=== PATIENT | male | born 1945 | race African-American/Black ===

== ENCOUNTER 2018-02-17 10:34 | Inpatient (IN) | payer MEDICARE, OTHER ==
[~2018-02-17] VITALS: Ht 188 cm; Wt 108.9 kg
[2018-02-17] VITALS (8 sets, daily range): BP systolic 93–139; BP diastolic 47–81
--- NOTE | 2018-02-17 11:04 | Emergency Room Report ---
History of Present Illness General Chief Complaint: Generalized Weakness Source: Patient, EMS Present Illness HPI Patient is a 73-year-old male brought in by EMS after increased generalized weakness and nausea. The patient reports having increased chills for several days. The patient presented increased generalized weakness. He reports having been having increased difficulty with ambulation due to dizziness and lightheadedness. He been having increased difficulty moving his legs. Patient prior heart attack. The patient had been noted to have prior history of prostate disease. The patient is normally followed by physicians at [facility] in [place]. Patient is a marijuana smoker.The patient denies any vomiting. He reports having had generalized body aches. He denies any speech changes. He reports having predominantly left lower extremity weakness. The patient had prior history of diabetes which he takes metformin. He reportedly had prior history of cardiac arrhythmia but is not under any anticoagulation at this time. Patient is noted to have prior history of enlarged prostate with an elevated PSA. Allergies: Coded Allergies: CIPROFLOXACIN (Verified Allergy, Unknown, 02/17/18) PENICILLINS (Verified Allergy, Unknown, 02/17/18) Patient History Past Medical History: see triage record, DM, MT, CAD Reviewed Nursing Documentation: PMH: Agreed; PSxH: Agreed Nursing Documentation-PMH Past Medical History: No History, Except For Hx Cardiac Problems: Yes - AFIB, Hx Hypertension: Yes Hx Diabetes: Yes Review of Systems Constitutional: Reports: chills, fever, weakness Cardiovascular: Reports: palpitations, other - lightheadedness Gastrointestinal: Reports: abdominal pain Genitourinary: Reports: other - dark urine Musculoskeletal: Reports: other - muscle weakness Neurological: Reports: dizziness Endocrine: Reports: excessive sweating, increased thirst Hematologic/Lymphatic: Reports: no symptoms Allergic: Reports: other All Other Systems: negative except mentioned in HPI Physical Exam Vital Signs Date Time Temp Pulse Resp B/P (MAP) Pulse Ox O2 Delivery O2 Flow Rate FiO2 02/17/18 10:36 98.1 110 20 103/53 99 Room Air General Appearance: alert, GCS 15, moderate distress Eyes: bilateral eye PERRL ENT: normal pharynx, normal voice Neck: full range of motion Respiratory: normal inspection, no respiratory distress Cardiovascular #1: tachycardia Gastrointestinal: distended, other - fluid wave Genitourinary: no CVA tenderness Musculoskeletal: other - motor weakness Neurologic: motor weakness Skin: normal inspection, normal color, no rash Procedures Critical Care Time Critical Care Time Patient had a critical medical condition which untreated could potentially result in life or limb threatening injury. Total critical care time excluding procedures approximately 45 minutes. Medical Decision Making Diagnostic Impression: Primary Impression: Episode of generalized weakness Additional Impressions: Hypotension Severe sepsis Acute renal insufficiency Hyponatremia Urinary tract infection Atrial flutter Type II diabetes mellitus ER Course Patient presented for generalized weakness. Differential diagnosis included was not limited to anemia, urinary tract infection, electrolyte abnormality, hypothyroidism, myocardial infarction, myasthenia gravis, dehydration, among others. EKG interpreted by me showed atrial flutter with a variable block rate in the 100. The patient noted be hypotensive.Patient started on IV fluids and antibiotics after blood cultures are obtained. Patient noted to have a some evidence of urinary infection. The patient was noted to have initially stated that he was allergic to penicillin. The patient was given IV Levaquin . The patient subsequently reported that he had a ciprofloxacin allergy. Patient did not appear to have any reaction to Levaquin. Chest x-ray one view read by radiology showed no evident pneumonia with normal cardiac size. The patient was given IV fluids with improvement in his blood pressure. The patient was noted to have type 2 diabetes most recent hemoglobin A1c 5.9. CT the abdomen pelvis read by radiology showed large area of heterogeneous attenuation and extensive colonic diverticulosis generalized sigmoid wall thickening. Dr. Se Tompkisn was contacted for inpatient management. Dr. Ramos was contacted for surgical consult. Labs Test 02/17/18 11:05 02/17/18 12:00 02/17/18 12:17 White Blood Count 26.1 K/UL (4.8-10.8) Red Blood Count 4.61 M/UL (4.70-6.10) Hemoglobin 13.8 G/DL (14.2-18.0) Hematocrit 39.0 % (42.0-52.0) Mean Corpuscular Volume 85 FL (80-99) Mean Corpuscular Hemoglobin 30.0 PG (27.0-31.0) Mean Corpuscular Hemoglobin Concent 35.5 G/DL (32.0-36.0) Red Cell Distribution Width 11.6 % (11.6-14.8) Platelet Count 108 K/UL (150-450) Mean Platelet Volume 10.4 FL (6.5-10.1) Neutrophils (%) (Auto) % (45.0-75.0) Lymphocytes (%) (Auto) % (20.0-45.0) Monocytes (%) (Auto) % (1.0-10.0) Eosinophils (%) (Auto) % (0.0-3.0) Basophils (%) (Auto) % (0.0-2.0) Differential Total Cells Counted 100 Neutrophils % (Manual) 92 % (45-75) Lymphocytes % (Manual) 4 % (20-45) Monocytes % (Manual) 4 % (1-10) Eosinophils % (Manual) 0 % (0-3) Basophils % (Manual) 0 % (0-2) Band Neutrophils 0 % (0-8) Platelet Estimate Decreased Platelet Morphology Normal Red Blood Cell Morphology Normal Prothrombin Time 10.9 SEC (9.30-11.50) Prothromb Time International Ratio 1.0 (0.9-1.1) Activated Partial Thromboplast Time 31 SEC (23-33) Sodium Level 125 MMOL/L (136-145) Potassium Level 3.4 MMOL/L (3.5-5.1) Chloride Level 85 MMOL/L (98-107) Carbon Dioxide Level 19 MMOL/L (21-32) Anion Gap 21 mmol/L (5-15) Blood Urea Nitrogen 81 mg/dL (7-18) Creatinine 3.2 MG/DL (0.55-1.30) Estimat Glomerular Filtration Rate mL/min (>60) Glucose Level 153 MG/DL (74-106) Calcium Level 8.6 MG/DL (8.5-10.1) Phosphorus Level 4.9 MG/DL (2.5-4.9) Magnesium Level 1.6 MG/DL (1.8-2.4) Total Bilirubin 5.8 MG/DL (0.2-1.0) Direct Bilirubin 4.8 MG/DL (0.0-0.3) Aspartate Amino Transf (AST/SGOT) 630 U/L (15-37) Alanine Aminotransferase (ALT/SGPT) 268 U/L (12-78) Alkaline Phosphatase 275 U/L (46-116) Total Creatine Kinase 52 U/L (26-308) Creatine Kinase MB 1.6 NG/ML (0.0-3.6) Creatine Kinase MB Relative Index 3.0 Troponin I 0.023 ng/mL (0.000-0.056) Pro-B-Type Natriuretic Peptide 5555 pg/mL (0-125) Total Protein 6.4 G/DL (6.4-8.2) Albumin 2.0 G/DL (3.4-5.0) Globulin 4.4 g/dL Albumin/Globulin Ratio 0.5 (1.0-2.7) Lipase 214 U/L (73-393) Urine Color [place] Urine Appearance Cloudy Urine pH 5 (4.5-8.0) Urine Specific [place] 1.020 (1.005-1.035) Urine Protein 2+ (NEGATIVE) Urine Glucose (UA) Negative (NEGATIVE) Urine Ketones 1+ (NEGATIVE) Urine Blood 2+ (NEGATIVE) Urine Nitrite Negative (NEGATIVE) Urine Bilirubin 2+ (NEGATIVE) Urine Urobilinogen 8 MG/DL (0.0-1.0) Urine Leukocyte Esterase 1+ (NEGATIVE) EKG Diagnostic Results Rate: normal Rhythm: other - atrail flutter ST Segments: no acute changes Rhythm Strip Diag. Results EP Interpretation: yes Rhythm: no PVC's, no ectopy, other - tachycardia Last Vital Signs Date Time Temp Pulse Resp B/P (MAP) Pulse Ox O2 Delivery O2 Flow Rate FiO2 02/17/18 10:36 98.1 110 20 103/53 99 Room Air Status: improved Disposition: ADMITTED INPATIENT Condition: Critical Robert Butcher MD Feb 17, 2018 11:04
[2018-02-17 11:28] LABS: HEMOGLOBIN 13.8 G/DL (14.2-18.0); MEAN CORPUSCULAR VOLUME 85 FL (80-99); PLATELET COUNT 108 K/UL (150-450); RED BLOOD COUNT 4.61 M/UL (4.70-6.10); RED CELL DISTRIBUTION WIDTH 11.6 % (11.6-14.8)
[2018-02-17] MEDS ORDERED: Ascorbic Acid 500mg tab ORAL SCH (11:30)
[2018-02-17 11:33] LABS: WHITE BLOOD COUNT 26.1 K/UL (4.8-10.8)
[2018-02-17 11:36] LABS: ANION GAP 21 mmol/L (5-15); BLOOD UREA NITROGEN 81 mg/dL (7-18); CALCIUM 8.6 MG/DL (8.5-10.1); CARBON DIOXIDE 19 MMOL/L (21-32); CHLORIDE 85 MMOL/L (98-107); CREATININE 3.2 MG/DL (0.55-1.30); POTASSIUM 3.4 MMOL/L (3.5-5.1); SODIUM 125 MMOL/L (136-145)
[2018-02-17 11:50] LABS: ALANINE AMINOTRANSFERASE 268 U/L (12-78); ALBUMIN/GLOBULIN RATIO 0.5 (1.0-2.7); ALKALINE PHOSPHATASE 275 U/L (46-116); ASPARTATE AMINO TRANSFERASE 630 U/L (15-37); BILIRUBIN,TOTAL 5.8 MG/DL (0.2-1.0); CKMB 1.6 NG/ML (0.0-3.6); CREATINE KINASE 52 U/L (26-308); PHOSPHORUS 4.9 MG/DL (2.5-4.9)
[2018-02-17 11:51] LABS: BILIRUBIN,DIRECT 4.8 MG/DL (0.0-0.3)
[2018-02-17 12:34] LABS: APPEARANCE,URINE CLOUDY; BILIRUBIN, URINE 2+ (NEGATIVE); GLUCOSE, URINE (UA) NEGATIVE (NEGATIVE); KETONES,URINE 1+ (NEGATIVE); LEUKOCYTE ESTERASE ,URINE 1+ (NEGATIVE); NITRITE,URINE NEGATIVE (NEGATIVE); PH,URINE 5 (4.5-8.0); PROTEIN,URINE 2+ (NEGATIVE); UROBILINOGEN,URINE 8 MG/DL (0.0-1.0)
[2018-02-17 12:38] LABS: COLOR,URINE AMBER
--- NOTE | 2018-02-17 12:55 | Diagnostic Imaging Report ---
Indication: Abdominal pain Technique: Spiral acquisitions obtained through the abdomen and pelvis. No oral contrast utilized, per emergency room physician request No IV contrast utilized, per emergency room physician request.. Multiplanar reconstructions were generated. Total dose length product 1041.79 mGycm. CTDIvol(s) 17.73 mGy. Dose reduction achieved using automated exposure control Comparison: None Findings: Lack of IV contrast limits assessment of the solid organs Large area of heterogeneous low attenuation involves most of segments 2 and 3 of the left hepatic lobe, measures 9.8 cm in length by 11.3 cm transverse by 9.2 cm craniocaudad. It demonstrates a small peripheral 10 mm satellite lesion. 2 cysts are seen in segment IVb of the liver, the more anterior measuring 2.7 cm diameter, the more posterior measuring 2.5 cm. 2 subcentimeter low-attenuation lesions are seen in segment 6, too small to characterize. Another such lesion is seen in segment 8. A small cyst is also seen in segment 8. The gallbladder is nondistended, central contents somewhat high in attenuation. No biliary ductal dilatation. The pancreas, spleen, are unremarkable. The right kidney demonstrates a 2 mm renal sinus calcification, which may be calyceal or arterial. No focal renal parenchymal lesions. There is fairly extensive perinephric fat stranding bilaterally. The prostate is enlarged, measuring 6.4 cm transverse by 5.8 cm AP by 6.7 cm craniocaudad, indenting the bladder floor. The bladder is nondistended. Lack of enteric contrast limits assessment of the GI tract There is extensive colonic diverticulosis. There is generalized sigmoid wall thickening. No evidence of diverticulitis. The appendix is normal. There is a tiny fat-containing umbilical hernia. There are small fat-containing bilateral inguinal hernias. The distal esophagus, stomach, duodenum are unremarkable. No small bowel distention. No free or loculated intraperitoneal gas or fluid is evident. The bones are unremarkable. Included lung bases demonstrate posterior dependent atelectatic changes. Impression: Large 9.8 x 11.3 x 9.2 cm heterogeneous area of low-attenuation involving most of the lateral left hepatic lobe. This is not optimally characterized given lack of IV contrast administration. Main differential considerations are either primary or metastatic neoplasm, abscess, large hemangioma. Correlate with clinical findings, consider contrast CT for evaluation if not contraindicated Hepatic cysts. Other smaller low-attenuation liver lesions are too small to characterize, is likely benign simple cysts or bile hamartomas, but metastatic deposits also possibility given the above findings Limited assessment of the GI tract, due to lack of enteric contrast administration Colonic diverticulosis. Generalized sigmoid wall thickening is likely on the basis of associated circular muscle hypertrophy. No evidence of diverticulitis. Prostatomegaly Nonspecific bilateral perinephric fat stranding, suspect on the basis of senescent changes but could indicate acute renal inflammation. Correlate with clinical findings Somewhat high attenuation gallbladder lumen, could indicate gallbladder sludge Nonobstructive 2 mm right renal sinus calcification, versus arterial calcification Other findings as noted, including posterior pulmonary dependent atelectatic changes, tiny fat-containing umbilical and bilateral inguinal hernias The CT scanner at [facility] is accredited by the [employer] and the scans are performed using protocols designed to limit radiation exposure to as low as reasonably achievable to attain images of sufficient resolution adequate for diagnostic evaluation.
[2018-02-17] MEDS ORDERED: Ampicillin/Sulbactam Sod 3 GM in NS 110 ML IVPB ONE (13:30)
--- NOTE | 2018-02-17 15:01 | Diagnostic Imaging Report ---
Indication: Reason For Exam: SOB Technique: One view of the chest Comparison: none Findings: Lungs and pleural spaces are clear. Heart size is normal Impression: No acute process
[2018-02-17] MEDS ORDERED: HydrALAZINE 25mg tab ORAL PRN (17:45)
[2018-02-17] MEDS: Metoprolol Tartrate 12.5mg TAB ORAL SCH (18:37)
--- NOTE | 2018-02-17 18:51 | Consultation ---
History of Present Illness General Date patient seen: Feb 17, 2018 Chief Complaint: Generalized Weakness Present Illness HPI 73 year old male with multiple medical comorbidities including HTN, DM, CAD s/p stent (last in 1997) on ASA, dyslipidemia, and more presented to ED with complaints of generalized weakness, nausea, emesis. States that last week he was in [place] for a few days and felt great. Came to [place] and believed he may have the flu as he was having flu like symptoms. Harrell weak, had chills, possible fevers, nausea, and non bloody emesis. As he did not improve he came to ED for evaluation. In ED noted to have leukocytosis, UTI, abnormal LFT's, RIKY , and CT with large left sided liver mass. surgery called to evaluate. patient seen, chart reviewed, patient examined. Denies history of liver mass or disease. States he has regular doctor visits. Has been well otherwise. Denies pain. No prior surgeries. normal BM's. intermittent SOB and dyspnea. soar throat Allergies: Coded Allergies: CIPROFLOXACIN (Verified Allergy, Unknown, 02/17/18) PENICILLINS (Verified Allergy, Unknown, 02/17/18) Patient History History Provided By: Patient, Medical Record, PMD Healthcare decision maker Aline Price Resuscitation status Advanced Directive on File Past Medical/Surgical History Past Medical/Surgical History: (1) Liver mass, left lobe (2) HTN (hypertension) (3) CAD (coronary artery disease) (4) CAD S/P percutaneous coronary angioplasty (5) Atrial flutter (6) Urinary tract infection (7) Type II diabetes mellitus (8) Hyponatremia (9) Acute renal insufficiency (10) Severe sepsis (11) Hypotension (12) Episode of generalized weakness Review of Systems All Other Systems: negative except mentioned in HPI Physical Exam General Appearance: no apparent distress, alert Lines, tubes and drains: peripheral HEENT: mucous membranes moist, PERRL Neck: normal inspection Respiratory/Chest: normal breath sounds, no respiratory distress, no accessory muscle use Cardiovascular/Chest: normal peripheral pulses, tachycardia Abdomen: soft, no organomegaly, no mass, distended Extremities: normal range of motion, non-tender, normal inspection, no calf tenderness Neurologic: alert, oriented x 3, responsive Last 24 Hour Vital Signs Date Time Temp Pulse Resp B/P (MAP) Pulse Ox O2 Delivery O2 Flow Rate FiO2 02/17/18 18:37 119 139/69 02/17/18 16:25 119 02/17/18 16:00 Room Air 02/17/18 16:00 Room Air 02/17/18 16:00 98.1 100 20 139/69 (92) 96 02/17/18 15:34 109 25 93/60 (71) 97 02/17/18 15:00 97.6 117 24 128/81 (97) 97 02/17/18 14:41 98.6 85 20 120/96 95 Room Air 02/17/18 13:09 97.6 102 20 123/81 98 Room Air 02/17/18 12:30 98.0 97 18 123/81 99 Room Air 02/17/18 11:30 98.2 98 22 113/69 99 Room Air 02/17/18 11:04 98.0 114 24 94/47 Room Air 02/17/18 11:03 114 24 Room Air 100 02/17/18 10:36 98.1 110 20 103/53 99 Room Air Laboratory Tests Test 02/17/18 10:30 02/17/18 11:05 02/17/18 12:00 02/17/18 12:17 Hemoglobin A1c 6.5 % (4.3-6.0) H White Blood Count 26.1 K/UL (4.8-10.8) *H Red Blood Count 4.61 M/UL (4.70-6.10) L Hemoglobin 13.8 G/DL (14.2-18.0) L Hematocrit 39.0 % (42.0-52.0) L Mean Corpuscular Volume 85 FL (80-99) Mean Corpuscular Hemoglobin 30.0 PG (27.0-31.0) Mean Corpuscular Hemoglobin Concent 35.5 G/DL (32.0-36.0) Red Cell Distribution Width 11.6 % (11.6-14.8) Platelet Count 108 K/UL (150-450) L Mean Platelet Volume 10.4 FL (6.5-10.1) H Neutrophils (%) (Auto) % (45.0-75.0) Lymphocytes (%) (Auto) % (20.0-45.0) Monocytes (%) (Auto) % (1.0-10.0) Eosinophils (%) (Auto) % (0.0-3.0) Basophils (%) (Auto) % (0.0-2.0) Differential Total Cells Counted 100 Neutrophils % (Manual) 92 % (45-75) H Lymphocytes % (Manual) 4 % (20-45) L Monocytes % (Manual) 4 % (1-10) Eosinophils % (Manual) 0 % (0-3) Basophils % (Manual) 0 % (0-2) Band Neutrophils 0 % (0-8) Platelet Estimate Decreased L Platelet Morphology Normal Red Blood Cell Morphology Normal Prothrombin Time 10.9 SEC (9.30-11.50) Prothromb Time International Ratio 1.0 (0.9-1.1) Activated Partial Thromboplast Time 31 SEC (23-33) Sodium Level 125 MMOL/L (136-145) L Potassium Level 3.4 MMOL/L (3.5-5.1) L Chloride Level 85 MMOL/L (98-107) L Carbon Dioxide Level 19 MMOL/L (21-32) L Anion Gap 21 mmol/L (5-15) H Blood Urea Nitrogen 81 mg/dL (7-18) H Creatinine 3.2 MG/DL (0.55-1.30) H Estimat Glomerular Filtration Rate mL/min (>60) Glucose Level 153 MG/DL (74-106) H Lactic Acid Level 5.30 mmol/L (0.4-2.0) H 3.00 mmol/L (0.66-2.22) H Calcium Level 8.6 MG/DL (8.5-10.1) Phosphorus Level 4.9 MG/DL (2.5-4.9) Magnesium Level 1.6 MG/DL (1.8-2.4) L Total Bilirubin 5.8 MG/DL (0.2-1.0) H Direct Bilirubin 4.8 MG/DL (0.0-0.3) H Aspartate Amino Transf (AST/SGOT) 630 U/L (15-37) H Alanine Aminotransferase (ALT/SGPT) 268 U/L (12-78) H Alkaline Phosphatase 275 U/L (46-116) H Total Creatine Kinase 52 U/L (26-308) Creatine Kinase MB 1.6 NG/ML (0.0-3.6) Creatine Kinase MB Relative Index 3.0 Troponin I 0.023 ng/mL (0.000-0.056) Pro-B-Type Natriuretic Peptide 5555 pg/mL (0-125) H Total Protein 6.4 G/DL (6.4-8.2) Albumin 2.0 G/DL (3.4-5.0) L Globulin 4.4 g/dL Albumin/Globulin Ratio 0.5 (1.0-2.7) L Lipase 214 U/L (73-393) Urine Color [place] Urine Appearance Cloudy Urine pH 5 (4.5-8.0) Urine Specific [place] 1.020 (1.005-1.035) Urine Protein 2+ (NEGATIVE) H Urine Glucose (UA) Negative (NEGATIVE) Urine Ketones 1+ (NEGATIVE) H Urine Blood 2+ (NEGATIVE) H Urine Nitrite Negative (NEGATIVE) Urine Bilirubin 2+ (NEGATIVE) H Urine Ictotest Positive (NEGATIVE) Urine Urobilinogen 8 MG/DL (0.0-1.0) H Urine Leukocyte Esterase 1+ (NEGATIVE) H Urine RBC 2-4 /HPF (0 - 0) H Urine WBC Tntc /HPF (0 - 0) H Urine Squamous Epithelial Cells Few /LPF (NONE/OCC) Urine Bacteria Many /HPF (NONE) H Height (Feet): 6 Height (Inches): 2.00 Weight (Pounds): 225 Medications Current Medications Medications (Trade) Dose Ordered Sig/[place] Route PRN Reason Start Time Stop Time Status Last Admin Dose Admin Acetaminophen (Tylenol) 650 mg Q6H PRN ORAL For pain 02/17/18 18:00 03/19/18 17:44 Albuterol/ Ipratropium (Albuterol/ Ipratropium) 3 ml Q6H PRN HHN Shortness of Breath 02/17/18 17:30 02/22/18 17:29 Alfuzosin HCl (Uroxatrol) 10 mg DAILY ORAL 02/18/18 09:00 03/20/18 08:59 Aspirin (ASA) 81 mg DAILY ORAL 02/18/18 09:00 03/20/18 08:59 Atorvastatin Calcium (Lipitor) 20 mg BEDTIME ORAL 02/17/18 21:00 03/19/18 20:59 Cefepime HCl 1 gm/ Dextrose 55 ml @ 110 mls/hr Q24H IVPB 02/17/18 20:00 02/24/18 19:59 Clonazepam (KlonoPIN) 0.5 mg Q12H PRN ORAL For Anxiety 02/17/18 18:00 02/24/18 17:59 Cyanocobalamin (Vitamin B-12) 1,000 mcg DAILY ORAL 02/18/18 09:00 03/20/18 08:59 Finasteride (Proscar) 5 mg EVERY OTHER DAY ORAL 02/19/18 09:00 03/21/18 08:59 Fish Oil (Fish Oil) 1,000 mg DAILY ORAL 02/18/18 09:00 03/20/18 08:59 Heparin Sodium (Porcine) (Heparin 5000 units/ml) 5,000 units EVERY 12 HOURS SUBQ 02/17/18 21:00 03/19/18 20:59 Hydralazine HCl (Apresoline) 25 mg Q6H PRN ORAL For High Blood Pressure 02/17/18 17:45 03/19/18 17:44 Hydroxyzine HCl (Vistaril) 10 mg Q8H PRN ORAL Itching 02/17/18 18:00 03/19/18 17:59 Insulin Aspart (NovoLOG) BEFORE MEALS AND HS SUBQ 02/17/18 21:00 03/19/18 20:59 Metoprolol Tartrate (Lopressor) 12.5 mg BID ORAL 02/17/18 18:00 03/19/18 17:59 02/17/18 18:37 Metronidazole 100 ml @ 100 mls/hr Q8HR IVPB 02/17/18 22:00 02/24/18 21:59 Pantoprazole (Protonix) 40 mg DAILY ORAL 02/18/18 09:00 03/20/18 08:59 Psyllium Hydrophilic Mucilloid (Metamucil) 1 pkt DAILY ORAL 02/18/18 09:00 03/20/18 08:59 Sertraline HCl (Zoloft) 100 mg DAILY ORAL 02/18/18 09:00 03/20/18 08:59 Sodium Chloride 1,000 ml @ 40 mls/hr Q24H IVLG 02/17/18 17:41 03/19/18 17:40 02/17/18 18:39 Vancomycin HCl (Vanco rx to dose) 1 ea DAILY PRN MISC Per rx protocol 02/17/18 18:30 03/19/18 18:29 Vancomycin HCl 1 gm/Dextrose 275 ml @ 183.708 mls/hr ONCE IVPB 02/17/18 20:00 02/17/18 22:00 Vitamin D (Vitamin D) 2,000 intlu DAILY ORAL 02/18/18 09:00 03/20/18 08:59 Vitamin E (Vitamin E) 400 intlu DAILY ORAL 02/18/18 09:00 03/20/18 08:59 Assessment/Plan Problem List: (1) Severe sepsis Assessment & Plan: likely etiology urosepsis IV fluids IV abx ID consult ICD Codes: A41.9 - Sepsis, unspecified organism; R65.20 - Severe sepsis without septic shock SNOMED: 71805821 (2) Liver mass, left lobe Assessment & Plan: large left lobe liver mass of unknown etiology CT without contrast will order US and maybe MRI later -trend labs -npo -iv f -iv abx ICD Codes: R16.0 - Hepatomegaly, not elsewhere classified SNOMED: 835257646 Jayden Ramos Feb 17, 2018 18:51
[2018-02-17] MEDS ORDERED: Vancomycin 1gm/D5W 275ml IVPB SCH ×2 (20:00)
[2018-02-17] MEDS: NovoLOG Insulin Flexpen SUBQ SCH (20:28)
[2018-02-17] MEDS: Cefepime HCl 1 GM in D5W 55 ML IVPB SCH (20:29)
[2018-02-17] MEDS ORDERED: Atorvastatin 20mg tab ORAL SCH (21:00)
[2018-02-17] MEDS ORDERED: Heparin 5000 units/ml inj SUBQ SCH ×2 (21:00)
[2018-02-18] VITALS: BP 122/52
[2018-02-18] MEDS: clonazePAM 0.5mg tab ORAL PRN ×2 (00:13→12:20)
[2018-02-18 04:00] VITALS: BP 122/54
[2018-02-18 05:34] LABS: ALANINE AMINOTRANSFERASE 253 U/L (12-78); ALBUMIN 1.8 G/DL (3.4-5.0); ALBUMIN/GLOBULIN RATIO 0.4 (1.0-2.7); ALKALINE PHOSPHATASE 279 U/L (46-116); ANION GAP 11 mmol/L (5-15); ASPARTATE AMINO TRANSFERASE 516 U/L (15-37); BILIRUBIN,TOTAL 6.1 MG/DL (0.2-1.0); BLOOD UREA NITROGEN 85 mg/dL (7-18); CALCIUM 8.2 MG/DL (8.5-10.1); CARBON DIOXIDE 26 MMOL/L (21-32); CHLORIDE 90 MMOL/L (98-107); CREATININE 2.3 MG/DL (0.55-1.30); SODIUM 126 MMOL/L (136-145)
[2018-02-18 05:38] LABS: BILIRUBIN,DIRECT 5.4 MG/DL (0.0-0.3)
[2018-02-18] MEDS: NovoLOG Insulin Flexpen SUBQ SCH ×4 (06:13→21:12)
[2018-02-18 06:35] LABS: HEMOGLOBIN 14.4 G/DL (14.2-18.0); MEAN CORPUSCULAR VOLUME 85 FL (80-99); PLATELET COUNT 82 K/UL (150-450); WHITE BLOOD COUNT 16.6 K/UL (4.8-10.8)
[2018-02-18 08:00] VITALS: BP 154/89
[2018-02-18] MEDS: Aspirin Baby 81mg ORAL SCH (08:52)
[2018-02-18] MEDS: Metoprolol Tartrate 12.5mg TAB ORAL SCH ×2 (08:52→17:28)
[2018-02-18] MEDS: Metamucil Pkt ORAL SCH (08:53)
[2018-02-18] MEDS: Sertraline 100mg tab ORAL SCH (08:53)
[2018-02-18] MEDS: Vitamin B-12 500mcg tab ORAL SCH (08:53)
[2018-02-18] MEDS ORDERED: Vitamin D 1000 IU Tab ORAL SCH (09:00)
[2018-02-18] MEDS ORDERED: Pantoprazole Inj IVP SCH (09:00)
[2018-02-18 10:17] LABS: CREATINE KINASE 35 U/L (26-308); PHOSPHORUS 2.9 MG/DL (2.5-4.9)
[2018-02-18] MEDS: Albuterol/Ipratropium 3ml neb HHN PRN ×2 (11:53→18:57)
[2018-02-18 12:00] VITALS: BP 99/62
--- NOTE | 2018-02-18 12:26 | Diagnostic Imaging Report ---
EXAM: US Abdomen Complete CLINICAL HISTORY: MASS TECHNIQUE: Real-time ultrasound of the abdomen (complete) with image documentation. COMPARISON: CT abdomen and pelvis dated 02/17/18 FINDINGS: Liver: 11.5 x 11.0 x 10.8 cm heterogeneous cystic and solid mass lesion in the left hepatic lobe with internal Doppler flow. Scattered hepatic cysts, largest measuring 4.4 x 3.4 x 2.7 cm in the left hepatic lobe. Gallbladder: Unremarkable. No gallstones. No wall thickening. No pericholecystic fluid. Common bile duct: Common bile duct diameter of 7.1 mm. No stones. No dilation. Pancreas: Unremarkable as visualized. Pancreatic body and tail are obscured by bowel gas. Kidneys: Right kidney length 12.5 cm. Left kidney length 12.7 cm. Normal cortical thickness. No visible parenchymal lesions. No visible stones. No hydronephrosis. Spleen: Spleen diameter of 11.1 cm. Aorta: Visualized portions of the aorta appear unremarkable. Mid abdominal aorta is obscured by bowel gas. Inferior vena cava: Visualized portions of the IVC appear unremarkable. IMPRESSION: 11.5 x 11.0 x 10.8 cm heterogeneous cystic and solid mass lesion in the left hepatic lobe with internal Doppler flow. This is highly concerning for a primary or metastatic malignancy. Recommend further evaluation with contrast-enhanced CT or MRI.
--- NOTE | 2018-02-18 12:29 | Consultation ---
DATE OF CONSULTATION: 02/18/2018 NEPHROLOGY CONSULTATION CONSULTING PHYSICIAN: Mike Kim M.D. ATTENDING PHYSICIAN: Se Tompkins M.D. REASON FOR CONSULTATION: Elevated BUN and creatinine. HISTORY OF PRESENT ILLNESS: This is a 73-year-old male, brought in by the paramedics due to nausea and weakness. The patient has been previously followed by physicians at [facility]. PAST MEDICAL HISTORY: Type 2 diabetes mellitus. MEDICATIONS: Metformin. ALLERGIES: Ciprofloxacin and penicillins. FAMILY HISTORY: Unremarkable. SOCIAL HISTORY: He lives at home. HABITS: Notable for marijuana smoking. REVIEW OF SYSTEMS: HEENT: Hearing and eyesight are normal. ENDOCRINE: Significant for mild type 2 diabetes mellitus. RESPIRATORY: He denies shortness of breath, cough, or hemoptysis. CARDIOVASCULAR: Denies chest pain or palpitations. GASTROINTESTINAL: No history of hematochezia, melena, hematemesis, diarrhea, or constipation. GENITOURINARY: He denies dysuria, frequency, urgency, or hematuria. NEUROLOGIC: No history of stroke, syncope, or Parkinson disease. PHYSICAL EXAMINATION: GENERAL: This is an elderly male, who is in no acute distress. VITAL SIGNS: Blood pressure 154/89, pulse 120, sinus tachycardia, respirations 20, and temperature 98 axillary. HEENT: Head is normocephalic and atraumatic. Pupils are equal, round, and reactive to light and accommodation consensually. NECK: Supple. Trachea midline. There is no lymphadenopathy or thyromegaly. LUNGS: Clear to auscultation and percussion. HEART: Tachycardia. S1, S2. No rubs, murmurs, or gallops. ABDOMEN: Distended, soft, nontender. Bowel sounds were active. EXTREMITIES: No clubbing, cyanosis, or edema. NEUROLOGICAL: He is alert and oriented x4. Cranial nerves II through XII intact. LABORATORY AND ANCILLARY DATA: CBC shows white count initially 26,100, today 16,600, hematocrit . Sodium 126, potassium 3, BUN 85, creatinine 2.3, glucose 154, calcium 8.2. Magnesium not reported. Total bilirubin 6.1 direct bilirubin 5.4. AST 516, ALT 253. CPK not reported. Urinalysis, eunice cloudy urine, 2+ protein, positive ictotest, 2 to 4 rbc's, too numerous to count white blood cells. Imaging reports CT scan of the abdomen and pelvis shows large 9.8 x 11.3 x 9.2 cm heterogeneous area of low attenuation involving most of the lateral left hepatic lobe. Consideration either primary or metastatic neoplasm, abscess or large hemangioma. This study is done without contrast. A 2 mm right renal sinus calcification. ASSESSMENT: 1. Presumed acute renal failure, most likely of ATN type versus nephrotoxic type versus acute rhabdomyolysis. 2. Large liver tumour, etiology and composition unknown. 3. Type 2 diabetes mellitus. PLAN: 1. Continue hydration. 2. Change to more concentrated contents. 3. Check stat CPK level. Thank you, Dr. Tompkins, for letting me to participate in the care of this challenging patient. Mike Kim M.D. DR: ANA LAURA JOB#: [id number] CC:
[2018-02-18] MEDS ORDERED: NS 275ml ONE (13:44)
[2018-02-18] MEDS ORDERED: Tubing IV Secondary IV ONE ×2 (13:44→15:57)
--- NOTE | 2018-02-18 14:22 | General Surgery Progress Note ---
General Surgery-Progress Note Subjective Additional Comments doing better today. no pain. no n/v/f/c. labs slightly improved. exam stable. US noted Objective Last 24 Hour Vital Signs Date Time Temp Pulse Resp B/P (MAP) Pulse Ox O2 Delivery O2 Flow Rate FiO2 02/18/18 12:01 Room Air 02/18/18 12:00 98.3 112 19 99/62 (74) 95 02/18/18 11:53 106 18 99 Room Air 21 02/18/18 11:49 98 02/18/18 11:45 112 22 98 Room Air 21 02/18/18 11:45 36 02/18/18 08:52 120 154/89 02/18/18 08:00 Room Air 02/18/18 08:00 99.0 120 20 154/89 (110) 95 02/18/18 07:53 110 02/18/18 06:47 98 18 Room Air 21 02/18/18 04:00 98.4 118 20 122/54 (76) 95 02/18/18 04:00 Room Air 02/18/18 03:37 112 02/18/18 00:00 98.4 62 18 122/52 (75) 96 02/18/18 00:00 Room Air 02/17/18 23:34 111 02/17/18 20:00 97.9 93 20 112/60 (77) 95 02/17/18 20:00 Room Air 02/17/18 19:46 98 02/17/18 19:38 120 20 Room Air 21 02/17/18 18:37 119 139/69 02/17/18 16:25 119 02/17/18 16:00 Room Air 02/17/18 16:00 Room Air 02/17/18 16:00 98.1 100 20 139/69 (92) 96 02/17/18 15:34 109 25 93/60 (71) 97 02/17/18 15:00 97.6 117 24 128/81 (97) 97 02/17/18 14:41 98.6 85 20 120/96 95 Room Air I&O Intake and Output 02/17/18 02/18/18 19:00 07:00 Intake Total 1530 ml Output Total 0 ml 975 ml Balance 0 ml 555 ml Intake IV Total 980 ml Other 550 ml Output Urine Total 0 ml 975 ml # Voids 2 # Bowel Movements 2 Drains: none Cardiovascular: RSR Respiratory: clear Abdomen: soft, distended, non-tender, present bowel sounds Extremities: no tenderness, no cyanosis Laboratory Tests Test 02/18/18 03:25 02/18/18 03:57 02/18/18 08:30 Phosphorus Level 2.9 MG/DL (2.5-4.9) Magnesium Level 1.7 MG/DL (1.8-2.4) L Total Creatine Kinase 35 U/L (26-308) White Blood Count 16.6 K/UL (4.8-10.8) H Red Blood Count 4.70 M/UL (4.70-6.10) Hemoglobin 14.4 G/DL (14.2-18.0) Hematocrit 40.0 % (42.0-52.0) L Mean Corpuscular Volume 85 FL (80-99) Mean Corpuscular Hemoglobin 30.6 PG (27.0-31.0) Mean Corpuscular Hemoglobin Concent 35.9 G/DL (32.0-36.0) Red Cell Distribution Width 12.0 % (11.6-14.8) Platelet Count 82 K/UL (150-450) L Mean Platelet Volume 11.5 FL (6.5-10.1) H Neutrophils (%) (Auto) % (45.0-75.0) Lymphocytes (%) (Auto) % (20.0-45.0) Monocytes (%) (Auto) % (1.0-10.0) Eosinophils (%) (Auto) % (0.0-3.0) Basophils (%) (Auto) % (0.0-2.0) Differential Total Cells Counted 100 Neutrophils % (Manual) 95 % (45-75) H Lymphocytes % (Manual) 1 % (20-45) L Monocytes % (Manual) 4 % (1-10) Eosinophils % (Manual) 0 % (0-3) Basophils % (Manual) 0 % (0-2) Band Neutrophils 0 % (0-8) Platelet Estimate Decreased L Platelet Morphology Normal Red Blood Cell Morphology Normal Erythrocyte Sedimentation Rate 57 MM/HR (0-20) H Prothrombin Time 11.0 SEC (9.30-11.50) Prothromb Time International Ratio 1.0 (0.9-1.1) Activated Partial Thromboplast Time 32 SEC (23-33) Sodium Level 126 MMOL/L (136-145) L Potassium Level 3.0 MMOL/L (3.5-5.1) L Chloride Level 90 MMOL/L (98-107) L Carbon Dioxide Level 26 MMOL/L (21-32) Anion Gap 11 mmol/L (5-15) Blood Urea Nitrogen 85 mg/dL (7-18) H Creatinine 2.3 MG/DL (0.55-1.30) H Estimat Glomerular Filtration Rate mL/min (>60) Glucose Level 154 MG/DL (74-106) H Lactic Acid Level 2.10 mmol/L (0.4-2.0) H 3.00 mmol/L (0.66-2.22) H Calcium Level 8.2 MG/DL (8.5-10.1) L Total Bilirubin 6.1 MG/DL (0.2-1.0) H Direct Bilirubin 5.4 MG/DL (0.0-0.3) H Aspartate Amino Transf (AST/SGOT) 516 U/L (15-37) H Alanine Aminotransferase (ALT/SGPT) 253 U/L (12-78) H Alkaline Phosphatase 279 U/L (46-116) H C-Reactive Protein, Quantitative 29.7 mg/dL (0.00-0.90) H Total Protein 6.1 G/DL (6.4-8.2) L Albumin 1.8 G/DL (3.4-5.0) L Globulin 4.3 g/dL Albumin/Globulin Ratio 0.4 (1.0-2.7) L Lipase 332 U/L (73-393) Random Vancomycin Level 10.4 ug/mL Plan Problems: (1) Severe sepsis Assessment & Plan: likely etiology urosepsis IV fluids IV abx ID consult (2) Liver mass, left lobe Assessment & Plan: large left lobe liver mass of unknown etiology CT without contrast will order US and maybe MRI later US noted and large mass concerning for malignancy -trend labs -diet as tolerated -iv f -iv abx Jayden Ramos Feb 18, 2018 14:22
--- NOTE | 2018-02-18 15:45 | History and Physical Report ---
DATE OF ADMISSION: 02/17/2018 REASON FOR ADMISSION: Acute renal failure, pancreatitis, atrial flutter. HISTORY OF PRESENT ILLNESS: This is a 73-year-old male, who is fairly confused. The patient presents with possible urosepsis, acute renal failure, severe sepsis, possible left lower lobe liver mass. The patient is seen and evaluated in the emergency room and now admitted for further care and management. The patient is fairly ill at present, unable to give much in the way of history. The patient with multiple comorbidities, overnight the patient with some tachyarrhythmias. The patient with generalized weakness, nausea, emesis, also found to have pancreatitis. The patient may have some flu-like symptoms, felt weak, but at present difficult to fully assess. Surgery called and evaluated. The patient started on IV antibiotics, IV hydration, and kept NPO. PAST MEDICAL HISTORY: As above, hypertension, diabetes, CAD, status post stent, dyslipidemia. MEDICATIONS: Reviewed. ALLERGIES: Reviewed. SOCIAL HISTORY: Unknown at present. PHYSICAL EXAMINATION: GENERAL: The patient is an ill-appearing male. The patient appears to be acutely ill. VITAL SIGNS: Blood pressure 154/89, pulse 120, respirations 20, temperature 99, room air saturation is adequate. HEENT: Negative. Extraocular movements are grossly intact. NECK: Supple. LUNGS: With scattered rhonchi, otherwise clear. CARDIAC: S1 and S2. Tachycardic without murmurs, rubs, or gallops. ABDOMEN: Soft. Minimal tenderness. EXTREMITIES: No cyanosis or clubbing. No significant edema. NEUROLOGIC: Otherwise, confused and nonfocal. LABORATORY DATA: Sodium 126, potassium 3, BUN 85, creatinine 2.3. Liver enzymes elevated. C-reactive protein very high 9.7. Albumin 1.8. White count 16.6, hematocrit 40, and platelets of 82. Tox screen with normal vancomycin. Urinalysis with 2+ blood. IMPRESSION: 1. Acute pancreatitis. 2. Severe sepsis. 3. Hematuria. 4. Hyponatremia. 5. Hypokalemia. 6. Acute on chronic renal failure. 7. Transaminitis. 8. Possible acute hepatitis. 9. Severe protein-calorie malnutrition. 10. Leukocytosis. 11. Concern for severe sepsis. 12. Thrombocytopenia. RECOMMENDATIONS: IV antibiotics, ID evaluation, GI evaluation, Renal evaluation, cardiac evaluation for atrial flutter, rate controlled. We will monitor clinically. Keep NPO. We will monitor pancreatic enzymes and follow laboratories for further changes and interventions. Maintain in [place] for now, but we will consider ICU. The patient is critically ill at present. We will follow up clinically and recommend further changes, interventions, and monitor for further changes, replace potassium, and we will update to a power of [facility]. Se Tompkins M.D. DR: DYAN JOB#: [id number] CC: MALKA
[2018-02-18 16:00] VITALS: BP 107/65
--- NOTE | 2018-02-18 17:59 | General Progress Note ---
Assessment/Plan Assessment/Plan Assessment - Left sided liver mass, r/o CA - Sepsis, r/o UTI vs infected necrotic liver mass - renal failure - hyponatremia - thrombocytopenia, ? DIC, ? cirrhotic - Jaundice, ? due to mass, ? cirrhotic, ? hepatitis/liver failure Recommendations - IV hydration - MRI Tuesday - check tumor markers - check hepatitis serologies - check DIC panel - abx - follow labs and exam - Hold hepatotoxic and non-vital medications Subjective Allergies: Coded Allergies: CIPROFLOXACIN (Verified Allergy, Unknown, 02/17/18) PENICILLINS (Verified Allergy, Unknown, 02/17/18) Objective Last 24 Hour Vital Signs Date Time Temp Pulse Resp B/P (MAP) Pulse Ox O2 Delivery O2 Flow Rate FiO2 02/18/18 17:28 98 122/80 02/18/18 16:00 Room Air 02/18/18 16:00 97.7 110 20 107/65 (79) 95 02/18/18 15:38 124 02/18/18 12:01 Room Air 02/18/18 12:00 98.3 112 19 99/62 (74) 95 02/18/18 11:53 106 18 99 Room Air 21 02/18/18 11:49 98 02/18/18 11:45 112 22 98 Room Air 21 02/18/18 11:45 36 02/18/18 08:52 120 154/89 02/18/18 08:00 Room Air 02/18/18 08:00 99.0 120 20 154/89 (110) 95 02/18/18 07:53 110 02/18/18 06:47 98 18 Room Air 21 02/18/18 04:00 98.4 118 20 122/54 (76) 95 02/18/18 04:00 Room Air 02/18/18 03:37 112 02/18/18 00:00 98.4 62 18 122/52 (75) 96 02/18/18 00:00 Room Air 02/17/18 23:34 111 02/17/18 20:00 97.9 93 20 112/60 (77) 95 02/17/18 20:00 Room Air 02/17/18 19:46 98 02/17/18 19:38 120 20 Room Air 21 02/17/18 18:37 119 139/69 Intake and Output 02/17/18 02/18/18 19:00 07:00 Intake Total 1530 ml Output Total 0 ml 975 ml Balance 0 ml 555 ml Intake IV Total 980 ml Other 550 ml Output Urine Total 0 ml 975 ml # Voids 2 # Bowel Movements 2 Laboratory Tests 02/18/18 03:25: Phosphorus Level 2.9, Magnesium Level 1.7L, Total Creatine Kinase 35 02/18/18 03:57: White Blood Count 16.6H, Red Blood Count 4.70, Hemoglobin 14.4, Hematocrit 40.0L , Mean Corpuscular Volume 85, Mean Corpuscular Hemoglobin 30.6, Mean Corpuscular Hemoglobin Concent 35.9, Red Cell Distribution Width 12.0, Platelet Count 82L, Mean Platelet Volume 11.5H, Neutrophils (%) (Auto) , Lymphocytes (%) (Auto) , Monocytes (%) (Auto) , Eosinophils (%) (Auto) , Basophils (%) (Auto) , Differential Total Cells Counted 100, Neutrophils % (Manual) 95H, Lymphocytes % (Manual) 1L, Monocytes % (Manual) 4, Eosinophils % (Manual) 0, Basophils % ( Manual) 0, Band Neutrophils 0, Platelet Estimate DecreasedL, Platelet Morphology Normal, Red Blood Cell Morphology Normal, Erythrocyte Sedimentation Rate 57H, Prothrombin Time 11.0, Prothromb Time International Ratio 1.0, Activated Partial Thromboplast Time 32, Sodium Level 126L, Potassium Level 3.0L , Chloride Level 90L, Carbon Dioxide Level 26, Anion Gap 11, Blood Urea Nitrogen 85H, Creatinine 2.3H, Estimat Glomerular Filtration Rate , Glucose Level 154H, Lactic Acid Level 2.10H, Calcium Level 8.2L, Total Bilirubin 6.1H, Direct Bilirubin 5.4H, Aspartate Amino Transf (AST/SGOT) 516H, Alanine Aminotransferase (ALT/SGPT) 253H, Alkaline Phosphatase 279H, C-Reactive Protein , Quantitative 29.7H, Total Protein 6.1L, Albumin 1.8L, Globulin 4.3, Albumin/ Globulin Ratio 0.4L, Lipase 332, Random Vancomycin Level 10.4 02/18/18 08:30: Lactic Acid Level 3.00H Height (Feet): 6 Height (Inches): 2.00 Weight (Pounds): 229 Jaylyn Parikh MD Feb 18, 2018 17:59
[2018-02-18] MEDS: Cefepime HCl 1 GM in D5W 55 ML IVPB SCH (19:53)
[2018-02-18 20:00] VITALS: BP 102/68
[2018-02-18] MEDS ORDERED: Vancomycin 1 GM in NS 275 ML IVPB SCH (20:00)
--- NOTE | 2018-02-18 22:15 | Consultation ---
DATE OF CONSULTATION: 02/18/2018 GASTROENTEROLOGY CONSULTATION CONSULTING PHYSICIAN: Jaylyn Parikh M.D. REFERRING PHYSICIAN: Se Tompkins M.D. CHIEF COMPLAINT: I was asked to see this patient by Dr. Se Tompkins for evaluation of liver issues. HISTORY OF PRESENT ILLNESS: The patient is a pleasant 73-year-old man, who comes into the hospital after feeling ill. The history is somewhat vague, but the states that for about a week or so, he has had some cough and upper respiratory-type symptoms, but seemed weaker and darker in the urine. They are here from [place] and living until holidays and they came to emergency room where he was found to be in jaundice and had jaundice, urinary tract infection, shock, and renal failure. The patient has been placed on antibiotics and apparently looks a lot more better today. The patient only drinks 1 or 2 alcoholic beverages a month and he has no history of liver disease. He also has no family history of liver disease. He had some stable medications and not apparently new. He states he knew he had a "spot" in his liver "before," but he is not aware of the details. He has some other medical problems, which are outlined below. PAST MEDICAL HISTORY: History of hypertension, diabetes, coronary artery disease, status post stent placement, history of dyslipidemia. FAMILY HISTORY: Negative for gastrointestinal disorders. SOCIAL HISTORY: The patient is . He smokes marijuana daily, but only drinks once or twice a month. He lives with his in [place]. ALLERGIES: None. REVIEW OF SYSTEMS: Otherwise negative. PHYSICAL EXAMINATION: GENERAL: This is a pleasant man, seen in his room with his at bedside. HEENT: Normocephalic and atraumatic. Sclerae were icteric. Oropharynx clear. NECK: Supple. CHEST: Clear to auscultation. CARDIOVASCULAR: Regular rate. ABDOMEN: Soft. Good bowel sounds. There is some mild hepatomegaly on the medial side of the liver. EXTREMITIES: Revealed no edema. LABORATORY AND DIAGNOSTIC DATA: Laboratory and CT scan was noted. ASSESSMENT: This patient presents with multiple issues simultaneously. He has still some sepsis and lactic acidosis, which may be due to his urinary tract infection. Alternatively, the imaging studies show a large left-sided liver mass with solid cystic components and this may somehow be a tumor, but tumor necrosis and possibly even an infection with necrosis is possible. The patient should be placed on broad-spectrum antibiotics as the workup is underway. He also has some degree of thrombocytopenia which may be due to disseminated intravascular coagulation, however, it could be possibly cirrhotic and rhomboids. He has renal failure, which will hopefully be reversible with IV fluids. Likewise, he has hyponatremia which should be reversible. His noncontrast CT is suboptimal and therefore, he can undergo MRI of the liver on Tuesday once he is more stabilized to evaluate the lesion. In the meantime, his tumor markers would be checked and his hepatitis markers would be checked for underlying disease. RECOMMENDATIONS: Per above discussion and per orders written in the chart. Thank you for asking me to participate in the care of this patient. Jaylyn Parikh M.D. DR: Nadia JOB#: [id number] CC: MALKA
[2018-02-19] VITALS (10 sets, daily range): BP systolic 74–151; BP diastolic 45–80
[2018-02-19] MEDS: clonazePAM 0.5mg tab ORAL PRN ×2 (00:29→12:39)
[2018-02-19 04:50] LABS: HEMATOCRIT 37.3 % (42.0-52.0); HEMOGLOBIN 12.9 G/DL (14.2-18.0); MEAN CORPUSCULAR VOLUME 84 FL (80-99); PLATELET COUNT 58 K/UL (150-450); RED BLOOD COUNT 4.43 M/UL (4.70-6.10); WHITE BLOOD COUNT 15.4 K/UL (4.8-10.8)
[2018-02-19 05:21] LABS: ALANINE AMINOTRANSFERASE 210 U/L (12-78); ALBUMIN 1.7 G/DL (3.4-5.0); ALBUMIN/GLOBULIN RATIO 0.4 (1.0-2.7); ALKALINE PHOSPHATASE 248 U/L (46-116); AMYLASE 48 U/L (25-115); ANION GAP 9 mmol/L (5-15); ASPARTATE AMINO TRANSFERASE 375 U/L (15-37); BILIRUBIN,TOTAL 6.7 MG/DL (0.2-1.0); BLOOD UREA NITROGEN 65 mg/dL (7-18); CALCIUM 8.2 MG/DL (8.5-10.1); CARBON DIOXIDE 26 MMOL/L (21-32); CHLORIDE 92 MMOL/L (98-107); CREATININE 1.6 MG/DL (0.55-1.30); POTASSIUM 3.2 MMOL/L (3.5-5.1); SODIUM 126 MMOL/L (136-145)
[2018-02-19 05:23] LABS: BILIRUBIN,DIRECT 5.6 MG/DL (0.0-0.3)
[2018-02-19 05:51] LABS: INR 1.1 (0.9-1.1)
[2018-02-19] MEDS: NovoLOG Insulin Flexpen SUBQ SCH ×4 (06:30→21:00)
--- NOTE | 2018-02-19 07:53 | General Progress Note ---
Assessment/Plan Assessment/Plan IMPRESSION: 1. Acute pancreatitis. 2. Severe sepsis. 3. Hematuria. 4. Hyponatremia. 5. Hypokalemia. 6. Acute on chronic renal failure. 7. Transaminitis. 8. Possible acute hepatitis. 9. Severe protein-calorie malnutrition. 10. Leukocytosis. 11. Concern for severe sepsis. 12. Thrombocytopenia. 13. liver mass 14. Atrial flutter PLAN IV antibiotics IV hydration NPO MRI all consultants appreciated cards called still remains ill impression, plan, and exam edited and reviewed in detail care discussed with RN Subjective Allergies: Coded Allergies: CIPROFLOXACIN (Verified Allergy, Unknown, 02/17/18) PENICILLINS (Verified Allergy, Unknown, 02/17/18) Subjective all reviewed events noted and reviewed Objective Last 24 Hour Vital Signs Date Time Temp Pulse Resp B/P (MAP) Pulse Ox O2 Delivery O2 Flow Rate FiO2 02/19/18 04:00 117 02/19/18 04:00 Room Air 02/19/18 04:00 98.8 110 20 151/71 (97) 97 02/19/18 00:00 98.4 99 20 151/80 (103) 97 02/19/18 00:00 105 02/19/18 00:00 Room Air 02/18/18 20:00 98.5 82 24 102/68 (79) 97 02/18/18 20:00 107 02/18/18 20:00 Room Air 02/18/18 19:10 82 18 100 Room Air 02/18/18 19:09 36 02/18/18 19:09 79 18 Room Air 02/18/18 18:57 79 20 97 Room Air 21 02/18/18 17:28 98 122/80 02/18/18 16:00 Room Air 02/18/18 16:00 97.7 110 20 107/65 (79) 95 02/18/18 15:38 124 02/18/18 12:01 Room Air 02/18/18 12:00 98.3 112 19 99/62 (74) 95 02/18/18 11:53 106 18 99 Room Air 02/18/18 11:49 98 02/18/18 11:45 112 22 98 Room Air 21 02/18/18 11:45 36 02/18/18 08:52 120 154/89 02/18/18 08:00 Room Air 02/18/18 08:00 99.0 120 20 154/89 (110) 95 02/18/18 07:53 110 Intake and Output 02/18/18 02/19/18 19:00 07:00 Intake Total 1688.75 ml 1750 ml Output Total 500 ml 1300 ml Balance 1188.75 ml 450 ml Intake Oral 450 ml 500 ml IV Total 1238.75 ml 1250 ml Output Urine Total 500 ml 1300 ml Laboratory Tests 02/18/18 08:30: Lactic Acid Level 3.00H 02/19/18 03:34: White Blood Count 15.4H, Red Blood Count 4.43L, Hemoglobin 12.9L, Hematocrit 37.3L, Mean Corpuscular Volume 84, Mean Corpuscular Hemoglobin 29.2, Mean Corpuscular Hemoglobin Concent 34.7, Red Cell Distribution Width 12.0, Platelet Count 58L, Mean Platelet Volume 13.5H, Neutrophils (%) (Auto) , Lymphocytes (%) (Auto) , Monocytes (%) (Auto) , Eosinophils (%) (Auto) , Basophils (%) (Auto) , Neutrophils % (Manual) [Pending], Lymphocytes % (Manual) [Pending], Platelet Estimate [Pending], Platelet Morphology [Pending], Prothrombin Time 11.4, Prothromb Time International Ratio 1.1, Fibrinogen 848H, Fibrin Degradation Products, Quant [Pending], Sodium Level 126L, Potassium Level 3.2L, Chloride Level 92L, Carbon Dioxide Level 26, Anion Gap 9, Blood Urea Nitrogen 65H, Creatinine 1.6H, Estimat Glomerular Filtration Rate , Glucose Level 167H, Calcium Level 8.2L, Total Bilirubin 6.7H, Direct Bilirubin 5.6H, Aspartate Amino Transf (AST/SGOT) 375H, Alanine Aminotransferase (ALT/SGPT) 210H, Alkaline Phosphatase 248H, Ammonia < 10L, Total Protein 5.9L, Albumin 1.7L, Globulin 4.2, Albumin/Globulin Ratio 0.4L, Amylase Level 48, Lipase 375, Alpha Fetoprotein [Pending], Carcinoembryonic Antigen [Pending], CA 19-9 Antigen [ Pending], Hepatitis A IgM Antibody [Pending], Hepatitis B Surface Antigen [ Pending], Hepatitis B Core IgM Antibody [Pending], Hepatitis C Antibody [Pending ] Height (Feet): 6 Height (Inches): 2.00 Weight (Pounds): 229 Objective GENERAL: The patient is an ill-appearing male. The patient appears to be acutely ill. HEENT: Negative. Extraocular movements are grossly intact. NECK: Supple. LUNGS: minimal rhonchi, otherwise clear. CARDIAC: S1 and S2. RRR without murmurs, rubs, or gallops. ABDOMEN: Soft. Minimal tenderness. EXTREMITIES: No cyanosis or clubbing. No significant edema. NEUROLOGIC: Otherwise, confused and nonfocal. Se Tompkins MD Feb 19, 2018 07:53
--- NOTE | 2018-02-19 08:28 | Nephrology Progress Note ---
Assessment/Plan Plan ARF - no labs. CPK level yesterday 395. Awaiting lab results!!! Subjective Subjective No new c/o Objective Objective Last 24 Hour Vital Signs Date Time Temp Pulse Resp B/P (MAP) Pulse Ox O2 Delivery O2 Flow Rate FiO2 02/19/18 04:00 117 02/19/18 04:00 Room Air 02/19/18 04:00 98.8 110 20 151/71 (97) 97 02/19/18 00:00 98.4 99 20 151/80 (103) 97 02/19/18 00:00 105 02/19/18 00:00 Room Air 02/18/18 20:00 98.5 82 24 102/68 (79) 97 02/18/18 20:00 107 02/18/18 20:00 Room Air 02/18/18 19:10 82 18 100 Room Air 21 02/18/18 19:09 36 02/18/18 19:09 79 18 Room Air 21 02/18/18 18:57 79 20 97 Room Air 21 02/18/18 17:28 98 122/80 02/18/18 16:00 Room Air 02/18/18 16:00 97.7 110 20 107/65 (79) 95 02/18/18 15:38 124 02/18/18 12:01 Room Air 02/18/18 12:00 98.3 112 19 99/62 (74) 95 02/18/18 11:53 106 18 99 Room Air 21 02/18/18 11:49 98 02/18/18 11:45 112 22 98 Room Air 21 02/18/18 11:45 36 02/18/18 08:52 120 154/89 Intake and Output 02/18/18 02/19/18 19:00 07:00 Intake Total 1688.75 ml 1900 ml Output Total 500 ml 1300 ml Balance 1188.75 ml 600 ml Intake Oral 450 ml 500 ml IV Total 1238.75 ml 1400 ml Output Urine Total 500 ml 1300 ml Laboratory Tests 02/18/18 08:30: Lactic Acid Level 3.00H 02/19/18 03:34: White Blood Count 15.4H, Red Blood Count 4.43L, Hemoglobin 12.9L, Hematocrit 37.3L, Mean Corpuscular Volume 84, Mean Corpuscular Hemoglobin 29.2, Mean Corpuscular Hemoglobin Concent 34.7, Red Cell Distribution Width 12.0, Platelet Count 58L, Mean Platelet Volume 13.5H, Neutrophils (%) (Auto) , Lymphocytes (%) (Auto) , Monocytes (%) (Auto) , Eosinophils (%) (Auto) , Basophils (%) (Auto) , Differential Total Cells Counted 100, Neutrophils % (Manual) 96H, Lymphocytes % (Manual) 3L, Monocytes % (Manual) 1, Eosinophils % (Manual) 0, Basophils % ( Manual) 0, Band Neutrophils 0, Platelet Estimate DecreasedL, Platelet Morphology Normal, Red Blood Cell Morphology Normal, Prothrombin Time 11.4, Prothromb Time International Ratio 1.1, Fibrinogen 848H, Fibrin Degradation Products, Quant [Pending], Sodium Level 126L, Potassium Level 3.2L, Chloride Level 92L, Carbon Dioxide Level 26, Anion Gap 9, Blood Urea Nitrogen 65H, Creatinine 1.6H, Estimat Glomerular Filtration Rate , Glucose Level 167H, Calcium Level 8.2L, Total Bilirubin 6.7H, Direct Bilirubin 5.6H, Aspartate Amino Transf (AST/SGOT) 375H, Alanine Aminotransferase (ALT/SGPT) 210H, Alkaline Phosphatase 248H, Ammonia < 10L, Total Protein 5.9L, Albumin 1.7L, Globulin 4.2, Albumin/Globulin Ratio 0.4L, Amylase Level 48, Lipase 375, Alpha Fetoprotein [Pending], Carcinoembryonic Antigen [Pending], CA 19-9 Antigen [ Pending], Hepatitis A IgM Antibody [Pending], Hepatitis B Surface Antigen [ Pending], Hepatitis B Core IgM Antibody [Pending], Hepatitis C Antibody [Pending ] Height (Feet): 6 Height (Inches): 2.00 Weight (Pounds): 229 Objective Cv RR Lungs CTA Abd SNT. BS + E No cce Mike Kim MD Feb 19, 2018 08:28
--- NOTE | 2018-02-19 09:04 | Diagnostic Imaging Report ---
EXAM: XR Chest, 1 View CLINICAL HISTORY: SOB TECHNIQUE: Frontal view of the chest. COMPARISON: CT abdomen and pelvis dated 02/17/18 FINDINGS: Lungs: Unremarkable. The lungs appear clear. No confluent pulmonary opacities. Pleural space: Unremarkable. The costophrenic angles are sharp. No visible pneumothorax. Heart: Unremarkable. No cardiomegaly. Mediastinum: Unremarkable. Bones/joints: Unremarkable. Vasculature: Atherosclerotic calcifications are noted within the aortic arch. Tubes, lines and devices: EKG leads overlie the thorax. IMPRESSION: No acute findings.
[2018-02-19] MEDS: Metoprolol Tartrate 12.5mg TAB ORAL SCH ×2 (09:40→17:23)
[2018-02-19] MEDS: Aspirin Baby 81mg ORAL SCH (09:40)
[2018-02-19] MEDS: Sertraline 100mg tab ORAL SCH (09:41)
[2018-02-19] MEDS: Vitamin B-12 500mcg tab ORAL SCH (09:42)
[2018-02-19] MEDS: Metamucil Pkt ORAL SCH (09:42)
[2018-02-19] MEDS ORDERED: NS 275ml ONE (09:46)
[2018-02-19 10:02] LABS: CREATINE KINASE 22 U/L (26-308)
[2018-02-19] MEDS: Albuterol/Ipratropium 3ml neb HHN PRN ×2 (10:26→20:59)
--- NOTE | 2018-02-19 11:56 | Cardiology Report ---
APPROVED REPORT EKG Measurement Heart [id number] Atrial flutter with variable AV block Inferior infarct, age undetermined Abnormal ECG
--- NOTE | 2018-02-19 13:33 | General Progress Note ---
Assessment/Plan Assessment/Plan Assessment - Left sided solid/cystic liver mass, r/o CA - Sepsis, UTI vs infected necrotic liver mass - renal failure - improving - hyponatremia - on saline - thrombocytopenia, ? DIC, ? cirrhotic - Jaundice, ? due to mass, ? cirrhotic, ? hepatitis/liver failure Recommendations - IV hydration - MRI Tuesday - check tumor markers - pending - check hepatitis serologies - pending - abx - follow labs and exam Subjective Allergies: Coded Allergies: CIPROFLOXACIN (Verified Allergy, Unknown, 02/17/18) PENICILLINS (Verified Allergy, Unknown, 02/17/18) Subjective More restless today now tachycardic low grade temp no clear focal complaints except urge to urinate Objective Last 24 Hour Vital Signs Date Time Temp Pulse Resp B/P (MAP) Pulse Ox O2 Delivery O2 Flow Rate FiO2 02/19/18 12:16 126 02/19/18 12:00 Room Air 02/19/18 12:00 100.1 127 21 118/58 (78) 96 02/19/18 10:26 82 18 Room Air 02/19/18 09:40 116 120/70 02/19/18 09:32 98.1 116 22 120/70 (87) 96 02/19/18 08:00 Room Air 02/19/18 08:00 113 02/19/18 08:00 98.1 116 22 120/70 (87) 96 02/19/18 04:00 117 02/19/18 04:00 Room Air 02/19/18 04:00 98.8 110 20 151/71 (97) 97 02/19/18 00:00 98.4 99 20 151/80 (103) 97 02/19/18 00:00 105 02/19/18 00:00 Room Air 02/18/18 20:00 98.5 82 24 102/68 (79) 97 02/18/18 20:00 107 02/18/18 20:00 Room Air 02/18/18 19:10 82 18 100 Room Air 21 02/18/18 19:09 36 02/18/18 19:09 79 18 Room Air 21 02/18/18 18:57 79 20 97 Room Air 21 02/18/18 17:28 98 122/80 02/18/18 16:00 Room Air 02/18/18 16:00 97.7 110 20 107/65 (79) 95 02/18/18 15:38 124 Intake and Output 02/18/18 02/19/18 19:00 07:00 Intake Total 1688.75 ml 1900 ml Output Total 500 ml 1300 ml Balance 1188.75 ml 600 ml Intake Oral 450 ml 500 ml IV Total 1238.75 ml 1400 ml Output Urine Total 500 ml 1300 ml Laboratory Tests 02/19/18 03:34: White Blood Count 15.4H, Red Blood Count 4.43L, Hemoglobin 12.9L, Hematocrit 37.3L, Mean Corpuscular Volume 84, Mean Corpuscular Hemoglobin 29.2, Mean Corpuscular Hemoglobin Concent 34.7, Red Cell Distribution Width 12.0, Platelet Count 58L, Mean Platelet Volume 13.5H, Neutrophils (%) (Auto) , Lymphocytes (%) (Auto) , Monocytes (%) (Auto) , Eosinophils (%) (Auto) , Basophils (%) (Auto) , Differential Total Cells Counted 100, Neutrophils % (Manual) 96H, Lymphocytes % (Manual) 3L, Monocytes % (Manual) 1, Eosinophils % (Manual) 0, Basophils % ( Manual) 0, Band Neutrophils 0, Platelet Estimate DecreasedL, Platelet Morphology Normal, Red Blood Cell Morphology Normal, Prothrombin Time 11.4, Prothromb Time International Ratio 1.1, Fibrinogen 848H, Fibrin Degradation Products, Quant [Pending], Sodium Level 126L, Potassium Level 3.2L, Chloride Level 92L, Carbon Dioxide Level 26, Anion Gap 9, Blood Urea Nitrogen 65H, Creatinine 1.6H, Estimat Glomerular Filtration Rate , Glucose Level 167H, Calcium Level 8.2L, Total Bilirubin 6.7H, Direct Bilirubin 5.6H, Aspartate Amino Transf (AST/SGOT) 375H, Alanine Aminotransferase (ALT/SGPT) 210H, Alkaline Phosphatase 248H, Ammonia < 10L, Total Protein 5.9L, Albumin 1.7L, Globulin 4.2, Albumin/Globulin Ratio 0.4L, Amylase Level 48, Lipase 375, Alpha Fetoprotein [Pending], Carcinoembryonic Antigen [Pending], CA 19-9 Antigen [ Pending], Hepatitis A IgM Antibody [Pending], Hepatitis B Surface Antigen [ Pending], Hepatitis B Core IgM Antibody [Pending], Hepatitis C Antibody [Pending ] 02/19/18 08:48: Total Creatine Kinase 22L Height (Feet): 6 Height (Inches): 2.00 Weight (Pounds): 229 Objective WDWN NCAT supple CTA RR, tachy Abd soft ND NT no edema neuro/psych restless Jaylyn Parikh MD Feb 19, 2018 13:33
[2018-02-19] MEDS ORDERED: Gadavist 7.5mMol/7.5ml vial IV PRN ×2 (13:45)
--- NOTE | 2018-02-19 17:41 | General Surgery Progress Note ---
General Surgery-Progress Note Subjective Additional Comments no acute events. resting comfortable. labs noted. Objective Last 24 Hour Vital Signs Date Time Temp Pulse Resp B/P (MAP) Pulse Ox O2 Delivery O2 Flow Rate FiO2 02/19/18 17:24 Nasal Cannula 5.0 40 02/19/18 17:23 94 74/45 02/19/18 16:30 98.4 94 21 74/45 (55) 96 02/19/18 16:00 110 02/19/18 16:00 Room Air 02/19/18 12:16 126 02/19/18 12:00 Room Air 02/19/18 12:00 100.1 127 21 118/58 (78) 96 02/19/18 10:26 82 18 Room Air 21 02/19/18 09:40 116 120/70 02/19/18 09:32 98.1 116 22 120/70 (87) 96 02/19/18 08:00 Room Air 02/19/18 08:00 113 02/19/18 08:00 98.1 116 22 120/70 (87) 96 02/19/18 04:00 117 02/19/18 04:00 Room Air 02/19/18 04:00 98.8 110 20 151/71 (97) 97 02/19/18 00:00 98.4 99 20 151/80 (103) 97 02/19/18 00:00 105 02/19/18 00:00 Room Air 02/18/18 20:00 98.5 82 24 102/68 (79) 97 02/18/18 20:00 107 02/18/18 20:00 Room Air 02/18/18 19:10 82 18 100 Room Air 21 02/18/18 19:09 36 02/18/18 19:09 79 18 Room Air 21 02/18/18 18:57 79 20 97 Room Air 21 I&O Intake and Output 02/18/18 02/19/18 19:00 07:00 Intake Total 1688.75 ml 1900 ml Output Total 500 ml 1300 ml Balance 1188.75 ml 600 ml Intake Oral 450 ml 500 ml IV Total 1238.75 ml 1400 ml Output Urine Total 500 ml 1300 ml Drains: none Cardiovascular: RSR Respiratory: clear Abdomen: soft, distended, non-tender, present bowel sounds Extremities: edema, no tenderness, no cyanosis Laboratory Tests Test 02/19/18 03:34 02/19/18 08:48 White Blood Count 15.4 K/UL (4.8-10.8) H Red Blood Count 4.43 M/UL (4.70-6.10) L Hemoglobin 12.9 G/DL (14.2-18.0) L Hematocrit 37.3 % (42.0-52.0) L Mean Corpuscular Volume 84 FL (80-99) Mean Corpuscular Hemoglobin 29.2 PG (27.0-31.0) Mean Corpuscular Hemoglobin Concent 34.7 G/DL (32.0-36.0) Red Cell Distribution Width 12.0 % (11.6-14.8) Platelet Count 58 K/UL (150-450) L Mean Platelet Volume 13.5 FL (6.5-10.1) H Neutrophils (%) (Auto) % (45.0-75.0) Lymphocytes (%) (Auto) % (20.0-45.0) Monocytes (%) (Auto) % (1.0-10.0) Eosinophils (%) (Auto) % (0.0-3.0) Basophils (%) (Auto) % (0.0-2.0) Differential Total Cells Counted 100 Neutrophils % (Manual) 96 % (45-75) H Lymphocytes % (Manual) 3 % (20-45) L Monocytes % (Manual) 1 % (1-10) Eosinophils % (Manual) 0 % (0-3) Basophils % (Manual) 0 % (0-2) Band Neutrophils 0 % (0-8) Platelet Estimate Decreased L Platelet Morphology Normal Red Blood Cell Morphology Normal Prothrombin Time 11.4 SEC (9.30-11.50) Prothromb Time International Ratio 1.1 (0.9-1.1) Fibrinogen 848 mg/dL (200-400) H Fibrin Degradation Products, Quant Pending Sodium Level 126 MMOL/L (136-145) L Potassium Level 3.2 MMOL/L (3.5-5.1) L Chloride Level 92 MMOL/L (98-107) L Carbon Dioxide Level 26 MMOL/L (21-32) Anion Gap 9 mmol/L (5-15) Blood Urea Nitrogen 65 mg/dL (7-18) H Creatinine 1.6 MG/DL (0.55-1.30) H Estimat Glomerular Filtration Rate mL/min (>60) Glucose Level 167 MG/DL (74-106) H Calcium Level 8.2 MG/DL (8.5-10.1) L Total Bilirubin 6.7 MG/DL (0.2-1.0) H Direct Bilirubin 5.6 MG/DL (0.0-0.3) H Aspartate Amino Transf (AST/SGOT) 375 U/L (15-37) H Alanine Aminotransferase (ALT/SGPT) 210 U/L (12-78) H Alkaline Phosphatase 248 U/L (46-116) H Ammonia < 10 umol/L (11-32) L Total Protein 5.9 G/DL (6.4-8.2) L Albumin 1.7 G/DL (3.4-5.0) L Globulin 4.2 g/dL Albumin/Globulin Ratio 0.4 (1.0-2.7) L Amylase Level 48 U/L (25-115) Lipase 375 U/L (73-393) Alpha Fetoprotein Pending Carcinoembryonic Antigen Pending CA 19-9 Antigen Pending Hepatitis A IgM Antibody Pending Hepatitis B Surface Antigen Pending Hepatitis B Core IgM Antibody Pending Hepatitis C Antibody Pending Total Creatine Kinase 22 U/L (26-308) L Plan Problems: (1) Severe sepsis Assessment & Plan: likely etiology urosepsis IV fluids IV abx ID consult (2) Liver mass, left lobe Assessment & Plan: large left lobe liver mass of unknown etiology CT without contrast will order US and maybe MRI later US noted and large mass concerning for malignancy -trend labs -diet as tolerated -iv f -iv abx Jayden Ramos Feb 19, 2018 17:41
[2018-02-19] MEDS: Cefepime HCl 1 GM in D5W 55 ML IVPB SCH (20:42)
[2018-02-20] VITALS: BP 107/60
[2018-02-20] MEDS: clonazePAM 0.5mg tab ORAL PRN ×3 (02:36→21:03)
--- NOTE | 2018-02-20 02:45 | Progress Note ---
DATE: 02/19/2018 Cardiology Progress Note SUBJECTIVE: The patient is more alert. Less short of breath. His is at bedside. Monitor now with sinus with episodes of atrial fibrillation. OBJECTIVE: VITAL SIGNS: T-max 100.1, blood pressure 118/58, heart rate 82 to 127, and respiratory 18 to 21. HEENT: Mild icterus. LUNGS: Diminished breath sounds. HEART: Regular rhythm. Rapid rate. Normal S1 and S2. ABDOMEN: Soft. No ascites. No edema. IMPRESSION: 1. Liver mass. 2. Sepsis due to urinary tract infection. 3. Acute on chronic renal failure. 4. Hyponatremia. 5. Hypovolemia. 6. Thrombocytopenia. 7. Paroxysmal atrial flutter. 8. Acute diastolic congestive heart failure. PLAN: 1. Advance beta-shanika. 2. Await MRI. 3. Continue hydration. 4. Empiric antibiotics. 5. Await echocardiogram. Lex Barros M.D. DR: EMMA JOB#: [id number] CC:
--- NOTE | 2018-02-20 03:00 | Consultation ---
DATE OF CONSULTATION: 02/20/2018 CARDIOLOGY CONSULTATION REQUESTING PHYSICIAN: Se Tompkins M.D. REASON FOR CONSULTATION: Atrial flutter. HISTORY OF PRESENT ILLNESS: This 73-year-old male presented to the hospital yesterday with lower lobe liver mass and sepsis complicating urinary tract infection with renal failure as well. He was noted to have an abnormal cardiac rhythm prompting this consultation. The patient was quite ill on presentation with several days of nausea, vomiting, and anorexia. He was noted to have elevated pancreatic enzymes. He is NPO and on IV fluids. I have been asked to assist with cardiovascular management at this time. PAST MEDICAL HISTORY: Coronary artery disease, history of coronary stent, hyperlipidemia, type 2 diabetes mellitus, and hypertension. SOCIAL HISTORY: Notable for daily marijuana. No illicit drug use. Alcohol, on rare occasion. Nonsmoker. ALLERGIES: None. MEDICATIONS: Reviewed and reconciled. REVIEW OF SYSTEMS: All systems negative other than noted above. PHYSICAL EXAMINATION: VITAL SIGNS: Blood pressure 107/65, pulse 110, respiratory rate 20, and afebrile. HEENT: Conjunctivae are pink. Oropharynx clear. Sclerae are anicteric. NECK: Supple. Jugular venous pressure normal. LUNGS: A few rhonchi. CARDIAC: Irregularly irregular rhythm. Normal S1 and S2. No new murmur. ABDOMEN: Soft with some tenderness in the midepigastric region and palpable liver. EXTREMITIES: Without edema. IMPRESSION: 1. Paroxysmal atrial flutter/fibrillation. 2. Probable pneumonia. 3. Sepsis. 4. Lactic acidosis. 5. Urinary tract infection. 6. Painless jaundice. PLAN: 1. Antimicrobials. 2. Volume support by IV route. 3. No current plan for anticoagulation. 4. Titrate beta-shanika. 5. Cautious use of antiplatelet therapy. 6. Reassess for anticoagulation once GI workup including biopsy is complete. Lex Barros M.D. : PRANAV JOB#: [id number] CC:
[2018-02-20 04:00] VITALS: BP 105/65
[2018-02-20 04:54] LABS: HEMATOCRIT 30.1 % (42.0-52.0); HEMOGLOBIN 10.3 G/DL (14.2-18.0); MEAN CORPUSCULAR VOLUME 85 FL (80-99); PLATELET COUNT 26 K/UL (150-450); RED BLOOD COUNT 3.54 M/UL (4.70-6.10); RED CELL DISTRIBUTION WIDTH 12.7 % (11.6-14.8)
[2018-02-20 05:18] LABS: WHITE BLOOD COUNT 31.6 K/UL (4.8-10.8)
[2018-02-20 05:29] LABS: ALANINE AMINOTRANSFERASE 203 U/L (12-78); ALBUMIN 1.5 G/DL (3.4-5.0); ALBUMIN/GLOBULIN RATIO 0.5 (1.0-2.7); ALKALINE PHOSPHATASE 231 U/L (46-116); ANION GAP 14 mmol/L (5-15); ASPARTATE AMINO TRANSFERASE 460 U/L (15-37); BILIRUBIN,TOTAL 7.4 MG/DL (0.2-1.0); BLOOD UREA NITROGEN 78 mg/dL (7-18); CALCIUM 7.7 MG/DL (8.5-10.1); CARBON DIOXIDE 19 MMOL/L (21-32); CHLORIDE 91 MMOL/L (98-107); CREATININE 2.1 MG/DL (0.55-1.30); POTASSIUM 3.7 MMOL/L (3.5-5.1); SODIUM 124 MMOL/L (136-145)
[2018-02-20 05:31] LABS: BILIRUBIN,DIRECT 6.2 MG/DL (0.0-0.3)
[2018-02-20] MEDS: NovoLOG Insulin Flexpen SUBQ SCH ×4 (06:30→21:06)
--- NOTE | 2018-02-20 06:48 | Consultation ---
Consult Note Consult Note Hematology Oncology Consultation DOS: 02/20/18 RFC: Liver cancer versus metastasis evaluation REQ : Leda, A ID 73-year-old male brought in by EMS after increased generalized weakness and nausea. The patient reports having increased chills for several days. The patient presented increased generalized weakness. He reports having been having increased difficulty with ambulation due to dizziness and lightheadedness. He been having increased difficulty moving his legs. Patient prior heart attack. The patient had been noted to have prior history of prostate disease. The patient is normally followed by physicians at [facility] in [place]. Patient is a marijuana smoker.The patient denies any vomiting. He reports having had generalized body aches. He denies any speech changes. He reports having predominantly left lower extremity weakness. The patient had prior history of diabetes which he takes metformin. He reportedly had prior history of cardiac arrhythmia but is not under any anticoagulation at this time. Patient is noted to have prior history of enlarged prostate with an elevated PSA. CT of the abd/pelvis showed a liver mass and mri is pending at this time, is on abx currently and is aware of what is going on. ID, renal, surgery, cards consulted and have left recommendations. Allergies: CIPROFLOXACIN (Verified Allergy, Unknown, 02/17/18) PENICILLINS (Verified Allergy, Unknown, 02/17/18) Patient History Past Medical History: see triage record, DM, OH, CAD Reviewed Nursing Documentation: PMH: Agreed; PSxH: Agreed Past Medical History: No History, Except For Hx Cardiac Problems: Yes - AFIB, Hx Hypertension: Yes Hx Diabetes: Yes ER ROS - General Review of Systems Constitutional: Reports: chills, fever, weakness Cardiovascular: Reports: palpitations, other - lightheadedness Gastrointestinal: Reports: abdominal pain Genitourinary: Reports: other - dark urine Musculoskeletal: Reports: other - muscle weakness Neurological: Reports: dizziness Endocrine: Reports: excessive sweating, increased thirst Hematologic/Lymphatic: Reports: no symptoms Allergic: Reports: other All Other Systems: negative Physical Exam Last 24 Hour Vital Signs Date Time Temp Pulse Resp B/P (MAP) Pulse Ox O2 Delivery O2 Flow Rate FiO2 02/20/18 04:00 97.6 87 20 105/65 (78) 97 02/20/18 04:00 88 02/20/18 04:00 Nasal Cannula 4.0 02/20/18 00:00 Nasal Cannula 4.0 02/20/18 00:00 97.6 91 18 107/60 (76) 97 02/20/18 00:00 105 02/19/18 21:30 95 20 100 Nasal Cannula 4.0 36 02/19/18 21:14 92 20 100 Nasal Cannula 4.0 99 02/19/18 21:11 90 20 100 Nasal Cannula 4.0 36 02/19/18 20:58 90 20 99 Nasal Cannula 4.0 99 02/19/18 20:54 90 20 Nasal Cannula 4.0 36 02/19/18 20:30 104/54 (71) 02/19/18 20:00 97.5 91 20 98/62 (74) 98 02/19/18 20:00 Nasal Cannula 4.0 02/19/18 20:00 102 02/19/18 18:45 88/53 (65) 02/19/18 18:40 85/49 (61) 02/19/18 17:24 Nasal Cannula 5.0 40 02/19/18 17:23 94 74/45 02/19/18 16:30 98.4 94 21 74/45 (55) 96 02/19/18 16:00 110 02/19/18 16:00 Room Air 02/19/18 12:16 126 02/19/18 12:00 Room Air 02/19/18 12:00 100.1 127 21 118/58 (78) 96 02/19/18 10:26 82 18 Room Air 21 02/19/18 09:40 116 120/70 02/19/18 09:32 98.1 116 22 120/70 (87) 96 02/19/18 08:00 Room Air 02/19/18 08:00 113 02/19/18 08:00 98.1 116 22 120/70 (87) 96 General Appearance: alert, GCS 15, moderate distress Eyes: bilateral eye PERRL ENT: normal pharynx, normal voice Neck: full range of motion Respiratory: normal inspection, no respiratory distress Cardiovascular: tachycardia Gastrointestinal: distended Genitourinary: no CVA tenderness Musculoskeletal: ++motor weakness Laboratory Tests Test 02/19/18 08:48 02/20/18 03:15 Total Creatine Kinase 22 U/L (26-308) L White Blood Count 31.6 K/UL (4.8-10.8) #*H Red Blood Count 3.54 M/UL (4.70-6.10) L Hemoglobin 10.3 G/DL (14.2-18.0) L Hematocrit 30.1 % (42.0-52.0) L Mean Corpuscular Volume 85 FL (80-99) Mean Corpuscular Hemoglobin 29.2 PG (27.0-31.0) Mean Corpuscular Hemoglobin Concent 34.3 G/DL (32.0-36.0) Red Cell Distribution Width 12.7 % (11.6-14.8) Platelet Count 26 K/UL (150-450) #L Mean Platelet Volume 11.6 FL (6.5-10.1) H Neutrophils (%) (Auto) % (45.0-75.0) Lymphocytes (%) (Auto) % (20.0-45.0) Monocytes (%) (Auto) % (1.0-10.0) Eosinophils (%) (Auto) % (0.0-3.0) Basophils (%) (Auto) % (0.0-2.0) Neutrophils % (Manual) Pending Lymphocytes % (Manual) Pending Platelet Estimate Pending Platelet Morphology Pending Sodium Level 124 MMOL/L (136-145) L Potassium Level 3.7 MMOL/L (3.5-5.1) Chloride Level 91 MMOL/L (98-107) L Carbon Dioxide Level 19 MMOL/L (21-32) L Anion Gap 14 mmol/L (5-15) Blood Urea Nitrogen 78 mg/dL (7-18) H Creatinine 2.1 MG/DL (0.55-1.30) H Estimat Glomerular Filtration Rate mL/min (>60) Glucose Level 169 MG/DL (74-106) H Calcium Level 7.7 MG/DL (8.5-10.1) L Total Bilirubin 7.4 MG/DL (0.2-1.0) H Direct Bilirubin 6.2 MG/DL (0.0-0.3) H Aspartate Amino Transf (AST/SGOT) 460 U/L (15-37) H Alanine Aminotransferase (ALT/SGPT) 203 U/L (12-78) H Alkaline Phosphatase 231 U/L (46-116) H Total Protein 4.7 G/DL (6.4-8.2) L Albumin 1.5 G/DL (3.4-5.0) L Globulin 3.2 g/dL Albumin/Globulin Ratio 0.5 (1.0-2.7) L Assessment and Recs: # Left sided solid/cystic liver mass, r/o CA -- potentially either primary HCC versus metastatic from other site --> will need to determine primary site of origin with a biopsy at this time --> in addition, consider CT of the chest/abdomen/pelvis --> MRI of the abdomen pending --> tumor markers pending as well, will be reviewed --> will need pathology report before further recommendations # Thrombocytopenia likely due to malignancy versus consumptive process from infection --> plt goal >20k if febrile, will be given 2 units on 02/20 --> plt goal >50k if procedure is pending # Anemia of chronic disease --> w/u has been ordered --> hgb goal >7 # Sepsis, UTI vs infected necrotic liver mass --> on abx, appreciate ID recs # Renal failure - improving # hyponatremia - on saline # Jaundice, ? due to mass, ? cirrhotic, ? hepatitis/liver failure # Episode of generalized weakness Greatly appreciate consultation! Mehdi Williamson MD Feb 20, 2018 06:48
[2018-02-20] MEDS ORDERED: Lidocaine 1% Plain 30 ml INJ PRN (07:00)
--- NOTE | 2018-02-20 07:04 | Nephrology Progress Note ---
Assessment/Plan Plan ARF - in the context of acute liver failure and hyponatremia! CPK level WNL. R/O Hepato Renal Syndrome Subjective Subjective No new c/o Objective Objective Last 24 Hour Vital Signs Date Time Temp Pulse Resp B/P (MAP) Pulse Ox O2 Delivery O2 Flow Rate FiO2 02/20/18 04:00 97.6 87 20 105/65 (78) 97 02/20/18 04:00 88 02/20/18 04:00 Nasal Cannula 4.0 02/20/18 00:00 Nasal Cannula 4.0 02/20/18 00:00 97.6 91 18 107/60 (76) 97 02/20/18 00:00 105 02/19/18 21:30 95 20 100 Nasal Cannula 4.0 36 02/19/18 21:14 92 20 100 Nasal Cannula 4.0 99 02/19/18 21:11 90 20 100 Nasal Cannula 4.0 36 02/19/18 20:58 90 20 99 Nasal Cannula 4.0 99 02/19/18 20:54 90 20 Nasal Cannula 4.0 36 02/19/18 20:30 104/54 (71) 02/19/18 20:00 97.5 91 20 98/62 (74) 98 02/19/18 20:00 Nasal Cannula 4.0 02/19/18 20:00 102 02/19/18 18:45 88/53 (65) 02/19/18 18:40 85/49 (61) 02/19/18 17:24 Nasal Cannula 5.0 40 02/19/18 17:23 94 74/45 02/19/18 16:30 98.4 94 21 74/45 (55) 96 02/19/18 16:00 110 02/19/18 16:00 Room Air 02/19/18 12:16 126 02/19/18 12:00 Room Air 02/19/18 12:00 100.1 127 21 118/58 (78) 96 02/19/18 10:26 82 18 Room Air 21 02/19/18 09:40 116 120/70 02/19/18 09:32 98.1 116 22 120/70 (87) 96 02/19/18 08:00 Room Air 02/19/18 08:00 113 02/19/18 08:00 98.1 116 22 120/70 (87) 96 Intake and Output 02/19/18 02/20/18 19:00 07:00 Intake Total 2550 ml 1675 ml Output Total 600 ml Balance 1950 ml 1675 ml Intake Oral 600 ml IV Total 1950 ml 1675 ml Output Urine Total 600 ml # Bowel Movements 1 Laboratory Tests 02/19/18 08:48: Total Creatine Kinase 22L 02/20/18 03:15: White Blood Count 31.6#*H, Red Blood Count 3.54L, Hemoglobin 10.3L, Hematocrit 30.1L, Mean Corpuscular Volume 85, Mean Corpuscular Hemoglobin 29.2, Mean Corpuscular Hemoglobin Concent 34.3, Red Cell Distribution Width 12.7, Platelet Count 26#L, Mean Platelet Volume 11.6H, Neutrophils (%) (Auto) , Lymphocytes (% ) (Auto) , Monocytes (%) (Auto) , Eosinophils (%) (Auto) , Basophils (%) (Auto) , Neutrophils % (Manual) [Pending], Lymphocytes % (Manual) [Pending], Platelet Estimate [Pending], Platelet Morphology [Pending], Sodium Level 124L, Potassium Level 3.7, Chloride Level 91L, Carbon Dioxide Level 19L, Anion Gap 14, Blood Urea Nitrogen 78H, Creatinine 2.1H, Estimat Glomerular Filtration Rate , Glucose Level 169H, Calcium Level 7.7L, Total Bilirubin 7.4H, Direct Bilirubin 6.2H, Aspartate Amino Transf (AST/SGOT) 460H, Alanine Aminotransferase (ALT/SGPT ) 203H, Alkaline Phosphatase 231H, Total Protein 4.7L, Albumin 1.5L, Globulin 3.2, Albumin/Globulin Ratio 0.5L Height (Feet): 6 Height (Inches): 2.00 Weight (Pounds): 233 Objective Cv RR Lungs CTA Abd SNT. BS + E No cce Mike Kim MD Feb 20, 2018 07:04
[2018-02-20 08:00] VITALS: BP 126/63
--- NOTE | 2018-02-20 08:18 | General Progress Note ---
Assessment/Plan Assessment/Plan IMPRESSION: 1. Acute pancreatitis. 2. Thrombocytopenia 3. Hematuria. 4. Hyponatremia. 5. Hypokalemia. 6. Acute on chronic renal failure. 7. Transaminitis. 8. Possible acute hepatitis. 9. Severe protein-calorie malnutrition. 10. Leukocytosis. 11. Concern for severe sepsis. 12. hypotension 13. liver mass 14. Atrial flutter PLAN IV antibiotics antifungals IV hydration NPO ? diet pending teting MRI/ cT guided biopsy all consultants appreciated still remains ill cannot be discharged and cannot travel aware; and will update impression, plan, and exam edited and reviewed in detail care discussed with RN Subjective Allergies: Coded Allergies: CIPROFLOXACIN (Verified Allergy, Unknown, 02/17/18) PENICILLINS (Verified Allergy, Unknown, 02/17/18) Subjective all reviewed events noted and reviewed long d/w Objective Last 24 Hour Vital Signs Date Time Temp Pulse Resp B/P (MAP) Pulse Ox O2 Delivery O2 Flow Rate FiO2 02/20/18 04:00 97.6 87 20 105/65 (78) 97 02/20/18 04:00 88 02/20/18 04:00 Nasal Cannula 4.0 02/20/18 00:00 Nasal Cannula 4.0 02/20/18 00:00 97.6 91 18 107/60 (76) 97 02/20/18 00:00 105 02/19/18 21:30 95 20 100 Nasal Cannula 4.0 36 02/19/18 21:14 92 20 100 Nasal Cannula 4.0 99 02/19/18 21:11 90 20 100 Nasal Cannula 4.0 36 02/19/18 20:58 90 20 99 Nasal Cannula 4.0 99 02/19/18 20:54 90 20 Nasal Cannula 4.0 36 02/19/18 20:30 104/54 (71) 02/19/18 20:00 97.5 91 20 98/62 (74) 98 02/19/18 20:00 Nasal Cannula 4.0 02/19/18 20:00 102 02/19/18 18:45 88/53 (65) 02/19/18 18:40 85/49 (61) 02/19/18 17:24 Nasal Cannula 5.0 40 02/19/18 17:23 94 74/45 02/19/18 16:30 98.4 94 21 74/45 (55) 96 1125/18 16:00 110 02/19/18 16:00 Room Air 02/19/18 12:16 126 02/19/18 12:00 Room Air 02/19/18 12:00 100.1 127 21 118/58 (78) 96 02/19/18 10:26 82 18 Room Air 21 02/19/18 09:40 116 120/70 02/19/18 09:32 98.1 116 22 120/70 (87) 96 Intake and Output 02/19/18 02/20/18 19:00 07:00 Intake Total 2550 ml 1925 ml Output Total 600 ml Balance 1950 ml 1925 ml Intake Oral 600 ml IV Total 1950 ml 1925 ml Output Urine Total 600 ml # Bowel Movements 1 Laboratory Tests 02/19/18 08:48: Total Creatine Kinase 22L 02/20/18 03:15: White Blood Count 31.6#*H, Red Blood Count 3.54L, Hemoglobin 10.3L, Hematocrit 30.1L, Mean Corpuscular Volume 85, Mean Corpuscular Hemoglobin 29.2, Mean Corpuscular Hemoglobin Concent 34.3, Red Cell Distribution Width 12.7, Platelet Count 26#L, Mean Platelet Volume 11.6H, Neutrophils (%) (Auto) , Lymphocytes (% ) (Auto) , Monocytes (%) (Auto) , Eosinophils (%) (Auto) , Basophils (%) (Auto) , Neutrophils % (Manual) [Pending], Lymphocytes % (Manual) [Pending], Platelet Estimate [Pending], Platelet Morphology [Pending], Sodium Level 124L, Potassium Level 3.7, Chloride Level 91L, Carbon Dioxide Level 19L, Anion Gap 14, Blood Urea Nitrogen 78H, Creatinine 2.1H, Estimat Glomerular Filtration Rate , Glucose Level 169H, Calcium Level 7.7L, Total Bilirubin 7.4H, Direct Bilirubin 6.2H, Aspartate Amino Transf (AST/SGOT) 460H, Alanine Aminotransferase (ALT/SGPT ) 203H, Alkaline Phosphatase 231H, Total Protein 4.7L, Albumin 1.5L, Globulin 3.2, Albumin/Globulin Ratio 0.5L 02/20/18 07:20: Iron Level [Pending], Unsaturated Iron Binding [Pending], Ferritin [Pending], CA 15-3 Antigen [Pending], CA 19-9 Antigen [Pending], Prostate Specific Antigen [Pending] 02/20/18 07:50: Urine Osmolality [Pending] Height (Feet): 6 Height (Inches): 2.00 Weight (Pounds): 233 Objective GENERAL: The patient is more alert HEENT: Negative. Extraocular movements are grossly intact. NECK: Supple. LUNGS: minimal rhonchi, otherwise clear. moderate air entry CARDIAC: S1 and S2. RRR without murmurs, rubs, or gallops. ABDOMEN: Soft. no tenderness. no HSM EXTREMITIES: No cyanosis or clubbing. trace UE edema. NEUROLOGIC: Otherwise, nonfocal. Se Tompkins MD Feb 20, 2018 08:18
[2018-02-20 08:44] LABS: % IRON SATURATION 17 % (15-50); IRON 29 ug/dL (50-175); TOTAL IRON BINDING CAPACITY 168 ug/dL (250-450)
[2018-02-20] MEDS: Sertraline 100mg tab ORAL SCH (08:50)
[2018-02-20] MEDS: Metamucil Pkt ORAL SCH (08:50)
[2018-02-20] MEDS: Fluconazole 100mg tab ORAL SCH (08:50)
[2018-02-20] MEDS: Metoprolol Succinate XL 25mg tab ORAL SCH (08:50)
[2018-02-20] MEDS: Vitamin B-12 500mcg tab ORAL SCH (08:50)
[2018-02-20] MEDS: Aspirin Baby 81mg ORAL SCH (08:51)
[2018-02-20 08:59] LABS: FERRITIN 1725 NG/ML (8-388)
[2018-02-20 09:48] LABS: INR 1.2 (0.9-1.1)
--- NOTE | 2018-02-20 10:06 | Infectious Diseases Prog Note ---
Assessment/Plan Assessment/Plan A; Sepsis, SIRS Liver mass, ? infected Jaundice Acute renal failure Anemia Thrombocytopenia Leukocytosis P: Continue Cefepime & Flagyl Will f/u MRI of abdomen Biopsy is planned when Thrombocytopenia is improved Subjective ROS Limited/Unobtainable: No Constitutional: Reports: no symptoms, other - feels better Respiratory: Reports: no symptoms Gastrointestinal/Abdominal: Reports: no symptoms, other - NPO for MRI Genitourinary: Reports: no symptoms Allergies: Coded Allergies: CIPROFLOXACIN (Verified Allergy, Unknown, 02/17/18) PENICILLINS (Verified Allergy, Unknown, 02/17/18) Objective Vital Signs Last 24 Hour Vital Signs Date Time Temp Pulse Resp B/P (MAP) Pulse Ox O2 Delivery O2 Flow Rate FiO2 02/20/18 08:50 87 126/63 02/20/18 08:00 97.3 87 28 126/63 (84) 97 02/20/18 08:00 89 02/20/18 04:00 97.6 87 20 105/65 (78) 97 02/20/18 04:00 88 02/20/18 04:00 Nasal Cannula 4.0 02/20/18 00:00 Nasal Cannula 4.0 02/20/18 00:00 97.6 91 18 107/60 (76) 97 02/20/18 00:00 105 02/19/18 21:30 95 20 100 Nasal Cannula 4.0 36 02/19/18 21:14 92 20 100 Nasal Cannula 4.0 99 02/19/18 21:11 90 20 100 Nasal Cannula 4.0 36 02/19/18 20:58 90 20 99 Nasal Cannula 4.0 99 02/19/18 20:54 90 20 Nasal Cannula 4.0 36 02/19/18 20:30 104/54 (71) 02/19/18 20:00 97.5 91 20 98/62 (74) 98 02/19/18 20:00 Nasal Cannula 4.0 02/19/18 20:00 102 02/19/18 18:45 88/53 (65) 02/19/18 18:40 85/49 (61) 02/19/18 17:24 Nasal Cannula 5.0 40 02/19/18 17:23 94 74/45 02/19/18 16:30 98.4 94 21 74/45 (55) 96 02/19/18 16:00 110 02/19/18 16:00 Room Air 02/19/18 12:16 126 02/19/18 12:00 Room Air 02/19/18 12:00 100.1 127 21 118/58 (78) 96 02/19/18 10:26 82 18 Room Air 21 Height (Feet): 6 Height (Inches): 2.00 Weight (Pounds): 233 General Appearance: no acute distress HEENT: other - yellowish sclera Respiratory/Chest: lungs clear Cardiovascular: normal rate Abdomen: soft, non tender Extremities: no edema Neurologic/Psychiatric: alert, oriented x 3, responsive Microbiology Date/Time Source Procedure Growth Status 02/17/18 11:05 Blood Blood Culture - Preliminary NO GROWTH AFTER 48 HOURS Resulted 02/17/18 11:00 Blood Blood Culture - Preliminary NO GROWTH AFTER 48 HOURS Resulted 02/17/18 13:15 Nasal Nares MRSA Culture - Final NO METHICILLIN RESISTANT STAPH AUREUS... Complete 02/17/18 12:17 Urine,Clean Catch Urine Culture - Final NO GROWTH AFTER 48 HOURS Complete 02/17/18 13:15 Rectum VRE Culture - Final NO VANCOMYCIN RESISTANT ENTEROCOCCUS ... Complete 02/17/18 13:15 Rectum - Final NO CARBAPENEM-RESISTANT ENTEROBACTERI... Complete Laboratory Tests Test 02/20/18 03:15 02/20/18 07:20 02/20/18 07:50 02/20/18 09:00 White Blood Count 31.6 K/UL (4.8-10.8) #*H Red Blood Count 3.54 M/UL (4.70-6.10) L Hemoglobin 10.3 G/DL (14.2-18.0) L Hematocrit 30.1 % (42.0-52.0) L Mean Corpuscular Volume 85 FL (80-99) Mean Corpuscular Hemoglobin 29.2 PG (27.0-31.0) Mean Corpuscular Hemoglobin Concent 34.3 G/DL (32.0-36.0) Red Cell Distribution Width 12.7 % (11.6-14.8) Platelet Count 26 K/UL (150-450) #L Mean Platelet Volume 11.6 FL (6.5-10.1) H Neutrophils (%) (Auto) % (45.0-75.0) Lymphocytes (%) (Auto) % (20.0-45.0) Monocytes (%) (Auto) % (1.0-10.0) Eosinophils (%) (Auto) % (0.0-3.0) Basophils (%) (Auto) % (0.0-2.0) Differential Total Cells Counted 100 Neutrophils % (Manual) 75 % (45-75) Lymphocytes % (Manual) 2 % (20-45) L Monocytes % (Manual) 6 % (1-10) Eosinophils % (Manual) 0 % (0-3) Basophils % (Manual) 0 % (0-2) Band Neutrophils 17 % (0-8) H Toxic Granulation 1+ Platelet Estimate Decreased L Platelet Morphology Normal Hypochromasia 1+ Sodium Level 124 MMOL/L (136-145) L Potassium Level 3.7 MMOL/L (3.5-5.1) Chloride Level 91 MMOL/L (98-107) L Carbon Dioxide Level 19 MMOL/L (21-32) L Anion Gap 14 mmol/L (5-15) Blood Urea Nitrogen 78 mg/dL (7-18) H Creatinine 2.1 MG/DL (0.55-1.30) H Estimat Glomerular Filtration Rate mL/min (>60) Glucose Level 169 MG/DL (74-106) H Calcium Level 7.7 MG/DL (8.5-10.1) L Total Bilirubin 7.4 MG/DL (0.2-1.0) H Direct Bilirubin 6.2 MG/DL (0.0-0.3) H Aspartate Amino Transf (AST/SGOT) 460 U/L (15-37) H Alanine Aminotransferase (ALT/SGPT) 203 U/L (12-78) H Alkaline Phosphatase 231 U/L (46-116) H Total Protein 4.7 G/DL (6.4-8.2) L Albumin 1.5 G/DL (3.4-5.0) L Globulin 3.2 g/dL Albumin/Globulin Ratio 0.5 (1.0-2.7) L Iron Level 29 ug/dL (50-175) L Total Iron Binding Capacity 168 ug/dL (250-450) L Percent Iron Saturation 17 % (15-50) Unsaturated Iron Binding 139 ug/dL (112-346) Ferritin 1725 NG/ML (8-388) H CA 15-3 Antigen Pending CA 19-9 Antigen Pending Prostate Specific Antigen 78.79 ng/mL (0.13-4.0) H Urine Osmolality 376 mOsm/kg (429-449) L Prothrombin Time 13.0 SEC (9.30-11.50) H Prothromb Time International Ratio 1.2 (0.9-1.1) H Activated Partial Thromboplast Time 37 SEC (23-33) H Current Medications Medications (Trade) Dose Ordered Sig/Kalyan Route PRN Reason Start Time Stop Time Status Last Admin Dose Admin Albuterol/ Ipratropium (Albuterol/ Ipratropium) 3 ml Q6H PRN HHN Shortness of Breath 02/17/18 17:30 02/22/18 17:29 02/19/18 20:59 Alfuzosin HCl (Uroxatrol) 10 mg DAILY ORAL 02/18/18 09:00 03/20/18 08:59 02/20/18 08:50 Aspirin (ASA) 81 mg DAILY ORAL 02/18/18 09:00 03/20/18 08:59 02/19/18 09:40 Cefepime HCl 1 gm/ Dextrose 55 ml @ 110 mls/hr Q24H IVPB 02/17/18 20:00 02/24/18 19:59 02/19/18 20:42 Clonazepam (KlonoPIN) 0.5 mg Q12H PRN ORAL For Anxiety 02/17/18 18:00 02/24/18 17:59 02/20/18 02:36 Cyanocobalamin (Vitamin B-12) 1,000 mcg DAILY ORAL 02/18/18 09:00 03/20/18 08:59 02/20/18 08:50 Finasteride (Proscar) 5 mg EVERY OTHER DAY ORAL 02/19/18 09:00 03/21/18 08:59 02/19/18 09:40 Fluconazole (Diflucan) 100 mg DAILY ORAL 02/20/18 09:00 02/27/18 08:59 02/20/18 08:50 Gadobutrol (Gadavist) 7.5 mmol NOW PRN IV Radiology Procedure 02/19/18 13:45 02/23/18 13:33 Hydroxyzine HCl (Vistaril) 10 mg Q8H PRN ORAL Itching 02/17/18 18:00 03/19/18 17:59 Insulin Aspart (NovoLOG) BEFORE MEALS AND HS SUBQ 02/17/18 21:00 03/19/18 20:59 02/19/18 12:41 Lidocaine HCl (Xylocaine 1% 30ml) 30 ml NOW PRN INJ Radiology Procedure 02/20/18 07:00 02/20/18 23:00 Metoprolol Succinate (Toprol XL) 25 mg DAILY ORAL 02/20/18 09:00 03/22/18 08:59 02/20/18 08:50 Metronidazole 100 ml @ 100 mls/hr Q8HR IVPB 02/17/18 22:00 02/24/18 21:59 02/20/18 05:41 Pantoprazole (Protonix) 40 mg DAILY ORAL 02/18/18 09:00 03/20/18 08:59 02/20/18 08:50 Psyllium Hydrophilic Mucilloid (Metamucil) 1 pkt DAILY ORAL 02/18/18 09:00 03/20/18 08:59 02/20/18 08:50 Sertraline HCl (Zoloft) 100 mg DAILY ORAL 02/18/18 09:00 03/20/18 08:59 02/20/18 08:50 Sodium Chloride 1,000 ml @ 75 mls/hr [id number] IVLG 02/17/18 18:53 03/19/18 18:52 02/19/18 22:02 Raad Andres MD Feb 20, 2018 10:06
--- NOTE | 2018-02-20 11:15 | Consultation ---
DATE OF CONSULTATION: 02/19/2018 INFECTIOUS DISEASES CONSULTATION CONSULTING PHYSICIAN: Raad Andres M.D. PRIMARY ATTENDING PHYSICIAN: Se Tompkins M.D. REASON FOR CONSULTATION: Sepsis. HISTORY OF PRESENT ILLNESS: The patient is 73-year-old male admitted on 02/17/2018 because of fever, chills, weakness. The patient was found to have lactic acidosis, leukocytosis. The patient has icterus. At the time of admission, has acute renal failure. PAST MEDICAL HISTORY: Significant for diabetes mellitus type 2, on insulin before, BPH, coronary artery disease status post stent, hypertension, atrial fibrillation. ALLERGIES: Allergic to penicillin and Cipro. MEDICATIONS: Getting Proscar, magnesium sulfate, vancomycin, aspirin, Zoloft, warfarin, vitamin B12, Metamucil, Protonix, Flagyl, insulin, cefepime, vancomycin, hydroxyzine, albuterol ipratropium. SOCIAL HISTORY: , has two grownup children. Lives in [place] and visits to [place]. No history of alcohol or drug abuse. Smokes marijuana. REVIEW OF SYSTEMS: Complains of weakness. No fever. No nausea. No vomiting. No diarrhea. No problem passing urine. PHYSICAL EXAMINATION: VITAL SIGNS: Temperature 98.1, pulse 82, blood pressure 120/70. GENERAL APPEARANCE: Seems to be icterus. HEENT: Head and neck, pale sclerae. No oral lesion. HEART: Normal rate. LUNGS: Clear ABDOMEN: Obese, soft, and nontender. EXTREMITIES: No edema. GENITOURINARY: Has Condom catheter. LABORATORY AND DIAGNOSTIC DATA: Sodium 126, potassium 3.2, chloride 92, bicarb 26, BUN 65, creatinine 1.6. Creatinine at the time of admission was 3.2. Total bilirubin is 6.7, direct bilirubin is 5.6, AST 275, ALT 210, alkaline phosphatase is 248. Albumin 1.7. UA showed WBCs too numerous to count. Cultures so far negative. The patient had a urine culture and blood cultures. MRSA and VRE screen are negative. Chest x-ray showed no infiltrate. Abdominal ultrasound showed liver mass in the left pole, heterogenous, highly concerning of primary metastatic malignancy. CT scan of the abdomen and pelvis was done without contrast showed prostate enlargement, again showed a mass that was seen in ultrasound, colonic diverticulosis, nonobstructive, renal sinus calcification. IMPRESSION: 1. Sepsis with lactic acidosis. 2. Tachycardia and leukocytosis. 3. The patient has a mass in the liver with cystic portion may have tumor or abscess. 4. Atrial fibrillation/flutter. 5. Acute renal failure that is improving. 6. Diabetes mellitus type. 7. Hyponatremia and hypokalemia. RECOMMENDATION: Continue with cefepime and Flagyl , may discontinue IV vancomycin. Needs further evaluation for the mass as suggested by GI doctor. At the end of my examination, I thank Dr. Tompkins for involving me in the care of this patient. Raad Andres M.D. DR: eDnisha JOB#: [id number] CC: MALKA
[2018-02-20 12:00] VITALS: BP 119/58
--- NOTE | 2018-02-20 12:15 | General Surgery Progress Note ---
General Surgery-Progress Note Subjective Additional Comments leukocytosis worsening. labs noted. cultures noted. not improving Objective Last 24 Hour Vital Signs Date Time Temp Pulse Resp B/P (MAP) Pulse Ox O2 Delivery O2 Flow Rate FiO2 02/20/18 08:50 87 126/63 02/20/18 08:00 97.3 87 28 126/63 (84) 97 02/20/18 08:00 89 02/20/18 08:00 Nasal Cannula 4.0 02/20/18 06:35 Nasal Cannula 4.0 36 02/20/18 06:35 93 20 Nasal Cannula 4.0 36 02/20/18 04:00 97.6 87 20 105/65 (78) 97 02/20/18 04:00 88 02/20/18 04:00 Nasal Cannula 4.0 02/20/18 00:00 Nasal Cannula 4.0 02/20/18 00:00 97.6 91 18 107/60 (76) 97 02/20/18 00:00 105 02/19/18 21:30 95 20 100 Nasal Cannula 4.0 36 02/19/18 21:14 92 20 100 Nasal Cannula 4.0 99 02/19/18 21:11 90 20 100 Nasal Cannula 4.0 36 02/19/18 20:58 90 20 99 Nasal Cannula 4.0 99 02/19/18 20:54 90 20 Nasal Cannula 4.0 36 02/19/18 20:30 104/54 (71) 02/19/18 20:00 97.5 91 20 98/62 (74) 98 02/19/18 20:00 Nasal Cannula 4.0 02/19/18 20:00 102 02/19/18 18:45 88/53 (65) 02/19/18 18:40 85/49 (61) 02/19/18 17:24 Nasal Cannula 5.0 40 02/19/18 17:23 94 74/45 02/19/18 16:30 98.4 94 21 74/45 (55) 96 02/19/18 16:00 110 02/19/18 16:00 Room Air 02/19/18 12:16 126 I&O Intake and Output 02/19/18 02/20/18 19:00 07:00 Intake Total 2550 ml 1925 ml Output Total 600 ml Balance 1950 ml 1925 ml Intake Oral 600 ml IV Total 1950 ml 1925 ml Output Urine Total 600 ml # Bowel Movements 1 Drains: none Cardiovascular: RSR Respiratory: clear Abdomen: soft, non-tender, present bowel sounds Extremities: no cyanosis Laboratory Tests Test 02/20/18 03:15 02/20/18 07:20 02/20/18 07:50 02/20/18 09:00 White Blood Count 31.6 K/UL (4.8-10.8) #*H Red Blood Count 3.54 M/UL (4.70-6.10) L Hemoglobin 10.3 G/DL (14.2-18.0) L Hematocrit 30.1 % (42.0-52.0) L Mean Corpuscular Volume 85 FL (80-99) Mean Corpuscular Hemoglobin 29.2 PG (27.0-31.0) Mean Corpuscular Hemoglobin Concent 34.3 G/DL (32.0-36.0) Red Cell Distribution Width 12.7 % (11.6-14.8) Platelet Count 26 K/UL (150-450) #L Mean Platelet Volume 11.6 FL (6.5-10.1) H Neutrophils (%) (Auto) % (45.0-75.0) Lymphocytes (%) (Auto) % (20.0-45.0) Monocytes (%) (Auto) % (1.0-10.0) Eosinophils (%) (Auto) % (0.0-3.0) Basophils (%) (Auto) % (0.0-2.0) Differential Total Cells Counted 100 Neutrophils % (Manual) 75 % (45-75) Lymphocytes % (Manual) 2 % (20-45) L Monocytes % (Manual) 6 % (1-10) Eosinophils % (Manual) 0 % (0-3) Basophils % (Manual) 0 % (0-2) Band Neutrophils 17 % (0-8) H Toxic Granulation 1+ Platelet Estimate Decreased L Platelet Morphology Normal Hypochromasia 1+ Sodium Level 124 MMOL/L (136-145) L Potassium Level 3.7 MMOL/L (3.5-5.1) Chloride Level 91 MMOL/L (98-107) L Carbon Dioxide Level 19 MMOL/L (21-32) L Anion Gap 14 mmol/L (5-15) Blood Urea Nitrogen 78 mg/dL (7-18) H Creatinine 2.1 MG/DL (0.55-1.30) H Estimat Glomerular Filtration Rate mL/min (>60) Glucose Level 169 MG/DL (74-106) H Calcium Level 7.7 MG/DL (8.5-10.1) L Total Bilirubin 7.4 MG/DL (0.2-1.0) H Direct Bilirubin 6.2 MG/DL (0.0-0.3) H Aspartate Amino Transf (AST/SGOT) 460 U/L (15-37) H Alanine Aminotransferase (ALT/SGPT) 203 U/L (12-78) H Alkaline Phosphatase 231 U/L (46-116) H Total Protein 4.7 G/DL (6.4-8.2) L Albumin 1.5 G/DL (3.4-5.0) L Globulin 3.2 g/dL Albumin/Globulin Ratio 0.5 (1.0-2.7) L Iron Level 29 ug/dL (50-175) L Total Iron Binding Capacity 168 ug/dL (250-450) L Percent Iron Saturation 17 % (15-50) Unsaturated Iron Binding 139 ug/dL (112-346) Ferritin 1725 NG/ML (8-388) H CA 15-3 Antigen Pending CA 19-9 Antigen Pending Prostate Specific Antigen 78.79 ng/mL (0.13-4.0) H Urine Osmolality 376 mOsm/kg (429-449) L Prothrombin Time 13.0 SEC (9.30-11.50) H Prothromb Time International Ratio 1.2 (0.9-1.1) H Activated Partial Thromboplast Time 37 SEC (23-33) H Plan Problems: (1) Severe sepsis Assessment & Plan: etiology unknown UTI on admission but urine culture negative Blood cultures negative IV fluids IV abx ID consult (2) Liver mass, left lobe Assessment & Plan: large left lobe liver mass of unknown etiology CT without contrast will order US and maybe MRI later US noted and large mass concerning for malignancy MRI today. need to make sure this is liver abscess or malignancy prior to intervention -trend labs -diet as tolerated -iv f -iv abx Jayden Ramos Feb 20, 2018 12:15
--- NOTE | 2018-02-20 12:24 | Pre-Procedure Note/Attestation ---
Pre-Procedure Note/Attestation Complete Prior to Procedure Planned Procedure: not applicable Procedure Narrative: Liver aspiration/drainage and/or biopsy Indications for Procedure Pre-Operative Diagnosis: liver mass Attestation I attest that I discussed the nature of the procedure; its benefits; risks and complications; and alternatives (and the risks and benefits of such alternatives ), prior to the procedure, with the patient (or the patient's legal passenger representative). I attest that, if there was a reasonable possibility of needing a blood transfusion, the patient (or the patient's legal passenger representative) was given the [facility] standardized written summary, pursuant to the Pedro Soper Blood Safety Act ([place] Health and Safety Code # 1645, as amended). I attest that I re-evaluated the patient just prior to the surgery and that there has been no change in the patient's H&P, except as documented below: Discussed with pt's. by phone at 1100 on 02/20/2018 Kingsley Underwood MD Feb 20, 2018 12:24
[2018-02-20 16:00] VITALS: BP 90/53
[2018-02-20 20:00] VITALS: BP 111/64
[2018-02-20] MEDS: Cefepime HCl 1 GM in D5W 55 ML IVPB SCH (21:05)
[2018-02-20] MEDS: Albuterol/Ipratropium 3ml neb HHN PRN (21:50)
--- NOTE | 2018-02-20 22:38 | General Progress Note ---
Assessment/Plan Assessment/Plan Assessment - Left sided solid/cystic liver mass, r/o CA - elevated PSA to 78 - suspect prostate CA - Sepsis, UTI vs infected necrotic liver mass - renal failure - hyponatremia - thrombocytopenia, ? DIC, ? cirrhotic - Jaundice, ? due to mass, ? cirrhotic, ? hepatitis/liver failure - Guarded Recommendations - IVF - MRI pending - may need FNA / drainage if abscess on MRI - Re check U/A - check other tumor markers - pending - check hepatitis serologies - pending - abx per ID - follow labs and exam Subjective Allergies: Coded Allergies: CIPROFLOXACIN (Verified Allergy, Unknown, 02/17/18) PENICILLINS (Verified Allergy, Unknown, 02/17/18) Subjective d/w at bedside doing poorly restless awaiting MRI Objective Last 24 Hour Vital Signs Date Time Temp Pulse Resp B/P (MAP) Pulse Ox O2 Delivery O2 Flow Rate FiO2 02/20/18 21:56 105 20 100 Nasal Cannula 3.0 32 02/20/18 21:49 99 20 99 Nasal Cannula 3.0 32 02/20/18 21:46 Nasal Cannula 3.0 32 02/20/18 21:44 89 20 Nasal Cannula 2.0 28 02/20/18 16:00 114 02/20/18 16:00 Nasal Cannula 4.0 02/20/18 16:00 97.0 111 24 90/53 (65) 91 02/20/18 12:00 142 02/20/18 12:00 98.2 87 20 119/58 (78) 92 02/20/18 12:00 Nasal Cannula 4.0 02/20/18 08:50 87 126/63 02/20/18 08:00 97.3 87 28 126/63 (84) 97 02/20/18 08:00 89 02/20/18 08:00 Nasal Cannula 4.0 02/20/18 06:35 Nasal Cannula 4.0 36 02/20/18 06:35 93 20 Nasal Cannula 4.0 36 02/20/18 04:00 97.6 87 20 105/65 (78) 97 02/20/18 04:00 88 02/20/18 04:00 Nasal Cannula 4.0 02/20/18 00:00 Nasal Cannula 4.0 02/20/18 00:00 97.6 91 18 107/60 (76) 97 02/20/18 00:00 105 Intake and Output 02/19/18 02/20/18 19:00 07:00 Intake Total 2550 ml 1925 ml Output Total 600 ml Balance 1950 ml 1925 ml Intake Oral 600 ml IV Total 1950 ml 1925 ml Output Urine Total 600 ml # Bowel Movements 1 Laboratory Tests 02/20/18 03:15: White Blood Count 31.6#*H, Red Blood Count 3.54L, Hemoglobin 10.3L, Hematocrit 30.1L, Mean Corpuscular Volume 85, Mean Corpuscular Hemoglobin 29.2, Mean Corpuscular Hemoglobin Concent 34.3, Red Cell Distribution Width 12.7, Platelet Count 26#L, Mean Platelet Volume 11.6H, Neutrophils (%) (Auto) , Lymphocytes (% ) (Auto) , Monocytes (%) (Auto) , Eosinophils (%) (Auto) , Basophils (%) (Auto) , Differential Total Cells Counted 100, Neutrophils % (Manual) 75, Lymphocytes % (Manual) 2L, Monocytes % (Manual) 6, Eosinophils % (Manual) 0, Basophils % ( Manual) 0, Band Neutrophils 17H, Toxic Granulation 1+, Platelet Estimate DecreasedL, Platelet Morphology Normal, Hypochromasia 1+, Sodium Level 124L, Potassium Level 3.7, Chloride Level 91L, Carbon Dioxide Level 19L, Anion Gap 14 , Blood Urea Nitrogen 78H, Creatinine 2.1H, Estimat Glomerular Filtration Rate , Glucose Level 169H, Calcium Level 7.7L, Total Bilirubin 7.4H, Direct Bilirubin 6.2H, Aspartate Amino Transf (AST/SGOT) 460H, Alanine Aminotransferase (ALT/SGPT) 203H, Alkaline Phosphatase 231H, Total Protein 4.7L , Albumin 1.5L, Globulin 3.2, Albumin/Globulin Ratio 0.5L 02/20/18 07:20: Iron Level 29L, Total Iron Binding Capacity 168L, Percent Iron Saturation 17, Unsaturated Iron Binding 139, Ferritin 1725H, CA 15-3 Antigen [Pending], CA 19- 9 Antigen [Pending], Prostate Specific Antigen 78.79H 02/20/18 07:50: Urine Osmolality 376L 02/20/18 09:00: Prothrombin Time 13.0H, Prothromb Time International Ratio 1.2H, Activated Partial Thromboplast Time 37H Height (Feet): 6 Height (Inches): 2.00 Weight (Pounds): 233 Objective WDWN NCAT supple CTA RR, tachy Abd soft ND NT no edema neuro/psych restless Jaylyn Parikh MD Feb 20, 2018 22:38
[2018-02-21] VITALS: BP 151/97
--- NOTE | 2018-02-21 02:15 | Progress Note ---
DATE: 02/20/2018 CARDIOLOGY PROGRESS NOTE SUBJECTIVE: The patient was seen with his at bedside yesterday and again today. The patient remains on IV fluids. OBJECTIVE: VITAL SIGNS: Blood pressure 105/65, pulse 87, and respirations 20. Monitored rhythm sinus. No sustained atrial arrhythmias. LUNGS: Clear. CARDIAC: Regular. Normal S1, S2. ABDOMEN: Soft. EXTREMITIES: Trace edema. LABORATORY DATA: White count 31.6 and hemoglobin 10.3. Sodium 124, potassium 3.7, bicarbonate 19, chloride 91, BUN 78, and creatinine 2.1. Albumin 1.5. IMPRESSION: 1. Paroxysmal atrial flutter. 2. Liver mass. 3. Leukocytosis. 4. Acute pancreatitis. 5. Severe protein-calorie malnutrition. 6. Hyponatremia. 7. Hypochloremia. 8. Hypokalemia. 9. Acute on chronic renal failure. PLAN: 1. Liver biopsy planned. 2. Continue empiric antimicrobials. 3. Saline hydration. 4. Antiplatelet therapy. 5. Observe for bleeding signs and worsening coagulopathy due to liver disease. Today's INR was 1.2. 6. Continue beta-blockade therapy with titration based on clinical parameters. Lex Barros M.D. DR: NADER JOB#: [id number] CC:
[2018-02-21] MEDS: clonazePAM 0.5mg tab ORAL PRN ×2 (03:11→10:00)
[2018-02-21 04:00] VITALS: BP_SYST 118; BP_SYST 148; BP_DIAS 68; BP_DIAS 88
[2018-02-21] MEDS: NovoLOG Insulin Flexpen SUBQ SCH ×4 (06:30→20:24)
[2018-02-21 07:17] LABS: HEMATOCRIT 29.2 % (42.0-52.0); HEMOGLOBIN 10.3 G/DL (14.2-18.0); MEAN CORPUSCULAR VOLUME 85 FL (80-99); PLATELET COUNT 35 K/UL (150-450); RED BLOOD COUNT 3.45 M/UL (4.70-6.10); RED CELL DISTRIBUTION WIDTH 12.7 % (11.6-14.8); WHITE BLOOD COUNT 19.1 K/UL (4.8-10.8)
[2018-02-21 07:32] LABS: ALANINE AMINOTRANSFERASE 164 U/L (12-78); ALBUMIN 1.5 G/DL (3.4-5.0); ALBUMIN/GLOBULIN RATIO 0.5 (1.0-2.7); ALKALINE PHOSPHATASE 261 U/L (46-116); ANION GAP 12 mmol/L (5-15); ASPARTATE AMINO TRANSFERASE 271 U/L (15-37); BLOOD UREA NITROGEN 87 mg/dL (7-18); CALCIUM 7.9 MG/DL (8.5-10.1); CARBON DIOXIDE 21 MMOL/L (21-32); CHLORIDE 97 MMOL/L (98-107); CREATININE 1.9 MG/DL (0.55-1.30); POTASSIUM 3.3 MMOL/L (3.5-5.1); SODIUM 130 MMOL/L (136-145)
[2018-02-21 08:00] VITALS: BP 126/70
[2018-02-21] MEDS: Aspirin Baby 81mg ORAL SCH (09:00)
--- NOTE | 2018-02-21 09:01 | Nephrology Progress Note ---
Assessment/Plan Plan ARF - in the context of acute liver failure and hyponatremia! CPK level WNL. R/O Hepato Renal Syndrome DW Radiology. Awaiting Liver Biopsy. MEGHA Tompkins. DW Pt's . Subjective Subjective No new c/o Objective Objective Last 24 Hour Vital Signs Date Time Temp Pulse Resp B/P (MAP) Pulse Ox O2 Delivery O2 Flow Rate FiO2 02/21/18 08:00 96.5 102 24 126/70 (88) 97 02/21/18 04:00 Nasal Cannula 4.0 02/21/18 04:00 98.5 98 26 118/68 (85) 97 02/21/18 04:00 95 02/21/18 00:00 98.3 92 22 151/97 (115) 96 02/21/18 00:00 Nasal Cannula 4.0 02/20/18 23:23 84 02/20/18 21:56 105 20 100 Nasal Cannula 3.0 32 02/20/18 21:49 99 20 99 Nasal Cannula 3.0 32 02/20/18 21:46 Nasal Cannula 3.0 32 02/20/18 21:44 89 20 Nasal Cannula 2.0 28 02/20/18 20:00 97.7 87 24 111/64 (80) 95 02/20/18 20:00 Nasal Cannula 4.0 02/20/18 19:12 114 02/20/18 16:00 114 02/20/18 16:00 Nasal Cannula 4.0 02/20/18 16:00 97.0 111 24 90/53 (65) 91 02/20/18 12:00 142 02/20/18 12:00 98.2 87 20 119/58 (78) 92 02/20/18 12:00 Nasal Cannula 4.0 Intake and Output 02/20/18 02/21/18 18:59 06:59 Intake Total 888.333 ml 1598.75 ml Output Total 1000 ml 2550 ml Balance -111.667 ml -951.25 ml Intake Oral 350 ml IV Total 688.333 ml 1248.75 ml Blood Product 200 ml Output Urine Total 1000 ml 2550 ml # Bowel Movements 2 Laboratory Tests 02/20/18 09:00: Prothrombin Time 13.0H, Prothromb Time International Ratio 1.2H, Activated Partial Thromboplast Time 37H 02/21/18 06:38: White Blood Count 19.1H, Red Blood Count 3.45L, Hemoglobin 10.3L, Hematocrit 29.2L, Mean Corpuscular Volume 85, Mean Corpuscular Hemoglobin 30.0, Mean Corpuscular Hemoglobin Concent 35.4, Red Cell Distribution Width 12.7, Platelet Count 35L, Mean Platelet Volume 11.6H, Neutrophils (%) (Auto) , Lymphocytes (%) (Auto) , Monocytes (%) (Auto) , Eosinophils (%) (Auto) , Basophils (%) (Auto) , Neutrophils % (Manual) [Pending], Lymphocytes % (Manual) [Pending], Platelet Estimate [Pending], Platelet Morphology [Pending], Sodium Level 130L, Potassium Level 3.3L, Chloride Level 97L, Carbon Dioxide Level 21, Anion Gap 12, Blood Urea Nitrogen 87H, Creatinine 1.9H, Estimat Glomerular Filtration Rate , Glucose Level 128H, Calcium Level 7.9L, Total Bilirubin 7.0H, Direct Bilirubin 6.0H, Aspartate Amino Transf (AST/SGOT) 271H, Alanine Aminotransferase (ALT/SGPT ) 164H, Alkaline Phosphatase 261H, Total Protein 4.8L, Albumin 1.5L, Globulin 3.3, Albumin/Globulin Ratio 0.5L Height (Feet): 6 Height (Inches): 2.00 Weight (Pounds): 231 Objective Cv RR Lungs CTA Abd SNT. BS + E No cce Mike Kim MD Feb 21, 2018 09:01
[2018-02-21] MEDS: Metoprolol Succinate XL 25mg tab ORAL SCH (09:24)
[2018-02-21] MEDS: Vitamin B-12 500mcg tab ORAL SCH (09:24)
[2018-02-21] MEDS: Sertraline 100mg tab ORAL SCH (09:25)
[2018-02-21] MEDS: Metamucil Pkt ORAL SCH (09:25)
[2018-02-21] MEDS: Fluconazole 100mg tab ORAL SCH (09:25)
--- NOTE | 2018-02-21 10:38 | Infectious Diseases Prog Note ---
Assessment/Plan Assessment/Plan antibiotics : cefepime, flagyl, fluconazole A 1. leucocytosis improving 2. ? liver mass 3. renal failure improving 4. increased LFT 5. diabetes mellitus P 1. continue cefepime, flagyl, fluconazole 2. will follow up cultures Subjective Constitutional: Denies: fever, chills Respiratory: Reports: shortness of breath; Denies: dry cough Gastrointestinal/Abdominal: Denies: nausea, vomiting, diarrhea Musculoskeletal: Denies: pain Allergies: Coded Allergies: CIPROFLOXACIN (Verified Allergy, Unknown, 02/17/18) PENICILLINS (Verified Allergy, Unknown, 02/17/18) Objective Vital Signs Last 24 Hour Vital Signs Date Time Temp Pulse Resp B/P (MAP) Pulse Ox O2 Delivery O2 Flow Rate FiO2 02/21/18 09:24 102 126/70 02/21/18 08:00 96.5 102 24 126/70 (88) 97 02/21/18 04:00 Nasal Cannula 4.0 02/21/18 04:00 98.5 98 26 118/68 (85) 97 02/21/18 04:00 95 02/21/18 00:00 98.3 92 22 151/97 (115) 96 02/21/18 00:00 Nasal Cannula 4.0 02/20/18 23:23 84 02/20/18 21:56 105 20 100 Nasal Cannula 3.0 32 02/20/18 21:49 99 20 99 Nasal Cannula 3.0 32 02/20/18 21:46 Nasal Cannula 3.0 32 02/20/18 21:44 89 20 Nasal Cannula 2.0 28 02/20/18 20:00 97.7 87 24 111/64 (80) 95 02/20/18 20:00 Nasal Cannula 4.0 02/20/18 19:12 114 02/20/18 16:00 114 02/20/18 16:00 Nasal Cannula 4.0 02/20/18 16:00 97.0 111 24 90/53 (65) 91 02/20/18 12:00 142 02/20/18 12:00 98.2 87 20 119/58 (78) 92 02/20/18 12:00 Nasal Cannula 4.0 Height (Feet): 6 Height (Inches): 2.00 Weight (Pounds): 231 Respiratory/Chest: lungs clear Cardiovascular: normal rate, regular rhythm, no gallop/murmur Abdomen: soft, non tender, distended Extremities: other - + edema Laboratory Tests Test 02/21/18 06:38 White Blood Count 19.1 K/UL (4.8-10.8) H Red Blood Count 3.45 M/UL (4.70-6.10) L Hemoglobin 10.3 G/DL (14.2-18.0) L Hematocrit 29.2 % (42.0-52.0) L Mean Corpuscular Volume 85 FL (80-99) Mean Corpuscular Hemoglobin 30.0 PG (27.0-31.0) Mean Corpuscular Hemoglobin Concent 35.4 G/DL (32.0-36.0) Red Cell Distribution Width 12.7 % (11.6-14.8) Platelet Count 35 K/UL (150-450) L Mean Platelet Volume 11.6 FL (6.5-10.1) H Neutrophils (%) (Auto) % (45.0-75.0) Lymphocytes (%) (Auto) % (20.0-45.0) Monocytes (%) (Auto) % (1.0-10.0) Eosinophils (%) (Auto) % (0.0-3.0) Basophils (%) (Auto) % (0.0-2.0) Differential Total Cells Counted 100 Neutrophils % (Manual) 92 % (45-75) H Lymphocytes % (Manual) 5 % (20-45) L Monocytes % (Manual) 2 % (1-10) Eosinophils % (Manual) 0 % (0-3) Basophils % (Manual) 0 % (0-2) Band Neutrophils 1 % (0-8) Platelet Estimate Decreased L Platelet Morphology Normal Hypochromasia 2+ Anisocytosis 1+ Sodium Level 130 MMOL/L (136-145) L Potassium Level 3.3 MMOL/L (3.5-5.1) L Chloride Level 97 MMOL/L (98-107) L Carbon Dioxide Level 21 MMOL/L (21-32) Anion Gap 12 mmol/L (5-15) Blood Urea Nitrogen 87 mg/dL (7-18) H Creatinine 1.9 MG/DL (0.55-1.30) H Estimat Glomerular Filtration Rate mL/min (>60) Glucose Level 128 MG/DL (74-106) H Calcium Level 7.9 MG/DL (8.5-10.1) L Total Bilirubin 7.0 MG/DL (0.2-1.0) H Direct Bilirubin 6.0 MG/DL (0.0-0.3) H Aspartate Amino Transf (AST/SGOT) 271 U/L (15-37) H Alanine Aminotransferase (ALT/SGPT) 164 U/L (12-78) H Alkaline Phosphatase 261 U/L (46-116) H Total Protein 4.8 G/DL (6.4-8.2) L Albumin 1.5 G/DL (3.4-5.0) L Globulin 3.3 g/dL Albumin/Globulin Ratio 0.5 (1.0-2.7) L Current Medications Medications (Trade) Dose Ordered Sig/Kalyan Route PRN Reason Start Time Stop Time Status Last Admin Dose Admin Albuterol/ Ipratropium (Albuterol/ Ipratropium) 3 ml Q6H PRN HHN Shortness of Breath 02/17/18 17:30 02/22/18 17:29 02/20/18 21:50 Alfuzosin HCl (Uroxatrol) 10 mg DAILY ORAL 02/18/18 09:00 03/20/18 08:59 02/21/18 09:24 Aspirin (ASA) 81 mg DAILY ORAL 02/18/18 09:00 03/20/18 08:59 02/19/18 09:40 Cefepime HCl 1 gm/ Dextrose 55 ml @ 110 mls/hr Q24H IVPB 02/17/18 20:00 02/24/18 19:59 02/20/18 21:05 Clonazepam (KlonoPIN) 0.5 mg Q6H PRN ORAL For Anxiety 02/20/18 11:00 02/27/18 10:59 02/21/18 10:00 Cyanocobalamin (Vitamin B-12) 1,000 mcg DAILY ORAL 02/18/18 09:00 03/20/18 08:59 02/21/18 09:24 Finasteride (Proscar) 5 mg EVERY OTHER DAY ORAL 02/19/18 09:00 03/21/18 08:59 02/21/18 09:25 Fluconazole (Diflucan) 100 mg DAILY ORAL 02/20/18 09:00 02/27/18 08:59 02/21/18 09:25 Gadobutrol (Gadavist) 7.5 mmol NOW PRN IV Radiology Procedure 02/19/18 13:45 02/23/18 13:33 Hydroxyzine HCl (Vistaril) 10 mg Q8H PRN ORAL Itching 02/17/18 18:00 03/19/18 17:59 Insulin Aspart (NovoLOG) BEFORE MEALS AND HS SUBQ 02/17/18 21:00 03/19/18 20:59 02/20/18 21:06 Metoprolol Succinate (Toprol XL) 25 mg DAILY ORAL 02/20/18 09:00 03/22/18 08:59 02/21/18 09:24 Metronidazole 100 ml @ 100 mls/hr Q8HR IVPB 02/17/18 22:00 02/24/18 21:59 02/21/18 05:08 Pantoprazole (Protonix) 40 mg DAILY ORAL 02/18/18 09:00 03/20/18 08:59 02/21/18 09:24 Psyllium Hydrophilic Mucilloid (Metamucil) 1 pkt DAILY ORAL 02/18/18 09:00 03/20/18 08:59 02/21/18 09:25 Sertraline HCl (Zoloft) 100 mg DAILY ORAL 02/18/18 09:00 03/20/18 08:59 02/21/18 09:25 Sodium Chloride 1,000 ml @ 125 mls/hr Q8H IVLG 02/20/18 13:00 03/22/18 12:59 02/21/18 05:08 Renee Sanderson MD Feb 21, 2018 10:38
[2018-02-21 12:00] VITALS: BP 126/72
--- NOTE | 2018-02-21 12:54 | General Surgery Progress Note ---
General Surgery-Progress Note Subjective Additional Comments leukocytosis improved. labs noted. looks a bit more comfortable today. only had pelvic mri yesterday. Objective Last 24 Hour Vital Signs Date Time Temp Pulse Resp B/P (MAP) Pulse Ox O2 Delivery O2 Flow Rate FiO2 02/21/18 09:24 102 126/70 02/21/18 08:00 96.5 102 24 126/70 (88) 97 02/21/18 08:00 Nasal Cannula 4.0 02/21/18 04:00 Nasal Cannula 4.0 02/21/18 04:00 98.5 98 26 118/68 (85) 97 02/21/18 04:00 95 02/21/18 00:00 98.3 92 22 151/97 (115) 96 02/21/18 00:00 Nasal Cannula 4.0 02/20/18 23:23 84 02/20/18 21:56 105 20 100 Nasal Cannula 3.0 32 02/20/18 21:49 99 20 99 Nasal Cannula 3.0 32 02/20/18 21:46 Nasal Cannula 3.0 32 02/20/18 21:44 89 20 Nasal Cannula 2.0 28 02/20/18 20:00 97.7 87 24 111/64 (80) 95 02/20/18 20:00 Nasal Cannula 4.0 02/20/18 19:12 114 02/20/18 16:00 114 02/20/18 16:00 Nasal Cannula 4.0 02/20/18 16:00 97.0 111 24 90/53 (65) 91 I&O Intake and Output 02/20/18 02/21/18 19:00 07:00 Intake Total 907.083 ml 1505 ml Output Total 1000 ml 2550 ml Balance -92.917 ml -1045 ml Intake Oral 350 ml IV Total 707.083 ml 1155 ml Blood Product 200 ml Output Urine Total 1000 ml 2550 ml # Bowel Movements 2 Drains: none Cardiovascular: RSR Respiratory: clear Abdomen: soft, distended, non-tender, present bowel sounds Extremities: edema, no tenderness, no cyanosis Laboratory Tests Test 02/21/18 06:38 White Blood Count 19.1 K/UL (4.8-10.8) H Red Blood Count 3.45 M/UL (4.70-6.10) L Hemoglobin 10.3 G/DL (14.2-18.0) L Hematocrit 29.2 % (42.0-52.0) L Mean Corpuscular Volume 85 FL (80-99) Mean Corpuscular Hemoglobin 30.0 PG (27.0-31.0) Mean Corpuscular Hemoglobin Concent 35.4 G/DL (32.0-36.0) Red Cell Distribution Width 12.7 % (11.6-14.8) Platelet Count 35 K/UL (150-450) L Mean Platelet Volume 11.6 FL (6.5-10.1) H Neutrophils (%) (Auto) % (45.0-75.0) Lymphocytes (%) (Auto) % (20.0-45.0) Monocytes (%) (Auto) % (1.0-10.0) Eosinophils (%) (Auto) % (0.0-3.0) Basophils (%) (Auto) % (0.0-2.0) Differential Total Cells Counted 100 Neutrophils % (Manual) 92 % (45-75) H Lymphocytes % (Manual) 5 % (20-45) L Monocytes % (Manual) 2 % (1-10) Eosinophils % (Manual) 0 % (0-3) Basophils % (Manual) 0 % (0-2) Band Neutrophils 1 % (0-8) Platelet Estimate Decreased L Platelet Morphology Normal Hypochromasia 2+ Anisocytosis 1+ Sodium Level 130 MMOL/L (136-145) L Potassium Level 3.3 MMOL/L (3.5-5.1) L Chloride Level 97 MMOL/L (98-107) L Carbon Dioxide Level 21 MMOL/L (21-32) Anion Gap 12 mmol/L (5-15) Blood Urea Nitrogen 87 mg/dL (7-18) H Creatinine 1.9 MG/DL (0.55-1.30) H Estimat Glomerular Filtration Rate mL/min (>60) Glucose Level 128 MG/DL (74-106) H Calcium Level 7.9 MG/DL (8.5-10.1) L Total Bilirubin 7.0 MG/DL (0.2-1.0) H Direct Bilirubin 6.0 MG/DL (0.0-0.3) H Aspartate Amino Transf (AST/SGOT) 271 U/L (15-37) H Alanine Aminotransferase (ALT/SGPT) 164 U/L (12-78) H Alkaline Phosphatase 261 U/L (46-116) H Total Protein 4.8 G/DL (6.4-8.2) L Albumin 1.5 G/DL (3.4-5.0) L Globulin 3.3 g/dL Albumin/Globulin Ratio 0.5 (1.0-2.7) L Plan Problems: (1) Severe sepsis Assessment & Plan: etiology unknown UTI on admission but urine culture negative Blood cultures negative possible liver? abscess vs mass IV fluids IV abx ID consult pending work up (2) Liver mass, left lobe Assessment & Plan: large left lobe liver mass of unknown etiology CT without contrast will order US and maybe MRI later US noted and large mass concerning for malignancy MRI today. need to make sure this is liver abscess or malignancy prior to intervention -trend labs -diet as tolerated -iv f -iv abx Jayden Ramos Feb 21, 2018 12:54
--- NOTE | 2018-02-21 14:38 | General Progress Note ---
Assessment/Plan Status: stable Assessment/Plan # Left sided solid/cystic liver mass, r/o CA -- potentially either primary HCC versus metastatic from other site --> will need to determine primary site of origin with a biopsy at this time --> CT of the chest/abdomen/pelvis:Large 9.8 x 11.3 x 9.2 cm heterogeneous area of low-attenuation involving most of the lateral left hepatic lobe. --> MRI of the abdomen pending --> tumor markers: CA 15-3 of 19.1, CA 19-9 of 20, PSA of 78.7 --> will need pathology report before further recommendations # Thrombocytopenia likely due to malignancy versus consumptive process from infection --> plt goal >20k if febrile --> plt goal >50k if procedure is pending --> FFP tx: 02/20 # Anemia of chronic disease due to underlying chronic medical issues --> w/u has been reviewed. Ferritin at 1725 --> Hgb goal >7. Transfuse prn. # Sepsis, UTI vs infected necrotic liver mass --> on abx, appreciate ID recs # Renal failure - improving # Hyponatremia. IVF # Jaundice, ? due to mass, ? cirrhotic, ? hepatitis/liver failure # Episode of generalized weakness Greatly appreciate consultation! Subjective Date patient seen: Feb 21, 2018 Hematologic/Lymphatic: Reports: anemia Allergies: Coded Allergies: CIPROFLOXACIN (Verified Allergy, Unknown, 02/17/18) PENICILLINS (Verified Allergy, Unknown, 02/17/18) All Systems: reviewed and negative except above Subjective Pt awake and alert. No acute events. Tumor markers have been reviewed. Objective Last 24 Hour Vital Signs Date Time Temp Pulse Resp B/P (MAP) Pulse Ox O2 Delivery O2 Flow Rate FiO2 02/21/18 13:39 Room Air 21 02/21/18 13:38 91 20 Room Air 21 02/21/18 12:00 97.0 79 22 126/72 (90) 97 02/21/18 12:00 Nasal Cannula 4.0 02/21/18 11:31 93 02/21/18 09:24 102 126/70 02/21/18 08:00 96.5 102 24 126/70 (88) 97 02/21/18 08:00 Nasal Cannula 4.0 02/21/18 07:56 102 02/21/18 04:00 Nasal Cannula 4.0 02/21/18 04:00 98.5 98 26 118/68 (85) 97 02/21/18 04:00 95 02/21/18 00:00 98.3 92 22 151/97 (115) 96 02/21/18 00:00 Nasal Cannula 4.0 02/20/18 23:23 84 02/20/18 21:56 105 20 100 Nasal Cannula 3.0 32 02/20/18 21:49 99 20 99 Nasal Cannula 3.0 32 02/20/18 21:46 Nasal Cannula 3.0 32 02/20/18 21:44 89 20 Nasal Cannula 2.0 28 02/20/18 20:00 97.7 87 24 111/64 (80) 95 02/20/18 20:00 Nasal Cannula 4.0 02/20/18 19:12 114 02/20/18 16:00 114 02/20/18 16:00 Nasal Cannula 4.0 02/20/18 16:00 97.0 111 24 90/53 (65) 91 Intake and Output 02/20/18 02/21/18 19:00 07:00 Intake Total 907.083 ml 1505 ml Output Total 1000 ml 2550 ml Balance -92.917 ml -1045 ml Intake Oral 350 ml IV Total 707.083 ml 1155 ml Blood Product 200 ml Output Urine Total 1000 ml 2550 ml # Bowel Movements 2 Laboratory Tests 02/21/18 06:38: White Blood Count 19.1H, Red Blood Count 3.45L, Hemoglobin 10.3L, Hematocrit 29.2L, Mean Corpuscular Volume 85, Mean Corpuscular Hemoglobin 30.0, Mean Corpuscular Hemoglobin Concent 35.4, Red Cell Distribution Width 12.7, Platelet Count 35L, Mean Platelet Volume 11.6H, Neutrophils (%) (Auto) , Lymphocytes (%) (Auto) , Monocytes (%) (Auto) , Eosinophils (%) (Auto) , Basophils (%) (Auto) , Differential Total Cells Counted 100, Neutrophils % (Manual) 92H, Lymphocytes % (Manual) 5L, Monocytes % (Manual) 2, Eosinophils % (Manual) 0, Basophils % ( Manual) 0, Band Neutrophils 1, Platelet Estimate DecreasedL, Platelet Morphology Normal, Hypochromasia 2+, Anisocytosis 1+, Sodium Level 130L, Potassium Level 3.3L, Chloride Level 97L, Carbon Dioxide Level 21, Anion Gap 12 , Blood Urea Nitrogen 87H, Creatinine 1.9H, Estimat Glomerular Filtration Rate , Glucose Level 128H, Calcium Level 7.9L, Total Bilirubin 7.0H, Direct Bilirubin 6.0H, Aspartate Amino Transf (AST/SGOT) 271H, Alanine Aminotransferase (ALT/SGPT) 164H, Alkaline Phosphatase 261H, Total Protein 4.8L , Albumin 1.5L, Globulin 3.3, Albumin/Globulin Ratio 0.5L Height (Feet): 6 Height (Inches): 2.00 Weight (Pounds): 231 Objective General Appearance: alert, GCS 15, moderate distress Eyes: bilateral eye PERRL ENT: normal pharynx, normal voice Neck: full range of motion Respiratory: normal inspection, no respiratory distress Cardiovascular: tachycardia Gastrointestinal: distended Genitourinary: no CVA tenderness Musculoskeletal: ++motor weakness Mehdi Williamsno MD Feb 21, 2018 14:38
--- NOTE | 2018-02-21 15:45 | Diagnostic Imaging Report ---
Indication: History of prostate carcinoma Technique: Coronal fast spin echo IR, coronal T2, coronal T1 fast spin echo, axial T 1 fast spin echo, pre and postcontrast axial T1 fast spin-echo fat-saturated, postcontrast coronal T1 fast spin-echo fat-saturated images obtained through the pelvis using body coil Comparison: Reference made to CT abdomen and pelvis 02/17/2018 Findings: Prostate is enlarged, measuring 6.3 x 5.3 x 5.4 cm craniocaudad. It demonstrates signal heterogeneity, particularly peripherally, bilaterally. There is a small focus of nonenhancement in the left peripheral zone which could represent a small cyst, although this is not conclusively visualized on the T2 images. The prostate slightly indents the bladder floor The bladder is unremarkable. No pelvic adenopathy is demonstrated. Wall thickening of the mid sigmoid colon is better appreciated on recent CT scan. The bones demonstrate normal marrow signal characteristics. Impression: Limited assessment of the prostate, due to lack of availability of endorectal prostate coil. There is and somewhat heterogeneous prostates signal, as described. Appearance is nonspecific, and unable to differentiate between benign prosthetic hyperplasia and malignancy. There is no definite evidence of extracapsular invasion, but imaging with body coil is insufficient to exclude such. Mid sigmoid colon wall thickening, better appreciated on recent CT scan, likely related to colonic diverticulosis and circular muscle hypertrophy
--- NOTE | 2018-02-21 15:51 | General Progress Note ---
Assessment/Plan Assessment/Plan IMPRESSION: 1. Acute pancreatitis. 2. Thrombocytopenia 3. Hematuria. 4. Hyponatremia. 5. Hypokalemia. 6. Acute on chronic renal failure. 7. Transaminitis. 8. Possible acute hepatitis. 9. Severe protein-calorie malnutrition. 10. Leukocytosis. 11. Concern for severe sepsis. 12. hypotension 13. liver mass 14. Atrial flutter 15. concern for metastatic prostate cancer PLAN IV antibiotics per ID antifungals IV hydration as is monitor bun and creatinine PO diet MRI/ cT guided biopsy all consultants appreciated still remains ill and acute cannot be discharged and cannot travel aware; and will update impression, plan, and exam edited and reviewed in detail care discussed with RN Subjective Allergies: Coded Allergies: CIPROFLOXACIN (Verified Allergy, Unknown, 02/17/18) PENICILLINS (Verified Allergy, Unknown, 02/17/18) Subjective all reviewed events noted and reviewed long d/w update given patient alert Objective Last 24 Hour Vital Signs Date Time Temp Pulse Resp B/P (MAP) Pulse Ox O2 Delivery O2 Flow Rate FiO2 02/21/18 13:39 Room Air 21 02/21/18 13:38 91 20 Room Air 21 02/21/18 12:00 97.0 79 22 126/72 (90) 97 02/21/18 12:00 Nasal Cannula 4.0 02/21/18 11:31 93 02/21/18 09:24 102 126/70 02/21/18 08:00 96.5 102 24 126/70 (88) 97 02/21/18 08:00 Nasal Cannula 4.0 02/21/18 07:56 102 02/21/18 04:00 Nasal Cannula 4.0 02/21/18 04:00 98.5 98 26 118/68 (85) 97 02/21/18 04:00 95 02/21/18 00:00 98.3 92 22 151/97 (115) 96 02/21/18 00:00 Nasal Cannula 4.0 02/20/18 23:23 84 02/20/18 21:56 105 20 100 Nasal Cannula 3.0 32 02/20/18 21:49 99 20 99 Nasal Cannula 3.0 32 02/20/18 21:46 Nasal Cannula 3.0 32 02/20/18 21:44 89 20 Nasal Cannula 2.0 28 02/20/18 20:00 97.7 87 24 111/64 (80) 95 02/20/18 20:00 Nasal Cannula 4.0 02/20/18 19:12 114 02/20/18 16:00 114 02/20/18 16:00 Nasal Cannula 4.0 02/20/18 16:00 97.0 111 24 90/53 (65) 91 Intake and Output 02/20/18 02/21/18 19:00 07:00 Intake Total 907.083 ml 1505 ml Output Total 1000 ml 2550 ml Balance -92.917 ml -1045 ml Intake Oral 350 ml IV Total 707.083 ml 1155 ml Blood Product 200 ml Output Urine Total 1000 ml 2550 ml # Bowel Movements 2 Laboratory Tests 02/21/18 06:38: White Blood Count 19.1H, Red Blood Count 3.45L, Hemoglobin 10.3L, Hematocrit 29.2L, Mean Corpuscular Volume 85, Mean Corpuscular Hemoglobin 30.0, Mean Corpuscular Hemoglobin Concent 35.4, Red Cell Distribution Width 12.7, Platelet Count 35L, Mean Platelet Volume 11.6H, Neutrophils (%) (Auto) , Lymphocytes (%) (Auto) , Monocytes (%) (Auto) , Eosinophils (%) (Auto) , Basophils (%) (Auto) , Differential Total Cells Counted 100, Neutrophils % (Manual) 92H, Lymphocytes % (Manual) 5L, Monocytes % (Manual) 2, Eosinophils % (Manual) 0, Basophils % ( Manual) 0, Band Neutrophils 1, Platelet Estimate DecreasedL, Platelet Morphology Normal, Hypochromasia 2+, Anisocytosis 1+, Sodium Level 130L, Potassium Level 3.3L, Chloride Level 97L, Carbon Dioxide Level 21, Anion Gap 12 , Blood Urea Nitrogen 87H, Creatinine 1.9H, Estimat Glomerular Filtration Rate , Glucose Level 128H, Calcium Level 7.9L, Total Bilirubin 7.0H, Direct Bilirubin 6.0H, Aspartate Amino Transf (AST/SGOT) 271H, Alanine Aminotransferase (ALT/SGPT) 164H, Alkaline Phosphatase 261H, Total Protein 4.8L , Albumin 1.5L, Globulin 3.3, Albumin/Globulin Ratio 0.5L Height (Feet): 6 Height (Inches): 2.00 Weight (Pounds): 231 Objective GENERAL: The patient is more alert HEENT: Negative. Extraocular movements are grossly intact. NECK: Supple. LUNGS: minimal rhonchi, otherwise clear. moderate air entry CARDIAC: S1 and S2. RRR without murmurs, rubs, or gallops. ABDOMEN: Soft. no tenderness. no HSM EXTREMITIES: No cyanosis or clubbing. trace UE edema. NEUROLOGIC: Otherwise, nonfocal. Se Tompkins MD Feb 21, 2018 15:51
[2018-02-21 16:00] VITALS: BP 132/67
--- NOTE | 2018-02-21 16:33 | Diagnostic Imaging Report ---
Indication: Abnormal liver on recent CT scan Technique: Axial single shot fast spin echo breath hold, coronal single shot fast spin-echo breath hold, axial T2 FRFSE fat-saturated, 2-D thick slab MRCP, axial 2-D FIESTA fat-saturated, axial 3-D dual echo breath-hold, precontrast axial and postcontrast axial and coronal water weighted axial LAVA FLEX images of the abdomen Comparison: CT scan dated 02/17/2018 Findings: Exam is somewhat limited, due to inability of patient all breath, large body habitus There is an abnormality occupying nearly the entirety of segments 2 and 3 of the left hepatic lobe. This confirmed is comprised largely of irregular areas of fluid signal, some confluent some isolated. The surrounding nonfluid tissue is overall mostly isointense to abnormal liver parenchyma although on some of the T2 sequences it is slightly higher in intensity. On the postcontrast images, the nonfluid areas demonstrate mild fairly homogeneous enhancement enhancement appears to be largely confined to segments one and 2, without definite satellite lesions. Also noted within the liver are 3 cysts, bridging segments 4A and 4B. A tiny cyst is also seen in segment 5, another small cyst in segment 7, 8, and 4A. There is also what appears to be a simple cyst adjacent to the above described lesion in segment 3. The gallbladder is normal. No biliary ductal dilatation is demonstrated. The pancreas, spleen, adrenals, kidneys are unremarkable. There is evidence of posterior atelectasis at the right lung base. Impression: Abnormality involving segments 2 and 3 of the left hepatic lobe, as described above and on prior imaging studies. Appearance is most suggestive of liver abscess. Main differential consideration is necrotic metastatic neoplasm. Necrotic primary liver neoplasm is also in the differential, although absence of satellite lesions, relatively mild enhancement, and absence of evidence of hepatic cirrhosis makes this less likely. Appearance is not typical of hemangioma on this exam or previous ultrasound Incidental finding of multiple liver cysts No evidence of biliary ductal dilatation Right lung base atelectasis
[2018-02-21] MEDS: Albuterol/Ipratropium 3ml neb HHN PRN (16:38)
[2018-02-21] MEDS ORDERED: Tubing IV Secondary IV ONE (16:39)
[2018-02-21] MEDS ORDERED: NS 275ml ONE (16:39)
[2018-02-21] MEDS ORDERED: Tubing Blood Filter IV ONE (16:39)
--- NOTE | 2018-02-21 19:16 | General Progress Note ---
Assessment/Plan Assessment/Plan Assessment - Left sided solid/cystic liver mass, MRI consistent with abscess - elevated PSA to 78 - suspect prostate CA - Sepsis, UTI vs infected necrotic liver mass - renal failure - hyponatremia - thrombocytopenia, ? DIC, ? cirrhotic - Jaundice, ? due to mass, ? cirrhotic, ? hepatitis/liver failure - Guarded Recommendations - IVF - Ultrasound guided FNA/drainage in am - d/w at length and all questions answered - pre FNA platelets - Re check U/A - check other tumor markers - pending - check hepatitis serologies - pending - abx per ID - follow labs and exam Subjective Allergies: Coded Allergies: CIPROFLOXACIN (Verified Allergy, Unknown, 02/17/18) PENICILLINS (Verified Allergy, Unknown, 02/17/18) Subjective MRI noted study suggestive of liver abscess Objective Last 24 Hour Vital Signs Date Time Temp Pulse Resp B/P (MAP) Pulse Ox O2 Delivery O2 Flow Rate FiO2 02/21/18 16:50 78 20 100 Nasal Cannula 2.0 28 02/21/18 16:40 78 20 97 Nasal Cannula 3.0 32 02/21/18 16:00 97.2 77 21 132/67 (88) 96 02/21/18 16:00 80 02/21/18 16:00 Nasal Cannula 4.0 02/21/18 13:39 Room Air 21 02/21/18 13:38 91 20 Room Air 21 02/21/18 12:00 97.0 79 22 126/72 (90) 97 02/21/18 12:00 Nasal Cannula 4.0 02/21/18 11:31 93 02/21/18 09:24 102 126/70 02/21/18 08:00 96.5 102 24 126/70 (88) 97 02/21/18 08:00 Nasal Cannula 4.0 02/21/18 07:56 102 02/21/18 04:00 Nasal Cannula 4.0 02/21/18 04:00 98.5 98 26 118/68 (85) 97 02/21/18 04:00 95 02/21/18 00:00 98.3 92 22 151/97 (115) 96 02/21/18 00:00 Nasal Cannula 4.0 02/20/18 23:23 84 02/20/18 21:56 105 20 100 Nasal Cannula 3.0 32 02/20/18 21:49 99 20 99 Nasal Cannula 3.0 32 02/20/18 21:46 Nasal Cannula 3.0 32 02/20/18 21:44 89 20 Nasal Cannula 2.0 28 02/20/18 20:00 97.7 87 24 111/64 (80) 95 02/20/18 20:00 Nasal Cannula 4.0 Intake and Output 02/20/18 02/21/18 19:00 07:00 Intake Total 907.083 ml 1630 ml Output Total 1000 ml 2550 ml Balance -92.917 ml -920 ml Intake Oral 350 ml IV Total 707.083 ml 1280 ml Blood Product 200 ml Output Urine Total 1000 ml 2550 ml # Bowel Movements 2 Laboratory Tests 02/21/18 06:38: White Blood Count 19.1H, Red Blood Count 3.45L, Hemoglobin 10.3L, Hematocrit 29.2L, Mean Corpuscular Volume 85, Mean Corpuscular Hemoglobin 30.0, Mean Corpuscular Hemoglobin Concent 35.4, Red Cell Distribution Width 12.7, Platelet Count 35L, Mean Platelet Volume 11.6H, Neutrophils (%) (Auto) , Lymphocytes (%) (Auto) , Monocytes (%) (Auto) , Eosinophils (%) (Auto) , Basophils (%) (Auto) , Differential Total Cells Counted 100, Neutrophils % (Manual) 92H, Lymphocytes % (Manual) 5L, Monocytes % (Manual) 2, Eosinophils % (Manual) 0, Basophils % ( Manual) 0, Band Neutrophils 1, Platelet Estimate DecreasedL, Platelet Morphology Normal, Hypochromasia 2+, Anisocytosis 1+, Sodium Level 130L, Potassium Level 3.3L, Chloride Level 97L, Carbon Dioxide Level 21, Anion Gap 12 , Blood Urea Nitrogen 87H, Creatinine 1.9H, Estimat Glomerular Filtration Rate , Glucose Level 128H, Calcium Level 7.9L, Total Bilirubin 7.0H, Direct Bilirubin 6.0H, Aspartate Amino Transf (AST/SGOT) 271H, Alanine Aminotransferase (ALT/SGPT) 164H, Alkaline Phosphatase 261H, Total Protein 4.8L , Albumin 1.5L, Globulin 3.3, Albumin/Globulin Ratio 0.5L Height (Feet): 6 Height (Inches): 2.00 Weight (Pounds): 231 Objective WDWN NCAT supple CTA RR, tachy Abd soft ND NT no edema neuro/psych restless Jaylyn Parikh MD Feb 21, 2018 19:16
[2018-02-21 20:00] VITALS: BP 123/74
[2018-02-21] MEDS: Cefepime HCl 1 GM in D5W 55 ML IVPB SCH (20:22)
[2018-02-22] VITALS (10 sets, daily range): BP systolic 116–140; BP diastolic 57–83
[2018-02-22 05:09] LABS: HEMATOCRIT 30.1 % (42.0-52.0); HEMOGLOBIN 10.5 G/DL (14.2-18.0); MEAN CORPUSCULAR VOLUME 85 FL (80-99); PLATELET COUNT 30 K/UL (150-450); RED BLOOD COUNT 3.53 M/UL (4.70-6.10); RED CELL DISTRIBUTION WIDTH 12.8 % (11.6-14.8); WHITE BLOOD COUNT 15.5 K/UL (4.8-10.8)
[2018-02-22 05:32] LABS: ALANINE AMINOTRANSFERASE 118 U/L (12-78); ALBUMIN 1.5 G/DL (3.4-5.0); ALBUMIN/GLOBULIN RATIO 0.4 (1.0-2.7); ALKALINE PHOSPHATASE 188 U/L (46-116); ANION GAP 11 mmol/L (5-15); ASPARTATE AMINO TRANSFERASE 148 U/L (15-37); BILIRUBIN,TOTAL 4.8 MG/DL (0.2-1.0); BLOOD UREA NITROGEN 66 mg/dL (7-18); CALCIUM 7.9 MG/DL (8.5-10.1); CARBON DIOXIDE 21 MMOL/L (21-32); CHLORIDE 102 MMOL/L (98-107); CREATININE 1.3 MG/DL (0.55-1.30); POTASSIUM 3.5 MMOL/L (3.5-5.1); SODIUM 134 MMOL/L (136-145)
[2018-02-22 06:24] LABS: BILIRUBIN,DIRECT 3.5 MG/DL (0.0-0.3)
[2018-02-22] MEDS: NovoLOG Insulin Flexpen SUBQ SCH ×5 (06:43→21:20)
[2018-02-22] MEDS: Sertraline 100mg tab ORAL SCH ×2 (09:00→09:24)
[2018-02-22] MEDS: Aspirin Baby 81mg ORAL SCH ×2 (09:00→09:24)
[2018-02-22] MEDS: Metamucil Pkt ORAL SCH ×2 (09:00→09:24)
[2018-02-22] MEDS: Fluconazole 100mg tab ORAL SCH (09:24)
[2018-02-22] MEDS: Metoprolol Succinate XL 25mg tab ORAL SCH (09:24)
[2018-02-22] MEDS: Vitamin B-12 500mcg tab ORAL SCH (09:24)
--- NOTE | 2018-02-22 10:24 | Diagnostic Imaging Report ---
APPROVED REPORT CPT Code: 14027 Present Symptoms Comments: BILATERAL LEGS PAIN. BILATERAL: Imaging reveals a patent deep venous system bilaterally. There is no evidence of thrombus within the femoral, popliteal or tibial segments. The greater saphenous veins are also within normal limits. Doppler indicates normal spontaneous flow within these segments.
[2018-02-22] MEDS: Albuterol/Ipratropium 3ml neb HHN PRN (10:28)
--- NOTE | 2018-02-22 10:32 | Nephrology Progress Note ---
Assessment/Plan Plan ARF - in the context of acute liver failure and hyponatremia! Both resolving! R/O Hepato Renal Syndrome DW Radiology. CW Liver abscess. Awaiting Liver Biopsy. M/P Also Prostate CA. Subjective Subjective No new c/o Objective Objective Last 24 Hour Vital Signs Date Time Temp Pulse Resp B/P (MAP) Pulse Ox O2 Delivery O2 Flow Rate FiO2 02/22/18 10:28 76 22 97 Nasal Cannula 2.0 28 02/22/18 09:24 78 140/83 02/22/18 08:00 98.0 78 20 140/83 (102) 98 02/22/18 08:00 79 02/22/18 04:00 97.5 104 20 140/83 (102) 98 02/22/18 04:00 Nasal Cannula 4.0 02/22/18 04:00 99 02/22/18 00:00 94.3 79 20 118/57 (77) 98 02/22/18 00:00 Nasal Cannula 4.0 02/21/18 23:27 100 02/21/18 20:00 87 02/21/18 20:00 Nasal Cannula 2.0 28 02/21/18 20:00 Nasal Cannula 4.0 02/21/18 20:00 93.4 93 20 123/74 (90) 96 02/21/18 20:00 98 Nasal Cannula 2.0 28 02/21/18 20:00 101 18 Nasal Cannula 2.0 28 02/21/18 16:50 78 20 100 Nasal Cannula 2.0 28 02/21/18 16:40 78 20 97 Nasal Cannula 3.0 32 02/21/18 16:00 97.2 77 21 132/67 (88) 96 02/21/18 16:00 80 02/21/18 16:00 Nasal Cannula 4.0 02/21/18 13:39 Room Air 21 02/21/18 13:38 91 20 Room Air 21 02/21/18 12:00 97.0 79 22 126/72 (90) 97 02/21/18 12:00 Nasal Cannula 4.0 02/21/18 11:31 93 Intake and Output 02/21/18 02/22/18 18:59 06:59 Intake Total 1533.33 ml 1245.5 ml Output Total 500 ml 1500 ml Balance 1033.33 ml -254.5 ml IV Total 1533.33 ml 1245.5 ml Output Urine Total 500 ml 1500 ml # Bowel Movements 5 3 Laboratory Tests 02/22/18 03:30: White Blood Count 15.5H, Red Blood Count 3.53L, Hemoglobin 10.5L, Hematocrit 30.1L, Mean Corpuscular Volume 85, Mean Corpuscular Hemoglobin 29.8, Mean Corpuscular Hemoglobin Concent 35.0, Red Cell Distribution Width 12.8, Platelet Count 30L, Mean Platelet Volume 12.9H, Neutrophils (%) (Auto) , Lymphocytes (%) (Auto) , Monocytes (%) (Auto) , Eosinophils (%) (Auto) , Basophils (%) (Auto) , Differential Total Cells Counted 100, Neutrophils % (Manual) 87H, Lymphocytes % (Manual) 2L, Monocytes % (Manual) 3, Eosinophils % (Manual) 0, Basophils % ( Manual) 0, Band Neutrophils 8, Nucleated Red Blood Cells 1, Platelet Estimate DecreasedL, Platelet Morphology Normal, Sodium Level 134L, Potassium Level 3.5, Chloride Level 102, Carbon Dioxide Level 21, Anion Gap 11, Blood Urea Nitrogen 66H, Creatinine 1.3, Estimat Glomerular Filtration Rate , Glucose Level 167H, Calcium Level 7.9L, Total Bilirubin 4.8H, Direct Bilirubin 3.5H, Aspartate Amino Transf (AST/SGOT) 148H, Alanine Aminotransferase (ALT/SGPT) 118H, Alkaline Phosphatase 188H, Total Protein 5.0L, Albumin 1.5L, Globulin 3.5, Albumin/Globulin Ratio 0.4L Height (Feet): 6 Height (Inches): 2.00 Weight (Pounds): 220 Objective Cv RR Lungs CTA Abd SNT. BS + E No cce Mike Kim MD Feb 22, 2018 10:32
--- NOTE | 2018-02-22 11:03 | Infectious Diseases Prog Note ---
Assessment/Plan Assessment/Plan antibiotics : cefepime, flagyl, fluconazole A 1. leucocytosis improving 2. ? liver abscess 3. renal failure improving 4. increased LFT 5. diabetes mellitus P 1. continue cefepime, flagyl, fluconazole 2. will follow up cultures 3. aspiration planned Subjective Constitutional: Denies: fever, chills Respiratory: Denies: shortness of breath, dry cough Gastrointestinal/Abdominal: Denies: nausea, vomiting, diarrhea Musculoskeletal: Reports: pain Allergies: Coded Allergies: CIPROFLOXACIN (Verified Allergy, Unknown, 02/17/18) PENICILLINS (Verified Allergy, Unknown, 02/17/18) Objective Vital Signs Last 24 Hour Vital Signs Date Time Temp Pulse Resp B/P (MAP) Pulse Ox O2 Delivery O2 Flow Rate FiO2 02/22/18 10:28 76 22 97 Nasal Cannula 2.0 28 02/22/18 09:24 78 140/83 02/22/18 08:00 98.0 78 20 140/83 (102) 98 02/22/18 08:00 79 02/22/18 04:00 97.5 104 20 140/83 (102) 98 02/22/18 04:00 Nasal Cannula 4.0 02/22/18 04:00 99 02/22/18 00:00 94.3 79 20 118/57 (77) 98 02/22/18 00:00 Nasal Cannula 4.0 02/21/18 23:27 100 02/21/18 20:00 87 02/21/18 20:00 Nasal Cannula 2.0 28 02/21/18 20:00 Nasal Cannula 4.0 02/21/18 20:00 93.4 93 20 123/74 (90) 96 02/21/18 20:00 98 Nasal Cannula 2.0 28 02/21/18 20:00 101 18 Nasal Cannula 2.0 28 02/21/18 16:50 78 20 100 Nasal Cannula 2.0 28 02/21/18 16:40 78 20 97 Nasal Cannula 3.0 32 02/21/18 16:00 97.2 77 21 132/67 (88) 96 02/21/18 16:00 80 02/21/18 16:00 Nasal Cannula 4.0 02/21/18 13:39 Room Air 21 02/21/18 13:38 91 20 Room Air 21 02/21/18 12:00 97.0 79 22 126/72 (90) 97 02/21/18 12:00 Nasal Cannula 4.0 02/21/18 11:31 93 Height (Feet): 6 Height (Inches): 2.00 Weight (Pounds): 220 Respiratory/Chest: lungs clear Cardiovascular: normal rate, regular rhythm, no gallop/murmur Abdomen: soft, non tender, distended Extremities: other - + edema Microbiology Date/Time Source Procedure Growth Status 02/20/18 07:30 Blood Blood Culture - Preliminary NO GROWTH AFTER 24 HOURS Resulted 02/20/18 07:20 Blood Blood Culture - Preliminary NO GROWTH AFTER 24 HOURS Resulted Laboratory Tests Test 02/22/18 03:30 White Blood Count 15.5 K/UL (4.8-10.8) H Red Blood Count 3.53 M/UL (4.70-6.10) L Hemoglobin 10.5 G/DL (14.2-18.0) L Hematocrit 30.1 % (42.0-52.0) L Mean Corpuscular Volume 85 FL (80-99) Mean Corpuscular Hemoglobin 29.8 PG (27.0-31.0) Mean Corpuscular Hemoglobin Concent 35.0 G/DL (32.0-36.0) Red Cell Distribution Width 12.8 % (11.6-14.8) Platelet Count 30 K/UL (150-450) L Mean Platelet Volume 12.9 FL (6.5-10.1) H Neutrophils (%) (Auto) % (45.0-75.0) Lymphocytes (%) (Auto) % (20.0-45.0) Monocytes (%) (Auto) % (1.0-10.0) Eosinophils (%) (Auto) % (0.0-3.0) Basophils (%) (Auto) % (0.0-2.0) Differential Total Cells Counted 100 Neutrophils % (Manual) 87 % (45-75) H Lymphocytes % (Manual) 2 % (20-45) L Monocytes % (Manual) 3 % (1-10) Eosinophils % (Manual) 0 % (0-3) Basophils % (Manual) 0 % (0-2) Band Neutrophils 8 % (0-8) Nucleated Red Blood Cells 1 /100 WBC Platelet Estimate Decreased L Platelet Morphology Normal Sodium Level 134 MMOL/L (136-145) L Potassium Level 3.5 MMOL/L (3.5-5.1) Chloride Level 102 MMOL/L (98-107) Carbon Dioxide Level 21 MMOL/L (21-32) Anion Gap 11 mmol/L (5-15) Blood Urea Nitrogen 66 mg/dL (7-18) H Creatinine 1.3 MG/DL (0.55-1.30) Estimat Glomerular Filtration Rate mL/min (>60) Glucose Level 167 MG/DL (74-106) H Calcium Level 7.9 MG/DL (8.5-10.1) L Total Bilirubin 4.8 MG/DL (0.2-1.0) H Direct Bilirubin 3.5 MG/DL (0.0-0.3) H Aspartate Amino Transf (AST/SGOT) 148 U/L (15-37) H Alanine Aminotransferase (ALT/SGPT) 118 U/L (12-78) H Alkaline Phosphatase 188 U/L (46-116) H Total Protein 5.0 G/DL (6.4-8.2) L Albumin 1.5 G/DL (3.4-5.0) L Globulin 3.5 g/dL Albumin/Globulin Ratio 0.4 (1.0-2.7) L Current Medications Medications (Trade) Dose Ordered Sig/Kalyan Route PRN Reason Start Time Stop Time Status Last Admin Dose Admin Albuterol/ Ipratropium (Albuterol/ Ipratropium) 3 ml Q6H PRN HHN Shortness of Breath 02/17/18 17:30 02/22/18 17:29 02/22/18 10:28 Alfuzosin HCl (Uroxatrol) 10 mg DAILY ORAL 02/18/18 09:00 03/20/18 08:59 02/22/18 09:24 Aspirin (ASA) 81 mg DAILY ORAL 02/18/18 09:00 03/20/18 08:59 02/19/18 09:40 Cefepime HCl 1 gm/ Dextrose 55 ml @ 110 mls/hr Q24H IVPB 02/17/18 20:00 02/24/18 19:59 02/21/18 20:22 Clonazepam (KlonoPIN) 0.5 mg Q6H PRN ORAL For Anxiety 02/20/18 11:00 02/27/18 10:59 02/21/18 10:00 Cyanocobalamin (Vitamin B-12) 1,000 mcg DAILY ORAL 02/18/18 09:00 03/20/18 08:59 02/22/18 09:24 Finasteride (Proscar) 5 mg EVERY OTHER DAY ORAL 02/19/18 09:00 03/21/18 08:59 02/21/18 09:25 Fluconazole (Diflucan) 100 mg DAILY ORAL 02/20/18 09:00 02/27/18 08:59 02/22/18 09:24 Gadobutrol (Gadavist) 7.5 mmol NOW PRN IV Radiology Procedure 02/19/18 13:45 02/23/18 13:33 Hydroxyzine HCl (Vistaril) 10 mg Q8H PRN ORAL Itching 02/17/18 18:00 03/19/18 17:59 Insulin Aspart (NovoLOG) BEFORE MEALS AND HS SUBQ 02/17/18 21:00 03/19/18 20:59 02/22/18 06:43 Metoprolol Succinate (Toprol XL) 25 mg DAILY ORAL 02/20/18 09:00 03/22/18 08:59 02/22/18 09:24 Metronidazole 100 ml @ 100 mls/hr Q8HR IVPB 02/17/18 22:00 02/24/18 21:59 02/22/18 05:26 Pantoprazole (Protonix) 40 mg DAILY ORAL 02/18/18 09:00 03/20/18 08:59 02/22/18 09:24 Psyllium Hydrophilic Mucilloid (Metamucil) 1 pkt DAILY ORAL 02/18/18 09:00 03/20/18 08:59 02/21/18 09:25 Sertraline HCl (Zoloft) 100 mg DAILY ORAL 02/18/18 09:00 03/20/18 08:59 02/21/18 09:25 Sodium Chloride 1,000 ml @ 125 mls/hr Q8H IVLG 02/20/18 13:00 03/22/18 12:59 02/22/18 05:27 Renee Sanderson MD Feb 22, 2018 11:03
--- NOTE | 2018-02-22 13:40 | General Surgery Progress Note ---
General Surgery-Progress Note Subjective Additional Comments doing well. no acute events. afebrile, HD stable. leukocytosis improved. MRI noted Objective Last 24 Hour Vital Signs Date Time Temp Pulse Resp B/P (MAP) Pulse Ox O2 Delivery O2 Flow Rate FiO2 02/22/18 10:38 76 22 100 Nasal Cannula 2.0 28 02/22/18 10:28 76 22 97 Nasal Cannula 2.0 28 02/22/18 09:24 78 140/83 02/22/18 08:02 Nasal Cannula 2.0 28 02/22/18 08:01 97 Nasal Cannula 2.0 28 02/22/18 08:00 Nasal Cannula 2.0 02/22/18 08:00 98.0 78 20 140/83 (102) 98 02/22/18 08:00 79 02/22/18 07:59 86 20 Nasal Cannula 2.0 28 02/22/18 04:00 97.5 104 20 140/83 (102) 98 02/22/18 04:00 Nasal Cannula 4.0 02/22/18 04:00 99 02/22/18 00:00 94.3 79 20 118/57 (77) 98 02/22/18 00:00 Nasal Cannula 4.0 02/21/18 23:27 100 02/21/18 20:00 87 02/21/18 20:00 Nasal Cannula 2.0 28 02/21/18 20:00 Nasal Cannula 4.0 02/21/18 20:00 93.4 93 20 123/74 (90) 96 02/21/18 20:00 98 Nasal Cannula 2.0 28 02/21/18 20:00 101 18 Nasal Cannula 2.0 28 02/21/18 16:50 78 20 100 Nasal Cannula 2.0 28 02/21/18 16:40 78 20 97 Nasal Cannula 3.0 32 02/21/18 16:00 97.2 77 21 132/67 (88) 96 02/21/18 16:00 80 02/21/18 16:00 Nasal Cannula 4.0 02/21/18 13:39 Room Air 21 02/21/18 13:38 91 20 Room Air 21 I&O Intake and Output 02/21/18 02/22/18 19:00 07:00 Intake Total 1533.33 ml 1245.5 ml Output Total 500 ml 1500 ml Balance 1033.33 ml -254.5 ml IV Total 1533.33 ml 1245.5 ml Output Urine Total 500 ml 1500 ml # Bowel Movements 5 3 Drains: none Cardiovascular: RSR Respiratory: clear Abdomen: soft, flat, non-tender, present bowel sounds Extremities: edema, no tenderness, no cyanosis Laboratory Tests Test 02/22/18 03:30 White Blood Count 15.5 K/UL (4.8-10.8) H Red Blood Count 3.53 M/UL (4.70-6.10) L Hemoglobin 10.5 G/DL (14.2-18.0) L Hematocrit 30.1 % (42.0-52.0) L Mean Corpuscular Volume 85 FL (80-99) Mean Corpuscular Hemoglobin 29.8 PG (27.0-31.0) Mean Corpuscular Hemoglobin Concent 35.0 G/DL (32.0-36.0) Red Cell Distribution Width 12.8 % (11.6-14.8) Platelet Count 30 K/UL (150-450) L Mean Platelet Volume 12.9 FL (6.5-10.1) H Neutrophils (%) (Auto) % (45.0-75.0) Lymphocytes (%) (Auto) % (20.0-45.0) Monocytes (%) (Auto) % (1.0-10.0) Eosinophils (%) (Auto) % (0.0-3.0) Basophils (%) (Auto) % (0.0-2.0) Differential Total Cells Counted 100 Neutrophils % (Manual) 87 % (45-75) H Lymphocytes % (Manual) 2 % (20-45) L Monocytes % (Manual) 3 % (1-10) Eosinophils % (Manual) 0 % (0-3) Basophils % (Manual) 0 % (0-2) Band Neutrophils 8 % (0-8) Nucleated Red Blood Cells 1 /100 WBC Platelet Estimate Decreased L Platelet Morphology Normal Sodium Level 134 MMOL/L (136-145) L Potassium Level 3.5 MMOL/L (3.5-5.1) Chloride Level 102 MMOL/L (98-107) Carbon Dioxide Level 21 MMOL/L (21-32) Anion Gap 11 mmol/L (5-15) Blood Urea Nitrogen 66 mg/dL (7-18) H Creatinine 1.3 MG/DL (0.55-1.30) Estimat Glomerular Filtration Rate mL/min (>60) Glucose Level 167 MG/DL (74-106) H Calcium Level 7.9 MG/DL (8.5-10.1) L Total Bilirubin 4.8 MG/DL (0.2-1.0) H Direct Bilirubin 3.5 MG/DL (0.0-0.3) H Aspartate Amino Transf (AST/SGOT) 148 U/L (15-37) H Alanine Aminotransferase (ALT/SGPT) 118 U/L (12-78) H Alkaline Phosphatase 188 U/L (46-116) H Total Protein 5.0 G/DL (6.4-8.2) L Albumin 1.5 G/DL (3.4-5.0) L Globulin 3.5 g/dL Albumin/Globulin Ratio 0.4 (1.0-2.7) L Plan Problems: (1) Severe sepsis Assessment & Plan: etiology unknown UTI on admission but urine culture negative Blood cultures negative possible liver? abscess vs mass IV fluids IV abx pending work up (2) Liver mass, left lobe Assessment & Plan: large left lobe liver mass of unknown etiology CT without contrast will order US and maybe MRI later US noted and large mass concerning for malignancy MRI noted. possible abscess -us guided drainage today after platelets -trend labs -diet as tolerated -iv fluids -iv abx Jayden Ramos Feb 22, 2018 13:40
--- NOTE | 2018-02-22 14:42 | Pulmonology Progress Note ---
Assessment/Plan Assessment/Plan Pulmonary Progress Note Assessment/Plan IMPRESSION: 1. Acute pancreatitis. 2. Thrombocytopenia 3. Hematuria. 4. Hyponatremia. 5. Hypokalemia. 6. Acute on chronic renal failure. 7. Transaminitis. 8. Possible acute hepatitis. 9. Severe protein-calorie malnutrition. 10. Leukocytosis. 11. Concern for severe sepsis. 12. hypotension 13. liver mass 14. Atrial flutter 15. concern for metastatic prostate cancer PLAN IV antibiotics per ID antifungals IV hydration as is monitor bun and creatinine PO diet MRI/ cT guided biopsy all consultants appreciated still remains ill and acute cannot be discharged and cannot travel aware; and will update impression, plan, and exam edited and reviewed in detail care discussed with RN Subjective Allergies: Coded Allergies: CIPROFLOXACIN (Verified Allergy, Unknown, 02/17/18) PENICILLINS (Verified Allergy, Unknown, 02/17/18) Subjective all reviewed events noted and reviewed long d/w update given patient alert Objective Vital Signs Noted Height (Feet): 6 Height (Inches): 2.00 Weight (Pounds): 231 Objective GENERAL: The patient is more alert HEENT: Negative. Extraocular movements are grossly intact. NECK: Supple. LUNGS: minimal rhonchi, otherwise clear. moderate air entry CARDIAC: S1 and S2. RRR without murmurs, rubs, or gallops. ABDOMEN: Soft. no tenderness. no HSM EXTREMITIES: No cyanosis or clubbing. trace UE edema. NEUROLOGIC: Otherwise, nonfocal. Laboratory Tests 02/21/18 06:38: White Blood Count 19.1H, Red Blood Count 3.45L, Hemoglobin 10.3L, Hematocrit 29.2L, Mean Corpuscular Volume 85, Mean Corpuscular Hemoglobin 30.0, Mean Corpuscular Hemoglobin Concent 35.4, Red Cell Distribution Width 12.7, Platelet Count 35L, Mean Platelet Volume 11.6H, Neutrophils (%) (Auto) , Lymphocytes (%) (Auto) , Monocytes (%) (Auto) , Eosinophils (%) (Auto) , Basophils (%) (Auto) , Differential Total Cells Counted 100, Neutrophils % (Manual) 92H, Lymphocytes % (Manual) 5L, Monocytes % (Manual) 2, Eosinophils % (Manual) 0, Basophils % ( Manual) 0, Band Neutrophils 1, Platelet Estimate DecreasedL, Platelet Morphology Normal, Hypochromasia 2+, Anisocytosis 1+, Sodium Level 130L, Potassium Level 3.3L, Chloride Level 97L, Carbon Dioxide Level 21, Anion Gap 12 , Blood Urea Nitrogen 87H, Creatinine 1.9H, Estimat Glomerular Filtration Rate , Glucose Level 128H, Calcium Level 7.9L, Total Bilirubin 7.0H, Direct Bilirubin 6.0H, Aspartate Amino Transf (AST/SGOT) 271H, Alanine Aminotransferase (ALT/SGPT) 164H, Alkaline Phosphatase 261H, Total Protein 4.8L , Albumin 1.5L, Globulin 3.3, Albumin/Globulin Ratio 0.5L Subjective ROS Limited/Unobtainable: No Allergies: Coded Allergies: CIPROFLOXACIN (Verified Allergy, Unknown, 02/17/18) PENICILLINS (Verified Allergy, Unknown, 02/17/18) Objective Last 24 Hour Vital Signs Date Time Temp Pulse Resp B/P (MAP) Pulse Ox O2 Delivery O2 Flow Rate FiO2 02/22/18 12:00 80 02/22/18 12:00 97.7 82 21 139/75 (96) 100 02/22/18 12:00 Nasal Cannula 2.0 02/22/18 10:38 76 22 100 Nasal Cannula 2.0 02/22/18 10:28 76 22 97 Nasal Cannula 2.0 02/22/18 09:24 78 140/83 02/22/18 08:02 Nasal Cannula 2.0 02/22/18 08:01 97 Nasal Cannula 2.0 02/22/18 08:00 Nasal Cannula 2.0 02/22/18 08:00 98.0 78 20 140/83 (102) 98 02/22/18 08:00 79 02/22/18 07:59 86 20 Nasal Cannula 2.0 28 02/22/18 04:00 97.5 104 20 140/83 (102) 98 02/22/18 04:00 Nasal Cannula 4.0 02/22/18 04:00 99 02/22/18 00:00 94.3 79 20 118/57 (77) 98 02/22/18 00:00 Nasal Cannula 4.0 02/21/18 23:27 100 02/21/18 20:00 87 02/21/18 20:00 Nasal Cannula 2.0 02/21/18 20:00 Nasal Cannula 4.0 02/21/18 20:00 93.4 93 20 123/74 (90) 96 02/21/18 20:00 98 Nasal Cannula 2.0 28 02/21/18 20:00 101 18 Nasal Cannula 2.0 28 02/21/18 16:50 78 20 100 Nasal Cannula 2.0 28 02/21/18 16:40 78 20 97 Nasal Cannula 3.0 32 02/21/18 16:00 97.2 77 21 132/67 (88) 96 02/21/18 16:00 80 02/21/18 16:00 Nasal Cannula 4.0 Intake and Output 02/21/18 02/22/18 19:00 07:00 Intake Total 1533.33 ml 1245.5 ml Output Total 500 ml 1500 ml Balance 1033.33 ml -254.5 ml IV Total 1533.33 ml 1245.5 ml Output Urine Total 500 ml 1500 ml # Bowel Movements 5 3 Microbiology Date/Time Source Procedure Growth Status 02/20/18 07:30 Blood Blood Culture - Preliminary NO GROWTH AFTER 24 HOURS Resulted 02/20/18 07:20 Blood Blood Culture - Preliminary NO GROWTH AFTER 24 HOURS Resulted Laboratory Tests 02/22/18 03:30: White Blood Count 15.5H, Red Blood Count 3.53L, Hemoglobin 10.5L, Hematocrit 30.1L, Mean Corpuscular Volume 85, Mean Corpuscular Hemoglobin 29.8, Mean Corpuscular Hemoglobin Concent 35.0, Red Cell Distribution Width 12.8, Platelet Count 30L, Mean Platelet Volume 12.9H, Neutrophils (%) (Auto) , Lymphocytes (%) (Auto) , Monocytes (%) (Auto) , Eosinophils (%) (Auto) , Basophils (%) (Auto) , Differential Total Cells Counted 100, Neutrophils % (Manual) 87H, Lymphocytes % (Manual) 2L, Monocytes % (Manual) 3, Eosinophils % (Manual) 0, Basophils % ( Manual) 0, Band Neutrophils 8, Nucleated Red Blood Cells 1, Platelet Estimate DecreasedL, Platelet Morphology Normal, Sodium Level 134L, Potassium Level 3.5, Chloride Level 102, Carbon Dioxide Level 21, Anion Gap 11, Blood Urea Nitrogen 66H, Creatinine 1.3, Estimat Glomerular Filtration Rate , Glucose Level 167H, Calcium Level 7.9L, Total Bilirubin 4.8H, Direct Bilirubin 3.5H, Aspartate Amino Transf (AST/SGOT) 148H, Alanine Aminotransferase (ALT/SGPT) 118H, Alkaline Phosphatase 188H, Total Protein 5.0L, Albumin 1.5L, Globulin 3.5, Albumin/Globulin Ratio 0.4L Current Medications Medications (Trade) Dose Ordered Sig/Kalyan Route PRN Reason Start Time Stop Time Status Last Admin Dose Admin Albuterol/ Ipratropium (Albuterol/ Ipratropium) 3 ml Q6H PRN HHN Shortness of Breath 02/17/18 17:30 02/22/18 17:29 02/22/18 10:28 Alfuzosin HCl (Uroxatrol) 10 mg DAILY ORAL 02/18/18 09:00 03/20/18 08:59 02/22/18 09:24 Aspirin (ASA) 81 mg DAILY ORAL 02/18/18 09:00 03/20/18 08:59 02/19/18 09:40 Cefepime HCl 1 gm/ Dextrose 55 ml @ 110 mls/hr Q12HR@0300,1500 IVPB 02/22/18 15:00 03/01/18 14:59 Clonazepam (KlonoPIN) 0.5 mg Q6H PRN ORAL For Anxiety 02/20/18 11:00 02/27/18 10:59 02/21/18 10:00 Cyanocobalamin (Vitamin B-12) 1,000 mcg DAILY ORAL 02/18/18 09:00 03/20/18 08:59 02/22/18 09:24 Finasteride (Proscar) 5 mg EVERY OTHER DAY ORAL 02/19/18 09:00 03/21/18 08:59 02/21/18 09:25 Fluconazole (Diflucan) 100 mg DAILY ORAL 02/20/18 09:00 02/27/18 08:59 02/22/18 09:24 Gadobutrol (Gadavist) 7.5 mmol NOW PRN IV Radiology Procedure 02/19/18 13:45 02/23/18 13:33 Hydroxyzine HCl (Vistaril) 10 mg Q8H PRN ORAL Itching 02/17/18 18:00 03/19/18 17:59 Insulin Aspart (NovoLOG) BEFORE MEALS AND HS SUBQ 02/17/18 21:00 03/19/18 20:59 02/22/18 13:23 Metoprolol Succinate (Toprol XL) 25 mg DAILY ORAL 02/20/18 09:00 03/22/18 08:59 02/22/18 09:24 Metronidazole 100 ml @ 100 mls/hr Q8HR IVPB 02/17/18 22:00 02/24/18 21:59 02/22/18 14:27 Pantoprazole (Protonix) 40 mg DAILY ORAL 02/18/18 09:00 03/20/18 08:59 02/22/18 09:24 Psyllium Hydrophilic Mucilloid (Metamucil) 1 pkt DAILY ORAL 02/18/18 09:00 03/20/18 08:59 02/21/18 09:25 Sertraline HCl (Zoloft) 100 mg DAILY ORAL 02/18/18 09:00 03/20/18 08:59 02/21/18 09:25 Sodium Chloride 1,000 ml @ 125 mls/hr Q8H IVLG 02/20/18 13:00 03/22/18 12:59 02/22/18 13:16 Lex Gonzalez MD Feb 22, 2018 14:42
[2018-02-22 15:02] LABS: HEMATOCRIT 32.7 % (42.0-52.0); HEMOGLOBIN 11.3 G/DL (14.2-18.0); MEAN CORPUSCULAR VOLUME 85 FL (80-99); PLATELET COUNT 42 K/UL (150-450); RED BLOOD COUNT 3.84 M/UL (4.70-6.10); RED CELL DISTRIBUTION WIDTH 12.5 % (11.6-14.8)
--- NOTE | 2018-02-22 15:05 | General Progress Note ---
Assessment/Plan Status: stable Assessment/Plan # Left sided solid/cystic liver mass, r/o CA -- potentially either primary HCC versus metastatic from other site --> will need to determine primary site of origin with a biopsy at this time --> CT of the chest/abdomen/pelvis:Large 9.8 x 11.3 x 9.2 cm heterogeneous area of low-attenuation involving most of the lateral left hepatic lobe. --> MRI of the abdomen: abnormality involving segments 2 and 3 of the left hepatic lobe --> tumor markers: CA 15-3 of 19.1, CA 19-9 of 20, PSA of 78.7 --> will need pathology report before further recommendations # Thrombocytopenia likely due to malignancy versus consumptive process from infection --> Cont to closely monitor --> plt goal >20k if febrile --> plt goal >50k if procedure is pending --> FFP tx: 02/21 # Anemia of chronic disease due to underlying chronic medical issues --> w/u has been reviewed. Ferritin at 1725 --> Hgb goal >7. Transfuse prn. # Elevated PSA -- may consider a bone scan to r/o mets --> onbtain bone scan / skeletal survey since inpatient # Sepsis, UTI vs infected necrotic liver mass --> on abx, appreciate ID recs # Renal failure - improving # Hyponatremia. IVF # Jaundice, ? due to mass, ? cirrhotic, ? hepatitis/liver failure # Episode of generalized weakness Greatly appreciate consultation! Subjective Date patient seen: Feb 22, 2018 Hematologic/Lymphatic: Reports: anemia Allergies: Coded Allergies: CIPROFLOXACIN (Verified Allergy, Unknown, 02/17/18) PENICILLINS (Verified Allergy, Unknown, 02/17/18) All Systems: reviewed and negative except above Subjective Pt awake and alert. Awaiting Plt tx. VS stable. Objective Last 24 Hour Vital Signs Date Time Temp Pulse Resp B/P (MAP) Pulse Ox O2 Delivery O2 Flow Rate FiO2 02/22/18 12:00 80 02/22/18 12:00 97.7 82 21 139/75 (96) 100 02/22/18 12:00 Nasal Cannula 2.0 02/22/18 10:38 76 22 100 Nasal Cannula 2.0 28 02/22/18 10:28 76 22 97 Nasal Cannula 2.0 02/22/18 09:24 78 140/83 02/22/18 08:02 Nasal Cannula 2.0 28 02/22/18 08:01 97 Nasal Cannula 2.0 28 02/22/18 08:00 Nasal Cannula 2.0 02/22/18 08:00 98.0 78 20 140/83 (102) 98 02/22/18 08:00 79 02/22/18 07:59 86 20 Nasal Cannula 2.0 28 02/22/18 04:00 97.5 104 20 140/83 (102) 98 02/22/18 04:00 Nasal Cannula 4.0 02/22/18 04:00 99 02/22/18 00:00 94.3 79 20 118/57 (77) 98 02/22/18 00:00 Nasal Cannula 4.0 02/21/18 23:27 100 02/21/18 20:00 87 02/21/18 20:00 Nasal Cannula 2.0 28 02/21/18 20:00 Nasal Cannula 4.0 02/21/18 20:00 93.4 93 20 123/74 (90) 96 02/21/18 20:00 98 Nasal Cannula 2.0 28 02/21/18 20:00 101 18 Nasal Cannula 2.0 28 02/21/18 16:50 78 20 100 Nasal Cannula 2.0 28 02/21/18 16:40 78 20 97 Nasal Cannula 3.0 32 02/21/18 16:00 97.2 77 21 132/67 (88) 96 02/21/18 16:00 80 02/21/18 16:00 Nasal Cannula 4.0 Intake and Output 02/21/18 02/22/18 19:00 07:00 Intake Total 1533.33 ml 1245.5 ml Output Total 500 ml 1500 ml Balance 1033.33 ml -254.5 ml IV Total 1533.33 ml 1245.5 ml Output Urine Total 500 ml 1500 ml # Bowel Movements 5 3 Laboratory Tests 02/22/18 03:30: White Blood Count 15.5H, Red Blood Count 3.53L, Hemoglobin 10.5L, Hematocrit 30.1L, Mean Corpuscular Volume 85, Mean Corpuscular Hemoglobin 29.8, Mean Corpuscular Hemoglobin Concent 35.0, Red Cell Distribution Width 12.8, Platelet Count 30L, Mean Platelet Volume 12.9H, Neutrophils (%) (Auto) , Lymphocytes (%) (Auto) , Monocytes (%) (Auto) , Eosinophils (%) (Auto) , Basophils (%) (Auto) , Differential Total Cells Counted 100, Neutrophils % (Manual) 87H, Lymphocytes % (Manual) 2L, Monocytes % (Manual) 3, Eosinophils % (Manual) 0, Basophils % ( Manual) 0, Band Neutrophils 8, Nucleated Red Blood Cells 1, Platelet Estimate DecreasedL, Platelet Morphology Normal, Sodium Level 134L, Potassium Level 3.5, Chloride Level 102, Carbon Dioxide Level 21, Anion Gap 11, Blood Urea Nitrogen 66H, Creatinine 1.3, Estimat Glomerular Filtration Rate , Glucose Level 167H, Calcium Level 7.9L, Total Bilirubin 4.8H, Direct Bilirubin 3.5H, Aspartate Amino Transf (AST/SGOT) 148H, Alanine Aminotransferase (ALT/SGPT) 118H, Alkaline Phosphatase 188H, Total Protein 5.0L, Albumin 1.5L, Globulin 3.5, Albumin/Globulin Ratio 0.4L 02/22/18 14:45: White Blood Count [Pending], Red Blood Count [Pending], Hemoglobin [Pending], Hematocrit [Pending], Mean Corpuscular Volume [Pending], Mean Corpuscular Hemoglobin [Pending], Mean Corpuscular Hemoglobin Concent [Pending], Red Cell Distribution Width [Pending], Platelet Count [Pending], Mean Platelet Volume [ Pending], Neutrophils (%) (Auto) [Pending], Lymphocytes (%) (Auto) [Pending], Monocytes (%) (Auto) [Pending], Eosinophils (%) (Auto) [Pending], Basophils (%) (Auto) [Pending], Prothrombin Time [Pending], Prothromb Time International Ratio [Pending], Activated Partial Thromboplast Time [Pending] Height (Feet): 6 Height (Inches): 2.00 Weight (Pounds): 220 Objective General Appearance: alert, GCS 15, moderate distress Eyes: bilateral eye PERRL ENT: normal pharynx, normal voice Neck: full range of motion Respiratory: normal inspection, no respiratory distress Cardiovascular: tachycardia Gastrointestinal: distended Genitourinary: no CVA tenderness Musculoskeletal: ++motor weakness Mehdi Williamson MD Feb 22, 2018 15:05
[2018-02-22 15:08] LABS: INR 1.3 (0.9-1.1)
[2018-02-22] MEDS: Cefepime HCl 1 GM in D5W 55 ML IVPB SCH (16:31)
--- NOTE | 2018-02-22 16:46 | Diagnostic Imaging Report ---
Indication: Liver abscess Procedure: Informed consent for the procedure was obtained. The risks, benefits, and alternatives to the procedure were discussed with the patient. We were given verbal and written consent to proceed. The abdomen was prepped and draped in a sterile fashion. Lidocaine was administered for local anesthesia. Dermatotomy was made. Using ultrasound guidance, 8 Pashto pigtail drainage catheter was advanced into the left lobe of the liver using a direct stick trocar. The trocar was removed and the drainage catheter was advanced into the collection. Approximately 230 cc of malodorous thick serosanguineous fluid was obtained. Culture and sensitivities another study sent. There were no complications. The patient tolerated the procedure well. Impression: Status post successful ultrasound guided drainage of a liver abscess.
[2018-02-22] MEDS ORDERED: Norco 5mg/325mg tab ORAL PRN (18:00)
--- NOTE | 2018-02-22 20:27 | General Progress Note ---
Assessment/Plan Assessment/Plan Assessment - Left sided solid/cystic liver mass, MRI consistent with abscess - elevated PSA to 78 - suspect prostate CA - Sepsis, UTI vs infected necrotic liver mass - renal failure - hyponatremia - thrombocytopenia, ? DIC, ? cirrhotic - Jaundice, ? due to mass, ? cirrhotic, ? hepatitis/liver failure - Guarded Recommendations - IVF - Follow drain output - Re check U/A - check other tumor markers - negative AFP, CEA, 19-9 - check hepatitis serologies - negative - abx per ID - follow labs and exam Subjective Allergies: Coded Allergies: CIPROFLOXACIN (Verified Allergy, Unknown, 02/17/18) PENICILLINS (Verified Allergy, Unknown, 02/17/18) Subjective seen this am now s/p FNA and drainage of liver abscess Objective Last 24 Hour Vital Signs Date Time Temp Pulse Resp B/P (MAP) Pulse Ox O2 Delivery O2 Flow Rate FiO2 02/22/18 20:00 Nasal Cannula 2.0 02/22/18 20:00 98.1 79 20 139/77 (97) 99 02/22/18 19:57 78 18 Nasal Cannula 2.0 02/22/18 19:57 99 Nasal Cannula 2.0 02/22/18 19:57 Nasal Cannula 2.0 02/22/18 16:00 Nasal Cannula 2.0 02/22/18 16:00 79 02/22/18 15:40 76 20 116/75 (89) 100 02/22/18 15:35 96 20 119/73 (88) 100 02/22/18 15:30 80 20 118/75 (89) 100 02/22/18 15:25 80 20 128/78 (95) 100 02/22/18 15:20 79 20 130/78 (95) 100 02/22/18 15:20 89 18 3.0 02/22/18 12:00 80 02/22/18 12:00 97.7 82 21 139/75 (96) 100 02/22/18 12:00 Nasal Cannula 2.0 02/22/18 10:38 76 22 100 Nasal Cannula 2.0 02/22/18 10:28 76 22 97 Nasal Cannula 2.0 02/22/18 09:24 78 140/83 02/22/18 08:02 Nasal Cannula 2.0 02/22/18 08:01 97 Nasal Cannula 2.0 02/22/18 08:00 Nasal Cannula 2.0 02/22/18 08:00 98.0 78 20 140/83 (102) 98 02/22/18 08:00 79 02/22/18 07:59 86 20 Nasal Cannula 2.0 28 02/22/18 04:00 97.5 104 20 140/83 (102) 98 02/22/18 04:00 Nasal Cannula 4.0 02/22/18 04:00 99 02/22/18 00:00 94.3 79 20 118/57 (77) 98 02/22/18 00:00 Nasal Cannula 4.0 02/21/18 23:27 100 Intake and Output 02/21/18 02/22/18 19:00 07:00 Intake Total 1533.33 ml 1245.5 ml Output Total 500 ml 1500 ml Balance 1033.33 ml -254.5 ml IV Total 1533.33 ml 1245.5 ml Output Urine Total 500 ml 1500 ml # Bowel Movements 5 3 Laboratory Tests 02/22/18 03:30: White Blood Count 15.5H, Red Blood Count 3.53L, Hemoglobin 10.5L, Hematocrit 30.1L, Mean Corpuscular Volume 85, Mean Corpuscular Hemoglobin 29.8, Mean Corpuscular Hemoglobin Concent 35.0, Red Cell Distribution Width 12.8, Platelet Count 30L, Mean Platelet Volume 12.9H, Neutrophils (%) (Auto) , Lymphocytes (%) (Auto) , Monocytes (%) (Auto) , Eosinophils (%) (Auto) , Basophils (%) (Auto) , Differential Total Cells Counted 100, Neutrophils % (Manual) 87H, Lymphocytes % (Manual) 2L, Monocytes % (Manual) 3, Eosinophils % (Manual) 0, Basophils % ( Manual) 0, Band Neutrophils 8, Nucleated Red Blood Cells 1, Platelet Estimate DecreasedL, Platelet Morphology Normal, Sodium Level 134L, Potassium Level 3.5, Chloride Level 102, Carbon Dioxide Level 21, Anion Gap 11, Blood Urea Nitrogen 66H, Creatinine 1.3, Estimat Glomerular Filtration Rate , Glucose Level 167H, Calcium Level 7.9L, Total Bilirubin 4.8H, Direct Bilirubin 3.5H, Aspartate Amino Transf (AST/SGOT) 148H, Alanine Aminotransferase (ALT/SGPT) 118H, Alkaline Phosphatase 188H, Total Protein 5.0L, Albumin 1.5L, Globulin 3.5, Albumin/Globulin Ratio 0.4L 02/22/18 14:45: White Blood Count 16.0H, Red Blood Count 3.84L, Hemoglobin 11.3L, Hematocrit 32.7L, Mean Corpuscular Volume 85, Mean Corpuscular Hemoglobin 29.3, Mean Corpuscular Hemoglobin Concent 34.4, Red Cell Distribution Width 12.5, Platelet Count 42L, Mean Platelet Volume 9.7, Neutrophils (%) (Auto) , Lymphocytes (%) ( Auto) , Monocytes (%) (Auto) , Eosinophils (%) (Auto) , Basophils (%) (Auto) , Differential Total Cells Counted 100, Neutrophils % (Manual) 89H, Lymphocytes % (Manual) 4L, Monocytes % (Manual) 5, Eosinophils % (Manual) 0, Basophils % ( Manual) 0, Band Neutrophils 2, Platelet Estimate DecreasedL, Platelet Morphology Normal, Hypochromasia 1+, Anisocytosis 1+, Prothrombin Time 13.1H, Prothromb Time International Ratio 1.3H, Activated Partial Thromboplast Time 30 02/22/18 15:18: Body Fluid Source Liver abscess, Body Fluid Volume 80, Body Fluid Appearance Bloody, [place] Fl[place] [address], Body Fluid Total Nucleated Cells 95671, Body Fluid Polynuclear WBCs (%) [Pending], Body Fluid Mononuclear WBCs (%) [Pending] , Body Fluid Mesothelial Cells (%) [Pending], Body Fluid Glucose [Pending], Body Fluid Comment Height (Feet): 6 Height (Inches): 2.00 Weight (Pounds): 220 Objective WDWN NCAT supple CTA RR, tachy Abd soft ND NT no edema neuro/psych restless Jaylyn Parikh MD Feb 22, 2018 20:27
[2018-02-23] VITALS: BP 140/76
[2018-02-23] MEDS: Cefepime HCl 1 GM in D5W 55 ML IVPB SCH ×2 (02:55→15:13)
[2018-02-23 04:00] VITALS: BP 142/80
[2018-02-23 05:02] LABS: HEMATOCRIT 30.4 % (42.0-52.0); HEMOGLOBIN 10.6 G/DL (14.2-18.0); MEAN CORPUSCULAR VOLUME 86 FL (80-99); PLATELET COUNT 36 K/UL (150-450); RED BLOOD COUNT 3.54 M/UL (4.70-6.10); RED CELL DISTRIBUTION WIDTH 12.5 % (11.6-14.8); WHITE BLOOD COUNT 13.4 K/UL (4.8-10.8)
[2018-02-23 05:36] LABS: ALANINE AMINOTRANSFERASE 76 U/L (12-78); ALBUMIN 1.4 G/DL (3.4-5.0); ALBUMIN/GLOBULIN RATIO 0.4 (1.0-2.7); ALKALINE PHOSPHATASE 167 U/L (46-116); ANION GAP 9 mmol/L (5-15); ASPARTATE AMINO TRANSFERASE 64 U/L (15-37); BILIRUBIN,TOTAL 3.8 MG/DL (0.2-1.0); BLOOD UREA NITROGEN 48 mg/dL (7-18); CARBON DIOXIDE 22 MMOL/L (21-32); CHLORIDE 105 MMOL/L (98-107); SODIUM 136 MMOL/L (136-145)
[2018-02-23] MEDS: NovoLOG Insulin Flexpen SUBQ SCH ×4 (05:43→21:32)
[2018-02-23 05:59] LABS: BILIRUBIN,DIRECT 2.9 MG/DL (0.0-0.3)
--- NOTE | 2018-02-23 06:00 | Progress Note ---
DATE: 02/21/2018 CARDIOLOGY PROGRESS NOTE This is a late entry. SUBJECTIVE: The case was reviewed with the patient's at bedside. The patient's blood pressure has been stable, monitored rhythm is sinus. No sustained atrial arrhythmias. The patient has an abnormal MRI suggesting a liver abscess and aspiration is planned tomorrow. PHYSICAL EXAMINATION: LUNGS: Bilateral breath sounds. HEART: Regular rhythm and rate. Normal S1, S2. ABDOMEN: Soft. EXTREMITIES: Trace edema. IMPRESSION: 1. Liver abscess. 2. Probable prostate cancer. 3. UTI with sepsis. 4. Acute renal failure. 5. Hyponatremia. 6. Paroxysmal atrial ectopy. PLAN: Liver aspirate. Monitor electrolytes and coagulation parameters. Continue beta-shanika. Cardiac monitoring. Antimicrobials. Respiratory hygiene. Lex Barros M.D. DR: KYA JOB#: [id number] CC:
--- NOTE | 2018-02-23 06:15 | Progress Note ---
DATE: 02/22/2018 CARDIOLOGY PROGRESS NOTE SUBJECTIVE: Drainage of liver abscess planned today, as I completed today without complications. OBJECTIVE: VITAL SIGNS: Blood pressure 139/77, pulse 79, respirations 20. Monitored sinus. Rare atrial ectopy and nonsustained atrial arrhythmias. LUNGS: Diminished breath sounds. HEART: Regular rhythm and rate. Normal S1, S2 with a fourth heart sound. ABDOMEN: Slightly tender, but soft. No guarding or rebound. EXTREMITIES: Trace dependent edema. LABORATORY DATA: White count 16, hemoglobin 11.3. Sodium 134, potassium 3.5, BUN 66, creatinine 1.3. Albumin 1.5. IMPRESSION: 1. Recovering renal failure and hyponatremia still with severe protein-calorie malnutrition. 2. Probable prostate cancer. 3. Liver abscess. 4. Paroxysmal atrial arrhythmias. 5. Third-spacing due to low colloid osmotic pressure. PLAN: Followup abscess. Drainage results. Biopsy results. Tumor marker results. Continue antimicrobials. Adjusting IV fluids. Monitoring electrolytes and maintain beta-blockade. Remains high risk. Lex Barros M.D. DR: KYA JOB#: [id number] CC:
--- NOTE | 2018-02-23 07:10 | General Progress Note ---
Assessment/Plan Status: stable Assessment/Plan # Left sided solid/cystic liver mass, r/o CA -- potentially either primary HCC versus metastatic from other site --> will need to determine primary site of origin with a biopsy at this time --> CT of the chest/abdomen/pelvis:Large 9.8 x 11.3 x 9.2 cm heterogeneous area of low-attenuation involving most of the lateral left hepatic lobe. --> MRI of the abdomen: abnormality involving segments 2 and 3 of the left hepatic lobe --> tumor markers: CA 15-3 of 19.1, CA 19-9 of 20, PSA of 78.7 --> will need pathology report before further recommendations --> 02/23: S/P drainage of liver abscess # Thrombocytopenia likely due to malignancy versus consumptive process from infection --> Cont to closely monitor --> plt goal >20k if febrile --> plt goal >50k if procedure is pending --> FFP tx: pending # Anemia of chronic disease due to underlying chronic medical issues --> w/u has been reviewed. Ferritin at 1725 --> Hgb goal >7. Transfuse prn. # Elevated PSA -- may consider a bone scan to r/o mets --> onbtain bone scan / skeletal survey since inpatient # Sepsis, UTI vs infected necrotic liver mass --> on abx, appreciate ID recs # Renal failure - improving # Hyponatremia. IVF # Jaundice, ? due to mass, ? cirrhotic, ? hepatitis/liver failure # Episode of generalized weakness Greatly appreciate consultation! Subjective Date patient seen: Feb 23, 2018 Hematologic/Lymphatic: Reports: anemia Allergies: Coded Allergies: CIPROFLOXACIN (Verified Allergy, Unknown, 02/17/18) PENICILLINS (Verified Allergy, Unknown, 02/17/18) All Systems: reviewed and negative except above Subjective Pt awake and alert. Drainage of liver abscess for today. VS stable. Objective Last 24 Hour Vital Signs Date Time Temp Pulse Resp B/P (MAP) Pulse Ox O2 Delivery O2 Flow Rate FiO2 02/23/18 04:00 Nasal Cannula 2.0 02/23/18 04:00 97.9 79 20 142/80 (100) 99 02/23/18 03:30 73 02/23/18 00:00 98.1 79 20 140/76 (97) 98 02/23/18 00:00 Nasal Cannula 2.0 02/23/18 00:00 78 02/22/18 20:00 Nasal Cannula 2.0 02/22/18 20:00 98.1 79 20 139/77 (97) 99 02/22/18 19:57 78 18 Nasal Cannula 2.0 28 02/22/18 19:57 99 Nasal Cannula 2.0 28 02/22/18 19:57 Nasal Cannula 2.0 28 02/22/18 19:11 79 02/22/18 16:00 Nasal Cannula 2.0 02/22/18 16:00 79 02/22/18 15:40 76 20 116/75 (89) 100 02/22/18 15:35 96 20 119/73 (88) 100 02/22/18 15:30 80 20 118/75 (89) 100 02/22/18 15:25 80 20 128/78 (95) 100 02/22/18 15:20 79 20 130/78 (95) 100 02/22/18 15:20 89 18 3.0 02/22/18 12:00 80 02/22/18 12:00 97.7 82 21 139/75 (96) 100 02/22/18 12:00 Nasal Cannula 2.0 02/22/18 10:38 76 22 100 Nasal Cannula 2.0 28 02/22/18 10:28 76 22 97 Nasal Cannula 2.0 28 02/22/18 09:24 78 140/83 02/22/18 08:02 Nasal Cannula 2.0 28 02/22/18 08:01 97 Nasal Cannula 2.0 28 02/22/18 08:00 Nasal Cannula 2.0 02/22/18 08:00 98.0 78 20 140/83 (102) 98 02/22/18 08:00 79 02/22/18 07:59 86 20 Nasal Cannula 2.0 28 Intake and Output 02/22/18 02/23/18 18:59 06:59 Intake Total 1780 ml 2914.8 ml Output Total 1360 ml Balance 1780 ml 1554.8 ml Intake Oral 1000 ml IV Total 1780 ml 1439.8 ml Blood Product 475 ml Output Urine Total 1025 ml Drainage Total 335 ml # Voids 2 # Bowel Movements 1 Laboratory Tests 02/22/18 14:45: White Blood Count 16.0H, Red Blood Count 3.84L, Hemoglobin 11.3L, Hematocrit 32.7L, Mean Corpuscular Volume 85, Mean Corpuscular Hemoglobin 29.3, Mean Corpuscular Hemoglobin Concent 34.4, Red Cell Distribution Width 12.5, Platelet Count 42L, Mean Platelet Volume 9.7, Neutrophils (%) (Auto) , Lymphocytes (%) ( Auto) , Monocytes (%) (Auto) , Eosinophils (%) (Auto) , Basophils (%) (Auto) , Differential Total Cells Counted 100, Neutrophils % (Manual) 89H, Lymphocytes % (Manual) 4L, Monocytes % (Manual) 5, Eosinophils % (Manual) 0, Basophils % ( Manual) 0, Band Neutrophils 2, Platelet Estimate DecreasedL, Platelet Morphology Normal, Hypochromasia 1+, Anisocytosis 1+, Prothrombin Time 13.1H, Prothromb Time International Ratio 1.3H, Activated Partial Thromboplast Time 30 02/22/18 15:18: Body Fluid Source Liver abscess, Body Fluid Volume 80, Body Fluid Appearance Bloody, [place] [address], Body Fluid Total Nucleated Cells 52550, Body Fluid Polynuclear WBCs (%) [Pending], Body Fluid Mononuclear WBCs (%) [Pending] , Body Fluid Mesothelial Cells (%) [Pending], Body Fluid Glucose [Pending], Body Fluid Comment 02/23/18 03:30: White Blood Count 13.4H, Red Blood Count 3.54L, Hemoglobin 10.6L, Hematocrit 30.4L, Mean Corpuscular Volume 86, Mean Corpuscular Hemoglobin 29.8, Mean Corpuscular Hemoglobin Concent 34.8, Red Cell Distribution Width 12.5, Platelet Count 36L, Mean Platelet Volume 8.7, Neutrophils (%) (Auto) , Lymphocytes (%) ( Auto) , Monocytes (%) (Auto) , Eosinophils (%) (Auto) , Basophils (%) (Auto) , Neutrophils % (Manual) [Pending], Lymphocytes % (Manual) [Pending], Platelet Estimate [Pending], Platelet Morphology [Pending], Sodium Level 136, Potassium Level 4.0, Chloride Level 105, Carbon Dioxide Level 22, Anion Gap 9, Blood Urea Nitrogen 48H, Creatinine 1.0, Estimat Glomerular Filtration Rate , Glucose Level 159H, Calcium Level 8.0L, Total Bilirubin 3.8H, Direct Bilirubin 2.9H, Aspartate Amino Transf (AST/SGOT) 64H, Alanine Aminotransferase (ALT/SGPT) 76, Alkaline Phosphatase 167H, Total Protein 5.0L, Albumin 1.4L, Globulin 3.6, Albumin/Globulin Ratio 0.4L Height (Feet): 6 Height (Inches): 2.00 Weight (Pounds): 220 Objective General Appearance: alert, GCS 15, moderate distress Eyes: bilateral eye PERRL ENT: normal pharynx, normal voice Neck: full range of motion Respiratory: normal inspection, no respiratory distress Cardiovascular: tachycardia Gastrointestinal: distended Genitourinary: no CVA tenderness Musculoskeletal: ++motor weakness Mehdi Williamson MD Feb 23, 2018 07:10
[2018-02-23 08:00] VITALS: BP 140/72
[2018-02-23] MEDS: Metoprolol Succinate XL 25mg tab ORAL SCH (09:10)
[2018-02-23] MEDS: Metamucil Pkt ORAL SCH (09:10)
[2018-02-23] MEDS: Vitamin B-12 500mcg tab ORAL SCH (09:10)
[2018-02-23] MEDS: Fluconazole 100mg tab ORAL SCH (09:10)
[2018-02-23] MEDS: Aspirin Baby 81mg ORAL SCH (09:11)
[2018-02-23] MEDS: Sertraline 100mg tab ORAL SCH (09:11)
--- NOTE | 2018-02-23 09:17 | General Progress Note ---
Assessment/Plan Assessment/Plan IMPRESSION: 1. Acute pancreatitis. 2. Thrombocytopenia 3. Hematuria. 4. Hyponatremia. 5. Hypokalemia. 6. Acute on chronic renal failure. 7. Transaminitis. 8. Possible acute hepatitis. 9. Severe protein-calorie malnutrition. 10. Leukocytosis. 11. Concern for severe sepsis. 12. hypotension 13. liver mass 14. Atrial flutter 15. concern for metastatic prostate cancer 16. s/p liver biopsy PLAN IV antibiotics per ID antifungals IV hydration as is monitor bun and creatinine; improved PO diet as tolerated MRI/ cT guided biopsy reviewed all consultants appreciated labs recovering aware; and will update for change impression, plan, and exam edited and reviewed in detail care discussed with RN Subjective Allergies: Coded Allergies: CIPROFLOXACIN (Verified Allergy, Unknown, 02/17/18) PENICILLINS (Verified Allergy, Unknown, 02/17/18) Subjective all reviewed events noted and reviewed comfortable underwent liver abcess drainage patient alert Objective Last 24 Hour Vital Signs Date Time Temp Pulse Resp B/P (MAP) Pulse Ox O2 Delivery O2 Flow Rate FiO2 02/23/18 09:10 73 140/72 02/23/18 04:00 Nasal Cannula 2.0 02/23/18 04:00 97.9 79 20 142/80 (100) 99 02/23/18 03:30 73 02/23/18 00:00 98.1 79 20 140/76 (97) 98 02/23/18 00:00 Nasal Cannula 2.0 02/23/18 00:00 78 02/22/18 20:00 Nasal Cannula 2.0 02/22/18 20:00 98.1 79 20 139/77 (97) 99 02/22/18 19:57 78 18 Nasal Cannula 2.0 28 02/22/18 19:57 99 Nasal Cannula 2.0 28 02/22/18 19:57 Nasal Cannula 2.0 28 02/22/18 19:11 79 02/22/18 16:00 Nasal Cannula 2.0 02/22/18 16:00 79 02/22/18 15:40 76 20 116/75 (89) 100 02/22/18 15:35 96 20 119/73 (88) 100 02/22/18 15:30 80 20 118/75 (89) 100 02/22/18 15:25 80 20 128/78 (95) 100 02/22/18 15:20 79 20 130/78 (95) 100 02/22/18 15:20 89 18 3.0 02/22/18 12:00 80 02/22/18 12:00 97.7 82 21 139/75 (96) 100 02/22/18 12:00 Nasal Cannula 2.0 02/22/18 10:38 76 22 100 Nasal Cannula 2.0 28 02/22/18 10:28 76 22 97 Nasal Cannula 2.0 02/22/18 09:24 78 140/83 Intake and Output 02/22/18 02/23/18 18:59 06:59 Intake Total 1780 ml 2914.8 ml Output Total 1360 ml Balance 1780 ml 1554.8 ml Intake Oral 1000 ml IV Total 1780 ml 1439.8 ml Blood Product 475 ml Output Urine Total 1025 ml Drainage Total 335 ml # Voids 2 # Bowel Movements 1 Laboratory Tests 02/22/18 14:45: White Blood Count 16.0H, Red Blood Count 3.84L, Hemoglobin 11.3L, Hematocrit 32.7L, Mean Corpuscular Volume 85, Mean Corpuscular Hemoglobin 29.3, Mean Corpuscular Hemoglobin Concent 34.4, Red Cell Distribution Width 12.5, Platelet Count 42L, Mean Platelet Volume 9.7, Neutrophils (%) (Auto) , Lymphocytes (%) ( Auto) , Monocytes (%) (Auto) , Eosinophils (%) (Auto) , Basophils (%) (Auto) , Differential Total Cells Counted 100, Neutrophils % (Manual) 89H, Lymphocytes % (Manual) 4L, Monocytes % (Manual) 5, Eosinophils % (Manual) 0, Basophils % ( Manual) 0, Band Neutrophils 2, Platelet Estimate DecreasedL, Platelet Morphology Normal, Hypochromasia 1+, Anisocytosis 1+, Prothrombin Time 13.1H, Prothromb Time International Ratio 1.3H, Activated Partial Thromboplast Time 30 02/22/18 15:18: Body Fluid Source Liver abscess, Body Fluid Volume 80, Body Fluid Appearance Bloody, Body Fl[place] [address], Body Fluid Total Nucleated Cells 38226, Body Fluid Polynuclear WBCs (%) 79, Body Fluid Mononuclear WBCs (%) 21, Body Fluid Mesothelial Cells (%) 0, Body Fluid Glucose [Pending], Body Fluid Comment 02/23/18 03:30: White Blood Count 13.4H, Red Blood Count 3.54L, Hemoglobin 10.6L, Hematocrit 30.4L, Mean Corpuscular Volume 86, Mean Corpuscular Hemoglobin 29.8, Mean Corpuscular Hemoglobin Concent 34.8, Red Cell Distribution Width 12.5, Platelet Count 36L, Mean Platelet Volume 8.7, Neutrophils (%) (Auto) , Lymphocytes (%) ( Auto) , Monocytes (%) (Auto) , Eosinophils (%) (Auto) , Basophils (%) (Auto) , Neutrophils % (Manual) [Pending], Lymphocytes % (Manual) [Pending], Platelet Estimate [Pending], Platelet Morphology [Pending], Sodium Level 136, Potassium Level 4.0, Chloride Level 105, Carbon Dioxide Level 22, Anion Gap 9, Blood Urea Nitrogen 48H, Creatinine 1.0, Estimat Glomerular Filtration Rate , Glucose Level 159H, Calcium Level 8.0L, Total Bilirubin 3.8H, Direct Bilirubin 2.9H, Aspartate Amino Transf (AST/SGOT) 64H, Alanine Aminotransferase (ALT/SGPT) 76, Alkaline Phosphatase 167H, Total Protein 5.0L, Albumin 1.4L, Globulin 3.6, Albumin/Globulin Ratio 0.4L Height (Feet): 6 Height (Inches): 2.00 Weight (Pounds): 220 Objective GENERAL: The patient is more alert HEENT: Negative. Extraocular movements are grossly intact. NECK: Supple. LUNGS: minimal rhonchi, otherwise clear. moderate air entry CARDIAC: S1 and S2. RRR without murmurs, rubs, or gallops. ABDOMEN: Soft. no tenderness. no HSM EXTREMITIES: No cyanosis or clubbing. trace UE edema. NEUROLOGIC: Otherwise, nonfocal. Se Tompkins MD Feb 23, 2018 09:17
--- NOTE | 2018-02-23 10:03 | Nephrology Progress Note ---
Assessment/Plan Plan ARF - resolving. Liver abscess - resolving with current therapy. M/P Also Prostate CA. Subjective Subjective No new c/o Objective Objective Last 24 Hour Vital Signs Date Time Temp Pulse Resp B/P (MAP) Pulse Ox O2 Delivery O2 Flow Rate FiO2 02/23/18 09:10 73 140/72 02/23/18 04:00 Nasal Cannula 2.0 02/23/18 04:00 97.9 79 20 142/80 (100) 99 02/23/18 03:30 73 02/23/18 00:00 98.1 79 20 140/76 (97) 98 02/23/18 00:00 Nasal Cannula 2.0 02/23/18 00:00 78 02/22/18 20:00 Nasal Cannula 2.0 02/22/18 20:00 98.1 79 20 139/77 (97) 99 02/22/18 19:57 78 18 Nasal Cannula 2.0 28 02/22/18 19:57 99 Nasal Cannula 2.0 28 02/22/18 19:57 Nasal Cannula 2.0 28 02/22/18 19:11 79 02/22/18 16:00 Nasal Cannula 2.0 02/22/18 16:00 79 02/22/18 15:40 76 20 116/75 (89) 100 02/22/18 15:35 96 20 119/73 (88) 100 02/22/18 15:30 80 20 118/75 (89) 100 02/22/18 15:25 80 20 128/78 (95) 100 02/22/18 15:20 79 20 130/78 (95) 100 02/22/18 15:20 89 18 3.0 02/22/18 12:00 80 02/22/18 12:00 97.7 82 21 139/75 (96) 100 02/22/18 12:00 Nasal Cannula 2.0 02/22/18 10:38 76 22 100 Nasal Cannula 2.0 28 02/22/18 10:28 76 22 97 Nasal Cannula 2.0 28 Intake and Output 02/22/18 02/23/18 19:00 07:00 Intake Total 1780 ml 2914.8 ml Output Total 1360 ml Balance 1780 ml 1554.8 ml Intake Oral 1000 ml IV Total 1780 ml 1439.8 ml Blood Product 475 ml Output Urine Total 1025 ml Drainage Total 335 ml # Voids 2 # Bowel Movements 1 Laboratory Tests 02/22/18 14:45: White Blood Count 16.0H, Red Blood Count 3.84L, Hemoglobin 11.3L, Hematocrit 32.7L, Mean Corpuscular Volume 85, Mean Corpuscular Hemoglobin 29.3, Mean Corpuscular Hemoglobin Concent 34.4, Red Cell Distribution Width 12.5, Platelet Count 42L, Mean Platelet Volume 9.7, Neutrophils (%) (Auto) , Lymphocytes (%) ( Auto) , Monocytes (%) (Auto) , Eosinophils (%) (Auto) , Basophils (%) (Auto) , Differential Total Cells Counted 100, Neutrophils % (Manual) 89H, Lymphocytes % (Manual) 4L, Monocytes % (Manual) 5, Eosinophils % (Manual) 0, Basophils % ( Manual) 0, Band Neutrophils 2, Platelet Estimate DecreasedL, Platelet Morphology Normal, Hypochromasia 1+, Anisocytosis 1+, Prothrombin Time 13.1H, Prothromb Time International Ratio 1.3H, Activated Partial Thromboplast Time 30 02/22/18 15:18: Body Fluid Source Liver abscess, Body Fluid Volume 80, Body Fluid Appearance Bloody, [place] [address], Body Fluid Total Nucleated Cells 56207, Body Fluid Polynuclear WBCs (%) 79, Body Fluid Mononuclear WBCs (%) 21, Body Fluid Mesothelial Cells (%) 0, Body Fluid Glucose [Pending], Body Fluid Comment 02/23/18 03:30: White Blood Count 13.4H, Red Blood Count 3.54L, Hemoglobin 10.6L, Hematocrit 30.4L, Mean Corpuscular Volume 86, Mean Corpuscular Hemoglobin 29.8, Mean Corpuscular Hemoglobin Concent 34.8, Red Cell Distribution Width 12.5, Platelet Count 36L, Mean Platelet Volume 8.7, Neutrophils (%) (Auto) , Lymphocytes (%) ( Auto) , Monocytes (%) (Auto) , Eosinophils (%) (Auto) , Basophils (%) (Auto) , Neutrophils % (Manual) [Pending], Lymphocytes % (Manual) [Pending], Platelet Estimate [Pending], Platelet Morphology [Pending], Sodium Level 136, Potassium Level 4.0, Chloride Level 105, Carbon Dioxide Level 22, Anion Gap 9, Blood Urea Nitrogen 48H, Creatinine 1.0, Estimat Glomerular Filtration Rate , Glucose Level 159H, Calcium Level 8.0L, Total Bilirubin 3.8H, Direct Bilirubin 2.9H, Aspartate Amino Transf (AST/SGOT) 64H, Alanine Aminotransferase (ALT/SGPT) 76, Alkaline Phosphatase 167H, Total Protein 5.0L, Albumin 1.4L, Globulin 3.6, Albumin/Globulin Ratio 0.4L Height (Feet): 6 Height (Inches): 2.00 Weight (Pounds): 220 Objective Cv RR Lungs CTA Abd SNT. BS + E No cce Mike Kim MD Feb 23, 2018 10:03
--- NOTE | 2018-02-23 10:43 | Infectious Diseases Prog Note ---
Assessment/Plan Assessment/Plan A; Sepsis, SIRS Bacteremia with Gram variable rods Liver mass, Abscess Jaundice Acute renal failure Anemia Thrombocytopenia Leukocytosis improving P: Continue Cefepime, Fluconazole & Flagyl Will cultures & Pathology report Subjective ROS Limited/Unobtainable: No Constitutional: Reports: no symptoms Respiratory: Reports: productive cough Cardiovascular: Reports: no symptoms Gastrointestinal/Abdominal: Reports: no symptoms, other - had US guided drainge of left liver lesion Genitourinary: Reports: no symptoms Allergies: Coded Allergies: CIPROFLOXACIN (Verified Allergy, Unknown, 02/17/18) PENICILLINS (Verified Allergy, Unknown, 02/17/18) Objective Vital Signs Last 24 Hour Vital Signs Date Time Temp Pulse Resp B/P (MAP) Pulse Ox O2 Delivery O2 Flow Rate FiO2 02/23/18 09:10 73 140/72 02/23/18 04:00 Nasal Cannula 2.0 02/23/18 04:00 97.9 79 20 142/80 (100) 99 02/23/18 03:30 73 02/23/18 00:00 98.1 79 20 140/76 (97) 98 02/23/18 00:00 Nasal Cannula 2.0 02/23/18 00:00 78 02/22/18 20:00 Nasal Cannula 2.0 02/22/18 20:00 98.1 79 20 139/77 (97) 99 02/22/18 19:57 78 18 Nasal Cannula 2.0 28 02/22/18 19:57 99 Nasal Cannula 2.0 28 02/22/18 19:57 Nasal Cannula 2.0 28 02/22/18 19:11 79 02/22/18 16:00 Nasal Cannula 2.0 02/22/18 16:00 79 02/22/18 15:40 76 20 116/75 (89) 100 02/22/18 15:35 96 20 119/73 (88) 100 02/22/18 15:30 80 20 118/75 (89) 100 02/22/18 15:25 80 20 128/78 (95) 100 02/22/18 15:20 79 20 130/78 (95) 100 02/22/18 15:20 89 18 3.0 02/22/18 12:00 80 02/22/18 12:00 97.7 82 21 139/75 (96) 100 02/22/18 12:00 Nasal Cannula 2.0 Height (Feet): 6 Height (Inches): 2.00 Weight (Pounds): 220 General Appearance: no acute distress HEENT: mucous membranes moist Respiratory/Chest: lungs clear Cardiovascular: normal rate Abdomen: distended, other - epigastric drain Extremities: other - edema of legs Neurologic/Psychiatric: alert, oriented x 3, responsive Laboratory Tests Test 02/22/18 14:45 02/22/18 15:18 02/23/18 03:30 White Blood Count 16.0 K/UL (4.8-10.8) H 13.4 K/UL (4.8-10.8) H Red Blood Count 3.84 M/UL (4.70-6.10) L 3.54 M/UL (4.70-6.10) L Hemoglobin 11.3 G/DL (14.2-18.0) L 10.6 G/DL (14.2-18.0) L Hematocrit 32.7 % (42.0-52.0) L 30.4 % (42.0-52.0) L Mean Corpuscular Volume 85 FL (80-99) 86 FL (80-99) Mean Corpuscular Hemoglobin 29.3 PG (27.0-31.0) 29.8 PG (27.0-31.0) Mean Corpuscular Hemoglobin Concent 34.4 G/DL (32.0-36.0) 34.8 G/DL (32.0-36.0) Red Cell Distribution Width 12.5 % (11.6-14.8) 12.5 % (11.6-14.8) Platelet Count 42 K/UL (150-450) L 36 K/UL (150-450) L Mean Platelet Volume 9.7 FL (6.5-10.1) 8.7 FL (6.5-10.1) Neutrophils (%) (Auto) % (45.0-75.0) % (45.0-75.0) Lymphocytes (%) (Auto) % (20.0-45.0) % (20.0-45.0) Monocytes (%) (Auto) % (1.0-10.0) % (1.0-10.0) Eosinophils (%) (Auto) % (0.0-3.0) % (0.0-3.0) Basophils (%) (Auto) % (0.0-2.0) % (0.0-2.0) Differential Total Cells Counted 100 100 Neutrophils % (Manual) 89 % (45-75) H 96 % (45-75) H Lymphocytes % (Manual) 4 % (20-45) L 3 % (20-45) L Monocytes % (Manual) 5 % (1-10) 1 % (1-10) Eosinophils % (Manual) 0 % (0-3) 0 % (0-3) Basophils % (Manual) 0 % (0-2) 0 % (0-2) Band Neutrophils 2 % (0-8) 0 % (0-8) Platelet Estimate Decreased L Decreased L Platelet Morphology Normal Normal Hypochromasia 1+ 1+ Anisocytosis 1+ Prothrombin Time 13.1 SEC (9.30-11.50) H Prothromb Time International Ratio 1.3 (0.9-1.1) H Activated Partial Thromboplast Time 30 SEC (23-33) Body Fluid Source Liver abscess Body Fluid Volume 80 mL Body Fluid Appearance Bloody (Clear) Body Fluid RBC 04957 /CUMM Body Fluid Total Nucleated Cells 48414 /CUMM Body Fluid Polynuclear WBCs (%) 79 % Body Fluid Mononuclear WBCs (%) 21 % Body Fluid Mesothelial Cells (%) 0 % Body Fluid Glucose Pending Body Fluid Comment Sodium Level 136 MMOL/L (136-145) Potassium Level 4.0 MMOL/L (3.5-5.1) Chloride Level 105 MMOL/L (98-107) Carbon Dioxide Level 22 MMOL/L (21-32) Anion Gap 9 mmol/L (5-15) Blood Urea Nitrogen 48 mg/dL (7-18) H Creatinine 1.0 MG/DL (0.55-1.30) Estimat Glomerular Filtration Rate mL/min (>60) Glucose Level 159 MG/DL (74-106) H Calcium Level 8.0 MG/DL (8.5-10.1) L Total Bilirubin 3.8 MG/DL (0.2-1.0) H Direct Bilirubin 2.9 MG/DL (0.0-0.3) H Aspartate Amino Transf (AST/SGOT) 64 U/L (15-37) H Alanine Aminotransferase (ALT/SGPT) 76 U/L (12-78) Alkaline Phosphatase 167 U/L (46-116) H Total Protein 5.0 G/DL (6.4-8.2) L Albumin 1.4 G/DL (3.4-5.0) L Globulin 3.6 g/dL Albumin/Globulin Ratio 0.4 (1.0-2.7) L Current Medications Medications (Trade) Dose Ordered Sig/Kalyan Route PRN Reason Start Time Stop Time Status Last Admin Dose Admin Acetaminophen/ Hydrocodone Bitart ([place] 5/325) 1 tab Q4H PRN ORAL Moderate Pain (Pain Scale 4-6) 02/22/18 18:00 03/01/18 17:59 02/22/18 18:16 Alfuzosin HCl (Uroxatrol) 10 mg DAILY ORAL 02/18/18 09:00 03/20/18 08:59 02/23/18 09:10 Aspirin (ASA) 81 mg DAILY ORAL 02/18/18 09:00 03/20/18 08:59 02/23/18 09:11 Cefepime HCl 1 gm/ Dextrose 55 ml @ 110 mls/hr Q12HR@0300,1500 IVPB 02/22/18 15:00 03/01/18 14:59 02/23/18 02:55 Clonazepam (KlonoPIN) 0.5 mg Q6H PRN ORAL For Anxiety 02/20/18 11:00 02/27/18 10:59 02/21/18 10:00 Cyanocobalamin (Vitamin B-12) 1,000 mcg DAILY ORAL 02/18/18 09:00 03/20/18 08:59 02/23/18 09:10 Finasteride (Proscar) 5 mg EVERY OTHER DAY ORAL 02/19/18 09:00 03/21/18 08:59 02/23/18 09:10 Fluconazole (Diflucan) 100 mg DAILY ORAL 02/20/18 09:00 02/27/18 08:59 02/23/18 09:10 Gadobutrol (Gadavist) 7.5 mmol NOW PRN IV Radiology Procedure 02/19/18 13:45 02/23/18 13:33 Hydroxyzine HCl (Vistaril) 10 mg Q8H PRN ORAL Itching 02/17/18 18:00 03/19/18 17:59 Insulin Aspart (NovoLOG) BEFORE MEALS AND HS SUBQ 02/17/18 21:00 03/19/18 20:59 02/23/18 05:43 Metoprolol Succinate (Toprol XL) 25 mg DAILY ORAL 02/20/18 09:00 03/22/18 08:59 02/23/18 09:10 Metronidazole 100 ml @ 100 mls/hr Q8HR IVPB 02/17/18 22:00 02/24/18 21:59 02/23/18 05:15 Pantoprazole (Protonix) 40 mg DAILY ORAL 02/18/18 09:00 03/20/18 08:59 02/23/18 09:10 Psyllium Hydrophilic Mucilloid (Metamucil) 1 pkt DAILY ORAL 02/18/18 09:00 03/20/18 08:59 02/23/18 09:10 Sertraline HCl (Zoloft) 100 mg DAILY ORAL 02/18/18 09:00 03/20/18 08:59 02/23/18 09:11 Sodium Chloride 1,000 ml @ 125 mls/hr Q8H IVLG 02/20/18 13:00 03/22/18 12:59 02/23/18 05:14 Raad Andres MD Feb 23, 2018 10:43
[2018-02-23 12:00] VITALS: BP 145/81
[2018-02-23 16:00] VITALS: BP 137/76
[2018-02-23] MEDS ORDERED: NS 275ml ONE (16:48)
[2018-02-23] MEDS ORDERED: Tubing IV Secondary IV ONE (16:48)
[2018-02-23] MEDS ORDERED: Tubing Blood Filter IV ONE (16:48)
--- NOTE | 2018-02-23 16:58 | Diagnostic Imaging Report ---
Indication: Abdominal pain Technique: Limited images of the axial and appendicular skeleton Comparison: Findings: A small benign-appearing cyst is seen within the right scaphoid bone. Mild degenerative changes of the thoracic and cervical spine are noted. Hepatic drainage catheter is noted in the upper right abdomen No definite osteolytic or osteoblastic lesions are demonstrated. Impression: No definite plain radiographic evidence of osseous metastatic disease. Note, however, limited sensitivity of plain radiographs for such, and if non myelomatous metastatic disease is suspected bone scan should be considered for more sensitive evaluation Incidental findings as noted
--- NOTE | 2018-02-23 17:38 | General Surgery Progress Note ---
General Surgery-Progress Note Subjective Additional Comments improving s/p US guided drainage of liver abscess. up today more comfortable. no n/v/f/c. Objective Last 24 Hour Vital Signs Date Time Temp Pulse Resp B/P (MAP) Pulse Ox O2 Delivery O2 Flow Rate FiO2 02/23/18 16:00 Nasal Cannula 2.0 02/23/18 16:00 98.4 73 23 137/76 (96) 100 02/23/18 12:00 97.9 74 21 145/81 (102) 99 02/23/18 12:00 71 02/23/18 12:00 Nasal Cannula 2.0 02/23/18 09:10 73 140/72 02/23/18 08:00 Nasal Cannula 2.0 02/23/18 08:00 98.5 73 22 140/72 (94) 99 02/23/18 08:00 73 02/23/18 04:00 Nasal Cannula 2.0 02/23/18 04:00 97.9 79 20 142/80 (100) 99 02/23/18 03:30 73 02/23/18 00:00 98.1 79 20 140/76 (97) 98 02/23/18 00:00 Nasal Cannula 2.0 02/23/18 00:00 78 02/22/18 20:00 Nasal Cannula 2.0 02/22/18 20:00 98.1 79 20 139/77 (97) 99 02/22/18 19:57 78 18 Nasal Cannula 2.0 28 02/22/18 19:57 99 Nasal Cannula 2.0 28 02/22/18 19:57 Nasal Cannula 2.0 28 02/22/18 19:11 79 I&O Intake and Output 02/22/18 02/23/18 19:00 07:00 Intake Total 1780 ml 2914.8 ml Output Total 1360 ml Balance 1780 ml 1554.8 ml Intake Oral 1000 ml IV Total 1780 ml 1439.8 ml Blood Product 475 ml Output Urine Total 1025 ml Drainage Total 335 ml # Voids 2 # Bowel Movements 1 Drains: other Cardiovascular: RSR Respiratory: clear Abdomen: soft, flat, non-tender, present bowel sounds Extremities: edema, no cyanosis Laboratory Tests Test 02/23/18 03:30 White Blood Count 13.4 K/UL (4.8-10.8) H Red Blood Count 3.54 M/UL (4.70-6.10) L Hemoglobin 10.6 G/DL (14.2-18.0) L Hematocrit 30.4 % (42.0-52.0) L Mean Corpuscular Volume 86 FL (80-99) Mean Corpuscular Hemoglobin 29.8 PG (27.0-31.0) Mean Corpuscular Hemoglobin Concent 34.8 G/DL (32.0-36.0) Red Cell Distribution Width 12.5 % (11.6-14.8) Platelet Count 36 K/UL (150-450) L Mean Platelet Volume 8.7 FL (6.5-10.1) Neutrophils (%) (Auto) % (45.0-75.0) Lymphocytes (%) (Auto) % (20.0-45.0) Monocytes (%) (Auto) % (1.0-10.0) Eosinophils (%) (Auto) % (0.0-3.0) Basophils (%) (Auto) % (0.0-2.0) Differential Total Cells Counted 100 Neutrophils % (Manual) 96 % (45-75) H Lymphocytes % (Manual) 3 % (20-45) L Monocytes % (Manual) 1 % (1-10) Eosinophils % (Manual) 0 % (0-3) Basophils % (Manual) 0 % (0-2) Band Neutrophils 0 % (0-8) Platelet Estimate Decreased L Platelet Morphology Normal Hypochromasia 1+ Sodium Level 136 MMOL/L (136-145) Potassium Level 4.0 MMOL/L (3.5-5.1) Chloride Level 105 MMOL/L (98-107) Carbon Dioxide Level 22 MMOL/L (21-32) Anion Gap 9 mmol/L (5-15) Blood Urea Nitrogen 48 mg/dL (7-18) H Creatinine 1.0 MG/DL (0.55-1.30) Estimat Glomerular Filtration Rate mL/min (>60) Glucose Level 159 MG/DL (74-106) H Calcium Level 8.0 MG/DL (8.5-10.1) L Total Bilirubin 3.8 MG/DL (0.2-1.0) H Direct Bilirubin 2.9 MG/DL (0.0-0.3) H Aspartate Amino Transf (AST/SGOT) 64 U/L (15-37) H Alanine Aminotransferase (ALT/SGPT) 76 U/L (12-78) Alkaline Phosphatase 167 U/L (46-116) H Total Protein 5.0 G/DL (6.4-8.2) L Albumin 1.4 G/DL (3.4-5.0) L Globulin 3.6 g/dL Albumin/Globulin Ratio 0.4 (1.0-2.7) L Plan Problems: (1) Severe sepsis Assessment & Plan: etiology unknown UTI on admission but urine culture negative Blood cultures negative possible liver? abscess vs mass liver abscess s/p drainage improving IV fluids IV abx (2) Liver mass, left lobe Assessment & Plan: large left lobe liver mass of unknown etiology CT without contrast will order US and maybe MRI later US noted and large mass concerning for malignancy MRI noted. s/p us guided drainage improving -trend labs -diet as tolerated -iv fluids -iv abx Jayden Ramos Feb 23, 2018 17:38
--- NOTE | 2018-02-23 19:18 | General Progress Note ---
Assessment/Plan Assessment/Plan Assessment - Left sided liver abscess - drained - elevated PSA to 78 - suspect prostate CA - renal failure - hyponatremia - thrombocytopenia, ? DIC, ? cirrhotic - Jaundice, ? due to mass, ? cirrhotic, ? hepatitis/liver failure - Guarded Recommendations - IVF - Follow drain output - Re check U/A - check other tumor markers - negative AFP, CEA, 19-9 - check hepatitis serologies - negative - abx per ID - follow labs and exam Subjective Allergies: Coded Allergies: CIPROFLOXACIN (Verified Allergy, Unknown, 02/17/18) PENICILLINS (Verified Allergy, Unknown, 02/17/18) Subjective seen this am now s/p FNA and drainage of liver abscess more calm and clear d/w at bedside Objective Last 24 Hour Vital Signs Date Time Temp Pulse Resp B/P (MAP) Pulse Ox O2 Delivery O2 Flow Rate FiO2 02/23/18 16:00 Nasal Cannula 2.0 02/23/18 16:00 98.4 73 23 137/76 (96) 100 02/23/18 12:00 97.9 74 21 145/81 (102) 99 02/23/18 12:00 71 02/23/18 12:00 Nasal Cannula 2.0 02/23/18 09:10 73 140/72 02/23/18 08:00 Nasal Cannula 2.0 02/23/18 08:00 98.5 73 22 140/72 (94) 99 02/23/18 08:00 73 02/23/18 04:00 Nasal Cannula 2.0 02/23/18 04:00 97.9 79 20 142/80 (100) 99 02/23/18 03:30 73 02/23/18 00:00 98.1 79 20 140/76 (97) 98 02/23/18 00:00 Nasal Cannula 2.0 02/23/18 00:00 78 02/22/18 20:00 Nasal Cannula 2.0 02/22/18 20:00 98.1 79 20 139/77 (97) 99 02/22/18 19:57 78 18 Nasal Cannula 2.0 28 02/22/18 19:57 99 Nasal Cannula 2.0 28 02/22/18 19:57 Nasal Cannula 2.0 28 Intake and Output 02/22/18 02/23/18 19:00 07:00 Intake Total 1780 ml 2914.8 ml Output Total 1360 ml Balance 1780 ml 1554.8 ml Intake Oral 1000 ml IV Total 1780 ml 1439.8 ml Blood Product 475 ml Output Urine Total 1025 ml Drainage Total 335 ml # Voids 2 # Bowel Movements 1 Laboratory Tests 02/23/18 03:30: White Blood Count 13.4H, Red Blood Count 3.54L, Hemoglobin 10.6L, Hematocrit 30.4L, Mean Corpuscular Volume 86, Mean Corpuscular Hemoglobin 29.8, Mean Corpuscular Hemoglobin Concent 34.8, Red Cell Distribution Width 12.5, Platelet Count 36L, Mean Platelet Volume 8.7, Neutrophils (%) (Auto) , Lymphocytes (%) ( Auto) , Monocytes (%) (Auto) , Eosinophils (%) (Auto) , Basophils (%) (Auto) , Differential Total Cells Counted 100, Neutrophils % (Manual) 96H, Lymphocytes % (Manual) 3L, Monocytes % (Manual) 1, Eosinophils % (Manual) 0, Basophils % ( Manual) 0, Band Neutrophils 0, Platelet Estimate DecreasedL, Platelet Morphology Normal, Hypochromasia 1+, Sodium Level 136, Potassium Level 4.0, Chloride Level 105, Carbon Dioxide Level 22, Anion Gap 9, Blood Urea Nitrogen 48H, Creatinine 1.0, Estimat Glomerular Filtration Rate , Glucose Level 159H, Calcium Level 8.0L, Total Bilirubin 3.8H, Direct Bilirubin 2.9H, Aspartate Amino Transf (AST/SGOT) 64H, Alanine Aminotransferase (ALT/SGPT) 76, Alkaline Phosphatase 167H, Total Protein 5.0L, Albumin 1.4L, Globulin 3.6, Albumin/ Globulin Ratio 0.4L Height (Feet): 6 Height (Inches): 2.00 Weight (Pounds): 220 Objective WDWN NCAT supple CTA RR, tachy Abd soft ND NT, (+) drainage catheter no edema neuro calm Jaylyn Parikh MD Feb 23, 2018 19:18
[2018-02-23 20:00] VITALS: BP 140/76
--- NOTE | 2018-02-23 21:15 | Progress Note ---
DATE: 02/23/2018 CARDIOLOGY PROGRESS NOTE SUBJECTIVE: The patient is without chest pain and shortness of breath. He is status post liver abscess drainage yesterday. He is more comfortable today. OBJECTIVE: VITAL SIGNS: Blood pressure 137/76, pulse 73, respirations 23, and afebrile. Monitored rhythm sinus with arrhythmia and occasional nonsustained atrial arrhythmias. LUNGS: Diminished breath sounds. No rales. HEART: Regular rhythm and rate. Normal S1, S2 with a fourth heart sound. ABDOMEN: Soft. Mild tenderness in the right upper quadrant. EXTREMITIES: No edema. LABORATORY DATA: White count 13.4 and hemoglobin 10.6. Potassium 4, BUN 48, and creatinine 1. Albumin ____ is 1.4. IMPRESSION: 1. Transaminitis and acute renal failure, resolving. 2. Severe protein-calorie malnutrition, persisting. 3. Elevated PSA just suggesting probable prostate cancer. 4. Liver abscess status post drainage. 5. Paroxysmal atrial fibrillation and atrial arrhythmia, suppressed. 6. Hypertensive heart disease with controlled blood pressure. PLAN: 1. Antimicrobials. 2. Follow up liver abscess result. 3. Continue beta-shanika. 4. Monitor volume status and cardiorenal parameters. 5. Taper off IV fluids. Lex Barros M.D. DR: NADER JOB#: [id number] CC:
[2018-02-24] VITALS: BP 150/77
[2018-02-24] MEDS: clonazePAM 0.5mg tab ORAL PRN ×2 (00:24→20:56)
[2018-02-24] MEDS: Cefepime HCl 1 GM in D5W 55 ML IVPB SCH ×2 (02:47→15:39)
[2018-02-24 04:00] VITALS: BP 146/80
[2018-02-24 05:23] LABS: HEMATOCRIT 31.6 % (42.0-52.0); HEMOGLOBIN 10.7 G/DL (14.2-18.0); MEAN CORPUSCULAR VOLUME 87 FL (80-99); PLATELET COUNT 47 K/UL (150-450); RED BLOOD COUNT 3.65 M/UL (4.70-6.10); RED CELL DISTRIBUTION WIDTH 12.9 % (11.6-14.8); WHITE BLOOD COUNT 14.3 K/UL (4.8-10.8)
[2018-02-24] MEDS: NovoLOG Insulin Flexpen SUBQ SCH ×4 (05:49→20:57)
[2018-02-24 05:57] LABS: ALANINE AMINOTRANSFERASE 52 U/L (12-78); ALBUMIN 1.4 G/DL (3.4-5.0); ALBUMIN/GLOBULIN RATIO 0.4 (1.0-2.7); ALKALINE PHOSPHATASE 173 U/L (46-116); ANION GAP 8 mmol/L (5-15); ASPARTATE AMINO TRANSFERASE 42 U/L (15-37); BILIRUBIN,TOTAL 2.5 MG/DL (0.2-1.0); BLOOD UREA NITROGEN 35 mg/dL (7-18); CALCIUM 7.8 MG/DL (8.5-10.1); CARBON DIOXIDE 22 MMOL/L (21-32); CHLORIDE 105 MMOL/L (98-107); CREATININE 0.9 MG/DL (0.55-1.30); POTASSIUM 4.1 MMOL/L (3.5-5.1); SODIUM 135 MMOL/L (136-145)
[2018-02-24 06:18] LABS: BILIRUBIN,DIRECT 1.7 MG/DL (0.0-0.3)
--- NOTE | 2018-02-24 07:02 | General Progress Note ---
Assessment/Plan Status: stable Assessment/Plan # Left sided solid/cystic liver mass, r/o CA -- potentially either primary HCC versus metastatic from other site --> will need to determine primary site of origin with a biopsy at this time --> CT of the chest/abdomen/pelvis:Large 9.8 x 11.3 x 9.2 cm heterogeneous area of low-attenuation involving most of the lateral left hepatic lobe. --> MRI of the abdomen: abnormality involving segments 2 and 3 of the left hepatic lobe --> tumor markers: CA 15-3 of 19.1, CA 19-9 of 20, PSA of 78.7 --> will need pathology report before further recommendations --> Pathology report shows no malignant cells --> 02/23: S/P drainage of liver abscess and is negative --> Consider outpatinet CT guided biopsy when flies back to [facility] --> Bone scan: No definite plain radiographic evidence of osseous metastatic disease. # Thrombocytopenia likely due to malignancy versus consumptive process from infection --> Cont to closely monitor --> plt goal >20k if febrile --> plt goal >50k if procedure is pending --> FFP tx: pending # Anemia of chronic disease due to underlying chronic medical issues, multifactorial --> w/u has been reviewed. Ferritin at 1725 --> Hgb goal >7. Transfuse prn. --> No evidence of hemolysis noted. Peripheral smear has been reviewed. # Elevated PSA -- may consider a bone scan to r/o mets --> obtain bone scan / skeletal survey since inpatient --> Bone scan is negative # Sepsis, UTI vs infected necrotic liver mass --> on abx, appreciate ID recs # Renal failure - improving # Hyponatremia. IVF # Jaundice, ? due to mass, ? cirrhotic, ? hepatitis/liver failure # Episode of generalized weakness Greatly appreciate consultation! Subjective Date patient seen: Feb 24, 2018 Hematologic/Lymphatic: Reports: anemia Allergies: Coded Allergies: CIPROFLOXACIN (Verified Allergy, Unknown, 02/17/18) PENICILLINS (Verified Allergy, Unknown, 02/17/18) All Systems: reviewed and negative except above Subjective Pt awake and alert. Bone scan and path report are both negative. Objective Last 24 Hour Vital Signs Date Time Temp Pulse Resp B/P (MAP) Pulse Ox O2 Delivery O2 Flow Rate FiO2 02/24/18 04:00 98.5 73 20 146/80 (102) 100 02/24/18 04:00 72 02/24/18 04:00 Nasal Cannula 2.0 02/24/18 00:00 Nasal Cannula 2.0 02/24/18 00:00 98.7 75 20 150/77 (101) 100 02/23/18 23:53 73 02/23/18 21:48 Nasal Cannula 2.0 28 02/23/18 21:48 100 Nasal Cannula 2.0 28 02/23/18 21:46 74 20 Nasal Cannula 2.0 28 02/23/18 20:00 98.4 72 20 140/76 (97) 98 02/23/18 20:00 Nasal Cannula 2.0 02/23/18 19:58 71 02/23/18 16:00 70 02/23/18 16:00 Nasal Cannula 2.0 02/23/18 16:00 98.4 73 23 137/76 (96) 100 02/23/18 12:00 97.9 74 21 145/81 (102) 99 02/23/18 12:00 71 02/23/18 12:00 Nasal Cannula 2.0 02/23/18 09:10 73 140/72 02/23/18 08:00 Nasal Cannula 2.0 02/23/18 08:00 98.5 73 22 140/72 (94) 99 02/23/18 08:00 73 Intake and Output 02/23/18 02/24/18 19:00 07:00 Intake Total 2355 ml 1555.0 ml Output Total 1310 ml 1230 ml Balance 1045 ml 325.0 ml Intake Oral 700 ml 300 ml IV Total 1655 ml 1255.0 ml Output Urine Total 1250 ml 1150 ml Drainage Total 80 ml Other 60 ml Laboratory Tests 02/23/18 18:30: Urine Total Volume 24 Hours [Pending], Urine Creatinine 24 Hour [Pending], Urine Total Protein Timed [Pending], Urine Protein/Creatinine Ratio [Pending], Urine Albumin (%) [Pending], Urine [id number] (%) [Pending], Urine Alpha- 2-Globulins (%) [Pending], Urine Beta-Globulin (%) [Pending], Urine Gamma Globulin (%) [Pending], Urine Protein Electrophoresis Intrp [Pending] 02/24/18 03:20: White Blood Count 14.3H, Red Blood Count 3.65L, Hemoglobin 10.7L, Hematocrit 31.6L, Mean Corpuscular Volume 87, Mean Corpuscular Hemoglobin 29.3, Mean Corpuscular Hemoglobin Concent 33.8, Red Cell Distribution Width 12.9, Platelet Count 47L, Mean Platelet Volume 9.9, Neutrophils (%) (Auto) , Lymphocytes (%) ( Auto) , Monocytes (%) (Auto) , Eosinophils (%) (Auto) , Basophils (%) (Auto) , Neutrophils % (Manual) [Pending], Lymphocytes % (Manual) [Pending], Platelet Estimate [Pending], Platelet Morphology [Pending], Sodium Level 135L, Potassium Level 4.1, Chloride Level 105, Carbon Dioxide Level 22, Anion Gap 8, Blood Urea Nitrogen 35H, Creatinine 0.9, Estimat Glomerular Filtration Rate , Glucose Level 150H, Calcium Level 7.8L, Magnesium Level 1.7L, Total Bilirubin 2.5H, Direct Bilirubin 1.7H, Aspartate Amino Transf (AST/SGOT) 42H, Alanine Aminotransferase (ALT/SGPT) 52, Alkaline Phosphatase 173H, Pro-B-Type Natriuretic Peptide 2124H, Total Protein 5.2L, Albumin 1.4L, Globulin 3.8, Albumin/Globulin Ratio 0.4L Height (Feet): 6 Height (Inches): 2.00 Weight (Pounds): 220 Objective General Appearance: alert, GCS 15, moderate distress Eyes: bilateral eye PERRL ENT: normal pharynx, normal voice Neck: full range of motion Respiratory: normal inspection, no respiratory distress Cardiovascular: tachycardia Gastrointestinal: distended Genitourinary: no CVA tenderness Musculoskeletal: ++motor weakness Mehdi Williamson MD Feb 24, 2018 07:02
[2018-02-24 08:00] VITALS: BP_SYST 127; BP_SYST 153; BP_DIAS 74; BP_DIAS 91
[2018-02-24] MEDS: Metamucil Pkt ORAL SCH (09:00)
[2018-02-24] MEDS: Sertraline 100mg tab ORAL SCH (09:00)
[2018-02-24] MEDS: Fluconazole 100mg tab ORAL SCH (09:53)
[2018-02-24] MEDS: Metoprolol Succinate XL 25mg tab ORAL SCH (09:54)
[2018-02-24] MEDS: Aspirin Baby 81mg ORAL SCH (09:55)
[2018-02-24] MEDS: Vitamin B-12 500mcg tab ORAL SCH (09:55)
[2018-02-24 12:00] VITALS: BP 153/78
--- NOTE | 2018-02-24 12:34 | Pulmonology Progress Note ---
Assessment/Plan Assessment/Plan Pulmonary Progress Note Assessment/Plan IMPRESSION: 1. Acute pancreatitis. 2. Thrombocytopenia 3. Hematuria. 4. Hyponatremia. 5. Hypokalemia. 6. Acute on chronic renal failure. 7. Transaminitis. 8. Possible acute hepatitis. 9. Severe protein-calorie malnutrition. 10. Leukocytosis. 11. Concern for severe sepsis. 12. hypotension 13. liver mass 14. Atrial flutter 15. concern for metastatic prostate cancer 16. s/p liver biopsy PLAN IV antibiotics per ID antifungals IV hydration as is monitor bun and creatinine; improved PO diet as tolerated MRI/ cT guided biopsy reviewed all consultants appreciated labs recovering aware; and will update for change impression, plan, and exam edited and reviewed in detail care discussed with RN Subjective Allergies: Coded Allergies: CIPROFLOXACIN (Verified Allergy, Unknown, 02/17/18) PENICILLINS (Verified Allergy, Unknown, 02/17/18) Subjective all reviewed events noted and reviewed comfortable underwent liver abcess drainage patient alert Objective Vital Signs Noted Height (Feet): 6 Height (Inches): 2.00 Weight (Pounds): 220 Objective GENERAL: The patient is more alert HEENT: Negative. Extraocular movements are grossly intact. NECK: Supple. LUNGS: minimal rhonchi, otherwise clear. moderate air entry CARDIAC: S1 and S2. RRR without murmurs, rubs, or gallops. ABDOMEN: Soft. no tenderness. no HSM EXTREMITIES: No cyanosis or clubbing. trace UE edema. NEUROLOGIC: Otherwise, nonfocal. Laboratory Tests 02/22/18 14:45: White Blood Count 16.0H, Red Blood Count 3.84L, Hemoglobin 11.3L, Hematocrit 32.7L, Mean Corpuscular Volume 85, Mean Corpuscular Hemoglobin 29.3, Mean Corpuscular Hemoglobin Concent 34.4, Red Cell Distribution Width 12.5, Platelet Count 42L, Mean Platelet Volume 9.7, Neutrophils (%) (Auto) , Lymphocytes (%) ( Auto) , Monocytes (%) (Auto) , Eosinophils (%) (Auto) , Basophils (%) (Auto) , Differential Total Cells Counted 100, Neutrophils % (Manual) 89H, Lymphocytes % (Manual) 4L, Monocytes % (Manual) 5, Eosinophils % (Manual) 0, Basophils % ( Manual) 0, Band Neutrophils 2, Platelet Estimate DecreasedL, Platelet Morphology Normal, Hypochromasia 1+, Anisocytosis 1+, Prothrombin Time 13.1H, Prothromb Time International Ratio 1.3H, Activated Partial Thromboplast Time 30 02/22/18 15:18: Body Fluid Source Liver abscess, Body Fluid Volume 80, Body Fluid Appearance Bloody, [place] [address], Body Fluid Total Nucleated Cells 57877, Body Fluid Polynuclear WBCs (%) 79, Body Fluid Mononuclear WBCs (%) 21, Body Fluid Mesothelial Cells (%) 0, Body Fluid Glucose [Pending], Body Fluid Comment 02/23/18 03:30: White Blood Count 13.4H, Red Blood Count 3.54L, Hemoglobin 10.6L, Hematocrit 30.4L, Mean Corpuscular Volume 86, Mean Corpuscular Hemoglobin 29.8, Mean Corpuscular Hemoglobin Concent 34.8, Red Cell Distribution Width 12.5, Platelet Count 36L, Mean Platelet Volume 8.7, Neutrophils (%) (Auto) , Lymphocytes (%) ( Auto) , Monocytes (%) (Auto) , Eosinophils (%) (Auto) , Basophils (%) (Auto) , Neutrophils % (Manual) [Pending], Lymphocytes % (Manual) [Pending], Platelet Estimate [Pending], Platelet Morphology [Pending], Sodium Level 136, Potassium Level 4.0, Chloride Level 105, Carbon Dioxide Level 22, Anion Gap 9, Blood Urea Nitrogen 48H, Creatinine 1.0, Estimat Glomerular Filtration Rate , Glucose Level 159H, Calcium Level 8.0L, Total Bilirubin 3.8H, Direct Bilirubin 2.9H, Aspartate Amino Transf (AST/SGOT) 64H, Alanine Aminotransferase (ALT/SGPT) 76, Alkaline Phosphatase 167H, Total Protein 5.0L, Albumin 1.4L, Globulin 3.6, Albumin/Globulin Ratio 0.4L Subjective ROS Limited/Unobtainable: No Allergies: Coded Allergies: CIPROFLOXACIN (Verified Allergy, Unknown, 02/17/18) PENICILLINS (Verified Allergy, Unknown, 02/17/18) Objective Last 24 Hour Vital Signs Date Time Temp Pulse Resp B/P (MAP) Pulse Ox O2 Delivery O2 Flow Rate FiO2 02/24/18 09:54 76 153/74 02/24/18 08:00 74 02/24/18 08:00 98.3 76 18 153/74 (100) 98 02/24/18 04:00 98.5 73 20 146/80 (102) 100 02/24/18 04:00 72 02/24/18 04:00 Nasal Cannula 2.0 02/24/18 00:00 Nasal Cannula 2.0 02/24/18 00:00 98.7 75 20 150/77 (101) 100 02/23/18 23:53 73 02/23/18 21:48 Nasal Cannula 2.0 28 02/23/18 21:48 100 Nasal Cannula 2.0 28 02/23/18 21:46 74 20 Nasal Cannula 2.0 28 02/23/18 20:00 98.4 72 20 140/76 (97) 98 02/23/18 20:00 Nasal Cannula 2.0 02/23/18 19:58 71 02/23/18 16:00 70 02/23/18 16:00 Nasal Cannula 2.0 02/23/18 16:00 98.4 73 23 137/76 (96) 100 Intake and Output 02/23/18 02/24/18 18:59 06:59 Intake Total 2480 ml 1555.0 ml Output Total 1310 ml 1230 ml Balance 1170 ml 325.0 ml Intake Oral 700 ml 300 ml IV Total 1780 ml 1255.0 ml Output Urine Total 1250 ml 1150 ml Drainage Total 80 ml Other 60 ml Microbiology Date/Time Source Procedure Growth Status 02/22/18 15:18 Blood AFB Specimen Processing Tissue - Final Resulted 02/22/18 15:18 Blood Acid Fast Bacilli Smear - Final Resulted 02/22/18 15:18 Blood Acid Fast Bacilli Culture Pending Resulted 02/22/18 15:18 Body Fluid Other Gram Stain - Final Resulted 02/22/18 15:18 Body Fluid Other Body Fluid Culture - Preliminary NO GROWTH AFTER 24 HOURS Resulted 02/22/18 15:18 Body Fluid Other Anaerobic Culture Pending Resulted Laboratory Tests 02/23/18 18:30: Urine Total Volume 24 Hours [Pending], Urine Creatinine 24 Hour [Pending], Urine Total Protein Timed [Pending], Urine Protein/Creatinine Ratio [Pending], Urine Albumin (%) [Pending], Urine Ketvu-7-Ymyznjlxh (%) [Pending], Urine Alpha- 2-Globulins (%) [Pending], Urine Beta-Globulin (%) [Pending], Urine Gamma Globulin (%) [Pending], Urine Protein Electrophoresis Intrp [Pending] 02/24/18 03:20: White Blood Count 14.3H, Red Blood Count 3.65L, Hemoglobin 10.7L, Hematocrit 31.6L, Mean Corpuscular Volume 87, Mean Corpuscular Hemoglobin 29.3, Mean Corpuscular Hemoglobin Concent 33.8, Red Cell Distribution Width 12.9, Platelet Count 47L, Mean Platelet Volume 9.9, Neutrophils (%) (Auto) , Lymphocytes (%) ( Auto) , Monocytes (%) (Auto) , Eosinophils (%) (Auto) , Basophils (%) (Auto) , Differential Total Cells Counted 100, Neutrophils % (Manual) 97H, Lymphocytes % (Manual) 1L, Monocytes % (Manual) 2, Eosinophils % (Manual) 0, Basophils % ( Manual) 0, Band Neutrophils 0, Platelet Estimate DecreasedL, Platelet Morphology Normal, Red Blood Cell Morphology Normal, Sodium Level 135L, Potassium Level 4.1, Chloride Level 105, Carbon Dioxide Level 22, Anion Gap 8, Blood Urea Nitrogen 35H, Creatinine 0.9, Estimat Glomerular Filtration Rate , Glucose Level 150H, Calcium Level 7.8L, Magnesium Level 1.7L, Total Bilirubin 2.5H, Direct Bilirubin 1.7H, Aspartate Amino Transf (AST/SGOT) 42H, Alanine Aminotransferase (ALT/SGPT) 52, Alkaline Phosphatase 173H, Pro-B-Type Natriuretic Peptide 2124H, Total Protein 5.2L, Albumin 1.4L, Globulin 3.8, Albumin/Globulin Ratio 0.4L Current Medications Medications (Trade) Dose Ordered Sig/Kalyan Route PRN Reason Start Time Stop Time Status Last Admin Dose Admin Acetaminophen/ Hydrocodone Bitart ([place] 5/325) 1 tab Q4H PRN ORAL Moderate Pain (Pain Scale 4-6) 02/22/18 18:00 03/01/18 17:59 02/22/18 18:16 Alfuzosin HCl (Uroxatrol) 10 mg DAILY ORAL 02/18/18 09:00 03/20/18 08:59 02/24/18 09:53 Aspirin (ASA) 81 mg DAILY ORAL 02/18/18 09:00 03/20/18 08:59 02/24/18 09:55 Cefepime HCl 1 gm/ Dextrose 55 ml @ 110 mls/hr Q12HR@0300,1500 IVPB 02/22/18 15:00 03/01/18 14:59 02/24/18 02:47 Clonazepam (KlonoPIN) 0.5 mg Q6H PRN ORAL For Anxiety 02/20/18 11:00 02/27/18 10:59 02/24/18 00:24 Cyanocobalamin (Vitamin B-12) 1,000 mcg DAILY ORAL 02/18/18 09:00 03/20/18 08:59 02/24/18 09:55 Finasteride (Proscar) 5 mg EVERY OTHER DAY ORAL 02/19/18 09:00 03/21/18 08:59 02/23/18 09:10 Fluconazole (Diflucan) 100 mg DAILY ORAL 02/20/18 09:00 02/27/18 08:59 02/24/18 09:53 Hydroxyzine HCl (Vistaril) 10 mg Q8H PRN ORAL Itching 02/17/18 18:00 03/19/18 17:59 Insulin Aspart (NovoLOG) BEFORE MEALS AND HS SUBQ 02/17/18 21:00 03/19/18 20:59 02/24/18 12:19 Metoprolol Succinate (Toprol XL) 25 mg DAILY ORAL 02/20/18 09:00 03/22/18 08:59 02/24/18 09:54 Metronidazole 100 ml @ 100 mls/hr Q8HR IVPB 02/17/18 22:00 02/24/18 21:59 02/24/18 05:47 Pantoprazole (Protonix) 40 mg DAILY ORAL 02/18/18 09:00 03/20/18 08:59 02/24/18 09:55 Psyllium Hydrophilic Mucilloid (Metamucil) 1 pkt DAILY ORAL 02/18/18 09:00 03/20/18 08:59 02/23/18 09:10 Sertraline HCl (Zoloft) 100 mg DAILY ORAL 02/18/18 09:00 03/20/18 08:59 02/23/18 09:11 Sodium Chloride 1,000 ml @ 75 mls/hr [id number] IVLG 02/23/18 19:00 03/25/18 18:59 02/24/18 09:53 Lex Gonzalez MD Feb 24, 2018 12:34
[2018-02-24 16:00] VITALS: BP 154/73
--- NOTE | 2018-02-24 16:32 | General Surgery Progress Note ---
General Surgery-Progress Note Subjective Additional Comments improving. no n/v/f/c. much better today. labs noted. drain output serosang Objective Last 24 Hour Vital Signs Date Time Temp Pulse Resp B/P (MAP) Pulse Ox O2 Delivery O2 Flow Rate FiO2 02/24/18 16:12 75 02/24/18 12:00 98.5 76 19 153/78 (103) 98 02/24/18 12:00 Nasal Cannula 2.0 02/24/18 12:00 73 02/24/18 09:54 76 153/74 02/24/18 09:00 Nasal Cannula 2.0 02/24/18 08:00 74 02/24/18 08:00 98.3 76 18 153/74 (100) 98 02/24/18 04:00 98.5 73 20 146/80 (102) 100 02/24/18 04:00 72 02/24/18 04:00 Nasal Cannula 2.0 02/24/18 00:00 Nasal Cannula 2.0 02/24/18 00:00 98.7 75 20 150/77 (101) 100 02/23/18 23:53 73 02/23/18 21:48 Nasal Cannula 2.0 28 02/23/18 21:48 100 Nasal Cannula 2.0 28 02/23/18 21:46 74 20 Nasal Cannula 2.0 28 02/23/18 20:00 98.4 72 20 140/76 (97) 98 02/23/18 20:00 Nasal Cannula 2.0 02/23/18 19:58 71 I&O Intake and Output 02/23/18 02/24/18 18:59 06:59 Intake Total 2480 ml 1555.0 ml Output Total 1310 ml 1230 ml Balance 1170 ml 325.0 ml Intake Oral 700 ml 300 ml IV Total 1780 ml 1255.0 ml Output Urine Total 1250 ml 1150 ml Drainage Total 80 ml Other 60 ml Drains: other Cardiovascular: RSR Respiratory: clear Abdomen: soft, flat, non-tender, present bowel sounds Extremities: edema, no tenderness, no cyanosis Laboratory Tests Test 02/23/18 18:30 02/24/18 03:20 Urine Total Volume 24 Hours Pending Urine Creatinine 24 Hour Pending Urine Total Protein Timed Pending Urine Protein/Creatinine Ratio Pending Urine Albumin (%) Pending Urine Qirvb-7-Lnorwfden (%) Pending Urine Cnedb-8-Dpblxcxjo (%) Pending Urine Beta-Globulin (%) Pending Urine Gamma Globulin (%) Pending Urine Protein Electrophoresis Intrp Pending White Blood Count 14.3 K/UL (4.8-10.8) H Red Blood Count 3.65 M/UL (4.70-6.10) L Hemoglobin 10.7 G/DL (14.2-18.0) L Hematocrit 31.6 % (42.0-52.0) L Mean Corpuscular Volume 87 FL (80-99) Mean Corpuscular Hemoglobin 29.3 PG (27.0-31.0) Mean Corpuscular Hemoglobin Concent 33.8 G/DL (32.0-36.0) Red Cell Distribution Width 12.9 % (11.6-14.8) Platelet Count 47 K/UL (150-450) L Mean Platelet Volume 9.9 FL (6.5-10.1) Neutrophils (%) (Auto) % (45.0-75.0) Lymphocytes (%) (Auto) % (20.0-45.0) Monocytes (%) (Auto) % (1.0-10.0) Eosinophils (%) (Auto) % (0.0-3.0) Basophils (%) (Auto) % (0.0-2.0) Differential Total Cells Counted 100 Neutrophils % (Manual) 97 % (45-75) H Lymphocytes % (Manual) 1 % (20-45) L Monocytes % (Manual) 2 % (1-10) Eosinophils % (Manual) 0 % (0-3) Basophils % (Manual) 0 % (0-2) Band Neutrophils 0 % (0-8) Platelet Estimate Decreased L Platelet Morphology Normal Red Blood Cell Morphology Normal Sodium Level 135 MMOL/L (136-145) L Potassium Level 4.1 MMOL/L (3.5-5.1) Chloride Level 105 MMOL/L (98-107) Carbon Dioxide Level 22 MMOL/L (21-32) Anion Gap 8 mmol/L (5-15) Blood Urea Nitrogen 35 mg/dL (7-18) H Creatinine 0.9 MG/DL (0.55-1.30) Estimat Glomerular Filtration Rate mL/min (>60) Glucose Level 150 MG/DL (74-106) H Calcium Level 7.8 MG/DL (8.5-10.1) L Magnesium Level 1.7 MG/DL (1.8-2.4) L Total Bilirubin 2.5 MG/DL (0.2-1.0) H Direct Bilirubin 1.7 MG/DL (0.0-0.3) H Aspartate Amino Transf (AST/SGOT) 42 U/L (15-37) H Alanine Aminotransferase (ALT/SGPT) 52 U/L (12-78) Alkaline Phosphatase 173 U/L (46-116) H Pro-B-Type Natriuretic Peptide 2124 pg/mL (0-125) H Total Protein 5.2 G/DL (6.4-8.2) L Albumin 1.4 G/DL (3.4-5.0) L Globulin 3.8 g/dL Albumin/Globulin Ratio 0.4 (1.0-2.7) L Plan Problems: (1) Severe sepsis Assessment & Plan: etiology unknown UTI on admission but urine culture negative Blood cultures negative possible liver? abscess vs mass liver abscess s/p drainage improving IV fluids IV abx (2) Liver mass, left lobe Assessment & Plan: large left lobe liver mass of unknown etiology CT without contrast will order US and maybe MRI later US noted and large mass concerning for malignancy MRI noted. s/p us guided drainage improving -trend labs -diet as tolerated -iv fluids -iv abx Jayden Ramos Feb 24, 2018 16:32
--- NOTE | 2018-02-24 18:09 | General Progress Note ---
Assessment/Plan Assessment/Plan Assessment - Left sided liver abscess - drained - elevated PSA to 78 - suspect prostate CA - renal failure - hyponatremia - thrombocytopenia, ? DIC, ? cirrhotic - Jaundice, ? due to mass, ? cirrhotic, ? hepatitis/liver failure - Guarded Recommendations - IVF - Follow drain output - Re check U/A - check other tumor markers - negative AFP, CEA, 19-9 - check hepatitis serologies - negative - abx per ID - follow labs and exam - advance diet Subjective Allergies: Coded Allergies: CIPROFLOXACIN (Verified Allergy, Unknown, 02/17/18) PENICILLINS (Verified Allergy, Unknown, 02/17/18) Subjective seen this am doing better on clears Objective Last 24 Hour Vital Signs Date Time Temp Pulse Resp B/P (MAP) Pulse Ox O2 Delivery O2 Flow Rate FiO2 02/24/18 16:12 75 02/24/18 16:00 97.9 75 19 154/73 (100) 98 02/24/18 16:00 Nasal Cannula 2.0 02/24/18 12:00 98.5 76 19 153/78 (103) 98 02/24/18 12:00 Nasal Cannula 2.0 02/24/18 12:00 73 02/24/18 09:54 76 153/74 02/24/18 09:00 Nasal Cannula 2.0 02/24/18 08:00 74 02/24/18 08:00 98.3 76 18 153/74 (100) 98 02/24/18 04:00 98.5 73 20 146/80 (102) 100 02/24/18 04:00 72 02/24/18 04:00 Nasal Cannula 2.0 02/24/18 00:00 Nasal Cannula 2.0 02/24/18 00:00 98.7 75 20 150/77 (101) 100 02/23/18 23:53 73 02/23/18 21:48 Nasal Cannula 2.0 28 02/23/18 21:48 100 Nasal Cannula 2.0 28 02/23/18 21:46 74 20 Nasal Cannula 2.0 28 02/23/18 20:00 98.4 72 20 140/76 (97) 98 02/23/18 20:00 Nasal Cannula 2.0 02/23/18 19:58 71 Intake and Output 02/23/18 02/24/18 18:59 06:59 Intake Total 2480 ml 1555.0 ml Output Total 1310 ml 1230 ml Balance 1170 ml 325.0 ml Intake Oral 700 ml 300 ml IV Total 1780 ml 1255.0 ml Output Urine Total 1250 ml 1150 ml Drainage Total 80 ml Other 60 ml Laboratory Tests 02/23/18 18:30: Urine Total Volume 24 Hours [Pending], Urine Creatinine 24 Hour [Pending], Urine Total Protein Timed [Pending], Urine Protein/Creatinine Ratio [Pending], Urine Albumin (%) [Pending], Urine Sgdhj-1-Asouvuxkn (%) [Pending], Urine Alpha- 2-Globulins (%) [Pending], Urine Beta-Globulin (%) [Pending], Urine Gamma Globulin (%) [Pending], Urine Protein Electrophoresis Intrp [Pending] 02/24/18 03:20: White Blood Count 14.3H, Red Blood Count 3.65L, Hemoglobin 10.7L, Hematocrit 31.6L, Mean Corpuscular Volume 87, Mean Corpuscular Hemoglobin 29.3, Mean Corpuscular Hemoglobin Concent 33.8, Red Cell Distribution Width 12.9, Platelet Count 47L, Mean Platelet Volume 9.9, Neutrophils (%) (Auto) , Lymphocytes (%) ( Auto) , Monocytes (%) (Auto) , Eosinophils (%) (Auto) , Basophils (%) (Auto) , Differential Total Cells Counted 100, Neutrophils % (Manual) 97H, Lymphocytes % (Manual) 1L, Monocytes % (Manual) 2, Eosinophils % (Manual) 0, Basophils % ( Manual) 0, Band Neutrophils 0, Platelet Estimate DecreasedL, Platelet Morphology Normal, Red Blood Cell Morphology Normal, Sodium Level 135L, Potassium Level 4.1, Chloride Level 105, Carbon Dioxide Level 22, Anion Gap 8, Blood Urea Nitrogen 35H, Creatinine 0.9, Estimat Glomerular Filtration Rate , Glucose Level 150H, Calcium Level 7.8L, Magnesium Level 1.7L, Total Bilirubin 2.5H, Direct Bilirubin 1.7H, Aspartate Amino Transf (AST/SGOT) 42H, Alanine Aminotransferase (ALT/SGPT) 52, Alkaline Phosphatase 173H, Pro-B-Type Natriuretic Peptide 2124H, Total Protein 5.2L, Albumin 1.4L, Globulin 3.8, Albumin/Globulin Ratio 0.4L Height (Feet): 6 Height (Inches): 2.00 Weight (Pounds): 220 Objective WDWN NCAT supple CTA RR, tachy Abd soft ND NT, (+) drainage catheter no edema neuro calm Jaylyn Parikh MD Feb 24, 2018 18:09
[2018-02-24 20:00] VITALS: BP 147/73
--- NOTE | 2018-02-24 22:15 | Progress Note ---
DATE: 02/24/2018 Cardiology Progress Note SUBJECTIVE: The patient is less congested. No shortness of breath. He is on antibiotics. He is status post liver abscess drainage. His monitored rhythm is sinus and he had a 7-beat run of ventricular arrhythmia, nonsustained, he is asymptomatic. OBJECTIVE: VITAL SIGNS: Blood pressure 153/74, pulse 76, and respiratory rate 18. LUNGS: Diminished breath sounds. No wheezing. CARDIAC: Regular rhythm and rate. Normal S1 and S2. ABDOMEN: Soft. No focal tenderness. EXTREMITIES: With trace dependent edema. LABORATORY DATA: White count 14 and hemoglobin 10.7. Potassium 4.1, BUN 35, creatinine 0.9, magnesium 1.7, albumin 1.4, pro-natriuretic peptide 2100. Urinalysis pending. IMPRESSION: 1. Nonsustained ventricular tachycardia. 2. Hypomagnesemia. 3. Liver abscess. 4. Acute renal failure, recovering. 5. Transaminitis. 6. Acute on chronic diastolic congestive heart failure. 7. Severely low colloid osmotic pressure. PLAN: 1. Antimicrobial therapy. 2. IV magnesium. 3. Respiratory hygiene. 4. Taper off IV fluids if diet is better tolerated and advance. 5. Hold diuretics for now. Lex Barros M.D. BOAZ CARTER JOB#: [id number] CC:
[2018-02-24] MEDS ORDERED: Tubing IV Secondary IV ONE (22:19)
[2018-02-25] VITALS: BP 145/72
[2018-02-25] MEDS: Cefepime HCl 1 GM in D5W 55 ML IVPB SCH (02:59)
[2018-02-25 04:00] VITALS: BP 148/72
[2018-02-25 04:59] LABS: HEMATOCRIT 30.7 % (42.0-52.0); HEMOGLOBIN 10.5 G/DL (14.2-18.0); MEAN CORPUSCULAR VOLUME 87 FL (80-99); PLATELET COUNT 75 K/UL (150-450); RED BLOOD COUNT 3.53 M/UL (4.70-6.10); RED CELL DISTRIBUTION WIDTH 12.8 % (11.6-14.8); WHITE BLOOD COUNT 14.1 K/UL (4.8-10.8)
[2018-02-25 05:32] LABS: ALANINE AMINOTRANSFERASE 40 U/L (12-78); ALBUMIN 1.3 G/DL (3.4-5.0); ALBUMIN/GLOBULIN RATIO 0.4 (1.0-2.7); ALKALINE PHOSPHATASE 160 U/L (46-116); ANION GAP 7 mmol/L (5-15); ASPARTATE AMINO TRANSFERASE 34 U/L (15-37); BILIRUBIN,DIRECT 1.2 MG/DL (0.0-0.3); BILIRUBIN,TOTAL 1.8 MG/DL (0.2-1.0); BLOOD UREA NITROGEN 27 mg/dL (7-18); CALCIUM 7.9 MG/DL (8.5-10.1); CARBON DIOXIDE 22 MMOL/L (21-32); CHLORIDE 104 MMOL/L (98-107); CREATININE 0.9 MG/DL (0.55-1.30); POTASSIUM 4.3 MMOL/L (3.5-5.1); SODIUM 133 MMOL/L (136-145)
[2018-02-25] MEDS: NovoLOG Insulin Flexpen SUBQ SCH ×4 (06:23→21:47)
--- NOTE | 2018-02-25 07:26 | General Progress Note ---
Assessment/Plan Assessment/Plan Assessment - Left sided liver abscess - drained - elevated PSA to 78 - suspect prostate CA - renal failure - hyponatremia - thrombocytopenia, ? DIC, ? cirrhotic - Jaundice, ? due to mass, ? cirrhotic, ? hepatitis/liver failure - Guarded Recommendations - IVF - Follow drain output - check other tumor markers - negative AFP, CEA, 19-9 - check hepatitis serologies - negative - abx per ID - follow labs and exam -LFTS improving Subjective Allergies: Coded Allergies: CIPROFLOXACIN (Verified Allergy, Unknown, 02/17/18) PENICILLINS (Verified Allergy, Unknown, 02/17/18) Objective Last 24 Hour Vital Signs Date Time Temp Pulse Resp B/P (MAP) Pulse Ox O2 Delivery O2 Flow Rate FiO2 02/25/18 04:00 Nasal Cannula 2.0 02/25/18 04:00 98.0 75 20 148/72 (97) 98 02/25/18 03:40 74 02/25/18 00:00 Nasal Cannula 2.0 02/25/18 00:00 98.6 74 20 145/72 (96) 98 02/24/18 23:37 72 02/24/18 21:45 Nasal Cannula 2.0 28 02/24/18 21:45 98 Nasal Cannula 2.0 28 02/24/18 20:00 98.4 73 20 147/73 (97) 99 02/24/18 20:00 Nasal Cannula 2.0 02/24/18 19:31 72 02/24/18 16:12 75 02/24/18 16:00 97.9 75 19 154/73 (100) 98 02/24/18 16:00 Nasal Cannula 2.0 02/24/18 12:00 98.5 76 19 153/78 (103) 98 02/24/18 12:00 Nasal Cannula 2.0 02/24/18 12:00 73 02/24/18 09:54 76 153/74 02/24/18 09:00 Nasal Cannula 2.0 02/24/18 08:00 74 02/24/18 08:00 98.3 76 18 153/74 (100) 98 Intake and Output 02/24/18 02/25/18 19:00 07:00 Intake Total 1865 ml 1255 ml Output Total 750 ml 1750 ml Balance 1115 ml -495 ml Intake Oral 1000 ml 650 ml IV Total 865 ml 605 ml Output Urine Total 750 ml 1750 ml Laboratory Tests 02/25/18 04:05: White Blood Count 14.1H, Red Blood Count 3.53L, Hemoglobin 10.5L, Hematocrit 30.7L, Mean Corpuscular Volume 87, Mean Corpuscular Hemoglobin 29.6, Mean Corpuscular Hemoglobin Concent 34.0, Red Cell Distribution Width 12.8, Platelet Count 75#L, Mean Platelet Volume 11.7H, Neutrophils (%) (Auto) , Lymphocytes (% ) (Auto) , Monocytes (%) (Auto) , Eosinophils (%) (Auto) , Basophils (%) (Auto) , Neutrophils % (Manual) [Pending], Lymphocytes % (Manual) [Pending], Platelet Estimate [Pending], Platelet Morphology [Pending], Erythrocyte Sedimentation Rate 54H, Sodium Level 133L, Potassium Level 4.3, Chloride Level 104, Carbon Dioxide Level 22, Anion Gap 7, Blood Urea Nitrogen 27H, Creatinine 0.9, Estimat Glomerular Filtration Rate , Glucose Level 167H, Calcium Level 7.9L, Total Bilirubin 1.8H, Direct Bilirubin 1.2H, Aspartate Amino Transf (AST/SGOT) 34, Alanine Aminotransferase (ALT/SGPT) 40, Alkaline Phosphatase 160H, C-Reactive Protein, Quantitative 4.5H, Total Protein 4.9L, Albumin 1.3L, Globulin 3.6, Albumin/Globulin Ratio 0.4L Height (Feet): 6 Height (Inches): 2.00 Weight (Pounds): 228 General Appearance: no apparent distress EENT: normal ENT inspection Neck: supple Cardiovascular: normal rate Respiratory/Chest: decreased breath sounds Abdomen: soft, decreased bowel sounds, tender Extremities: non-tender Ramesh Ko MD Feb 25, 2018 07:26
[2018-02-25 08:00] VITALS: BP 154/81
[2018-02-25] MEDS: Sertraline 100mg tab ORAL SCH (09:00)
[2018-02-25] MEDS: Vitamin B-12 500mcg tab ORAL SCH (09:33)
[2018-02-25] MEDS: Fluconazole 100mg tab ORAL SCH (09:33)
[2018-02-25] MEDS: Metoprolol Succinate XL 25mg tab ORAL SCH (09:34)
[2018-02-25] MEDS: Aspirin Baby 81mg ORAL SCH (09:34)
[2018-02-25] MEDS: Metamucil Pkt ORAL SCH (09:34)
--- NOTE | 2018-02-25 10:54 | Infectious Diseases Prog Note ---
Assessment/Plan Assessment/Plan antibiotics : cefepime, flagyl, fluconazole A 1. fusobacterium sepsis 2. liver abscess s/p drainage 3. renal failure improving 4. increased LFT 5. diabetes mellitus 6. leucocytosis P 1. d/c cefepime, flagyl, fluconazole 2. start and continue cefoxitin 38 more days 3. will follow up cultures Subjective Constitutional: Denies: fever, chills Respiratory: Denies: shortness of breath, dry cough Gastrointestinal/Abdominal: Denies: nausea, vomiting, diarrhea Musculoskeletal: Reports: pain Allergies: Coded Allergies: CIPROFLOXACIN (Verified Allergy, Unknown, 02/17/18) PENICILLINS (Verified Allergy, Unknown, 02/17/18) Objective Vital Signs Last 24 Hour Vital Signs Date Time Temp Pulse Resp B/P (MAP) Pulse Ox O2 Delivery O2 Flow Rate FiO2 02/25/18 09:34 74 154/81 02/25/18 08:00 98.1 74 18 154/81 (105) 99 02/25/18 08:00 75 02/25/18 08:00 Nasal Cannula 2.0 02/25/18 04:00 Nasal Cannula 2.0 02/25/18 04:00 98.0 75 20 148/72 (97) 98 02/25/18 03:40 74 02/25/18 00:00 Nasal Cannula 2.0 02/25/18 00:00 98.6 74 20 145/72 (96) 98 02/24/18 23:37 72 02/24/18 21:45 Nasal Cannula 2.0 28 02/24/18 21:45 98 Nasal Cannula 2.0 28 02/24/18 20:00 98.4 73 20 147/73 (97) 99 02/24/18 20:00 Nasal Cannula 2.0 02/24/18 19:31 72 02/24/18 16:12 75 02/24/18 16:00 97.9 75 19 154/73 (100) 98 02/24/18 16:00 Nasal Cannula 2.0 02/24/18 12:00 98.5 76 19 153/78 (103) 98 02/24/18 12:00 Nasal Cannula 2.0 02/24/18 12:00 73 Height (Feet): 6 Height (Inches): 2.00 Weight (Pounds): 228 Respiratory/Chest: lungs clear Cardiovascular: normal rate, regular rhythm, no gallop/murmur Abdomen: soft, non tender, distended, other - drain with drainage Extremities: other - + edema Microbiology Date/Time Source Procedure Growth Status 02/22/18 15:18 Blood AFB Specimen Processing Tissue - Final Resulted 02/22/18 15:18 Blood Acid Fast Bacilli Smear - Final Resulted 02/22/18 15:18 Blood Acid Fast Bacilli Culture Pending Resulted 02/22/18 15:18 Body Fluid Other Gram Stain - Final Resulted 02/22/18 15:18 Body Fluid Other Body Fluid Culture - Preliminary NO GROWTH AFTER 48 HOURS Resulted 02/22/18 15:18 Body Fluid Other Anaerobic Culture Pending Resulted Laboratory Tests Test 02/25/18 04:05 White Blood Count 14.1 K/UL (4.8-10.8) H Red Blood Count 3.53 M/UL (4.70-6.10) L Hemoglobin 10.5 G/DL (14.2-18.0) L Hematocrit 30.7 % (42.0-52.0) L Mean Corpuscular Volume 87 FL (80-99) Mean Corpuscular Hemoglobin 29.6 PG (27.0-31.0) Mean Corpuscular Hemoglobin Concent 34.0 G/DL (32.0-36.0) Red Cell Distribution Width 12.8 % (11.6-14.8) Platelet Count 75 K/UL (150-450) #L Mean Platelet Volume 11.7 FL (6.5-10.1) H Neutrophils (%) (Auto) % (45.0-75.0) Lymphocytes (%) (Auto) % (20.0-45.0) Monocytes (%) (Auto) % (1.0-10.0) Eosinophils (%) (Auto) % (0.0-3.0) Basophils (%) (Auto) % (0.0-2.0) Differential Total Cells Counted 100 Neutrophils % (Manual) 91 % (45-75) H Lymphocytes % (Manual) 6 % (20-45) L Monocytes % (Manual) 3 % (1-10) Eosinophils % (Manual) 0 % (0-3) Basophils % (Manual) 0 % (0-2) Band Neutrophils 0 % (0-8) Nucleated Red Blood Cells 1 /100 WBC Platelet Estimate Decreased L Platelet Morphology Normal Hypochromasia 1+ Anisocytosis 1+ Erythrocyte Sedimentation Rate 54 MM/HR (0-20) H Sodium Level 133 MMOL/L (136-145) L Potassium Level 4.3 MMOL/L (3.5-5.1) Chloride Level 104 MMOL/L (98-107) Carbon Dioxide Level 22 MMOL/L (21-32) Anion Gap 7 mmol/L (5-15) Blood Urea Nitrogen 27 mg/dL (7-18) H Creatinine 0.9 MG/DL (0.55-1.30) Estimat Glomerular Filtration Rate mL/min (>60) Glucose Level 167 MG/DL (74-106) H Calcium Level 7.9 MG/DL (8.5-10.1) L Total Bilirubin 1.8 MG/DL (0.2-1.0) H Direct Bilirubin 1.2 MG/DL (0.0-0.3) H Aspartate Amino Transf (AST/SGOT) 34 U/L (15-37) Alanine Aminotransferase (ALT/SGPT) 40 U/L (12-78) Alkaline Phosphatase 160 U/L (46-116) H C-Reactive Protein, Quantitative 4.5 mg/dL (0.00-0.90) H Total Protein 4.9 G/DL (6.4-8.2) L Albumin 1.3 G/DL (3.4-5.0) L Globulin 3.6 g/dL Albumin/Globulin Ratio 0.4 (1.0-2.7) L Current Medications Medications (Trade) Dose Ordered Sig/Kalyan Route PRN Reason Start Time Stop Time Status Last Admin Dose Admin Acetaminophen/ Hydrocodone Bitart ([place] 5/325) 1 tab Q4H PRN ORAL Moderate Pain (Pain Scale 4-6) 02/22/18 18:00 03/01/18 17:59 02/22/18 18:16 Alfuzosin HCl (Uroxatrol) 10 mg DAILY ORAL 02/18/18 09:00 03/20/18 08:59 02/25/18 09:33 Aspirin (ASA) 81 mg DAILY ORAL 02/18/18 09:00 03/20/18 08:59 02/25/18 09:34 Cefepime HCl 1 gm/ Dextrose 55 ml @ 110 mls/hr Q12HR@0300,1500 IVPB 02/22/18 15:00 03/01/18 14:59 02/25/18 02:59 Clonazepam (KlonoPIN) 0.5 mg Q6H PRN ORAL For Anxiety 02/20/18 11:00 02/27/18 10:59 02/24/18 20:56 Cyanocobalamin (Vitamin B-12) 1,000 mcg DAILY ORAL 02/18/18 09:00 03/20/18 08:59 02/25/18 09:33 Finasteride (Proscar) 5 mg EVERY OTHER DAY ORAL 02/19/18 09:00 03/21/18 08:59 02/25/18 09:33 Fluconazole (Diflucan) 100 mg DAILY ORAL 02/20/18 09:00 02/27/18 08:59 02/25/18 09:33 Hydroxyzine HCl (Vistaril) 10 mg Q8H PRN ORAL Itching 02/17/18 18:00 03/19/18 17:59 Insulin Aspart (NovoLOG) BEFORE MEALS AND HS SUBQ 02/17/18 21:00 03/19/18 20:59 02/25/18 06:23 Metoprolol Succinate (Toprol XL) 25 mg DAILY ORAL 02/20/18 09:00 03/22/18 08:59 02/25/18 09:34 Pantoprazole (Protonix) 40 mg DAILY ORAL 02/18/18 09:00 03/20/18 08:59 02/25/18 09:33 Psyllium Hydrophilic Mucilloid (Metamucil) 1 pkt DAILY ORAL 02/18/18 09:00 03/20/18 08:59 02/25/18 09:34 Sertraline HCl (Zoloft) 100 mg DAILY ORAL 02/18/18 09:00 03/20/18 08:59 02/23/18 09:11 Sodium Chloride 1,000 ml @ 50 mls/hr Q20H IVLG 02/24/18 17:00 03/26/18 16:59 02/24/18 17:29 Renee Sanderson MD Feb 25, 2018 10:54
--- NOTE | 2018-02-25 11:22 | General Progress Note ---
Assessment/Plan Status: stable Assessment/Plan # Left sided solid/cystic liver mass, r/o CA -- potentially either primary HCC versus metastatic from other site --> Repeat MRI in 2 months once back on the [facility] and reassess for any residual mass --> CT of the chest/abdomen/pelvis:Large 9.8 x 11.3 x 9.2 cm heterogeneous area of low-attenuation involving most of the lateral left hepatic lobe. --> MRI of the abdomen: abnormality involving segments 2 and 3 of the left hepatic lobe --> tumor markers: CA 15-3 of 19.1, CA 19-9 of 20, PSA of 78.7 --> will need pathology report before further recommendations --> Pathology report shows no malignant cells --> 02/23: S/P drainage of liver abscess and is negative --> Consider outpatient CT guided biopsy when flies back to [facility] --> Bone scan: No definite plain radiographic evidence of osseous metastatic disease. # Thrombocytopenia likely due to malignancy versus consumptive process from infection --> Plt count is trending upwards. --> Cont to closely monitor --> plt goal >20k if febrile --> plt goal >50k if procedure is pending # Anemia of chronic disease due to underlying chronic medical issues, multifactorial --> w/u has been reviewed. Ferritin at 1725 --> Hgb goal >7. Transfuse prn. --> No evidence of hemolysis noted. Peripheral smear has been reviewed. # Elevated PSA -- may consider a bone scan to r/o mets --> obtain bone scan / skeletal survey since inpatient --> Bone scan is negative # Sepsis, UTI vs infected necrotic liver mass --> on abx, appreciate ID recs # Renal failure - improving # Hyponatremia. IVF # Episode of generalized weakness Greatly appreciate consultation! Subjective Date patient seen: Feb 25, 2018 Hematologic/Lymphatic: Reports: anemia Allergies: Coded Allergies: CIPROFLOXACIN (Verified Allergy, Unknown, 02/17/18) PENICILLINS (Verified Allergy, Unknown, 02/17/18) All Systems: reviewed and negative except above Subjective Pt awake and alert. Plt count is trending upwards. No acute events. Objective Last 24 Hour Vital Signs Date Time Temp Pulse Resp B/P (MAP) Pulse Ox O2 Delivery O2 Flow Rate FiO2 02/25/18 09:34 74 154/81 02/25/18 08:00 98.1 74 18 154/81 (105) 99 02/25/18 08:00 75 02/25/18 08:00 Nasal Cannula 2.0 02/25/18 04:00 Nasal Cannula 2.0 02/25/18 04:00 98.0 75 20 148/72 (97) 98 02/25/18 03:40 74 02/25/18 00:00 Nasal Cannula 2.0 02/25/18 00:00 98.6 74 20 145/72 (96) 98 02/24/18 23:37 72 02/24/18 21:45 Nasal Cannula 2.0 28 02/24/18 21:45 98 Nasal Cannula 2.0 28 02/24/18 20:00 98.4 73 20 147/73 (97) 99 02/24/18 20:00 Nasal Cannula 2.0 02/24/18 19:31 72 02/24/18 16:12 75 02/24/18 16:00 97.9 75 19 154/73 (100) 98 02/24/18 16:00 Nasal Cannula 2.0 02/24/18 12:00 98.5 76 19 153/78 (103) 98 02/24/18 12:00 Nasal Cannula 2.0 02/24/18 12:00 73 Intake and Output 02/24/18 02/25/18 19:00 07:00 Intake Total 1865 ml 1255 ml Output Total 750 ml 1750 ml Balance 1115 ml -495 ml Intake Oral 1000 ml 650 ml IV Total 865 ml 605 ml Output Urine Total 750 ml 1750 ml Laboratory Tests 02/25/18 04:05: White Blood Count 14.1H, Red Blood Count 3.53L, Hemoglobin 10.5L, Hematocrit 30.7L, Mean Corpuscular Volume 87, Mean Corpuscular Hemoglobin 29.6, Mean Corpuscular Hemoglobin Concent 34.0, Red Cell Distribution Width 12.8, Platelet Count 75#L, Mean Platelet Volume 11.7H, Neutrophils (%) (Auto) , Lymphocytes (% ) (Auto) , Monocytes (%) (Auto) , Eosinophils (%) (Auto) , Basophils (%) (Auto) , Differential Total Cells Counted 100, Neutrophils % (Manual) 91H, Lymphocytes % (Manual) 6L, Monocytes % (Manual) 3, Eosinophils % (Manual) 0, Basophils % ( Manual) 0, Band Neutrophils 0, Nucleated Red Blood Cells 1, Platelet Estimate DecreasedL, Platelet Morphology Normal, Hypochromasia 1+, Anisocytosis 1+, Erythrocyte Sedimentation Rate 54H, Sodium Level 133L, Potassium Level 4.3, Chloride Level 104, Carbon Dioxide Level 22, Anion Gap 7, Blood Urea Nitrogen 27H, Creatinine 0.9, Estimat Glomerular Filtration Rate , Glucose Level 167H, Calcium Level 7.9L, Total Bilirubin 1.8H, Direct Bilirubin 1.2H, Aspartate Amino Transf (AST/SGOT) 34, Alanine Aminotransferase (ALT/SGPT) 40, Alkaline Phosphatase 160H, C-Reactive Protein, Quantitative 4.5H, Total Protein 4.9L, Albumin 1.3L, Globulin 3.6, Albumin/Globulin Ratio 0.4L Height (Feet): 6 Height (Inches): 2.00 Weight (Pounds): 228 Objective General Appearance: alert, GCS 15, moderate distress Eyes: bilateral eye PERRL ENT: normal pharynx, normal voice Neck: full range of motion Respiratory: normal inspection, no respiratory distress Cardiovascular: tachycardia Gastrointestinal: distended Genitourinary: no CVA tenderness Musculoskeletal: ++motor weakness Mehdi Williamson MD Feb 25, 2018 11:22
[2018-02-25 12:00] VITALS: BP 143/63
[2018-02-25] MEDS: cefOXitin Sod 2 GM in D5W 110 ML IVPB SCH ×2 (12:54→21:45)
--- NOTE | 2018-02-25 14:06 | Pulmonology Progress Note ---
Assessment/Plan Assessment/Plan Pulmonary Progress Note Assessment/Plan IMPRESSION: 1. Acute pancreatitis. 2. Thrombocytopenia 3. Hematuria. 4. Hyponatremia. 5. Hypokalemia. 6. Acute on chronic renal failure. 7. Transaminitis. 8. Possible acute hepatitis. 9. Severe protein-calorie malnutrition. 10. Leukocytosis. 11. Concern for severe sepsis. 12. hypotension 13. liver mass 14. Atrial flutter 15. concern for metastatic prostate cancer 16. s/p liver biopsy PLAN IV antibiotics per ID antifungals IV hydration as is monitor bun and creatinine; improved PO diet as tolerated MRI/ cT guided biopsy reviewed all consultants appreciated labs recovering aware; and will update for change impression, plan, and exam edited and reviewed in detail care discussed with RN Subjective Allergies: Coded Allergies: CIPROFLOXACIN (Verified Allergy, Unknown, 02/17/18) PENICILLINS (Verified Allergy, Unknown, 02/17/18) Subjective all reviewed events noted and reviewed comfortable underwent liver abcess drainage patient alert Objective Vital Signs Noted Height (Feet): 6 Height (Inches): 2.00 Weight (Pounds): 220 Objective GENERAL: The patient is more alert HEENT: Negative. Extraocular movements are grossly intact. NECK: Supple. LUNGS: minimal rhonchi, otherwise clear. moderate air entry CARDIAC: S1 and S2. RRR without murmurs, rubs, or gallops. ABDOMEN: Soft. no tenderness. no HSM EXTREMITIES: No cyanosis or clubbing. trace UE edema. NEUROLOGIC: Otherwise, nonfocal. Laboratory Tests 02/22/18 14:45: White Blood Count 16.0H, Red Blood Count 3.84L, Hemoglobin 11.3L, Hematocrit 32.7L, Mean Corpuscular Volume 85, Mean Corpuscular Hemoglobin 29.3, Mean Corpuscular Hemoglobin Concent 34.4, Red Cell Distribution Width 12.5, Platelet Count 42L, Mean Platelet Volume 9.7, Neutrophils (%) (Auto) , Lymphocytes (%) ( Auto) , Monocytes (%) (Auto) , Eosinophils (%) (Auto) , Basophils (%) (Auto) , Differential Total Cells Counted 100, Neutrophils % (Manual) 89H, Lymphocytes % (Manual) 4L, Monocytes % (Manual) 5, Eosinophils % (Manual) 0, Basophils % ( Manual) 0, Band Neutrophils 2, Platelet Estimate DecreasedL, Platelet Morphology Normal, Hypochromasia 1+, Anisocytosis 1+, Prothrombin Time 13.1H, Prothromb Time International Ratio 1.3H, Activated Partial Thromboplast Time 30 02/22/18 15:18: Body Fluid Source Liver abscess, Body Fluid Volume 80, Body Fluid Appearance Bloody, Body Fl[place] [address], Body Fluid Total Nucleated Cells 94815, Body Fluid Polynuclear WBCs (%) 79, Body Fluid Mononuclear WBCs (%) 21, Body Fluid Mesothelial Cells (%) 0, Body Fluid Glucose [Pending], Body Fluid Comment 02/23/18 03:30: White Blood Count 13.4H, Red Blood Count 3.54L, Hemoglobin 10.6L, Hematocrit 30.4L, Mean Corpuscular Volume 86, Mean Corpuscular Hemoglobin 29.8, Mean Corpuscular Hemoglobin Concent 34.8, Red Cell Distribution Width 12.5, Platelet Count 36L, Mean Platelet Volume 8.7, Neutrophils (%) (Auto) , Lymphocytes (%) ( Auto) , Monocytes (%) (Auto) , Eosinophils (%) (Auto) , Basophils (%) (Auto) , Neutrophils % (Manual) [Pending], Lymphocytes % (Manual) [Pending], Platelet Estimate [Pending], Platelet Morphology [Pending], Sodium Level 136, Potassium Level 4.0, Chloride Level 105, Carbon Dioxide Level 22, Anion Gap 9, Blood Urea Nitrogen 48H, Creatinine 1.0, Estimat Glomerular Filtration Rate , Glucose Level 159H, Calcium Level 8.0L, Total Bilirubin 3.8H, Direct Bilirubin 2.9H, Aspartate Amino Transf (AST/SGOT) 64H, Alanine Aminotransferase (ALT/SGPT) 76, Alkaline Phosphatase 167H, Total Protein 5.0L, Albumin 1.4L, Globulin 3.6, Albumin/Globulin Ratio 0.4L Subjective ROS Limited/Unobtainable: No Allergies: Coded Allergies: CIPROFLOXACIN (Verified Allergy, Unknown, 02/17/18) PENICILLINS (Verified Allergy, Unknown, 02/17/18) Objective Last 24 Hour Vital Signs Date Time Temp Pulse Resp B/P (MAP) Pulse Ox O2 Delivery O2 Flow Rate FiO2 02/25/18 09:34 74 154/81 02/25/18 08:00 98.1 74 18 154/81 (105) 99 02/25/18 08:00 75 02/25/18 08:00 Nasal Cannula 2.0 02/25/18 04:00 Nasal Cannula 2.0 02/25/18 04:00 98.0 75 20 148/72 (97) 98 02/25/18 03:40 74 02/25/18 00:00 Nasal Cannula 2.0 02/25/18 00:00 98.6 74 20 145/72 (96) 98 02/24/18 23:37 72 02/24/18 21:45 Nasal Cannula 2.0 28 02/24/18 21:45 98 Nasal Cannula 2.0 28 02/24/18 20:00 98.4 73 20 147/73 (97) 99 02/24/18 20:00 Nasal Cannula 2.0 02/24/18 19:31 72 02/24/18 16:12 75 02/24/18 16:00 97.9 75 19 154/73 (100) 98 02/24/18 16:00 Nasal Cannula 2.0 Intake and Output 02/24/18 02/25/18 19:00 07:00 Intake Total 1865 ml 1255 ml Output Total 750 ml 1750 ml Balance 1115 ml -495 ml Intake Oral 1000 ml 650 ml IV Total 865 ml 605 ml Output Urine Total 750 ml 1750 ml Microbiology Date/Time Source Procedure Growth Status 02/22/18 15:18 Blood AFB Specimen Processing Tissue - Final Resulted 02/22/18 15:18 Blood Acid Fast Bacilli Smear - Final Resulted 02/22/18 15:18 Blood Acid Fast Bacilli Culture Pending Resulted 02/22/18 15:18 Body Fluid Other Gram Stain - Final Resulted 02/22/18 15:18 Body Fluid Other Body Fluid Culture - Preliminary NO GROWTH AFTER 48 HOURS Resulted 02/22/18 15:18 Body Fluid Other Anaerobic Culture - Preliminary NO GROWTH AFTER 48 HOURS Resulted Laboratory Tests 02/25/18 04:05: White Blood Count 14.1H, Red Blood Count 3.53L, Hemoglobin 10.5L, Hematocrit 30.7L, Mean Corpuscular Volume 87, Mean Corpuscular Hemoglobin 29.6, Mean Corpuscular Hemoglobin Concent 34.0, Red Cell Distribution Width 12.8, Platelet Count 75#L, Mean Platelet Volume 11.7H, Neutrophils (%) (Auto) , Lymphocytes (% ) (Auto) , Monocytes (%) (Auto) , Eosinophils (%) (Auto) , Basophils (%) (Auto) , Differential Total Cells Counted 100, Neutrophils % (Manual) 91H, Lymphocytes % (Manual) 6L, Monocytes % (Manual) 3, Eosinophils % (Manual) 0, Basophils % ( Manual) 0, Band Neutrophils 0, Nucleated Red Blood Cells 1, Platelet Estimate DecreasedL, Platelet Morphology Normal, Hypochromasia 1+, Anisocytosis 1+, Erythrocyte Sedimentation Rate 54H, Sodium Level 133L, Potassium Level 4.3, Chloride Level 104, Carbon Dioxide Level 22, Anion Gap 7, Blood Urea Nitrogen 27H, Creatinine 0.9, Estimat Glomerular Filtration Rate , Glucose Level 167H, Calcium Level 7.9L, Total Bilirubin 1.8H, Direct Bilirubin 1.2H, Aspartate Amino Transf (AST/SGOT) 34, Alanine Aminotransferase (ALT/SGPT) 40, Alkaline Phosphatase 160H, C-Reactive Protein, Quantitative 4.5H, Total Protein 4.9L, Albumin 1.3L, Globulin 3.6, Albumin/Globulin Ratio 0.4L Current Medications Medications (Trade) Dose Ordered Sig/Kalyan Route PRN Reason Start Time Stop Time Status Last Admin Dose Admin Acetaminophen/ Hydrocodone Bitart ([place] 5/325) 1 tab Q4H PRN ORAL Moderate Pain (Pain Scale 4-6) 02/22/18 18:00 03/01/18 17:59 02/22/18 18:16 Alfuzosin HCl (Uroxatrol) 10 mg DAILY ORAL 02/18/18 09:00 03/20/18 08:59 02/25/18 09:33 Aspirin (ASA) 81 mg DAILY ORAL 02/18/18 09:00 03/20/18 08:59 02/25/18 09:34 Cefoxitin Sodium 2 gm/Dextrose 110 ml @ 220 mls/hr Q8HR IVPB 02/25/18 12:00 03/04/18 11:59 02/25/18 12:54 Clonazepam (KlonoPIN) 0.5 mg Q6H PRN ORAL For Anxiety 02/20/18 11:00 02/27/18 10:59 02/24/18 20:56 Cyanocobalamin (Vitamin B-12) 1,000 mcg DAILY ORAL 02/18/18 09:00 03/20/18 08:59 02/25/18 09:33 Finasteride (Proscar) 5 mg EVERY OTHER DAY ORAL 02/19/18 09:00 03/21/18 08:59 02/25/18 09:33 Hydroxyzine HCl (Vistaril) 10 mg Q8H PRN ORAL Itching 02/17/18 18:00 03/19/18 17:59 Insulin Aspart (NovoLOG) BEFORE MEALS AND HS SUBQ 02/17/18 21:00 03/19/18 20:59 02/25/18 12:20 Metoprolol Succinate (Toprol XL) 25 mg DAILY ORAL 02/20/18 09:00 03/22/18 08:59 02/25/18 09:34 Pantoprazole (Protonix) 40 mg DAILY ORAL 02/18/18 09:00 03/20/18 08:59 02/25/18 09:33 Psyllium Hydrophilic Mucilloid (Metamucil) 1 pkt DAILY ORAL 02/18/18 09:00 03/20/18 08:59 02/25/18 09:34 Sertraline HCl (Zoloft) 100 mg DAILY ORAL 02/18/18 09:00 03/20/18 08:59 02/23/18 09:11 Sodium Chloride 1,000 ml @ 50 mls/hr Q20H IVLG 02/24/18 17:00 03/26/18 16:59 02/25/18 12:17 Lex Gonzalez MD Feb 25, 2018 14:06
--- NOTE | 2018-02-25 15:04 | General Surgery Progress Note ---
General Surgery-Progress Note Subjective Symptoms: improved, pain absent, tolerating diet, passing flatus Additional Comments improving. labs noted. micro noted discussed with family and patient Objective Last 24 Hour Vital Signs Date Time Temp Pulse Resp B/P (MAP) Pulse Ox O2 Delivery O2 Flow Rate FiO2 02/25/18 12:00 75 02/25/18 12:00 Nasal Cannula 2.0 02/25/18 12:00 97.9 73 20 143/63 (89) 96 02/25/18 09:34 74 154/81 02/25/18 08:00 98.1 74 18 154/81 (105) 99 02/25/18 08:00 75 02/25/18 08:00 Nasal Cannula 2.0 02/25/18 04:00 Nasal Cannula 2.0 02/25/18 04:00 98.0 75 20 148/72 (97) 98 02/25/18 03:40 74 02/25/18 00:00 Nasal Cannula 2.0 02/25/18 00:00 98.6 74 20 145/72 (96) 98 02/24/18 23:37 72 02/24/18 21:45 Nasal Cannula 2.0 28 02/24/18 21:45 98 Nasal Cannula 2.0 28 02/24/18 20:00 98.4 73 20 147/73 (97) 99 02/24/18 20:00 Nasal Cannula 2.0 02/24/18 19:31 72 02/24/18 16:12 75 02/24/18 16:00 97.9 75 19 154/73 (100) 98 02/24/18 16:00 Nasal Cannula 2.0 I&O Intake and Output 02/24/18 02/25/18 18:59 06:59 Intake Total 1815 ml 1305 ml Output Total 750 ml 1750 ml Balance 1065 ml -445 ml Intake Oral 1000 ml 650 ml IV Total 815 ml 655 ml Output Urine Total 750 ml 1750 ml Wound: clean Drains: other - serosang output now Cardiovascular: RSR Respiratory: clear Abdomen: soft, distended, non-tender, present bowel sounds Extremities: edema, no tenderness, no cyanosis Laboratory Tests Test 02/25/18 04:05 White Blood Count 14.1 K/UL (4.8-10.8) H Red Blood Count 3.53 M/UL (4.70-6.10) L Hemoglobin 10.5 G/DL (14.2-18.0) L Hematocrit 30.7 % (42.0-52.0) L Mean Corpuscular Volume 87 FL (80-99) Mean Corpuscular Hemoglobin 29.6 PG (27.0-31.0) Mean Corpuscular Hemoglobin Concent 34.0 G/DL (32.0-36.0) Red Cell Distribution Width 12.8 % (11.6-14.8) Platelet Count 75 K/UL (150-450) #L Mean Platelet Volume 11.7 FL (6.5-10.1) H Neutrophils (%) (Auto) % (45.0-75.0) Lymphocytes (%) (Auto) % (20.0-45.0) Monocytes (%) (Auto) % (1.0-10.0) Eosinophils (%) (Auto) % (0.0-3.0) Basophils (%) (Auto) % (0.0-2.0) Differential Total Cells Counted 100 Neutrophils % (Manual) 91 % (45-75) H Lymphocytes % (Manual) 6 % (20-45) L Monocytes % (Manual) 3 % (1-10) Eosinophils % (Manual) 0 % (0-3) Basophils % (Manual) 0 % (0-2) Band Neutrophils 0 % (0-8) Nucleated Red Blood Cells 1 /100 WBC Platelet Estimate Decreased L Platelet Morphology Normal Hypochromasia 1+ Anisocytosis 1+ Erythrocyte Sedimentation Rate 54 MM/HR (0-20) H Sodium Level 133 MMOL/L (136-145) L Potassium Level 4.3 MMOL/L (3.5-5.1) Chloride Level 104 MMOL/L (98-107) Carbon Dioxide Level 22 MMOL/L (21-32) Anion Gap 7 mmol/L (5-15) Blood Urea Nitrogen 27 mg/dL (7-18) H Creatinine 0.9 MG/DL (0.55-1.30) Estimat Glomerular Filtration Rate mL/min (>60) Glucose Level 167 MG/DL (74-106) H Calcium Level 7.9 MG/DL (8.5-10.1) L Total Bilirubin 1.8 MG/DL (0.2-1.0) H Direct Bilirubin 1.2 MG/DL (0.0-0.3) H Aspartate Amino Transf (AST/SGOT) 34 U/L (15-37) Alanine Aminotransferase (ALT/SGPT) 40 U/L (12-78) Alkaline Phosphatase 160 U/L (46-116) H C-Reactive Protein, Quantitative 4.5 mg/dL (0.00-0.90) H Total Protein 4.9 G/DL (6.4-8.2) L Albumin 1.3 G/DL (3.4-5.0) L Globulin 3.6 g/dL Albumin/Globulin Ratio 0.4 (1.0-2.7) L Plan Problems: (1) Severe sepsis Assessment & Plan: etiology unknown UTI on admission but urine culture negative Blood cultures negative possible liver? abscess vs mass liver abscess s/p drainage improving IV fluids IV abx (2) Liver mass, left lobe Assessment & Plan: large left lobe liver mass of unknown etiology CT without contrast will order US and maybe MRI later US noted and large mass concerning for malignancy MRI noted. s/p us guided drainage improving -trend labs -diet as tolerated -iv fluids -iv abx Jayden Ramos Feb 25, 2018 15:04
[2018-02-25 16:00] VITALS: BP 146/77
[2018-02-25] MEDS ORDERED: Tubing IV Secondary IV ONE (16:00)
[2018-02-25 20:00] VITALS: BP 154/86
--- NOTE | 2018-02-25 22:45 | Progress Note ---
DATE: 02/25/2018 CARDIOLOGY PROGRESS NOTE SUBJECTIVE: The patient without new complaints. Abdominal pain has diminished. OBJECTIVE: GENERAL: He is more alert. Monitored rhythm sinus. Yesterday, he had a nonsustained run of ventricular tachycardia 7 beats, today rare ectopic beats noted. LUNGS: Coarse breath sounds. Scattered ___. No wheezing or rales. CARDIAC: Regular rhythm and rate. Normal S1 and S2 with a fourth heart sound. ABDOMEN: Soft. No focal tenderness. EXTREMITIES: Trace edema. LABORATORY DATA: White count 14 and hemoglobin 10.5. Sodium 133, potassium 4.3, bicarbonate 22, BUN 27, and creatinine 0.9. Magnesium yesterday 1.2. Albumin 1.3. Liver function studies continue to normalize. IMPRESSION: 1. Liver abscess, status post drainage. 2. Probable prostate cancer. 3. Hyponatremia, correcting. 4. Jaundice and transaminitis, resolving. 5. Nonsustained ventricular tachycardia. 6. Hypertension. 7. Paroxysmal atrial ectopy. 8. Acute renal failure, recovering. 9. Hypomagnesemia, status post replacement. PLAN: 1. Continue antimicrobials, cardiac monitoring, and recheck electrolytes and magnesium level. 2. Monitor cardiorenal parameters. 3. Maintain beta-blockade. 4. Trend natriuretic peptide assay. 5. Discontinue intravenous fluids once oral intake improves. Lex Barros M.D. DR: MALLORY JOB#: [id number] CC:
[2018-02-26] VITALS: BP 141/76
[2018-02-26 04:00] VITALS: BP 160/79
[2018-02-26 05:01] LABS: HEMATOCRIT 31.1 % (42.0-52.0); HEMOGLOBIN 10.4 G/DL (14.2-18.0); MEAN CORPUSCULAR VOLUME 87 FL (80-99); PLATELET COUNT 118 K/UL (150-450); RED BLOOD COUNT 3.55 M/UL (4.70-6.10); RED CELL DISTRIBUTION WIDTH 12.8 % (11.6-14.8); WHITE BLOOD COUNT 13.5 K/UL (4.8-10.8)
[2018-02-26 05:36] LABS: ALANINE AMINOTRANSFERASE 34 U/L (12-78); ALBUMIN 1.3 G/DL (3.4-5.0); ALBUMIN/GLOBULIN RATIO 0.4 (1.0-2.7); ALKALINE PHOSPHATASE 151 U/L (46-116); ANION GAP 7 mmol/L (5-15); ASPARTATE AMINO TRANSFERASE 31 U/L (15-37); BILIRUBIN,TOTAL 1.5 MG/DL (0.2-1.0); BLOOD UREA NITROGEN 20 mg/dL (7-18); CALCIUM 8.1 MG/DL (8.5-10.1); CARBON DIOXIDE 23 MMOL/L (21-32); CHLORIDE 104 MMOL/L (98-107); CREATININE 0.8 MG/DL (0.55-1.30); POTASSIUM 4.5 MMOL/L (3.5-5.1); SODIUM 134 MMOL/L (136-145)
[2018-02-26] MEDS: cefOXitin Sod 2 GM in D5W 110 ML IVPB SCH ×3 (06:06→22:23)
[2018-02-26] MEDS: NovoLOG Insulin Flexpen SUBQ SCH ×4 (06:07→20:37)
[2018-02-26 08:00] VITALS: BP 175/78
--- NOTE | 2018-02-26 08:59 | General Progress Note ---
Assessment/Plan Assessment/Plan Assessment - Left sided liver abscess - drained - elevated PSA to 78 - suspect prostate CA - renal failure - hyponatremia - thrombocytopenia, ? DIC, ? cirrhotic - Jaundice, ? due to mass, ? cirrhotic, ? hepatitis/liver failure - Guarded Recommendations - Follow drain output - check other tumor markers - negative AFP, CEA, 19-9 - check hepatitis serologies - negative - abx per ID - follow labs and exam -LFTS improving Subjective ROS Limited/Unobtainable: No Allergies: Coded Allergies: CIPROFLOXACIN (Verified Allergy, Unknown, 02/17/18) PENICILLINS (Verified Allergy, Unknown, 02/17/18) Objective Last 24 Hour Vital Signs Date Time Temp Pulse Resp B/P (MAP) Pulse Ox O2 Delivery O2 Flow Rate FiO2 02/26/18 08:00 Nasal Cannula 2.0 02/26/18 04:00 Nasal Cannula 2.0 02/26/18 04:00 97.5 74 20 160/79 (106) 97 02/26/18 03:36 71 02/26/18 00:00 Nasal Cannula 2.0 02/26/18 00:00 98.7 75 20 141/76 (97) 96 02/25/18 23:37 74 02/25/18 20:00 Nasal Cannula 2.0 02/25/18 20:00 98.3 79 20 154/86 (108) 99 02/25/18 20:00 77 02/25/18 16:00 97.9 72 20 146/77 (100) 99 02/25/18 16:00 76 02/25/18 16:00 Nasal Cannula 2.0 02/25/18 12:00 75 02/25/18 12:00 Nasal Cannula 2.0 02/25/18 12:00 97.9 73 20 143/63 (89) 96 02/25/18 09:34 74 154/81 Intake and Output 02/25/18 02/26/18 19:00 07:00 Intake Total 1360 ml 750 ml Output Total 900 ml 1500 ml Balance 460 ml -750 ml Intake Oral 800 ml 750 ml IV Total 560 ml Output Urine Total 800 ml 1500 ml Drainage Total 100 ml # Bowel Movements 1 2 Laboratory Tests 02/26/18 04:30: White Blood Count 13.5H, Red Blood Count 3.55L, Hemoglobin 10.4L, Hematocrit 31.1L, Mean Corpuscular Volume 87, Mean Corpuscular Hemoglobin 29.2, Mean Corpuscular Hemoglobin Concent 33.4, Red Cell Distribution Width 12.8, Platelet Count 118#L, Mean Platelet Volume 9.9, Neutrophils (%) (Auto) , Lymphocytes (%) (Auto) , Monocytes (%) (Auto) , Eosinophils (%) (Auto) , Basophils (%) (Auto) , Differential Total Cells Counted 100, Neutrophils % (Manual) 87H, Lymphocytes % (Manual) 7L, Monocytes % (Manual) 6, Eosinophils % (Manual) 0, Basophils % ( Manual) 0, Band Neutrophils 0, Platelet Estimate DecreasedL, Platelet Morphology Normal, Hypochromasia 1+, Erythrocyte Sedimentation Rate 55H, Sodium Level 134L, Potassium Level 4.5, Chloride Level 104, Carbon Dioxide Level 23, Anion Gap 7, Blood Urea Nitrogen 20H, Creatinine 0.8, Estimat Glomerular Filtration Rate , Glucose Level 152H, Calcium Level 8.1L, Magnesium Level 1.4L, Total Bilirubin 1.5H, Direct Bilirubin 1.0H, Aspartate Amino Transf (AST/SGOT) 31, Alanine Aminotransferase (ALT/SGPT) 34, Alkaline Phosphatase 151H, C- Reactive Protein, Quantitative 3.6H, Pro-B-Type Natriuretic Peptide 2309H, Total Protein 5.0L, Albumin 1.3L, Globulin 3.7, Albumin/Globulin Ratio 0.4L Height (Feet): 6 Height (Inches): 2.00 Weight (Pounds): 239 General Appearance: no apparent distress EENT: normal ENT inspection Neck: supple Cardiovascular: normal rate Respiratory/Chest: decreased breath sounds Abdomen: normal bowel sounds, non tender, soft Extremities: non-tender Ramesh Ko MD Feb 26, 2018 08:59
[2018-02-26] MEDS: Vitamin B-12 500mcg tab ORAL SCH (09:15)
[2018-02-26] MEDS: Metamucil Pkt ORAL SCH (09:15)
[2018-02-26] MEDS: Metoprolol Succinate XL 25mg tab ORAL SCH (09:15)
[2018-02-26] MEDS: Aspirin Baby 81mg ORAL SCH (09:15)
[2018-02-26] MEDS: Sertraline 100mg tab ORAL SCH (09:15)
--- NOTE | 2018-02-26 11:27 | Pulmonology Progress Note ---
Assessment/Plan Assessment/Plan Pulmonary Progress Note Assessment/Plan IMPRESSION: 1. Acute pancreatitis. 2. Thrombocytopenia 3. Hematuria. 4. Hyponatremia. 5. Hypokalemia. 6. Acute on chronic renal failure. 7. Transaminitis. 8. Possible acute hepatitis. 9. Severe protein-calorie malnutrition. 10. Leukocytosis. 11. Concern for severe sepsis. 12. hypotension 13. liver mass 14. Atrial flutter 15. concern for metastatic prostate cancer 16. s/p liver biopsy PLAN IV antibiotics per ID antifungals IV hydration as is monitor bun and creatinine; improved PO diet as tolerated MRI/ cT guided biopsy reviewed all consultants appreciated labs recovering aware; and will update for change impression, plan, and exam edited and reviewed in detail care discussed with RN Subjective Allergies: Coded Allergies: CIPROFLOXACIN (Verified Allergy, Unknown, 02/17/18) PENICILLINS (Verified Allergy, Unknown, 02/17/18) Subjective all reviewed events noted and reviewed comfortable underwent liver abcess drainage patient alert Objective Vital Signs Noted Height (Feet): 6 Height (Inches): 2.00 Weight (Pounds): 220 Objective GENERAL: The patient is more alert HEENT: Negative. Extraocular movements are grossly intact. NECK: Supple. LUNGS: minimal rhonchi, otherwise clear. moderate air entry CARDIAC: S1 and S2. RRR without murmurs, rubs, or gallops. ABDOMEN: Soft. no tenderness. no HSM EXTREMITIES: No cyanosis or clubbing. trace UE edema. NEUROLOGIC: Otherwise, nonfocal. Laboratory Tests 02/22/18 14:45: White Blood Count 16.0H, Red Blood Count 3.84L, Hemoglobin 11.3L, Hematocrit 32.7L, Mean Corpuscular Volume 85, Mean Corpuscular Hemoglobin 29.3, Mean Corpuscular Hemoglobin Concent 34.4, Red Cell Distribution Width 12.5, Platelet Count 42L, Mean Platelet Volume 9.7, Neutrophils (%) (Auto) , Lymphocytes (%) ( Auto) , Monocytes (%) (Auto) , Eosinophils (%) (Auto) , Basophils (%) (Auto) , Differential Total Cells Counted 100, Neutrophils % (Manual) 89H, Lymphocytes % (Manual) 4L, Monocytes % (Manual) 5, Eosinophils % (Manual) 0, Basophils % ( Manual) 0, Band Neutrophils 2, Platelet Estimate DecreasedL, Platelet Morphology Normal, Hypochromasia 1+, Anisocytosis 1+, Prothrombin Time 13.1H, Prothromb Time International Ratio 1.3H, Activated Partial Thromboplast Time 30 02/22/18 15:18: Body Fluid Source Liver abscess, Body Fluid Volume 80, Body Fluid Appearance Bloody, Body Fluid [place] [address], Body Fluid Total Nucleated Cells 03567, Body Fluid Polynuclear WBCs (%) 79, Body Fluid Mononuclear WBCs (%) 21, Body Fluid Mesothelial Cells (%) 0, Body Fluid Glucose [Pending], Body Fluid Comment 02/23/18 03:30: White Blood Count 13.4H, Red Blood Count 3.54L, Hemoglobin 10.6L, Hematocrit 30.4L, Mean Corpuscular Volume 86, Mean Corpuscular Hemoglobin 29.8, Mean Corpuscular Hemoglobin Concent 34.8, Red Cell Distribution Width 12.5, Platelet Count 36L, Mean Platelet Volume 8.7, Neutrophils (%) (Auto) , Lymphocytes (%) ( Auto) , Monocytes (%) (Auto) , Eosinophils (%) (Auto) , Basophils (%) (Auto) , Neutrophils % (Manual) [Pending], Lymphocytes % (Manual) [Pending], Platelet Estimate [Pending], Platelet Morphology [Pending], Sodium Level 136, Potassium Level 4.0, Chloride Level 105, Carbon Dioxide Level 22, Anion Gap 9, Blood Urea Nitrogen 48H, Creatinine 1.0, Estimat Glomerular Filtration Rate , Glucose Level 159H, Calcium Level 8.0L, Total Bilirubin 3.8H, Direct Bilirubin 2.9H, Aspartate Amino Transf (AST/SGOT) 64H, Alanine Aminotransferase (ALT/SGPT) 76, Alkaline Phosphatase 167H, Total Protein 5.0L, Albumin 1.4L, Globulin 3.6, Albumin/Globulin Ratio 0.4L Subjective ROS Limited/Unobtainable: No Allergies: Coded Allergies: CIPROFLOXACIN (Verified Allergy, Unknown, 02/17/18) PENICILLINS (Verified Allergy, Unknown, 02/17/18) Objective Last 24 Hour Vital Signs Date Time Temp Pulse Resp B/P (MAP) Pulse Ox O2 Delivery O2 Flow Rate FiO2 02/26/18 09:15 73 175/78 02/26/18 08:16 Nasal Cannula 2.0 28 02/26/18 08:16 99 Nasal Cannula 2.0 28 02/26/18 08:00 Nasal Cannula 2.0 02/26/18 08:00 98.1 73 18 175/78 (110) 94 02/26/18 08:00 71 02/26/18 04:00 Nasal Cannula 2.0 02/26/18 04:00 97.5 74 20 160/79 (106) 97 02/26/18 03:36 71 02/26/18 00:00 Nasal Cannula 2.0 02/26/18 00:00 98.7 75 20 141/76 (97) 96 02/25/18 23:37 74 02/25/18 20:00 Nasal Cannula 2.0 02/25/18 20:00 98.3 79 20 154/86 (108) 99 02/25/18 20:00 77 02/25/18 16:00 97.9 72 20 146/77 (100) 99 02/25/18 16:00 76 02/25/18 16:00 Nasal Cannula 2.0 02/25/18 12:00 75 02/25/18 12:00 Nasal Cannula 2.0 02/25/18 12:00 97.9 73 20 143/63 (89) 96 Intake and Output 02/25/18 02/26/18 19:00 07:00 Intake Total 1360 ml 750 ml Output Total 900 ml 1500 ml Balance 460 ml -750 ml Intake Oral 800 ml 750 ml IV Total 560 ml Output Urine Total 800 ml 1500 ml Drainage Total 100 ml # Bowel Movements 1 2 Laboratory Tests 02/26/18 04:30: White Blood Count 13.5H, Red Blood Count 3.55L, Hemoglobin 10.4L, Hematocrit 31.1L, Mean Corpuscular Volume 87, Mean Corpuscular Hemoglobin 29.2, Mean Corpuscular Hemoglobin Concent 33.4, Red Cell Distribution Width 12.8, Platelet Count 118#L, Mean Platelet Volume 9.9, Neutrophils (%) (Auto) , Lymphocytes (%) (Auto) , Monocytes (%) (Auto) , Eosinophils (%) (Auto) , Basophils (%) (Auto) , Differential Total Cells Counted 100, Neutrophils % (Manual) 87H, Lymphocytes % (Manual) 7L, Monocytes % (Manual) 6, Eosinophils % (Manual) 0, Basophils % ( Manual) 0, Band Neutrophils 0, Platelet Estimate DecreasedL, Platelet Morphology Normal, Hypochromasia 1+, Erythrocyte Sedimentation Rate 55H, Sodium Level 134L, Potassium Level 4.5, Chloride Level 104, Carbon Dioxide Level 23, Anion Gap 7, Blood Urea Nitrogen 20H, Creatinine 0.8, Estimat Glomerular Filtration Rate , Glucose Level 152H, Calcium Level 8.1L, Magnesium Level 1.4L, Total Bilirubin 1.5H, Direct Bilirubin 1.0H, Aspartate Amino Transf (AST/SGOT) 31, Alanine Aminotransferase (ALT/SGPT) 34, Alkaline Phosphatase 151H, C- Reactive Protein, Quantitative 3.6H, Pro-B-Type Natriuretic Peptide 2309H, Total Protein 5.0L, Albumin 1.3L, Globulin 3.7, Albumin/Globulin Ratio 0.4L Current Medications Medications (Trade) Dose Ordered Sig/Kalyan Route PRN Reason Start Time Stop Time Status Last Admin Dose Admin Acetaminophen/ Hydrocodone Bitart ([place] 5/325) 1 tab Q4H PRN ORAL Moderate Pain (Pain Scale 4-6) 02/22/18 18:00 03/01/18 17:59 02/22/18 18:16 Alfuzosin HCl (Uroxatrol) 10 mg DAILY ORAL 02/18/18 09:00 03/20/18 08:59 02/26/18 09:15 Aspirin (ASA) 81 mg DAILY ORAL 02/18/18 09:00 03/20/18 08:59 02/26/18 09:15 Cefoxitin Sodium 2 gm/Dextrose 110 ml @ 220 mls/hr Q8HR IVPB 02/25/18 12:00 03/04/18 11:59 02/26/18 06:06 Clonazepam (KlonoPIN) 0.5 mg Q6H PRN ORAL For Anxiety 02/20/18 11:00 02/27/18 10:59 02/24/18 20:56 Cyanocobalamin (Vitamin B-12) 1,000 mcg DAILY ORAL 02/18/18 09:00 03/20/18 08:59 02/26/18 09:15 Finasteride (Proscar) 5 mg EVERY OTHER DAY ORAL 02/19/18 09:00 03/21/18 08:59 02/25/18 09:33 Hydroxyzine HCl (Vistaril) 10 mg Q8H PRN ORAL Itching 02/17/18 18:00 03/19/18 17:59 Insulin Aspart (NovoLOG) BEFORE MEALS AND HS SUBQ 02/17/18 21:00 03/19/18 20:59 02/25/18 21:47 Metoprolol Succinate (Toprol XL) 25 mg DAILY ORAL 02/20/18 09:00 03/22/18 08:59 02/26/18 09:15 Pantoprazole (Protonix) 40 mg DAILY ORAL 02/18/18 09:00 03/20/18 08:59 02/26/18 09:15 Psyllium Hydrophilic Mucilloid (Metamucil) 1 pkt DAILY ORAL 02/18/18 09:00 03/20/18 08:59 02/26/18 09:15 Sertraline HCl (Zoloft) 100 mg DAILY ORAL 02/18/18 09:00 03/20/18 08:59 02/26/18 09:15 Lex Gonzalez MD Feb 26, 2018 11:27
[2018-02-26 12:00] VITALS: BP 150/67
--- NOTE | 2018-02-26 12:06 | Infectious Diseases Prog Note ---
Assessment/Plan Assessment/Plan A; Fusobacterium sepsis Liver Abscess Jaundice improving Acute renal failure Anemia Thrombocytopenia Leukocytosis improving Decreased albumin P: Continue Cefoxitin Subjective ROS Limited/Unobtainable: No Constitutional: Reports: anorexia Respiratory: Reports: no symptoms Cardiovascular: Reports: no symptoms Allergies: Coded Allergies: CIPROFLOXACIN (Verified Allergy, Unknown, 02/17/18) PENICILLINS (Verified Allergy, Unknown, 02/17/18) Objective Vital Signs Last 24 Hour Vital Signs Date Time Temp Pulse Resp B/P (MAP) Pulse Ox O2 Delivery O2 Flow Rate FiO2 02/26/18 09:15 73 175/78 02/26/18 08:16 Nasal Cannula 2.0 28 02/26/18 08:16 99 Nasal Cannula 2.0 28 02/26/18 08:00 Nasal Cannula 2.0 02/26/18 08:00 98.1 73 18 175/78 (110) 94 02/26/18 08:00 71 02/26/18 04:00 Nasal Cannula 2.0 02/26/18 04:00 97.5 74 20 160/79 (106) 97 02/26/18 03:36 71 02/26/18 00:00 Nasal Cannula 2.0 02/26/18 00:00 98.7 75 20 141/76 (97) 96 02/25/18 23:37 74 02/25/18 20:00 Nasal Cannula 2.0 02/25/18 20:00 98.3 79 20 154/86 (108) 99 02/25/18 20:00 77 02/25/18 16:00 97.9 72 20 146/77 (100) 99 02/25/18 16:00 76 02/25/18 16:00 Nasal Cannula 2.0 Height (Feet): 6 Height (Inches): 2.00 Weight (Pounds): 239 General Appearance: no acute distress HEENT: mucous membranes moist Respiratory/Chest: lungs clear Cardiovascular: normal rate Abdomen: soft, non tender, other - epigastric drain Extremities: other - generalized edema Neurologic/Psychiatric: alert, oriented x 3, responsive Laboratory Tests Test 02/26/18 04:30 White Blood Count 13.5 K/UL (4.8-10.8) H Red Blood Count 3.55 M/UL (4.70-6.10) L Hemoglobin 10.4 G/DL (14.2-18.0) L Hematocrit 31.1 % (42.0-52.0) L Mean Corpuscular Volume 87 FL (80-99) Mean Corpuscular Hemoglobin 29.2 PG (27.0-31.0) Mean Corpuscular Hemoglobin Concent 33.4 G/DL (32.0-36.0) Red Cell Distribution Width 12.8 % (11.6-14.8) Platelet Count 118 K/UL (150-450) #L Mean Platelet Volume 9.9 FL (6.5-10.1) Neutrophils (%) (Auto) % (45.0-75.0) Lymphocytes (%) (Auto) % (20.0-45.0) Monocytes (%) (Auto) % (1.0-10.0) Eosinophils (%) (Auto) % (0.0-3.0) Basophils (%) (Auto) % (0.0-2.0) Differential Total Cells Counted 100 Neutrophils % (Manual) 87 % (45-75) H Lymphocytes % (Manual) 7 % (20-45) L Monocytes % (Manual) 6 % (1-10) Eosinophils % (Manual) 0 % (0-3) Basophils % (Manual) 0 % (0-2) Band Neutrophils 0 % (0-8) Platelet Estimate Decreased L Platelet Morphology Normal Hypochromasia 1+ Erythrocyte Sedimentation Rate 55 MM/HR (0-20) H Sodium Level 134 MMOL/L (136-145) L Potassium Level 4.5 MMOL/L (3.5-5.1) Chloride Level 104 MMOL/L (98-107) Carbon Dioxide Level 23 MMOL/L (21-32) Anion Gap 7 mmol/L (5-15) Blood Urea Nitrogen 20 mg/dL (7-18) H Creatinine 0.8 MG/DL (0.55-1.30) Estimat Glomerular Filtration Rate mL/min (>60) Glucose Level 152 MG/DL (74-106) H Calcium Level 8.1 MG/DL (8.5-10.1) L Magnesium Level 1.4 MG/DL (1.8-2.4) L Total Bilirubin 1.5 MG/DL (0.2-1.0) H Direct Bilirubin 1.0 MG/DL (0.0-0.3) H Aspartate Amino Transf (AST/SGOT) 31 U/L (15-37) Alanine Aminotransferase (ALT/SGPT) 34 U/L (12-78) Alkaline Phosphatase 151 U/L (46-116) H C-Reactive Protein, Quantitative 3.6 mg/dL (0.00-0.90) H Pro-B-Type Natriuretic Peptide 2309 pg/mL (0-125) H Total Protein 5.0 G/DL (6.4-8.2) L Albumin 1.3 G/DL (3.4-5.0) L Globulin 3.7 g/dL Albumin/Globulin Ratio 0.4 (1.0-2.7) L Current Medications Medications (Trade) Dose Ordered Sig/Kalyan Route PRN Reason Start Time Stop Time Status Last Admin Dose Admin Acetaminophen/ Hydrocodone Bitart ([place] 5/325) 1 tab Q4H PRN ORAL Moderate Pain (Pain Scale 4-6) 02/22/18 18:00 03/01/18 17:59 02/22/18 18:16 Alfuzosin HCl (Uroxatrol) 10 mg DAILY ORAL 02/18/18 09:00 03/20/18 08:59 02/26/18 09:15 Aspirin (ASA) 81 mg DAILY ORAL 02/18/18 09:00 03/20/18 08:59 02/26/18 09:15 Cefoxitin Sodium 2 gm/Dextrose 110 ml @ 220 mls/hr Q8HR IVPB 02/25/18 12:00 03/04/18 11:59 02/26/18 06:06 Clonazepam (KlonoPIN) 0.5 mg Q6H PRN ORAL For Anxiety 02/20/18 11:00 02/27/18 10:59 02/24/18 20:56 Cyanocobalamin (Vitamin B-12) 1,000 mcg DAILY ORAL 02/18/18 09:00 03/20/18 08:59 02/26/18 09:15 Finasteride (Proscar) 5 mg EVERY OTHER DAY ORAL 02/19/18 09:00 03/21/18 08:59 02/25/18 09:33 Hydroxyzine HCl (Vistaril) 10 mg Q8H PRN ORAL Itching 02/17/18 18:00 03/19/18 17:59 Insulin Aspart (NovoLOG) BEFORE MEALS AND HS SUBQ 02/17/18 21:00 03/19/18 20:59 02/26/18 11:52 Metoprolol Succinate (Toprol XL) 25 mg DAILY ORAL 02/20/18 09:00 03/22/18 08:59 02/26/18 09:15 Pantoprazole (Protonix) 40 mg DAILY ORAL 02/18/18 09:00 03/20/18 08:59 02/26/18 09:15 Psyllium Hydrophilic Mucilloid (Metamucil) 1 pkt DAILY ORAL 02/18/18 09:00 03/20/18 08:59 02/26/18 09:15 Sertraline HCl (Zoloft) 100 mg DAILY ORAL 02/18/18 09:00 03/20/18 08:59 02/26/18 09:15 Raad Andres MD Feb 26, 2018 12:06
--- NOTE | 2018-02-26 13:12 | General Surgery Progress Note ---
General Surgery-Progress Note Subjective Symptoms: improved, pain absent, tolerating diet, passing flatus Additional Comments overall improving Objective Last 24 Hour Vital Signs Date Time Temp Pulse Resp B/P (MAP) Pulse Ox O2 Delivery O2 Flow Rate FiO2 02/26/18 12:00 Nasal Cannula 2.0 02/26/18 09:15 73 175/78 02/26/18 08:16 Nasal Cannula 2.0 28 02/26/18 08:16 99 Nasal Cannula 2.0 28 02/26/18 08:00 Nasal Cannula 2.0 02/26/18 08:00 98.1 73 18 175/78 (110) 94 02/26/18 08:00 71 02/26/18 04:00 Nasal Cannula 2.0 02/26/18 04:00 97.5 74 20 160/79 (106) 97 02/26/18 03:36 71 02/26/18 00:00 Nasal Cannula 2.0 02/26/18 00:00 98.7 75 20 141/76 (97) 96 02/25/18 23:37 74 02/25/18 20:00 Nasal Cannula 2.0 02/25/18 20:00 98.3 79 20 154/86 (108) 99 02/25/18 20:00 77 02/25/18 16:00 97.9 72 20 146/77 (100) 99 02/25/18 16:00 76 02/25/18 16:00 Nasal Cannula 2.0 I&O Intake and Output 02/25/18 02/26/18 19:00 07:00 Intake Total 1360 ml 750 ml Output Total 900 ml 1500 ml Balance 460 ml -750 ml Intake Oral 800 ml 750 ml IV Total 560 ml Output Urine Total 800 ml 1500 ml Drainage Total 100 ml # Bowel Movements 1 2 Dressing: other Wound: other Drains: other Cardiovascular: RSR Respiratory: clear Abdomen: soft, flat, distended, non-tender, present bowel sounds Extremities: edema, no tenderness, no cyanosis Laboratory Tests Test 02/26/18 04:30 White Blood Count 13.5 K/UL (4.8-10.8) H Red Blood Count 3.55 M/UL (4.70-6.10) L Hemoglobin 10.4 G/DL (14.2-18.0) L Hematocrit 31.1 % (42.0-52.0) L Mean Corpuscular Volume 87 FL (80-99) Mean Corpuscular Hemoglobin 29.2 PG (27.0-31.0) Mean Corpuscular Hemoglobin Concent 33.4 G/DL (32.0-36.0) Red Cell Distribution Width 12.8 % (11.6-14.8) Platelet Count 118 K/UL (150-450) #L Mean Platelet Volume 9.9 FL (6.5-10.1) Neutrophils (%) (Auto) % (45.0-75.0) Lymphocytes (%) (Auto) % (20.0-45.0) Monocytes (%) (Auto) % (1.0-10.0) Eosinophils (%) (Auto) % (0.0-3.0) Basophils (%) (Auto) % (0.0-2.0) Differential Total Cells Counted 100 Neutrophils % (Manual) 87 % (45-75) H Lymphocytes % (Manual) 7 % (20-45) L Monocytes % (Manual) 6 % (1-10) Eosinophils % (Manual) 0 % (0-3) Basophils % (Manual) 0 % (0-2) Band Neutrophils 0 % (0-8) Platelet Estimate Decreased L Platelet Morphology Normal Hypochromasia 1+ Erythrocyte Sedimentation Rate 55 MM/HR (0-20) H Sodium Level 134 MMOL/L (136-145) L Potassium Level 4.5 MMOL/L (3.5-5.1) Chloride Level 104 MMOL/L (98-107) Carbon Dioxide Level 23 MMOL/L (21-32) Anion Gap 7 mmol/L (5-15) Blood Urea Nitrogen 20 mg/dL (7-18) H Creatinine 0.8 MG/DL (0.55-1.30) Estimat Glomerular Filtration Rate mL/min (>60) Glucose Level 152 MG/DL (74-106) H Calcium Level 8.1 MG/DL (8.5-10.1) L Magnesium Level 1.4 MG/DL (1.8-2.4) L Total Bilirubin 1.5 MG/DL (0.2-1.0) H Direct Bilirubin 1.0 MG/DL (0.0-0.3) H Aspartate Amino Transf (AST/SGOT) 31 U/L (15-37) Alanine Aminotransferase (ALT/SGPT) 34 U/L (12-78) Alkaline Phosphatase 151 U/L (46-116) H C-Reactive Protein, Quantitative 3.6 mg/dL (0.00-0.90) H Pro-B-Type Natriuretic Peptide 2309 pg/mL (0-125) H Total Protein 5.0 G/DL (6.4-8.2) L Albumin 1.3 G/DL (3.4-5.0) L Globulin 3.7 g/dL Albumin/Globulin Ratio 0.4 (1.0-2.7) L Plan Problems: (1) Severe sepsis Assessment & Plan: etiology unknown UTI on admission but urine culture negative Blood cultures negative possible liver? abscess vs mass liver abscess s/p drainage improving diet as tolerated IV abx (2) Liver mass, left lobe Assessment & Plan: large left lobe liver mass of unknown etiology CT without contrast will order US and maybe MRI later US noted and large mass concerning for malignancy MRI noted. s/p us guided drainage improving -trend labs -diet as tolerated -iv abx Jayden Ramos Feb 26, 2018 13:12
--- NOTE | 2018-02-26 13:24 | General Progress Note ---
Assessment/Plan Status: stable Assessment/Plan # Left sided solid/cystic liver consolidation, r/o CA -- at this time has drained fluid via drain, given abx. CT of the chest/abdomen/pelvis:Large 9.8 x 11.3 x 9.2 cm heterogeneous area of low-attenuation involving most of the lateral left hepatic lobe. Abnormality involving segments 2 and 3 of the left hepatic lobe, as described above and on prior imaging studies. Appearance is most suggestive of liver abscess. Main differential consideration is necrotic metastatic neoplasm --> Repeat MRI in 2 months once back on the [facility] and reassess for any residual mass --> MRI of the abdomen: abnormality involving segments 2 and 3 of the left hepatic lobe --> tumor markers: CA 15-3 of 19.1, CA 19-9 of 20, PSA of 78.7 --> Pathology report shows no malignant cells --> 02/23: S/P drainage of liver abscess and is negative --> Consider outpatient CT guided biopsy when flies back to [facility] --> Bone scan: No definite plain radiographic evidence of osseous metastatic disease. # Thrombocytopenia likely due to malignancy versus consumptive process from infection --> Plt count is trending upwards --> Cont to closely monitor --> plt goal >20k if febrile --> plt goal >50k if procedure is pending # Anemia of chronic disease due to underlying chronic medical issues, multifactorial --> w/u has been reviewed. ferritin at 1725 --> Hgb goal >7. Transfuse prn. --> No evidence of hemolysis noted. Peripheral smear has been reviewed. # Elevated PSA -- may consider a bone scan to r/o mets --> obtain bone scan / skeletal survey since inpatient, bone scan is negative # Sepsis, UTI vs infected necrotic liver mass --> on abx, appreciate ID recs # Renal failure - improving # Hyponatremia. IVF # Episode of generalized weakness Greatly appreciate consultation! Subjective Date patient seen: Feb 26, 2018 Hematologic/Lymphatic: Reports: anemia Allergies: Coded Allergies: CIPROFLOXACIN (Verified Allergy, Unknown, 02/17/18) PENICILLINS (Verified Allergy, Unknown, 02/17/18) All Systems: reviewed and negative except above Subjective Pt awake and alert. Plt count is trending upwards. No acute events. Objective Last 24 Hour Vital Signs Date Time Temp Pulse Resp B/P (MAP) Pulse Ox O2 Delivery O2 Flow Rate FiO2 02/26/18 12:00 Nasal Cannula 2.0 02/26/18 09:15 73 175/78 02/26/18 08:16 Nasal Cannula 2.0 28 02/26/18 08:16 99 Nasal Cannula 2.0 28 02/26/18 08:00 Nasal Cannula 2.0 02/26/18 08:00 98.1 73 18 175/78 (110) 94 02/26/18 08:00 71 02/26/18 04:00 Nasal Cannula 2.0 02/26/18 04:00 97.5 74 20 160/79 (106) 97 02/26/18 03:36 71 02/26/18 00:00 Nasal Cannula 2.0 02/26/18 00:00 98.7 75 20 141/76 (97) 96 02/25/18 23:37 74 02/25/18 20:00 Nasal Cannula 2.0 02/25/18 20:00 98.3 79 20 154/86 (108) 99 02/25/18 20:00 77 02/25/18 16:00 97.9 72 20 146/77 (100) 99 02/25/18 16:00 76 02/25/18 16:00 Nasal Cannula 2.0 Intake and Output 02/25/18 02/26/18 19:00 07:00 Intake Total 1360 ml 750 ml Output Total 900 ml 1500 ml Balance 460 ml -750 ml Intake Oral 800 ml 750 ml IV Total 560 ml Output Urine Total 800 ml 1500 ml Drainage Total 100 ml # Bowel Movements 1 2 Laboratory Tests 02/26/18 04:30: White Blood Count 13.5H, Red Blood Count 3.55L, Hemoglobin 10.4L, Hematocrit 31.1L, Mean Corpuscular Volume 87, Mean Corpuscular Hemoglobin 29.2, Mean Corpuscular Hemoglobin Concent 33.4, Red Cell Distribution Width 12.8, Platelet Count 118#L, Mean Platelet Volume 9.9, Neutrophils (%) (Auto) , Lymphocytes (%) (Auto) , Monocytes (%) (Auto) , Eosinophils (%) (Auto) , Basophils (%) (Auto) , Differential Total Cells Counted 100, Neutrophils % (Manual) 87H, Lymphocytes % (Manual) 7L, Monocytes % (Manual) 6, Eosinophils % (Manual) 0, Basophils % ( Manual) 0, Band Neutrophils 0, Platelet Estimate DecreasedL, Platelet Morphology Normal, Hypochromasia 1+, Erythrocyte Sedimentation Rate 55H, Sodium Level 134L, Potassium Level 4.5, Chloride Level 104, Carbon Dioxide Level 23, Anion Gap 7, Blood Urea Nitrogen 20H, Creatinine 0.8, Estimat Glomerular Filtration Rate , Glucose Level 152H, Calcium Level 8.1L, Magnesium Level 1.4L, Total Bilirubin 1.5H, Direct Bilirubin 1.0H, Aspartate Amino Transf (AST/SGOT) 31, Alanine Aminotransferase (ALT/SGPT) 34, Alkaline Phosphatase 151H, C- Reactive Protein, Quantitative 3.6H, Pro-B-Type Natriuretic Peptide 2309H, Total Protein 5.0L, Albumin 1.3L, Globulin 3.7, Albumin/Globulin Ratio 0.4L Height (Feet): 6 Height (Inches): 2.00 Weight (Pounds): 239 Objective General Appearance: alert, GCS 15, moderate distress Eyes: bilateral eye PERRL ENT: normal pharynx, normal voice Neck: full range of motion Respiratory: normal inspection, no respiratory distress Cardiovascular: tachycardia Gastrointestinal: distended Genitourinary: no CVA tenderness Musculoskeletal: ++motor weakness Mehdi Williamson MD Feb 26, 2018 13:24
[2018-02-26 16:00] VITALS: BP 161/64
[2018-02-26 20:00] VITALS: BP 156/64
[2018-02-27] VITALS: BP 110/80
[2018-02-27 04:00] VITALS: BP 153/67
[2018-02-27 05:31] LABS: HEMOGLOBIN 10.2 G/DL (14.2-18.0); MEAN CORPUSCULAR VOLUME 87 FL (80-99); PLATELET COUNT 161 K/UL (150-450); RED BLOOD COUNT 3.43 M/UL (4.70-6.10)
[2018-02-27 06:10] LABS: ALANINE AMINOTRANSFERASE 27 U/L (12-78); ALBUMIN 1.4 G/DL (3.4-5.0); ALBUMIN/GLOBULIN RATIO 0.4 (1.0-2.7); ALKALINE PHOSPHATASE 132 U/L (46-116); ANION GAP 7 mmol/L (5-15); ASPARTATE AMINO TRANSFERASE 34 U/L (15-37); BILIRUBIN,TOTAL 1.3 MG/DL (0.2-1.0); BLOOD UREA NITROGEN 16 mg/dL (7-18); CALCIUM 7.8 MG/DL (8.5-10.1); CARBON DIOXIDE 24 MMOL/L (21-32); CHLORIDE 103 MMOL/L (98-107); CREATININE 0.7 MG/DL (0.55-1.30); POTASSIUM 4.6 MMOL/L (3.5-5.1); SODIUM 133 MMOL/L (136-145)
[2018-02-27] MEDS: cefOXitin Sod 2 GM in D5W 110 ML IVPB SCH ×3 (06:16→21:30)
[2018-02-27] MEDS: NovoLOG Insulin Flexpen SUBQ SCH ×4 (06:18→21:32)
[2018-02-27 06:21] LABS: BILIRUBIN,DIRECT 0.7 MG/DL (0.0-0.3)
[2018-02-27 08:00] VITALS: BP 152/69
--- NOTE | 2018-02-27 08:26 | General Progress Note ---
Assessment/Plan Assessment/Plan IMPRESSION: 1. Acute pancreatitis. 2. Thrombocytopenia 3. Hematuria. 4. Hyponatremia. 5. Hypokalemia. 6. Acute on chronic renal failure. 7. Transaminitis. 8. Possible acute hepatitis. 9. Severe protein-calorie malnutrition. 10. Leukocytosis. 11. Concern for severe sepsis. 12. hypotension 13. liver mass 14. Atrial flutter 15. concern for metastatic prostate cancer 16. s/p liver biopsy 17. liver abcess PLAN IV antibiotics per ID needs total of 6 weeks may transition to PO until IV can resume back home IV hydration ?dc monitor bun and creatinine; much improved PO diet as tolerated MRI/ cT guided biopsy reviewed all consultants appreciated labs recovering and clinically improved aware; discuss and finalize dc impression, plan, and exam edited and reviewed in detail care discussed with RN Subjective Allergies: Coded Allergies: CIPROFLOXACIN (Verified Allergy, Unknown, 02/17/18) PENICILLINS (Verified Allergy, Unknown, 02/17/18) Subjective all reviewed events noted and reviewed much improved Objective Last 24 Hour Vital Signs Date Time Temp Pulse Resp B/P (MAP) Pulse Ox O2 Delivery O2 Flow Rate FiO2 02/27/18 08:00 Nasal Cannula 2.0 02/27/18 04:00 98.4 77 16 153/67 (95) 99 02/27/18 04:00 Nasal Cannula 2.0 02/27/18 04:00 77 02/27/18 00:00 98.6 84 16 110/80 (90) 99 02/27/18 00:00 Nasal Cannula 2.0 02/27/18 00:00 74 02/26/18 20:29 98 Nasal Cannula 2.0 28 02/26/18 20:29 Nasal Cannula 2.0 28 02/26/18 20:00 97.2 72 20 156/64 (94) 97 02/26/18 20:00 71 02/26/18 20:00 Nasal Cannula 2.0 02/26/18 16:00 Nasal Cannula 2.0 02/26/18 16:00 74 02/26/18 16:00 98.1 73 20 161/64 (96) 97 02/26/18 12:00 72 02/26/18 12:00 Nasal Cannula 2.0 02/26/18 12:00 98.1 73 18 150/67 (94) 97 02/26/18 09:15 73 175/78 Intake and Output 02/26/18 02/27/18 19:00 07:00 Intake Total 1210 ml 220 ml Output Total 1150 ml Balance 60 ml 220 ml Intake Oral 1000 ml IV Total 210 ml 220 ml Output Urine Total 1150 ml # Bowel Movements 2 Laboratory Tests 02/27/18 04:20: White Blood Count 10.0, Red Blood Count 3.43L, Hemoglobin 10.2L, Hematocrit 30.0L, Mean Corpuscular Volume 87, Mean Corpuscular Hemoglobin 29.6, Mean Corpuscular Hemoglobin Concent 33.9, Red Cell Distribution Width 13.0, Platelet Count 161, Mean Platelet Volume 10.3H, Neutrophils (%) (Auto) , Lymphocytes (%) (Auto) , Monocytes (%) (Auto) , Eosinophils (%) (Auto) , Basophils (%) (Auto) , Sodium Level 133L, Potassium Level 4.6, Chloride Level 103, Carbon Dioxide Level 24, Anion Gap 7, Blood Urea Nitrogen 16, Creatinine 0.7, Estimat Glomerular Filtration Rate , Glucose Level 142H, Calcium Level 7.8L, Total Bilirubin 1.3H, Direct Bilirubin 0.7H, Aspartate Amino Transf (AST/SGOT) 34, Alanine Aminotransferase (ALT/SGPT) 27, Alkaline Phosphatase 132H, Total Protein 4.9L, Albumin 1.4L, Globulin 3.5, Albumin/Globulin Ratio 0.4L Height (Feet): 6 Height (Inches): 2.00 Weight (Pounds): 240 Objective GENERAL: The patient is alert HEENT: Negative. Extraocular movements are grossly intact. NECK: Supple. LUNGS: no rhonchi, otherwise clear. moderate air entry CARDIAC: S1 and S2. RRR without murmurs, rubs, or gallops. ABDOMEN: Soft. no tenderness. no HSM EXTREMITIES: No cyanosis or clubbing. trace UE edema. NEUROLOGIC: Otherwise, nonfocal. Se Tompkins MD Feb 27, 2018 08:26
[2018-02-27] MEDS: Sertraline 100mg tab ORAL SCH (09:09)
[2018-02-27] MEDS: Aspirin Baby 81mg ORAL SCH (09:09)
[2018-02-27] MEDS: Vitamin B-12 500mcg tab ORAL SCH (09:10)
[2018-02-27] MEDS: Metamucil Pkt ORAL SCH (09:10)
[2018-02-27] MEDS: Metoprolol Succinate XL 25mg tab ORAL SCH (09:10)
[2018-02-27 12:00] VITALS: BP 154/78
--- NOTE | 2018-02-27 13:03 | General Progress Note ---
Assessment/Plan Status: stable Assessment/Plan # Left sided solid/cystic liver consolidation, r/o CA -- at this time has drained fluid via drain, given abx. CT of the chest/abdomen/pelvis:Large 9.8 x 11.3 x 9.2 cm heterogeneous area of low-attenuation involving most of the lateral left hepatic lobe. Abnormality involving segments 2 and 3 of the left hepatic lobe, as described above and on prior imaging studies. Appearance is most suggestive of liver abscess. Main differential consideration is necrotic metastatic neoplasm --> Repeat MRI in 2 months once back on the [facility] and reassess for any residual mass --> MRI of the abdomen: abnormality involving segments 2 and 3 of the left hepatic lobe --> tumor markers: CA 15-3 of 19.1, CA 19-9 of 20, PSA of 78.7 --> Pathology report shows no malignant cells --> 02/23: S/P drainage of liver abscess and is negative --> Consider outpatient CT guided biopsy when flies back to [facility] --> Bone scan: No definite plain radiographic evidence of osseous metastatic disease. # Thrombocytopenia likely due to malignancy versus consumptive process from infection --> Plt count is wnl --> Cont to closely monitor --> plt goal >20k if febrile --> plt goal >50k if procedure is pending # Anemia of chronic disease due to underlying chronic medical issues, multifactorial --> w/u has been reviewed. ferritin at 1725 --> Hgb goal >7. Transfuse prn. --> No evidence of hemolysis noted. Peripheral smear has been reviewed. # Elevated PSA -- may consider a bone scan to r/o mets --> obtain bone scan / skeletal survey since inpatient, bone scan is negative # Sepsis, UTI vs infected necrotic liver mass --> remains on abx, appreciate ID recs # Renal failure - improving # Hyponatremia. IVF # Episode of generalized weakness Greatly appreciate consultation! Subjective Date patient seen: Feb 27, 2018 Hematologic/Lymphatic: Reports: anemia Allergies: Coded Allergies: CIPROFLOXACIN (Verified Allergy, Unknown, 02/17/18) PENICILLINS (Verified Allergy, Unknown, 02/17/18) All Systems: reviewed and negative except above Subjective Pt awake and alert. No acute events. On O2 NC. Plt count is wnl. Objective Last 24 Hour Vital Signs Date Time Temp Pulse Resp B/P (MAP) Pulse Ox O2 Delivery O2 Flow Rate FiO2 02/27/18 12:00 Nasal Cannula 2.0 02/27/18 12:00 96.8 71 18 154/78 (103) 97 02/27/18 09:10 78 152/69 02/27/18 08:00 97.0 78 18 152/69 (96) 96 02/27/18 08:00 Nasal Cannula 2.0 02/27/18 08:00 78 02/27/18 04:00 98.4 77 16 153/67 (95) 99 02/27/18 04:00 Nasal Cannula 2.0 02/27/18 04:00 77 02/27/18 00:00 98.6 84 16 110/80 (90) 99 02/27/18 00:00 Nasal Cannula 2.0 02/27/18 00:00 74 02/26/18 20:29 98 Nasal Cannula 2.0 28 02/26/18 20:29 Nasal Cannula 2.0 28 02/26/18 20:00 97.2 72 20 156/64 (94) 97 02/26/18 20:00 71 02/26/18 20:00 Nasal Cannula 2.0 02/26/18 16:00 Nasal Cannula 2.0 02/26/18 16:00 74 02/26/18 16:00 98.1 73 20 161/64 (96) 97 Intake and Output 02/26/18 02/27/18 19:00 07:00 Intake Total 1210 ml 220 ml Output Total 1150 ml Balance 60 ml 220 ml Intake Oral 1000 ml IV Total 210 ml 220 ml Output Urine Total 1150 ml # Bowel Movements 2 Laboratory Tests 02/27/18 04:20: White Blood Count 10.0, Red Blood Count 3.43L, Hemoglobin 10.2L, Hematocrit 30.0L, Mean Corpuscular Volume 87, Mean Corpuscular Hemoglobin 29.6, Mean Corpuscular Hemoglobin Concent 33.9, Red Cell Distribution Width 13.0, Platelet Count 161, Mean Platelet Volume 10.3H, Neutrophils (%) (Auto) , Lymphocytes (%) (Auto) , Monocytes (%) (Auto) , Eosinophils (%) (Auto) , Basophils (%) (Auto) , Sodium Level 133L, Potassium Level 4.6, Chloride Level 103, Carbon Dioxide Level 24, Anion Gap 7, Blood Urea Nitrogen 16, Creatinine 0.7, Estimat Glomerular Filtration Rate , Glucose Level 142H, Calcium Level 7.8L, Total Bilirubin 1.3H, Direct Bilirubin 0.7H, Aspartate Amino Transf (AST/SGOT) 34, Alanine Aminotransferase (ALT/SGPT) 27, Alkaline Phosphatase 132H, Total Protein 4.9L, Albumin 1.4L, Globulin 3.5, Albumin/Globulin Ratio 0.4L Height (Feet): 6 Height (Inches): 2.00 Weight (Pounds): 240 Objective General Appearance: alert, GCS 15, moderate distress Eyes: bilateral eye PERRL ENT: normal pharynx, normal voice Neck: full range of motion Respiratory: normal inspection, no respiratory distress Cardiovascular: tachycardia Gastrointestinal: distended Genitourinary: no CVA tenderness Musculoskeletal: ++motor weakness Mehdi Williamson MD Feb 27, 2018 13:03
--- NOTE | 2018-02-27 14:02 | General Surgery Progress Note ---
General Surgery-Progress Note Subjective Symptoms: improved, pain absent, tolerating diet, passing flatus Objective Last 24 Hour Vital Signs Date Time Temp Pulse Resp B/P (MAP) Pulse Ox O2 Delivery O2 Flow Rate FiO2 02/27/18 12:00 Nasal Cannula 2.0 02/27/18 12:00 96.8 71 18 154/78 (103) 97 02/27/18 12:00 71 02/27/18 09:10 78 152/69 02/27/18 08:00 97.0 78 18 152/69 (96) 96 02/27/18 08:00 Nasal Cannula 2.0 02/27/18 08:00 78 02/27/18 04:00 98.4 77 16 153/67 (95) 99 02/27/18 04:00 Nasal Cannula 2.0 02/27/18 04:00 77 02/27/18 00:00 98.6 84 16 110/80 (90) 99 02/27/18 00:00 Nasal Cannula 2.0 02/27/18 00:00 74 02/26/18 20:29 98 Nasal Cannula 2.0 28 02/26/18 20:29 Nasal Cannula 2.0 28 02/26/18 20:00 97.2 72 20 156/64 (94) 97 02/26/18 20:00 71 02/26/18 20:00 Nasal Cannula 2.0 02/26/18 16:00 Nasal Cannula 2.0 02/26/18 16:00 74 02/26/18 16:00 98.1 73 20 161/64 (96) 97 I&O Intake and Output 02/26/18 02/27/18 19:00 07:00 Intake Total 1210 ml 220 ml Output Total 1150 ml Balance 60 ml 220 ml Intake Oral 1000 ml IV Total 210 ml 220 ml Output Urine Total 1150 ml # Bowel Movements 2 Drains: other Cardiovascular: RSR Respiratory: clear Abdomen: soft, flat, non-tender, present bowel sounds Extremities: edema Laboratory Tests Test 02/27/18 04:20 White Blood Count 10.0 K/UL (4.8-10.8) Red Blood Count 3.43 M/UL (4.70-6.10) L Hemoglobin 10.2 G/DL (14.2-18.0) L Hematocrit 30.0 % (42.0-52.0) L Mean Corpuscular Volume 87 FL (80-99) Mean Corpuscular Hemoglobin 29.6 PG (27.0-31.0) Mean Corpuscular Hemoglobin Concent 33.9 G/DL (32.0-36.0) Red Cell Distribution Width 13.0 % (11.6-14.8) Platelet Count 161 K/UL (150-450) Mean Platelet Volume 10.3 FL (6.5-10.1) H Neutrophils (%) (Auto) % (45.0-75.0) Lymphocytes (%) (Auto) % (20.0-45.0) Monocytes (%) (Auto) % (1.0-10.0) Eosinophils (%) (Auto) % (0.0-3.0) Basophils (%) (Auto) % (0.0-2.0) Sodium Level 133 MMOL/L (136-145) L Potassium Level 4.6 MMOL/L (3.5-5.1) Chloride Level 103 MMOL/L (98-107) Carbon Dioxide Level 24 MMOL/L (21-32) Anion Gap 7 mmol/L (5-15) Blood Urea Nitrogen 16 mg/dL (7-18) Creatinine 0.7 MG/DL (0.55-1.30) Estimat Glomerular Filtration Rate mL/min (>60) Glucose Level 142 MG/DL (74-106) H Calcium Level 7.8 MG/DL (8.5-10.1) L Total Bilirubin 1.3 MG/DL (0.2-1.0) H Direct Bilirubin 0.7 MG/DL (0.0-0.3) H Aspartate Amino Transf (AST/SGOT) 34 U/L (15-37) Alanine Aminotransferase (ALT/SGPT) 27 U/L (12-78) Alkaline Phosphatase 132 U/L (46-116) H Total Protein 4.9 G/DL (6.4-8.2) L Albumin 1.4 G/DL (3.4-5.0) L Globulin 3.5 g/dL Albumin/Globulin Ratio 0.4 (1.0-2.7) L Plan Problems: (1) Severe sepsis Assessment & Plan: etiology unknown UTI on admission but urine culture negative Blood cultures negative possible liver? abscess vs mass liver abscess s/p drainage improving diet as tolerated IV abx (2) Liver mass, left lobe Assessment & Plan: large left lobe liver mass of unknown etiology CT without contrast will order US and maybe MRI later US noted and large mass concerning for malignancy MRI noted. s/p us guided drainage improving -trend labs -diet as tolerated -iv abx D/C planning will monitor drain output. if able to d/c prior to d/c will do so. if not will plan to teach how to monitor an empty and can be removed when back home Jayden Ramos Feb 27, 2018 14:02
[2018-02-27 16:00] VITALS: BP 151/74
[2018-02-27 20:00] VITALS: BP 148/66
--- NOTE | 2018-02-27 22:17 | General Progress Note ---
Assessment/Plan Assessment/Plan Assessment - Left sided liver abscess - drained - bacteremia - elevated PSA to 78 - suspect prostate CA - renal failure - resolved - hyponatremia - mild, stable - thrombocytopenia, ? DIC - resolved Recommendations - IVF - Follow drain output - removal per surgery - check other tumor markers - negative AFP, CEA, 19-9 - check hepatitis serologies - negative - abx per ID Subjective Allergies: Coded Allergies: CIPROFLOXACIN (Verified Allergy, Unknown, 02/17/18) PENICILLINS (Verified Allergy, Unknown, 02/17/18) Subjective seen this am doing better tolerating po solids no abd pain Objective Last 24 Hour Vital Signs Date Time Temp Pulse Resp B/P (MAP) Pulse Ox O2 Delivery O2 Flow Rate FiO2 02/27/18 20:00 71 02/27/18 16:00 75 02/27/18 16:00 Nasal Cannula 2.0 02/27/18 16:00 98.1 72 18 151/74 (99) 98 02/27/18 12:00 Nasal Cannula 2.0 02/27/18 12:00 96.8 71 18 154/78 (103) 97 02/27/18 12:00 71 02/27/18 09:10 78 152/69 02/27/18 08:00 97.0 78 18 152/69 (96) 96 02/27/18 08:00 Nasal Cannula 2.0 02/27/18 08:00 78 02/27/18 04:00 98.4 77 16 153/67 (95) 99 02/27/18 04:00 Nasal Cannula 2.0 02/27/18 04:00 77 02/27/18 00:00 98.6 84 16 110/80 (90) 99 02/27/18 00:00 Nasal Cannula 2.0 02/27/18 00:00 74 Intake and Output 02/26/18 02/27/18 18:59 06:59 Intake Total 1210 ml 110 ml Output Total 1150 ml Balance 60 ml 110 ml Intake Oral 1000 ml IV Total 210 ml 110 ml Output Urine Total 1150 ml # Bowel Movements 2 Laboratory Tests 02/27/18 04:20: White Blood Count 10.0, Red Blood Count 3.43L, Hemoglobin 10.2L, Hematocrit 30.0L, Mean Corpuscular Volume 87, Mean Corpuscular Hemoglobin 29.6, Mean Corpuscular Hemoglobin Concent 33.9, Red Cell Distribution Width 13.0, Platelet Count 161, Mean Platelet Volume 10.3H, Neutrophils (%) (Auto) , Lymphocytes (%) (Auto) , Monocytes (%) (Auto) , Eosinophils (%) (Auto) , Basophils (%) (Auto) , Sodium Level 133L, Potassium Level 4.6, Chloride Level 103, Carbon Dioxide Level 24, Anion Gap 7, Blood Urea Nitrogen 16, Creatinine 0.7, Estimat Glomerular Filtration Rate , Glucose Level 142H, Calcium Level 7.8L, Total Bilirubin 1.3H, Direct Bilirubin 0.7H, Aspartate Amino Transf (AST/SGOT) 34, Alanine Aminotransferase (ALT/SGPT) 27, Alkaline Phosphatase 132H, Total Protein 4.9L, Albumin 1.4L, Globulin 3.5, Albumin/Globulin Ratio 0.4L Height (Feet): 6 Height (Inches): 2.00 Weight (Pounds): 240 Objective WDWN NCAT supple CTA RR, tachy Abd soft ND NT, (+) drainage catheter no edema neuro calm Jaylyn Parikh MD Feb 27, 2018 22:17
[2018-02-27] MEDS ORDERED: LORazepam Inj 2mg/ml 1ml IV ONE (23:30)
[2018-02-28] VITALS: BP 149/66
--- NOTE | 2018-02-28 00:15 | Progress Note ---
DATE: 02/27/2018 CARDIOLOGY PROGRESS NOTE SUBJECTIVE: The patient remains on antimicrobials for liver abscess. Remain concern of metastatic prostate cancer. OBJECTIVE: VITAL SIGNS: Blood pressure 153/67, pulse 77, and respirations 16. Afebrile. LUNGS: Diminished breath sounds. HEART: Regular rhythm and rate. Normal S1, S2 with a fourth heart sound. ABDOMEN: Soft. No ascites. EXTREMITIES: Trace dependent edema. LABORATORY DATA: Sodium 133, potassium 4.6, bicarbonate 24, BUN 16, and creatinine 0.7. Magnesium yesterday was 1.4. IMPRESSION: 1. Liver abscess status post drainage. 2. Acute on chronic diastolic congestive heart failure. 3. Hypomagnesemia. 4. Hypertensive heart disease. 5. Nonsustained ventricular tachycardia. 6. Severe protein-calorie malnutrition. 7. Prostate carcinoma with possible metastasis. PLAN: 1. Antimicrobials per ID. 2. Titrate antihypertensives. 3. Periodic diuresis. 4. IV magnesium. 5. Monitor renal and hepatic function parameters. Lex Barros M.D. DR: NADER JOB#: [id number] CC:
--- NOTE | 2018-02-28 00:45 | Progress Note ---
DATE: 02/26/2018 CARDIOLOGY PROGRESS NOTE Late entry for 02/26/2018 SUBJECTIVE: Monitored rhythm reviewed, occasional ventricular ectopics, no recurring ventricular arrhythmias for 48 hours. OBJECTIVE: GENERAL: The patient has no distress. VITAL SIGNS: Revealed blood pressure rising up to 175/78, heart rate 73, and respiratory rate 18. NECK: Supple. LUNGS: Clear. CARDIAC: Regular. Normal S1, S2 with a fourth heart sound. ABDOMEN: Soft. No ascites. EXTREMITIES: Trace edema. LABORATORY DATA: White count 13.5, hemoglobin 10.4. Sodium 134, potassium 4.5, bicarbonate 23, BUN 20, and creatinine 0.8. Albumin 1.3. Pro-natriuretic peptide 2300. IMPRESSION: 1. Recovering transaminitis and hepatitis, status post liver abscess drainage. 2. Acute on chronic diastolic congestive heart failure. 3. Hypertensive heart disease with labile blood pressure. 4. Nonsustained ventricular tachycardia. 5. Acute on chronic renal failure, resolved. PLAN: 1. Cautious titration of antihypertensives. 2. Reassess for diuresis. 3. Antimicrobials. 4. DVT prophylaxis. Lex Barros M.D. DR: MARGOT JOB#: [id number] CC:
[2018-02-28 04:00] VITALS: BP 158/86
[2018-02-28] MEDS: cefOXitin Sod 2 GM in D5W 110 ML IVPB SCH ×3 (06:13→21:43)
[2018-02-28] MEDS: NovoLOG Insulin Flexpen SUBQ SCH ×4 (06:15→20:04)
--- NOTE | 2018-02-28 06:45 | General Progress Note ---
Assessment/Plan Assessment/Plan # Left sided solid/cystic liver consolidation, r/o CA -- at this time has drained fluid via drain, given abx. CT of the chest/abdomen/pelvis:Large 9.8 x 11.3 x 9.2 cm heterogeneous area of low-attenuation involving most of the lateral left hepatic lobe. Abnormality involving segments 2 and 3 of the left hepatic lobe, as described above and on prior imaging studies. Appearance is most suggestive of liver abscess. Main differential consideration is necrotic metastatic neoplasm --> Repeat MRI in 2 months once back on the [facility] and reassess for any residual mass --> MRI of the abdomen: abnormality involving segments 2 and 3 of the left hepatic lobe --> tumor markers: CA 15-3 of 19.1, CA 19-9 of 20, PSA of 78.7 --> Pathology report shows no malignant cells, following --> 02/23: S/P drainage of liver abscess and is negative --> Consider outpatient CT guided biopsy when flies back to [facility] --> Bone scan: No definite plain radiographic evidence of osseous metastatic disease. # Thrombocytopenia likely due to sepsis, from liver infection/abscess --> Plt count is wnl has markedly improved --> Cont to closely monitor --> plt goal >20k if febrile --> plt goal >50k if procedure is pending # Anemia of chronic disease due to underlying chronic medical issues, multifactorial --> w/u has been reviewed. ferritin at 1725 --> Hgb goal >7. Transfuse prn. --> No evidence of hemolysis noted. Peripheral smear has been reviewed. # Elevated PSA -- may consider a bone scan to r/o mets --> obtain bone scan / skeletal survey since inpatient, bone scan is negative # Sepsis, UTI vs infected necrotic liver mass --> remains on abx, appreciate ID recs # Renal failure - has improved, normalized # Hyponatremia. on IVF # Episode of generalized weakness Greatly appreciate consultation! Subjective Constitutional: Denies: no symptoms, chills, diaphoresis, fever, malaise, weakness, other HEENT: Denies: no symptoms, eye pain, blurred vision, tearing, double vision, ear pain, ear discharge, nose pain, nose congestion, throat pain, throat swelling, mouth pain, mouth swelling, other Respiratory: Denies: no symptoms, cough, orthopnea, shortness of breath, SOB with excertion, SOB at rest, sputum, stridor, wheezing, other Gastrointestinal/Abdominal: Denies: no symptoms, abdomen distended, abdominal pain, black stools, tarry stools, blood in stool, constipated, diarrhea, difficulty swallowing, nausea, poor appetite, poor fluid intake, rectal bleeding , vomiting, other Genitourinary: Denies: no symptoms, burning, discharge, frequency, flank pain, hematuria, incontinence, pain, urgency, other Neurologic/Psychiatric: Denies: no symptoms, anxiety, depressed, emotional problems, headache, numbness, paresthesia, pre-existing deficit, seizure, tingling, tremors, weakness, other Endocrine: Denies: no symptoms, excessive sweating, flushing, intolerance to cold, intolerance to heat, increased hunger, increased thirst, increased urine, unexplained weight gain, unexplained weight loss, other Allergies: Coded Allergies: CIPROFLOXACIN (Verified Allergy, Unknown, 02/17/18) PENICILLINS (Verified Allergy, Unknown, 02/17/18) Subjective Pt awake and alert. No acute events. On O2 NC. Plt count is wnl. Requires pt/ot Objective Last 24 Hour Vital Signs Date Time Temp Pulse Resp B/P (MAP) Pulse Ox O2 Delivery O2 Flow Rate FiO2 02/28/18 04:00 76 02/28/18 04:00 98.5 81 20 158/86 (110) 99 02/28/18 04:00 Room Air 02/28/18 00:00 98.3 74 20 149/66 (93) 97 02/28/18 00:00 75 02/28/18 00:00 Room Air 02/27/18 20:00 Nasal Cannula 2.0 02/27/18 20:00 98.9 76 20 148/66 (93) 99 02/27/18 20:00 71 02/27/18 18:55 99 Nasal Cannula 2.0 28 02/27/18 18:55 Nasal Cannula 2.0 28 02/27/18 16:00 75 02/27/18 16:00 Nasal Cannula 2.0 02/27/18 16:00 98.1 72 18 151/74 (99) 98 02/27/18 12:00 Nasal Cannula 2.0 02/27/18 12:00 96.8 71 18 154/78 (103) 97 02/27/18 12:00 71 12/3/18 09:10 78 152/69 02/27/18 08:00 97.0 78 18 152/69 (96) 96 02/27/18 08:00 Nasal Cannula 2.0 02/27/18 08:00 78 Intake and Output 02/27/18 02/28/18 19:00 07:00 Intake Total 670 ml Output Total 1040 ml Balance -370 ml Intake Oral 360 ml IV Total 310 ml Output Urine Total 1000 ml Drainage Total 40 ml # Bowel Movements 4 1 Height (Feet): 6 Height (Inches): 2.00 Weight (Pounds): 240 Objective General Appearance: alert, GCS 15, moderate distress Eyes: bilateral eye PERRL ENT: normal pharynx, normal voice Neck: full range of motion Respiratory: normal inspection, no respiratory distress Cardiovascular: tachycardia Gastrointestinal: distended Genitourinary: no CVA tenderness Musculoskeletal: ++motor weakness Mehdi Williamson MD Feb 28, 2018 06:45
[2018-02-28 08:00] VITALS: BP 155/70
[2018-02-28] MEDS: Metamucil Pkt ORAL SCH (09:00)
[2018-02-28] MEDS: Aspirin Baby 81mg ORAL SCH (09:13)
[2018-02-28] MEDS: Sertraline 100mg tab ORAL SCH (09:13)
[2018-02-28] MEDS: Metoprolol Succinate XL 25mg tab ORAL SCH (09:14)
[2018-02-28] MEDS: Vitamin B-12 500mcg tab ORAL SCH (09:14)
--- NOTE | 2018-02-28 10:20 | Infectious Diseases Prog Note ---
Assessment/Plan Assessment/Plan antibiotics : cefoxitin A 1. fusobacterium sepsis 2. liver abscess s/p drainage 3. renal failure improving 4. increased LFT 5. diabetes mellitus 6. leucocytosis resolved P 1. continue cefoxitin 35 more days 2. will follow up cultures Subjective ROS Limited/Unobtainable: Yes Allergies: Coded Allergies: CIPROFLOXACIN (Verified Allergy, Unknown, 02/17/18) PENICILLINS (Verified Allergy, Unknown, 02/17/18) Objective Vital Signs Last 24 Hour Vital Signs Date Time Temp Pulse Resp B/P (MAP) Pulse Ox O2 Delivery O2 Flow Rate FiO2 02/28/18 09:14 82 155/70 02/28/18 08:00 Room Air 02/28/18 08:00 97.0 82 18 155/70 (98) 99 02/28/18 04:00 76 02/28/18 04:00 98.5 81 20 158/86 (110) 99 02/28/18 04:00 Room Air 02/28/18 00:00 98.3 74 20 149/66 (93) 97 02/28/18 00:00 75 02/28/18 00:00 Room Air 02/27/18 20:00 Nasal Cannula 2.0 02/27/18 20:00 98.9 76 20 148/66 (93) 99 02/27/18 20:00 71 02/27/18 18:55 99 Nasal Cannula 2.0 28 02/27/18 18:55 Nasal Cannula 2.0 28 02/27/18 16:00 75 02/27/18 16:00 Nasal Cannula 2.0 02/27/18 16:00 98.1 72 18 151/74 (99) 98 02/27/18 12:00 Nasal Cannula 2.0 02/27/18 12:00 96.8 71 18 154/78 (103) 97 02/27/18 12:00 71 Height (Feet): 6 Height (Inches): 2.00 Weight (Pounds): 240 Respiratory/Chest: lungs clear Cardiovascular: normal rate, regular rhythm, no gallop/murmur Abdomen: soft, non tender, distended, other - drain with sanguinous drainage Extremities: other - + edema Current Medications Medications (Trade) Dose Ordered Sig/Kalyan Route PRN Reason Start Time Stop Time Status Last Admin Dose Admin Acetaminophen/ Hydrocodone Bitart ([place] 5/325) 1 tab Q4H PRN ORAL Moderate Pain (Pain Scale 4-6) 02/22/18 18:00 03/01/18 17:59 02/22/18 18:16 Alfuzosin HCl (Uroxatrol) 10 mg DAILY ORAL 02/18/18 09:00 03/20/18 08:59 02/28/18 09:14 Aspirin (ASA) 81 mg DAILY ORAL 02/18/18 09:00 03/20/18 08:59 02/28/18 09:13 Cefoxitin Sodium 2 gm/Dextrose 110 ml @ 220 mls/hr Q8HR IVPB 02/25/18 12:00 03/04/18 11:59 02/28/18 06:13 Cyanocobalamin (Vitamin B-12) 1,000 mcg DAILY ORAL 02/18/18 09:00 03/20/18 08:59 02/28/18 09:14 Finasteride (Proscar) 5 mg EVERY OTHER DAY ORAL 02/19/18 09:00 03/21/18 08:59 02/27/18 09:09 Hydroxyzine HCl (Vistaril) 10 mg Q8H PRN ORAL Itching 02/17/18 18:00 03/19/18 17:59 Insulin Aspart (NovoLOG) BEFORE MEALS AND HS SUBQ 02/17/18 21:00 03/19/18 20:59 02/28/18 06:15 Metoprolol Succinate (Toprol XL) 50 mg DAILY ORAL 02/28/18 09:00 03/30/18 08:59 02/28/18 09:14 Pantoprazole (Protonix) 40 mg DAILY ORAL 02/18/18 09:00 03/20/18 08:59 02/28/18 09:14 Psyllium Hydrophilic Mucilloid (Metamucil) 1 pkt DAILY ORAL 02/18/18 09:00 03/20/18 08:59 02/27/18 09:10 Sertraline HCl (Zoloft) 100 mg DAILY ORAL 02/18/18 09:00 03/20/18 08:59 02/28/18 09:13 Renee Sanderson MD Feb 28, 2018 10:20
[2018-02-28 12:00] VITALS: BP 126/77
[2018-02-28 16:00] VITALS: BP 151/75
--- NOTE | 2018-02-28 19:19 | General Progress Note ---
Assessment/Plan Assessment/Plan IMPRESSION: 1. Acute pancreatitis. 2. Thrombocytopenia 3. Hematuria. 4. Hyponatremia. 5. Hypokalemia. 6. Acute on chronic renal failure. 7. Transaminitis. 8. Possible acute hepatitis. 9. Severe protein-calorie malnutrition. 10. Leukocytosis. 11. Concern for severe sepsis. 12. hypotension 13. liver mass 14. Atrial flutter 15. concern for metastatic prostate cancer 16. s/p liver biopsy 17. liver abcess PLAN IV antibiotics per ID needs total of 6 weeks- 35 days left avoid flying until improved has pigtail catheter and draining monitor bun and creatinine; much improved PO diet as tolerated will transition to ertapenem daily all consultants appreciated labs recovering and clinically improved aware; discuss and finalize dc with CM impression, plan, and exam edited and reviewed in detail care discussed with RN Subjective Allergies: Coded Allergies: CIPROFLOXACIN (Verified Allergy, Unknown, 02/17/18) PENICILLINS (Verified Allergy, Unknown, 02/17/18) Subjective all reviewed events noted and reviewed much improved and more alert Objective Last 24 Hour Vital Signs Date Time Temp Pulse Resp B/P (MAP) Pulse Ox O2 Delivery O2 Flow Rate FiO2 02/28/18 16:00 98.1 70 18 151/75 (100) 98 02/28/18 16:00 Room Air 02/28/18 16:00 72 02/28/18 12:00 97.9 77 18 126/77 (93) 99 02/28/18 12:00 78 02/28/18 12:00 Room Air 02/28/18 09:14 82 155/70 02/28/18 08:00 Room Air 02/28/18 08:00 86 02/28/18 08:00 97.0 82 18 155/70 (98) 99 02/28/18 04:00 76 02/28/18 04:00 98.5 81 20 158/86 (110) 99 02/28/18 04:00 Room Air 02/28/18 00:00 98.3 74 20 149/66 (93) 97 02/28/18 00:00 75 02/28/18 00:00 Room Air 02/27/18 20:00 Nasal Cannula 2.0 02/27/18 20:00 98.9 76 20 148/66 (93) 99 02/27/18 20:00 71 Intake and Output 02/27/18 02/28/18 19:00 07:00 Intake Total 670 ml Output Total 1040 ml Balance -370 ml Intake Oral 360 ml IV Total 310 ml Output Urine Total 1000 ml Drainage Total 40 ml # Bowel Movements 4 1 Height (Feet): 6 Height (Inches): 2.00 Weight (Pounds): 240 Objective GENERAL: The patient is alert HEENT: Negative. Extraocular movements are grossly intact. NECK: Supple. LUNGS: no rhonchi, otherwise clear. moderate air entry CARDIAC: S1 and S2. RRR without murmurs, rubs, or gallops. ABDOMEN: Soft. no tenderness. no HSM EXTREMITIES: No cyanosis or clubbing. trace UE edema. NEUROLOGIC: Otherwise, nonfocal. Se Tompkins MD Feb 28, 2018 19:19
--- NOTE | 2018-02-28 19:50 | General Progress Note ---
Assessment/Plan Assessment/Plan Assessment - Left sided liver abscess - drained - bacteremia - elevated PSA to 78 - suspect prostate CA - renal failure - resolved - hyponatremia - mild, stable - thrombocytopenia, ? DIC - resolved Recommendations - IVF - Follow drain output - removal per surgery - check other tumor markers - negative AFP, CEA, 19-9 - check hepatitis serologies - negative - abx per ID Subjective Allergies: Coded Allergies: CIPROFLOXACIN (Verified Allergy, Unknown, 02/17/18) PENICILLINS (Verified Allergy, Unknown, 02/17/18) Subjective seen this am doing better tolerating po solids no abd pain Objective Last 24 Hour Vital Signs Date Time Temp Pulse Resp B/P (MAP) Pulse Ox O2 Delivery O2 Flow Rate FiO2 02/28/18 16:00 98.1 70 18 151/75 (100) 98 02/28/18 16:00 Room Air 02/28/18 16:00 72 02/28/18 12:00 97.9 77 18 126/77 (93) 99 02/28/18 12:00 78 02/28/18 12:00 Room Air 02/28/18 09:14 82 155/70 02/28/18 08:00 Room Air 02/28/18 08:00 86 02/28/18 08:00 97.0 82 18 155/70 (98) 99 02/28/18 04:00 76 02/28/18 04:00 98.5 81 20 158/86 (110) 99 02/28/18 04:00 Room Air 02/28/18 00:00 98.3 74 20 149/66 (93) 97 02/28/18 00:00 75 02/28/18 00:00 Room Air 02/27/18 20:00 Nasal Cannula 2.0 02/27/18 20:00 98.9 76 20 148/66 (93) 99 02/27/18 20:00 71 Intake and Output 02/27/18 02/28/18 19:00 07:00 Intake Total 670 ml Output Total 1040 ml Balance -370 ml Intake Oral 360 ml IV Total 310 ml Output Urine Total 1000 ml Drainage Total 40 ml # Bowel Movements 4 1 Height (Feet): 6 Height (Inches): 2.00 Weight (Pounds): 240 Objective WDWN NCAT supple CTA RR, tachy Abd soft ND NT, (+) drainage catheter no edema neuro calm Khorrami,Payman MD Feb 28, 2018 19:50
[2018-02-28 20:00] VITALS: BP 148/62
--- NOTE | 2018-02-28 20:51 | General Surgery Progress Note ---
General Surgery-Progress Note Subjective Symptoms: improved, pain absent, tolerating diet, passing flatus, BM Objective Last 24 Hour Vital Signs Date Time Temp Pulse Resp B/P (MAP) Pulse Ox O2 Delivery O2 Flow Rate FiO2 02/28/18 20:00 Room Air 02/28/18 20:00 98.4 74 18 148/62 (90) 99 02/28/18 19:52 Nasal Cannula 2.0 28 02/28/18 19:52 98 Nasal Cannula 2.0 28 02/28/18 16:00 98.1 70 18 151/75 (100) 98 02/28/18 16:00 Room Air 02/28/18 16:00 72 02/28/18 12:00 97.9 77 18 126/77 (93) 99 02/28/18 12:00 78 02/28/18 12:00 Room Air 02/28/18 09:14 82 155/70 02/28/18 08:00 Room Air 02/28/18 08:00 86 02/28/18 08:00 97.0 82 18 155/70 (98) 99 02/28/18 04:00 76 02/28/18 04:00 98.5 81 20 158/86 (110) 99 02/28/18 04:00 Room Air 02/28/18 00:00 98.3 74 20 149/66 (93) 97 02/28/18 00:00 75 02/28/18 00:00 Room Air I&O Intake and Output 02/27/18 02/28/18 19:00 07:00 Intake Total 670 ml Output Total 1040 ml Balance -370 ml Intake Oral 360 ml IV Total 310 ml Output Urine Total 1000 ml Drainage Total 40 ml # Bowel Movements 4 1 Dressing: other Wound: other Drains: other Cardiovascular: RSR Respiratory: clear Abdomen: soft, flat, non-tender, present bowel sounds Extremities: edema, no tenderness, no cyanosis Plan Problems: (1) Severe sepsis Assessment & Plan: etiology unknown UTI on admission but urine culture negative Blood cultures negative possible liver? abscess vs mass liver abscess s/p drainage improving diet as tolerated IV abx (2) Liver mass, left lobe Assessment & Plan: large left lobe liver mass of unknown etiology CT without contrast will order US and maybe MRI later US noted and large mass concerning for malignancy MRI noted. s/p us guided drainage improving -trend labs -diet as tolerated -iv abx D/C planning will monitor drain output. if able to d/c prior to d/c will do so. if not will plan to teach how to monitor an empty and can be removed when back home possible d/c planning for tomorrow Jayden Ramos Feb 28, 2018 20:51
[2018-02-28] MEDS ORDERED: Tubing IV Secondary IV ONE (22:52)
--- NOTE | 2018-02-28 23:30 | Progress Note ---
DATE: 02/28/2018 CARDIOLOGY PROGRESS NOTE SUBJECTIVE: The patient's cultures have grown out an unusual organism and he is recommended for 35 days of IV antibiotics more. The patient's renal parameters and liver function continued to improve. The patient's monitored rhythm remains sinus with episodes of nonsustained ventricular ectopy several days ago. He had a 7-beat run of ventricular tachycardia that was asymptomatic. OBJECTIVE: VITAL SIGNS: Blood pressure 155/70, pulse 82, and respirations 18. LUNGS: Diminished breath sounds. No wheezing. HEART: Regular rhythm and rate. Normal S1, S2. ABDOMEN: Soft. EXTREMITIES: There is trace edema. LABORATORY DATA: No new laboratories. IMPRESSION: 1. Bacteremia. 2. Liver abscess. 3. Severe protein-calorie malnutrition. 4. Hypertensive heart disease. 5. Ventricular ectopy. 6. Acute on chronic diastolic congestive heart failure. 7. Hypomagnesemia. 8. Acute renal failure, resolved. 9. Transaminitis, recovering. PLAN: 1. Antimicrobials. 2. Monitor volume status. 3. Reassess for additional diuresis. 4. At this time, no additional antihypertensive therapy will be added, however, we will reassess if condition warrants. Lex Barros M.D. DR: NADER JOB#: [id number] CC:
[2018-03-01] VITALS: BP 156/72
[2018-03-01 04:00] VITALS: BP 152/76
[2018-03-01 05:21] LABS: BASOPHILS % (AUTO) 0.4 % (0.0-2.0); EOSINOPHILS % (AUTO) 0.8 % (0.0-3.0); HEMATOCRIT 29.3 % (42.0-52.0); HEMOGLOBIN 9.8 G/DL (14.2-18.0); LYMPHOCYTES % (AUTO) 8.4 % (20.0-45.0); MEAN CORPUSCULAR VOLUME 88 FL (80-99); MONOCYTES % (AUTO) 6.4 % (1.0-10.0); PLATELET COUNT 253 K/UL (150-450); RED BLOOD COUNT 3.33 M/UL (4.70-6.10); RED CELL DISTRIBUTION WIDTH 12.8 % (11.6-14.8)
[2018-03-01] MEDS: cefOXitin Sod 2 GM in D5W 110 ML IVPB SCH ×2 (05:42→14:06)
[2018-03-01] MEDS: NovoLOG Insulin Flexpen SUBQ SCH ×4 (05:44→20:59)
--- NOTE | 2018-03-01 06:27 | General Progress Note ---
Assessment/Plan Assessment/Plan # Left sided solid/cystic liver consolidation, r/o CA -- at this time has drained fluid via drain, given abx. CT of the chest/abdomen/pelvis:Large 9.8 x 11.3 x 9.2 cm heterogeneous area of low-attenuation involving most of the lateral left hepatic lobe. Abnormality involving segments 2 and 3 of the left hepatic lobe, as described above and on prior imaging studies. Appearance is most suggestive of liver abscess. Main differential consideration is necrotic metastatic neoplasm --> Repeat MRI in 2 months once back on the [facility] and reassess for any residual mass --> MRI of the abdomen: abnormality involving segments 2 and 3 of the left hepatic lobe --> tumor markers: CA 15-3 of 19.1, CA 19-9 of 20, PSA of 78.7 --> Pathology report shows no malignant cells, following --> 02/23: S/P drainage of liver abscess and negvative cytology, is growing out abnml bacteria --> Consider outpatient CT guided biopsy when flies back to [facility] --> Bone scan: No definite plain radiographic evidence of osseous metastatic disease. ==> 6 weeks of antibiotics as per ID # Thrombocytopenia likely due to sepsis, from liver infection/abscess --> Plt count is wnl has markedly improved --> Cont to closely monitor --> plt goal >20k if febrile, >50k for any procedure # Anemia of chronic disease due to underlying chronic medical issues, multifactorial --> w/u has been reviewed. ferritin at 1725 --> Hgb goal >7. Transfuse prn. --> No evidence of hemolysis noted. Peripheral smear has been reviewed. # Elevated PSA -- in the 70s, will need to be followed serially --> obtain bone scan / skeletal survey since inpatient, bone scan is negative --> repeat psa in 6mo # Sepsis, UTI vs infected necrotic liver mass --> remains on abx, appreciate ID recs # Renal failure - has improved, normalized # Hyponatremia. on IVF # Episode of generalized weakness Greatly appreciate consultation! Subjective Constitutional: Reports: no symptoms HEENT: Reports: no symptoms Cardiovascular: Reports: no symptoms Respiratory: Reports: no symptoms Gastrointestinal/Abdominal: Reports: no symptoms Genitourinary: Reports: no symptoms Endocrine: Reports: no symptoms Hematologic/Lymphatic: Reports: no symptoms Allergies: Coded Allergies: CIPROFLOXACIN (Verified Allergy, Unknown, 02/17/18) PENICILLINS (Verified Allergy, Unknown, 02/17/18) Subjective Pt awake and alert. No acute events. On O2 NC. Plt count is wnl. Requires pt/ot , resting on abx Objective Last 24 Hour Vital Signs Date Time Temp Pulse Resp B/P (MAP) Pulse Ox O2 Delivery O2 Flow Rate FiO2 03/01/18 04:00 98.5 73 20 152/76 (101) 99 03/01/18 04:00 Room Air 03/01/18 03:32 71 03/01/18 00:00 98.5 72 20 156/72 (100) 98 03/01/18 00:00 74 03/01/18 00:00 Room Air 02/28/18 20:50 78 02/28/18 20:00 Room Air 02/28/18 20:00 98.4 74 18 148/62 (90) 99 02/28/18 19:52 Nasal Cannula 2.0 28 02/28/18 19:52 98 Nasal Cannula 2.0 28 02/28/18 16:00 98.1 70 18 151/75 (100) 98 02/28/18 16:00 Room Air 02/28/18 16:00 72 02/28/18 12:00 97.9 77 18 126/77 (93) 99 02/28/18 12:00 78 02/28/18 12:00 Room Air 02/28/18 09:14 82 155/70 02/28/18 08:00 Room Air 02/28/18 08:00 86 02/28/18 08:00 97.0 82 18 155/70 (98) 99 Intake and Output 02/28/18 03/01/18 18:59 06:59 Intake Total 110 ml 110 ml Balance 110 ml 110 ml IV Total 110 ml 110 ml # Bowel Movements 1 1 Laboratory Tests 03/01/18 03:35: White Blood Count 9.0, Red Blood Count 3.33L, Hemoglobin 9.8L, Hematocrit 29.3L , Mean Corpuscular Volume 88, Mean Corpuscular Hemoglobin 29.5, Mean Corpuscular Hemoglobin Concent 33.5, Red Cell Distribution Width 12.8, Platelet Count 253, Mean Platelet Volume 8.8, Neutrophils (%) (Auto) 84.0H, Lymphocytes ( %) (Auto) 8.4L, Monocytes (%) (Auto) 6.4, Eosinophils (%) (Auto) 0.8, Basophils (%) (Auto) 0.4, Sodium Level [Pending], Potassium Level [Pending], Chloride Level [Pending], Carbon Dioxide Level [Pending], Blood Urea Nitrogen [Pending], Creatinine [Pending], Estimat Glomerular Filtration Rate [Pending], Glucose Level [Pending], Calcium Level [Pending], Magnesium Level [Pending], Total Bilirubin [Pending], Aspartate Amino Transf (AST/SGOT) [Pending], Alanine Aminotransferase (ALT/SGPT) [Pending], Alkaline Phosphatase [Pending], Pro-B- Type Natriuretic Peptide [Pending], Total Protein [Pending], Albumin [Pending], Globulin [Pending] Height (Feet): 6 Height (Inches): 2.00 Weight (Pounds): 240 General Appearance: alert EENT: TMs normal Neck: supple Cardiovascular: regular rhythm Respiratory/Chest: normal breath sounds Abdomen: non tender Extremities: normal range of motion Edema: 1+ Leg (L), 1+ Leg (R) Neurologic: alert Skin: warm/dry Objective General Appearance: alert, GCS 15, moderate distress Eyes: bilateral eye PERRL ENT: normal pharynx, normal voice Neck: full range of motion Respiratory: normal inspection, no respiratory distress Cardiovascular: tachycardia Gastrointestinal: distended Genitourinary: no CVA tenderness Musculoskeletal: ++motor weakness Mehdi Williamson MD Mar 01, 2018 06:27
[2018-03-01 06:32] LABS: ALANINE AMINOTRANSFERASE 29 U/L (12-78); ALBUMIN 1.5 G/DL (3.4-5.0); ALBUMIN/GLOBULIN RATIO 0.4 (1.0-2.7); ALKALINE PHOSPHATASE 114 U/L (46-116); ANION GAP 6 mmol/L (5-15); ASPARTATE AMINO TRANSFERASE 36 U/L (15-37); BILIRUBIN,TOTAL 1.1 MG/DL (0.2-1.0); BLOOD UREA NITROGEN 12 mg/dL (7-18); CALCIUM 8.1 MG/DL (8.5-10.1); CARBON DIOXIDE 26 MMOL/L (21-32); CHLORIDE 103 MMOL/L (98-107); CREATININE 0.7 MG/DL (0.55-1.30); POTASSIUM 4.5 MMOL/L (3.5-5.1); SODIUM 135 MMOL/L (136-145)
[2018-03-01 06:46] LABS: BILIRUBIN,DIRECT 0.5 MG/DL (0.0-0.3)
[2018-03-01 08:00] VITALS: BP 155/75
[2018-03-01] MEDS: Sertraline 100mg tab ORAL SCH (08:21)
[2018-03-01] MEDS: Vitamin B-12 500mcg tab ORAL SCH (08:21)
[2018-03-01] MEDS: Metoprolol Succinate XL 25mg tab ORAL SCH (08:22)
[2018-03-01] MEDS: Aspirin Baby 81mg ORAL SCH (08:22)
[2018-03-01] MEDS: Metamucil Pkt ORAL SCH (09:00)
--- NOTE | 2018-03-01 10:00 | General Progress Note ---
Assessment/Plan Assessment/Plan IMPRESSION: 1. Acute pancreatitis. 2. Thrombocytopenia 3. Hematuria. 4. Hyponatremia. 5. Hypokalemia. 6. Acute on chronic renal failure. 7. Transaminitis. 8. Possible acute hepatitis. 9. Severe protein-calorie malnutrition. 10. Leukocytosis. 11. Concern for severe sepsis. 12. hypotension 13. liver mass 14. Atrial flutter 15. concern for metastatic prostate cancer 16. s/p liver biopsy 17. liver abcess PLAN IV antibiotics per ID needs total of 6 weeks- 34 days left avoid flying until improved has pigtail catheter and draining; will need to monitor and have GI follow up monitor bun and creatinine; much improved PO diet as tolerated will transition to ertapenem daily for home use all consultants appreciated labs recovering and clinically improved aware; discuss and finalize dc with CM impression, plan, and exam edited and reviewed in detail care discussed with RN Subjective Allergies: Coded Allergies: CIPROFLOXACIN (Verified Allergy, Unknown, 02/17/18) PENICILLINS (Verified Allergy, Unknown, 02/17/18) Subjective all reviewed events noted and reviewed much improved and more alert Objective Last 24 Hour Vital Signs Date Time Temp Pulse Resp B/P (MAP) Pulse Ox O2 Delivery O2 Flow Rate FiO2 03/01/18 08:22 72 155/75 03/01/18 08:00 Room Air 03/01/18 08:00 97.7 72 20 155/75 (101) 97 03/01/18 04:00 98.5 73 20 152/76 (101) 99 03/01/18 04:00 Room Air 03/01/18 03:32 71 03/01/18 00:00 98.5 72 20 156/72 (100) 98 03/01/18 00:00 74 03/01/18 00:00 Room Air 02/28/18 20:50 78 02/28/18 20:00 Room Air 02/28/18 20:00 98.4 74 18 148/62 (90) 99 02/28/18 19:52 Nasal Cannula 2.0 28 02/28/18 19:52 98 Nasal Cannula 2.0 28 02/28/18 16:00 98.1 70 18 151/75 (100) 98 02/28/18 16:00 Room Air 02/28/18 16:00 72 02/28/18 12:00 97.9 77 18 126/77 (93) 99 02/28/18 12:00 78 02/28/18 12:00 Room Air Intake and Output 02/28/18 03/01/18 19:00 07:00 Intake Total 110 ml 210 ml Output Total 2170 ml Balance 110 ml -1960 ml Intake Oral 100 ml IV Total 110 ml 110 ml Output Urine Total 2100 ml Drainage Total 70 ml # Bowel Movements 1 1 Laboratory Tests 03/01/18 03:35: White Blood Count 9.0, Red Blood Count 3.33L, Hemoglobin 9.8L, Hematocrit 29.3L , Mean Corpuscular Volume 88, Mean Corpuscular Hemoglobin 29.5, Mean Corpuscular Hemoglobin Concent 33.5, Red Cell Distribution Width 12.8, Platelet Count 253, Mean Platelet Volume 8.8, Neutrophils (%) (Auto) 84.0H, Lymphocytes ( %) (Auto) 8.4L, Monocytes (%) (Auto) 6.4, Eosinophils (%) (Auto) 0.8, Basophils (%) (Auto) 0.4, Sodium Level 135L, Potassium Level 4.5, Chloride Level 103, Carbon Dioxide Level 26, Anion Gap 6, Blood Urea Nitrogen 12, Creatinine 0.7, Estimat Glomerular Filtration Rate , Glucose Level 119H, Calcium Level 8.1L, Magnesium Level 1.4L, Total Bilirubin 1.1H, Direct Bilirubin 0.5H, Aspartate Amino Transf (AST/SGOT) 36, Alanine Aminotransferase (ALT/SGPT) 29, Alkaline Phosphatase 114, Pro-B-Type Natriuretic Peptide 1019H, Total Protein 4.9L, Albumin 1.5L, Globulin 3.4, Albumin/Globulin Ratio 0.4L Height (Feet): 6 Height (Inches): 2.00 Weight (Pounds): 240 Objective GENERAL: The patient is alert HEENT: Negative. Extraocular movements are grossly intact. NECK: Supple. LUNGS: no rhonchi, otherwise clear. moderate air entry CARDIAC: S1 and S2. RRR without murmurs, rubs, or gallops. ABDOMEN: Soft. no tenderness. no HSM EXTREMITIES: No cyanosis or clubbing. trace UE edema. NEUROLOGIC: Otherwise, nonfocal. Se Tompkins MD Mar 01, 2018 10:00
[2018-03-01 12:00] VITALS: BP 147/70
--- NOTE | 2018-03-01 12:56 | General Surgery Progress Note ---
General Surgery-Progress Note Subjective Symptoms: improved, pain absent, tolerating diet, passing flatus, BM Objective Last 24 Hour Vital Signs Date Time Temp Pulse Resp B/P (MAP) Pulse Ox O2 Delivery O2 Flow Rate FiO2 03/01/18 12:00 Room Air 03/01/18 12:00 98.5 68 20 147/70 (95) 97 03/01/18 08:22 72 155/75 03/01/18 08:00 Room Air 03/01/18 08:00 97.7 72 20 155/75 (101) 97 03/01/18 08:00 80 03/01/18 04:00 98.5 73 20 152/76 (101) 99 03/01/18 04:00 Room Air 03/01/18 03:32 71 03/01/18 00:00 98.5 72 20 156/72 (100) 98 03/01/18 00:00 74 03/01/18 00:00 Room Air 02/28/18 20:50 78 02/28/18 20:00 Room Air 02/28/18 20:00 98.4 74 18 148/62 (90) 99 02/28/18 19:52 Nasal Cannula 2.0 28 02/28/18 19:52 98 Nasal Cannula 2.0 28 02/28/18 16:00 98.1 70 18 151/75 (100) 98 02/28/18 16:00 Room Air 02/28/18 16:00 72 I&O Intake and Output 02/28/18 03/01/18 19:00 07:00 Intake Total 110 ml 210 ml Output Total 2170 ml Balance 110 ml -1960 ml Intake Oral 100 ml IV Total 110 ml 110 ml Output Urine Total 2100 ml Drainage Total 70 ml # Bowel Movements 1 1 Dressing: dry Wound: clean Drains: other Cardiovascular: RSR Respiratory: clear Abdomen: soft, flat, non-tender, present bowel sounds Extremities: edema, no tenderness, no cyanosis Laboratory Tests Test 03/01/18 03:35 White Blood Count 9.0 K/UL (4.8-10.8) Red Blood Count 3.33 M/UL (4.70-6.10) L Hemoglobin 9.8 G/DL (14.2-18.0) L Hematocrit 29.3 % (42.0-52.0) L Mean Corpuscular Volume 88 FL (80-99) Mean Corpuscular Hemoglobin 29.5 PG (27.0-31.0) Mean Corpuscular Hemoglobin Concent 33.5 G/DL (32.0-36.0) Red Cell Distribution Width 12.8 % (11.6-14.8) Platelet Count 253 K/UL (150-450) Mean Platelet Volume 8.8 FL (6.5-10.1) Neutrophils (%) (Auto) 84.0 % (45.0-75.0) H Lymphocytes (%) (Auto) 8.4 % (20.0-45.0) L Monocytes (%) (Auto) 6.4 % (1.0-10.0) Eosinophils (%) (Auto) 0.8 % (0.0-3.0) Basophils (%) (Auto) 0.4 % (0.0-2.0) Sodium Level 135 MMOL/L (136-145) L Potassium Level 4.5 MMOL/L (3.5-5.1) Chloride Level 103 MMOL/L (98-107) Carbon Dioxide Level 26 MMOL/L (21-32) Anion Gap 6 mmol/L (5-15) Blood Urea Nitrogen 12 mg/dL (7-18) Creatinine 0.7 MG/DL (0.55-1.30) Estimat Glomerular Filtration Rate mL/min (>60) Glucose Level 119 MG/DL (74-106) H Calcium Level 8.1 MG/DL (8.5-10.1) L Magnesium Level 1.4 MG/DL (1.8-2.4) L Total Bilirubin 1.1 MG/DL (0.2-1.0) H Direct Bilirubin 0.5 MG/DL (0.0-0.3) H Aspartate Amino Transf (AST/SGOT) 36 U/L (15-37) Alanine Aminotransferase (ALT/SGPT) 29 U/L (12-78) Alkaline Phosphatase 114 U/L (46-116) Pro-B-Type Natriuretic Peptide 1019 pg/mL (0-125) H Total Protein 4.9 G/DL (6.4-8.2) L Albumin 1.5 G/DL (3.4-5.0) L Globulin 3.4 g/dL Albumin/Globulin Ratio 0.4 (1.0-2.7) L Plan Problems: (1) Severe sepsis Assessment & Plan: etiology unknown UTI on admission but urine culture negative Blood cultures negative possible liver? abscess vs mass liver abscess s/p drainage improving diet as tolerated abx (2) Liver mass, left lobe Assessment & Plan: large left lobe liver mass of unknown etiology CT without contrast will order US and maybe MRI later US noted and large mass concerning for malignancy MRI noted. s/p us guided drainage improving -trend labs -diet as tolerated -iv abx D/C planning will monitor drain output. if able to d/c prior to d/c will do so. if not will plan to teach how to monitor an empty and can be removed when back home possible d/c planning today drain noted and i drained 50cc myself in short period of time. not ready for drain removal d/c with drain will remove tuesday prior to flight home or will return home with drain to have removed at local MD office thank you Jayden Ramos Mar 01, 2018 12:56
[2018-03-01 16:00] VITALS: BP 155/73
[2018-03-01 20:00] VITALS: BP 147/69
[2018-03-01] MEDS ORDERED: NS 275ml ONE (20:59)
--- NOTE | 2018-03-03 07:31 | Discharge Summary ---
Discharge Summary Discharge Summary _ DATE OF ADMISSION: 02/17/2018 DATE OF DISCHARGE: 03/01/2018 CONSULTANTS: Dr. Jayden Williamson [facility] HOSPITAL COURSE: Patient is a 73-year-old male who was brought in by EMS after increased generalized weakness and nausea. Patient reported increased chills for several days. The patient presented with generalized weakness. He had increased difficulty with ambulation due to dizziness and lightheadedness. He had increased difficulty moving his legs. Patient had prior history of cardiac arrhythmia, history of diabetes, enlarged prostate and a prior heart attack. He admits to marijuana use. On evaluation at the ED, blood pressure was 103/53, heart rate 110, 99% oxygen saturation. EKG showed atrial flutter with variable block at a rate of 100s. He was noted to be hypotensive. He was started on IV fluids and was pancultured. Blood work showed marked leukocytosis, WBC 26. Hemoglobin and hematocrit were stable. Platelet count was 108. Sodium was 125, chloride 85, BUN was elevated to 81 and creatinine was 3.2. Glucose level was 153. LFTs were elevated. Direct bilirubin 4.8, total bilirubin 5.8. Troponin was negative. Chest x-ray showed no evidence of pneumonia with normal cardiac size. CT of the abdomen and pelvis showed a large area of heterogenous attenuation of the left hepatic lobe and extensive colonic diverticulosis with sigmoid wall thickening. He was admitted for evaluation of acute pancreatitis, severe sepsis, hyponatremia, renal failure, transaminitis, possible acute hepatitis, thrombocytopenia Surgical and GI evaluation was done. Patient was placed on n.p.o. Abdominal ultrasound 11.5 x 11.0 x 10.8 cm heterogeneous cystic and solid mass lesion in the left hepatic lobe with internal Doppler flow; highly concerning for a primary or metastatic malignancy. Tumor markers were checked. Renal function was elevated, ultrasound findings showed normal kidneys. Kidney function presumed acute renal failure, most likely due to ATN versus rhabdomyolysis versus nephrotoxic type. He was given IV hydration. He was started on tr cefepime and Flagyl by ID. Vancomycin was discontinued. He was eventually given fluconazole. He developed worsening leukocytosis. On February 20, 2018 he underwent ultrasound guided drainage of liver abscess. Pigtail catheter was left in place. Tumor markers CA 153 was 19, CA 199 was 20, PSA was elevated to 78. He had thrombocytopenia and underwent plasma transfusion on 02/21/2018. AFP was negative. Hepatitis serology negative. He underwent a bone scan that was negative. Blood culture showed growth of Fusobacterium. Antibiotics were discontinued and was given cefoxitin. Body fluid culture did not isolate any growth. No anaerobes isolated. AFB was negative. Pathology result was negative for malignant cells. P.o. diet was advanced as tolerated. Renal function continued to improve. Liver function downtrending. Blood count within normal limits. He was cleared for discharge home. Needs 6 weeks of antibiotics. He was advised need to repeat MRI in 2 months to reevaluate any residual mass. Pigtail catheter was a still draining, not ready for drain removal. Patient and family was instructed on how to care for drain. Patient was advised to follow-up prior to flight home for drain removal here at the local MD office. FINAL DIAGNOSES: Severe sepsis, Fusobacterium sepsis Acute pancreatitis Thrombocytopenia, possible DIC Hyponatremia Hypokalemia Acute renal failure Transaminitis Severe protein calorie malnutrition Possible prostate CA Atrial flutter Liver abscess status post drain Dary of chronic disease Hypertensive heart disease Hypomagnesemia Acute on chronic diastolic congestive heart failure Stain ventricular tachycardia DISPOSITION: Patient was discharged home with home health. DISCHARGE INSTRUCTIONS: Follow up in a week. I have been assigned to dictate discharge summary on this account, and I was not involved in the patient's management. Radha Gonzalez NP Mar 03, 2018 07:31
--- NOTE | 2018-03-05 23:30 | Progress Note ---
DATE: 03/01/2018 CARDIOLOGY PROGRESS NOTE Late entry. SUBJECTIVE: The patient is to complete [facility] at a [facility] facility. Drainage catheter for hepatobiliary tract will be removed. The patient is tolerating oral intake and is off IV fluids. The patient continues to require diagnostic studies of abdominal mass with concern over malignancy discussed with surgeon. PHYSICAL EXAMINATION: VITAL SIGNS: Blood pressure 147/70, pulse 68, respirations 20. LUNGS: Clear. CARDIAC: Regular rhythm and rate. Normal S1, S2 with a fourth heart sound. ABDOMEN: Soft. EXTREMITIES: Trace edema. IMPRESSION: 1. Liver abscess status post drainage. 2. Probable prostate cancer. 3. Possible metastatic disease. 4. Hypertensive heart disease with adequate blood pressure control. 5. Paroxysmal atrial ectopy, nonsustained. 6. Hypomagnesemia, replaced. 7. Acute renal failure, resolved. PLAN: 1. Stable for lower level of care from cardiovascular standpoint. 2. Discharge cardiovascular medication regimen is reviewed and discussed. Lex Barros M.D. DR: ISMAEL JOB#: [id number] CC:
== END 2018-03-01 21:00 | disposition home health service (06) | DRG 871 ==
LOC: EDBD 10:34 → EMR 11:00 → ICU 11:26 → EDBEDREQ 12:00 → EDBEDREQSVC 12:00 → EDBEDREQTM 12:00 → EDBEDREQ 12:07 → EDBEDREQSVC 12:07 → EDBEDREQ 12:46 → 2W 15:48
PROC: 0F9230Z Drainage of Left Lobe Liver with Drainage Device, Percutaneous Approach (ICD-10-PCS; principal; 2018-02-20)
PROC: 30233K1 Transfusion of Nonautologous Frozen Plasma into Peripheral Vein, Percutaneous Approach (ICD-10-PCS; 2018-02-21)
DX: A41.4 Sepsis due to anaerobes (principal); K85.90 Acute pancreatitis without necrosis or infection, unspecified; E43 Unspecified severe protein-calorie malnutrition; N17.0 Acute kidney failure with tubular necrosis; I50.33 Acute on chronic diastolic (congestive) heart failure; K75.0 Abscess of liver; D65 Disseminated intravascular coagulation [defibrination syndrome]; I48.92 Unspecified atrial flutter; I13.0 Hypertensive heart and chronic kidney disease with heart failure and stage 1 through stage 4 chronic kidney disease, or unspecified chronic kidney disease; E87.1 Hypo-osmolality and hyponatremia; B17.9 Acute viral hepatitis, unspecified; R17 Unspecified jaundice; R65.20 Severe sepsis without septic shock; Z68.30 Body mass index [BMI] 30.0-30.9, adult; I48.0 Paroxysmal atrial fibrillation; E11.22 Type 2 diabetes mellitus with diabetic chronic kidney disease; N18.9 Chronic kidney disease, unspecified; I25.10 Atherosclerotic heart disease of native coronary artery without angina pectoris; Z95.5 Presence of coronary angioplasty implant and graft; E78.5 Hyperlipidemia, unspecified; R31.9 Hematuria, unspecified; E87.6 Hypokalemia; D64.9 Anemia, unspecified; C61 Malignant neoplasm of prostate
CPT/HCPCS: 36415; 71045; 72197; 74176; 74183; 76700; 76942; 77075; 80053; 80202; 81003; 81050; 82105; 82140; 82150; 82248; 82378; 82550; 82553; 82728; 82962; 83036; 83540; 83550; 83605; 83690; 83735; 83880; 83935; 84100; 84153; 84165; 84484; 85007; 85025; 85362; 85384; 85610; 85651; 85730; 86140; 86300; 86705; 86709; 86803; 86850; 86900; 86901; 87040; 87070; 87075; 87081; 87086; 87116; 87181; 87205; 87340; 89051; 93005; 93306; 93970; 94640; 94664; 94760; 96361; 96365; 96367; 96375; 99291; A9585; J1815; J7620; J8499